=== PATIENT | male | born 1935 | race Caucasian/White ===

== ENCOUNTER → 2016-08-07 | Outpatient (CLI) | payer OTHER ==
[~2016-08-07] MED LIST: ASPEC81 PO; AUG0.05O4 TOP; CEPH500C PO; CLC/300 PO; CLC100 PO; CLON-460 PO; CTPUNK PO; CZR25 PO; FINA5TAB PO; FLM4 PO; IBUP-103 PO; LEVO100T84 PO; MRLP17X PO; PB30 PO; PRT40 PO; RXC5 PO; SIMV10TA2 PO; SYN100 PO
[2016-08-07 13:41] LABS: BASO % 0.4 %; BASO ABS # 0.02 K/uL (0-0.2); COMPLETE YES; EOS % 1.4 %; HEMATOCRIT 40.3 % (42-52); IG% 0.2 %; LYMPH ABS # 1.49 K/uL (1.2-3.4); MEAN CELL VOLUME 96.4 fL (80-100); MEAN CORPUSCULAR HEMOGLOBIN 33.3 pg (25-34); MEAN CORPUSCULAR HGB CONC 34.5 g/dl (32-36); MEAN PLATELET VOLUME 11.5 fL (7.4-10.4); MONO % 8.3 %; NEUT % 62.7 %; PLATELET COUNT 123 K/uL (130-400); RED BLOOD COUNT 4.18 M/uL (4.7-6.1); WHITE BLOOD COUNT 5.52 K/uL (4.8-10.8)
[2016-08-07 13:42] LABS: ALT/SGPT 21 U/L (12-78); BLOOD UREA NITROGEN 20 mg/dl (7-18); BUN/CREATININE RATIO 18.4 (10-20); CARBON DIOXIDE 25 mmol/L (21-32); CHLORIDE 107 mmol/L (98-107); CHOLESTEROL 180 mg/dl (0-200); GLUCOSE 84 mg/dl (70-99); POTASSIUM 4.3 mmol/L (3.5-5.1); SODIUM 141 mmol/L (136-145)
[2016-08-07 13:53] LABS: ALKALINE PHOSPHATASE 100 U/L (45-117); AST/SGOT 18 U/L (15-37); CHOLESTEROL/HDL RATIO 3.5; HDL CHOLESTEROL 52 mg/dl; LDL CHOLESTEROL CALCULATED 71 mg/dl; TRIGLYCERIDES 283 mg/dl (0-150); VERY LOW DENSITY LIPOPROT CALC 57 mg/dl
== END | disposition home or self-care (01) ==
LOC: C.LABBC 11:29
PROVIDERS: ATTEND Family Medicine
DX: I10 Essential (primary) hypertension (principal); E03.9 Hypothyroidism, unspecified; D64.9 Anemia, unspecified; E78.5 Hyperlipidemia, unspecified

== ENCOUNTER 2016-10-19 10:25 | Emergency (ER) | payer OTHER ==
[~2016-10-19] VITALS: Ht 172.7 cm; Wt 130.4 kg
[~2016-10-19 10:25] MED LIST changes: -ASPEC81 PO; -AUG0.05O4 TOP; -CEPH500C PO; -CLC/300 PO; -CLC100 PO; -CLON-460 PO; -CZR25 PO; -FINA5TAB PO; -IBUP-103 PO; -MRLP17X PO; -PB30 PO; -PRT40 PO; -RXC5 PO; -SIMV10TA2 PO; -SYN100 PO
[2016-10-19 10:31] VITALS: TEMP 36.3; Ht 172.7 cm; Wt 130.4 kg
[2016-10-19 11:44] LABS: BASO % 0.2 %; BASO ABS # 0.01 K/uL (0-0.2); COMPLETE YES; EOS % 1.2 %; HEMATOCRIT 39.4 % (42-52); IG% 0.2 %; LYMPH % 23.4 %; LYMPH ABS # 1.21 K/uL (1.2-3.4); MEAN CELL VOLUME 97.3 fL (80-100); MEAN CORPUSCULAR HEMOGLOBIN 33.8 pg (25-34); MEAN CORPUSCULAR HGB CONC 34.8 g/dl (32-36); MEAN PLATELET VOLUME 10.9 fL (7.4-10.4); MONO % 8.1 %; NEUT % 66.9 %; PLATELET COUNT 129 K/uL (130-400); RED BLOOD COUNT 4.05 M/uL (4.7-6.1); WHITE BLOOD COUNT 5.18 K/uL (4.8-10.8)
[2016-10-19] MEDS ORDERED: CEFTRIAXONE SOD INJ 1 GM ADDVIAL IV STA (11:49)
[2016-10-19 12:01] LABS: BUN/CREATININE RATIO 24.5 (10-20); CALCIUM 8.7 mg/dl (8.5-10.1); CREATININE 0.95 mg/dl (0.60-1.40); POTASSIUM 4.3 mmol/L (3.5-5.1)
[2016-10-19 12:47] VITALS: BP 153/70; PULSE 59; O2SAT 99
[2016-10-19] MEDS ORDERED: CEPH500C PO (12:53)
--- NOTE | 2016-10-19 17:36 | EMERGENCY ROOM VISIT NOTE ---
History Report prepared by Herbie: Mary Thomas Under the Supervision of: Dr. Charles Garcia M.D. First contact with patient: 10:58 Chief Complaint: LEG PAIN,LEG INJURY Stated Complaint: RIGHT LEG IS RED/PAINFUL History of Present Illness The patient is an 80 year old male who presents to the Emergency Room with complaints of worsening right lower extremity pain and erythema that started yesterday. The patient has a history of small, nonhealing, ulcerative lesions on the right rodriguez for the past year, as well as 3-4 smaller and similar lesions on medial aspect of right rodriguez for the past month. He denies drainage from these lesions. He does put hand cream on these lesions daily. Patient denies recent injury or trauma to legs. He states that he has had swelling of his legs bilaterally for the past 5 years due to a bilateral knee replacement. He has a history of cellulitis and pancytopenia. He also adds that he had a "flesh eating bacteria" on left lower leg a couple years ago. Patient is a former smoker. He denies alcohol or drug use. Pt denies LOC, headache, fevers, chills, diaphoresis, visual changes, neck pain , chest pain, breathing difficulties, nausea, vomiting, abdominal pain, back pain, melena, hematochezia, urinary symptoms, numbness, weakness, or other complaints. Source of History: patient Onset: Yesterday Position: leg (right) Timing: worsening Modifying Factors (Worsening): other (None) Associated Symptoms: No LOC, No abdominal pain, No back pain, No chest pain , No chills, No diaphoresis, No fevers, No headache, No hematochezia, No melena , No nausea, No numbness, No urinary symptoms, No vomiting, No weakness Review of Systems See HPI for pertinent positives and negatives. A total of ten systems were reviewed and were otherwise negative. Past Medical & Surgical Medical Problems: (1) Cellulitis (2) High cholesterol (3) Hypertension (4) O (5) Pancytopenia Family History FH: hypertension FH: seizures Social History Smoking Status: Former Smoker Alcohol Use: none Drug Use: none Marital Status: Housing Status: lives with significant other Occupation Status: retired Current/Historical Medications Scheduled Betamethasone Dip Aug 0.05% (Diprolene 0.05%), 1 APPLN TOP PRN Cephalexin Monohydrate (Keflex), 500 MG PO QID Clonidine HCl (Clonidine HCl), 0.3 MG PO TID Finasteride (Proscar), 5 MG PO DHS Levothyroxine Sodium (Synthroid), 100 MCG PO QPM Losartan Potassium (Losartan Potassium), 25 MG PO DAILY Phenobarbital (Phenobarbital), 129.6 MG PO HS Simvastatin (Zocor), 10 MG PO QPM Tamsulosin HCl (Tamsulosin HCl), 0.4 MG PO HS Scheduled PRN Ibuprofen Tab (Advil), 400 MG PO Q8 PRN Allergies Coded Allergies: No Known Allergies (Verified , 10/19/16) Physical Exam Vital Signs Date Time Temp Pulse Resp B/P Pulse Ox O2 Delivery O2 Flow Rate FiO2 10/19/16 12:47 59 18 153/70 99 Room Air 10/19/16 12:05 50 18 144/67 98 Room Air 10/19/16 10:31 36.3 73 18 164/100 97 Room Air Physical Exam GENERAL: Awake, alert, well-appearing, in no distress HENT: Normocephalic, atraumatic. Oropharynx unremarkable. EYES: Normal conjunctiva. Sclera non-icteric. NECK: Supple. No nuchal rigidity. FROM. No JVD. RESPIRATORY: Clear to auscultation. CARDIAC: Regular rate, normal rhythm. Extremities warm and well perfused. Pulses equal. ABDOMEN: Soft, non-distended. No tenderness to palpation. No rebound or guarding. No masses. MUSCULOSKELETAL: Chest examination reveals no tenderness. No joint edema. LOWER EXTREMITIES: Small ulcerations and scab wounds with surrounding erythema, warmth, and tenderness to back of right lower extremity. Chronic venous discoloration noted. 1+ edema bilaterally. NEURO: Normal sensorium. No sensory or motor deficits noted. SKIN: No rash or jaundice noted. Medical Decision & Procedures Laboratory Results 10/19/16 11:19 Red Blood Count 4.05, Mean Corpuscular Volume 97.3, Mean Corpuscular Hemoglobin 33.8, Mean Corpuscular Hemoglobin Concent 34.8, Mean Platelet Volume 10.9, Neutrophils (%) (Auto) 66.9, Lymphocytes (%) (Auto) 23.4, Monocytes (%) (Auto) 8.1, Eosinophils (%) (Auto) 1.2, Basophils (%) (Auto) 0.2, Neutrophils # (Auto) 3.47, Lymphocytes # (Auto) 1.21, Monocytes # (Auto) 0.42, Eosinophils # (Auto) 0.06, Basophils # (Auto) 0.01 10/19/16 11:19 Test 10/19/16 11:19 10/19/16 11:34 White Blood Count 5.18 K/uL (4.8-10.8) Red Blood Count 4.05 M/uL (4.7-6.1) Hemoglobin 13.7 g/dL (14.0-18.0) Hematocrit 39.4 % (42-52) Mean Corpuscular Volume 97.3 fL (80-100) Mean Corpuscular Hemoglobin 33.8 pg (25-34) Mean Corpuscular Hemoglobin Concent 34.8 g/dl (32-36) Platelet Count 129 K/uL (130-400) Mean Platelet Volume 10.9 fL (7.4-10.4) Neutrophils (%) (Auto) 66.9 % Lymphocytes (%) (Auto) 23.4 % Monocytes (%) (Auto) 8.1 % Eosinophils (%) (Auto) 1.2 % Basophils (%) (Auto) 0.2 % Neutrophils # (Auto) 3.47 K/uL (1.4-6.5) Lymphocytes # (Auto) 1.21 K/uL (1.2-3.4) Monocytes # (Auto) 0.42 K/uL (0.11-0.59) Eosinophils # (Auto) 0.06 K/uL (0-0.5) Basophils # (Auto) 0.01 K/uL (0-0.2) RDW Standard Deviation 51.0 fL (36.4-46.3) RDW Coefficient of Variation 14.2 % (11.5-14.5) Immature Granulocyte % (Auto) 0.2 % Immature Granulocyte # (Auto) 0.01 K/uL (0.00-0.02) Anion Gap 3.0 mmol/L (3-11) Est Creatinine Clear Calc Drug Dose 80.4 ml/min Estimated GFR () 86.7 Estimated GFR (Non- 74.8 BUN/Creatinine Ratio 24.5 (10-20) Calcium Level 8.7 mg/dl (8.5-10.1) Total Bilirubin 0.4 mg/dl (0.2-1) Direct Bilirubin 0.1 mg/dl (0-0.2) Aspartate Amino Transf (AST/SGOT) 15 U/L (15-37) Alanine Aminotransferase (ALT/SGPT) 22 U/L (12-78) Alkaline Phosphatase 106 U/L (45-117) Total Protein 7.2 gm/dl (6.4-8.2) Albumin 3.6 gm/dl (3.4-5.0) Bedside Lactic Acid Venous 1.13 mmol/L (0.90-1.70) Laboratory results reviewed by me Medications Administered Medications (Trade) Dose Ordered Sig/Demetria Route Start Time Stop Time Status Last Admin Dose Admin Ceftriaxone Sodium (Rocephin Inj) 1 gm NOW STAT IV 10/19/16 11:49 10/19/16 11:54 DC 10/19/16 12:01 1 GM ED Course 1142: The patient was evaluated in room A10. A complete history and physical exam was performed. 1149: Ordered Rocephin Injection 1 gm IV. 1250: Upon reevaluation, the patient is feeling great. Discussed results and discharge instructions: He verbalized understanding and agreement. The patient is ready for discharge. Medical Decision Prior records reviewed and summarized as above. The patient has a previous diagnosis of cellulitis. No necrotizing fasciitis diagnosis during the encounter she mentioned. Triage Nursing notes reviewed and agree them. Additional history obtained from the family. The patient's history was concerning for swelling and redness of the skin. Differential diagnosis: Etiologies such as cellulitis, DVT, necrotizing fasciitis, abscess, MRSA infection, dermatitis, drug eruption, as well as others were entertained.. Physical examination: The physical examination was consistent with cellulitis. No crepitus. No fluctuance. ER treatment provided: IV Rocephin On reassessment the patient felt well. Diagnostics interpreted by me: The labs revealed an unremarkable CBC and chemistry panel. Lactate negative. Imaging studies: Deferred This appears to be isolated cellulitis. The patient will be treated with Rocephin and Keflex. He has done well with this in the past. I did discuss a referral to the wound center as she has several small areas that need to be treated.I gave my usual and customary discussion regarding this issue. By the evaluation outlined above emergent etiologies such as abscess, necrotizing fasciitis, DVT, as well as others were deemed relatively unlikely. The patient and family were informed about the findings as listed above. All questions were answered and they were pleased with the treatment. Return instructions were outlined and the patient was discharged in stable condition. Outpatient prescription management: Keflex The chart was completed utilizing [employer] Speech voice recognition software. Grammatical errors, random word insertions, pronoun errors, and incomplete sentences are an occasional consequence of this system due to software limitations, ambient noise, and hardware issues. Any formal questions or concerns about the content, text, or information contained within the body of this dictation should be directly addressed to the physician for clarification. Impression Primary Impression: Cellulitis of right leg Scribe Attestation The scribe's documentation has been prepared under my direction and personally reviewed by me in its entirety. I confirm that the note above accurately reflects all work, treatment, procedures, and medical decision making performed by me. Departure Information Dispostion Home / Self-Care Prescriptions Cephalexin Monohydrate (Keflex) 500 Mg Cap 500 MG PO QID, #40 CAP Prov: Charles Garcia MD 10/19/16 Referrals Janes Aguirre D.O.Int.Med. (PCP) Forms HOME CARE DOCUMENTATION FORM, IMPORTANT VISIT INFORMATION Patient Instructions My [facility] Additional Instructions CELLULITIS INSTRUCTIONS: Cephalexin(Keflex) 500mg: Take one pill four times daily for 10 days for your skin infection. All antibiotics can cause diarrhea. If this occurs and you feel worse or it does not resolve in 1-2 days follow up with your doctor or return to the Emergency Department as this could be signs of serious underlying problems. Any medication can cause an allergic reaction, stop the pills immediately and return to the ER for rash, hives, breathing difficulties, or swelling. Acetaminophen(Tylenol) may be used for fever or pain. Use 1000mg every six hours as needed. Avoid using more than 4000mg in a 24 hour period. Warm compresses to the affected area 4 times daily for 15-20 minutes. Rest and drink plenty of fluids. Continue current medications. Return to the ER for severe pain, persistent fevers, spreading redness, or any worsening of your condition. Follow up with your primary physician within 2-3 days for a recheck of the current condition. Call the [facility] for Wound Care at [phone] on Friday. Tell them you were in the ER and we want you to have your wound evaluated.
[2016-10-25] MEDS ORDERED: CLC/300 PO (13:03)
[2017-02-18] MEDS ORDERED: IBUP-103 PO (10:21)
[2017-02-18] MEDS ORDERED: CLON-460 PO (11:39)
[2017-06-01] MEDS ORDERED: PB30 PO (09:38)
[2017-06-01] MEDS ORDERED: FINA5TAB PO (10:52)
[2017-06-01] MEDS ORDERED: SIMV10TA2 PO (10:52)
[2017-06-01] MEDS ORDERED: FLM4 PO (11:06)
[2017-06-01] MEDS ORDERED: SYN100 PO (11:06)
== END 2016-10-19 13:17 | disposition home or self-care (01) ==
LOC: C.EDB 10:27 → C.EDA 13:17
DX: L03.115 Cellulitis of right lower limb (principal); E78.00 Pure hypercholesterolemia, unspecified; I10 Essential (primary) hypertension; D61.818 Other pancytopenia; Z79.899 Other long term (current) drug therapy; Z87.891 Personal history of nicotine dependence; Z82.0 Family history of epilepsy and other diseases of the nervous system; Z82.49 Family history of ischemic heart disease and other diseases of the circulatory system

== ENCOUNTER → 2016-12-25 | Outpatient (CLI) | payer OTHER ==
[~2016-12-25] MED LIST changes: +ASPEC81 PO; +AUG0.05O4 TOP; +CLC100 PO; +CLON-460 PO; +CLON0.3T PO; -CTPUNK PO; +CZR25 PO; +FINA5TAB PO; +FLUO-245 TOP; +IBUP-103 PO; -LEVO100T84 PO; +MRLP17X PO; +PB30 PO; +PRT40 PO; +RXC5 PO; +SIMV10TA2 PO; +SYN100 PO
== END | disposition home or self-care (01) ==
LOC: C.PATHSPEC 13:17
PROVIDERS: ATTEND Dermatology
DX: L81.4 Other melanin hyperpigmentation (principal); L57.0 Actinic keratosis

== ENCOUNTER 2017-02-18 13:42 | Inpatient (IN) | payer OTHER ==
[~2017-02-18] VITALS: Ht 172.7 cm; Wt 131.6 kg
[~2017-02-18 13:42] MED LIST changes: -ASPEC81 PO; -AUG0.05O4 TOP; -CLC100 PO; -CLON0.3T PO; -CZR25 PO; -FLUO-245 TOP; -MRLP17X PO; -PRT40 PO; -RXC5 PO
[2017-02-18] MEDS ORDERED: KETOROLAC TROMETHAMINE 60 MG/2 ML VIAL IM STA (14:20)
--- NOTE | 2017-02-18 14:26 | EMERGENCY ROOM VISIT NOTE ---
ED Visit Note First contact with patient: 13:53 CHIEF COMPLAINT: Bilateral knee pain HISTORY OF PRESENT ILLNESS: This 81-year-old male patient presents to the emergency department ambulatory, with his , after sustaining an injury to the bilateral knees to her tripping and falling. The patient states he was walking out of the building, when his right toe got caught on what he believes to be a back shoe cutter brush, and he fell forward, landing on his right knee. The patient states he didn't become off balance, and is certain that the trip was the cause of his fall. The patient states he landed directly on his right knee, then his left knee quickly followed. He denies head injury, loss of consciousness, confusion, dizziness, tinnitus, or other associated head symptoms. The patient reports significant swelling, pain, and abrasions of his right knee, and more minimal swelling of his left knee. The patient does have history of bilateral knee replacements, and states he has been through 3 of them on each side. The patient denies any other injuries besides their knee. The patient does have swelling and bruising. There is pain with movement of the knee and weightbearing, worse on the right. They rate the pain as like a bee sting and 10/10 with movement and ambulation. The patient states they are able to walk on it, and did drive here, but this does significantly worsen the pain. No numbness or tingling. No ankle, foot or hip pain. REVIEW OF SYSTEMS: A 6 system review of systems was completed with positives and pertinent negatives listed in the HPI. ALLERGIES: None MEDICATIONS: Simvastatin, Proscar, ibuprofen, phenobarbital, Diprolene, losartan , levothyroxine, tamsulosin, clonidine PMH: Anxiety, hypertension, hyperlipidemia, BPH, hypothyroidism SOCIAL HISTORY: Patient lives locally with family. He denies drug, alcohol, tobacco use. PHYSICAL EXAM: Vital Signs: Reviewed Nurse's notes, vital signs stable. GENERAL : This is an 81-year-old male, no acute distress, but appears in pain, well- developed, well-nourished. MENTAL STATUS: Alert, oriented to person place and time, and cooperative. MUSCULOSKELETAL: The right and left knees are swollen, the right more than left. There is ecchymosis bilaterally. There is joint effusion present bilaterally. The patient is tender with palpation on the anterior aspect of both knees. There is no joint line tenderness. The patella does subluxate. Range of motion is full, limited on the right due to pain. Strength of the quads and hamstrings is 5/5. Michel's is negative. Everett's and Anterior Drawer tests are negative. There is no discomfort or laxity with varus and valgus stressing. The foot and toes are warm and well-perfused. Dorsalis pedis pulse 2+. Sensation to pain and light touch is intact. Capillary refill less than 2 seconds. RADIOLOGY: X-Ray Right Knee: DISCUSSION: There are postsurgical changes of a total right knee arthroplasty. There is a large joint effusion. There is mild cortical irregularity of the medial femoral condyle. This may represent a subtle fracture. IMPRESSION: 1. Large joint effusion 2. Equivocal periprosthetic fracture involving the medial femoral condyle X-Ray Left Knee: FINDINGS: Anterior soft tissue swelling. There is an acute slightly distracted fracture within the inferior patella. Moderate joint effusion. Long stem left total knee arthroplasty. The hardware appears intact. Mild periprosthetic lucency surrounding the neck of the femoral component which measures up to 2 mm and at the posterior aspect of the tibial component also measuring up to 2 mm. IMPRESSION: 1. Slightly distracted acute fracture at the inferior patella. 2. Anterior soft tissue swelling and a moderate joint effusion. 3. Mild periprosthetic lucency of the femoral and tibial components has described above. This suggests developing loosening. EMERGENCY DEPARTMENT COURSE: I examined the patient. 60 mg Toradol IM was given to the patient, with mild improvement in pain. X-rays of the bilateral knees were reviewed by myself and read by radiology and reveal findings as noted above. I discussed the case with Dr. Guthrie, from orthopedics who does recommend admission at this time. Dr. Guthrie advised that COREY Grossman would be down to do the admission. An IV was inserted and labs were drawn. The patient was admitted as an inpatient. DIFFERENTIAL DIAGNOSIS: Fracture, contusion, strain, superficial abrasions, and others DIAGNOSIS: Medial femoral condyle fracture on the right, inferior patella fracture on the left Problem List Medical Problems: (1) Cellulitis Status: Resolved (2) High cholesterol Status: Chronic (3) Hypertension Status: Chronic (4) Pancytopenia Status: Chronic Current/Historical Medications Scheduled Betamethasone Dip Aug 0.05% (Diprolene 0.05%), 1 APPLN TOP PRN Clonidine HCl (Clonidine HCl), 0.3 MG PO TID Finasteride (Proscar), 5 MG PO DHS Levothyroxine Sodium (Synthroid), 100 MCG PO QPM Losartan Potassium (Losartan Potassium), 25 MG PO DAILY Phenobarbital (Phenobarbital), 129.6 MG PO HS Simvastatin (Zocor), 10 MG PO QPM Tamsulosin HCl (Tamsulosin HCl), 0.4 MG PO HS Scheduled PRN Ibuprofen Tab (Advil), 400 MG PO Q8 PRN for Pain Allergies Coded Allergies: No Known Allergies (Verified , 10/19/16) Vital Signs Date Time Temp Pulse Resp B/P (MAP) Pulse Ox O2 Delivery O2 Flow Rate FiO2 02/18/17 16:05 78 18 202/95 97 Room Air 02/18/17 13:49 36.5 74 18 200/102 97 Room Air Laboratory Results 02/18/17 15:50 Test 02/18/17 15:50 Red Blood Count 4.04 M/uL (4.7-6.1) Mean Corpuscular Volume 95.5 fL (80-100) Mean Corpuscular Hemoglobin 33.9 pg (25-34) Mean Corpuscular Hemoglobin Concent 35.5 g/dl (32-36) RDW Standard Deviation 47.6 fL (36.4-46.3) RDW Coefficient of Variation 13.7 % (11.5-14.5) Mean Platelet Volume 11.6 fL (7.4-10.4) Medications Administered Medications (Trade) Dose Ordered Sig/Demetria Route Start Time Stop Time Status Last Admin Dose Admin Ketorolac Tromethamine (Toradol Inj) 60 mg NOW STAT IM 02/18/17 14:20 02/18/17 14:21 DC 02/18/17 14:50 60 MG Departure Information Impression Primary Impression: Fracture of medial condyle of femur Additional Impression: Patellar fracture Dispostion Admitted as an inpatient Condition GOOD Referrals No Doctor, Assigned (PCP) Patient Instructions [facility] Problem Qualifiers Primary Impression: Fracture of medial condyle of femur Encounter type: initial encounter Fracture type: closed Fracture alignment : nondisplaced Laterality: right Qualified Codes: S72.434A - Nondisplaced fracture of medial condyle of right femur, initial encounter for closed fracture Additional Impression: Patellar fracture Encounter type: initial encounter Fracture type: closed Fracture morphology : transverse Fracture alignment: displaced Laterality: left Qualified Codes: S82.032A - Displaced transverse fracture of left patella, initial encounter for closed fracture
[2017-02-18] MEDS ORDERED: AUG0.05O4 TOP (14:32)
--- NOTE | 2017-02-18 14:55 | DIAGNOSTIC IMAGING REPORT ---
RIGHT KNEE 3 VIEWS CLINICAL HISTORY: Right knee pain and swelling. Trauma. COMPARISON: None DISCUSSION: There are postsurgical changes of a total right knee arthroplasty. There is a large joint effusion. There is mild cortical irregularity of the medial femoral condyle. This may represent a subtle fracture. IMPRESSION: 1. Large joint effusion 2. Equivocal periprosthetic fracture involving the medial femoral condyle Electronically signed by: Hipolito Diaz M.D. 02/18/2017 2:53 PM Dictated Date/Time: 02/18/2017 2:51 PM
--- NOTE | 2017-02-18 14:57 | DIAGNOSTIC IMAGING REPORT ---
LEFT KNEE 3 VIEWS HISTORY: fall, left knee pain/swelling COMPARISON: Left knee 11/30/2010 FINDINGS: Anterior soft tissue swelling. There is an acute slightly distracted fracture within the inferior patella. Moderate joint effusion. Long stem left total knee arthroplasty. The hardware appears intact. Mild periprosthetic lucency surrounding the neck of the femoral component which measures up to 2 mm and at the posterior aspect of the tibial component also measuring up to 2 mm. IMPRESSION: 1. Slightly distracted acute fracture at the inferior patella. 2. Anterior soft tissue swelling and a moderate joint effusion. 3. Mild periprosthetic lucency of the femoral and tibial components has described above. This suggests developing loosening. Electronically signed by: Simon Stearns M.D. 02/18/2017 2:56 PM Dictated Date/Time: 02/18/2017 2:51 PM
[2017-02-18] MEDS ORDERED: CZR25 PO (16:31)
[2017-02-18] MEDS ORDERED: MoRPHine SULFATE 4 MG/ML 1 ML CARP\\VIAL IV PRN (17:00)
[2017-02-18] MEDS ORDERED: ONDANSETRON INJ 2 MG/ML 2 ML VIAL IV PRN (17:00)
[2017-02-18] MEDS ORDERED: MoRPHine SULFATE 2 MG/ML CARP IV PRN (17:00)
[2017-02-18] MEDS ORDERED: ALUMINUM/MAGNESIUM SUSP 30 ML UDC PO PRN (17:00)
[2017-02-18] MEDS ORDERED: KETOROLAC TROMETHAMINE 15 MG/ML VIAL IV. PRN (17:00)
[2017-02-18 17:22] LABS: HEMATOCRIT 38.6 % (42-52); MEAN CELL VOLUME 95.5 fL (80-100); MEAN CORPUSCULAR HEMOGLOBIN 33.9 pg (25-34); MEAN CORPUSCULAR HGB CONC 35.5 g/dl (32-36); MEAN PLATELET VOLUME 11.6 fL (7.4-10.4); PLATELET COUNT 115 K/uL (130-400); RED BLOOD COUNT 4.04 M/uL (4.7-6.1); WHITE BLOOD COUNT 7.09 K/uL (4.8-10.8)
[2017-02-18 17:38] LABS: BLOOD UREA NITROGEN 27 mg/dl (7-18); BUN/CREATININE RATIO 30.5 (10-20); CARBON DIOXIDE 28 mmol/L (21-32); CHLORIDE 107 mmol/L (98-107); CREATININE 0.87 mg/dl (0.60-1.40); GLUCOSE 85 mg/dl (70-99); SODIUM 139 mmol/L (136-145)
[2017-02-18 18:08] LABS: PARTIAL THROMBOPLASTIN RATIO 1.2; PROTHROMBIN TIME (PATIENT) 11.2 SECONDS (9.0-12.0)
--- NOTE | 2017-02-18 18:26 | EMERGENCY ROOM VISIT NOTE ---
ED Visit Note First contact with patient: 13:53 This Patient was discussed with the physician acute care assistant, Nina Zamudio PA-C. The pertinent historical and physical exam findings were confirmed. I agree with the studies ordered and with the interpretations of these studies. I agree with the disposition and care plan.
[2017-02-18 18:37] VITALS: BP_SYST 224; BP_SYST 233; BP_DIAS 112; BP_DIAS 113; PULSE 78; TEMP 36.7; O2SAT 96
[2017-02-18 19:01] VITALS: BP 214/104; PULSE 76
--- NOTE | 2017-02-18 19:17 | HISTORY & PHYSICAL EXAMINATION ---
DATE OF ADMISSION: 02/18/2017 REASON FOR ADMISSION: Bilateral knee pain. HISTORY OF PRESENT ILLNESS: The patient is an 81-year-old white male known to our practice who has had multiple revision surgeries on his knees in the past. He states that he was at an apartment that he was inspecting to make sure it was up the code before he rented it. He ended up stepping out and tripping over a brush that helps clean off shoes as you go through a door, lost his balance and he fell down on to his right knee than his left knee, almost simultaneously, worse on the right than the left. He had immediate pain in the right knee and it began to swell. He did have some pain in the left knee but was able to actually get up and ambulate on the left knee, more than the right knee and drove himself to the Emergency Room here. He did not lose consciousness. He had no shortness of breath, chest pain or lightheadedness prior to or after the fall and denies any other injuries after the fall. He came to the Emergency Room and was seen by the staff and was found that he had a minimally displaced periprosthetic distal femur fracture on the right knee and also a question of a left inferior pole patellar fracture versus fracture of an osteophyte or heterotopic bone. PAST MEDICAL HISTORY: Hypertension, hypercholesterolemia, and benign prostatic hypertrophy. Denies history of diabetes mellitus, tuberculosis, hepatitis, COPD, CAD, DVT. PAST SURGICAL HISTORY: Multiple knee replacement surgeries on his both knees totalling 3 on each side. SOCIAL HISTORY: The patient does not use alcohol or tobacco. He is and lives with his . FAMILY HISTORY: History of seizures and hypertension. MEDICATIONS: Betamethasone dip 1 application topically p.r.n., clonidine 0.3 mg p.o. t.i.d., finasteride 5 mg p.o. at bedtime, ibuprofen 400 mg p.o. q. 8 hours p.r.n., levothyroxine 100 mcg p.o. q.p.m., losartan potassium 25 mg p.o. daily, phenobarbital 129.6 mg p.o. at bedtime, simvastatin 10 mg p.o. q.p.m., and tamsulosin 0.4 mg at bedtime. ALLERGIES: NKDA. REVIEW OF SYSTEMS: No history of recent fevers, chills, night sweats, unexplained weight loss or weight gain. No flu or cold-like symptoms. No increased cough or sputum production. No chest pain, chest pressure, irregular heartbeat. No abdominal pain. No unusual nausea, vomiting, diarrhea or constipation. No recent hematuria, pyuria, dysuria or renal calculi. The patient states that he is able to sleep through the night without having to urinate and denies frequency or urgency. No history of TIA or CVA. PHYSICAL EXAMINATION: GENERAL: The patient is an 81-year-old white male, obese, who is in no acute distress, pleasant and cooperative. SKIN: Warm and dry. Turgor is good. HEENT: Head is normocephalic and atraumatic. There is no scleral icterus or injection. Nasal airway is patent. Oral mucosa is pink and moist. NECK: Supple. HEART: Regular rate and rhythm without murmurs, gallops or splits. LUNGS: CTA without rales, rhonchi or wheezes. ABDOMEN: Soft, obese and nontender. He has a small umbilical hernia noted. Bowel sounds are present x4. GENITALIA AND RECTAL: Not performed at this time. EXTREMITIES: On examination of the patient's bilateral lower extremities - his right knee has moderate abrasions over the right knee and his right knee has a moderate effusion at this time. He is tender on palpation over the lateral aspect of his knee and I can appreciate a small defect could be in the lateral retinacular area near the superior lateral pole of the patella. This is mildly tender on palpation. I cannot appreciate no other defects at this time. He is unable to do a straight leg raise with the right lower extremity. Bending it causes him moderate pain and he has limited range of motion, because of his effusion. He has no pain down below the knee to the ankle and feet. No pain in the right hip. Right hip range of motion is within normal limits and right ankle is within normal limits without discomfort. He does have noted edema of both legs which he has had for years off and on and is nontender. Left knee at this time only has a mild abrasion noted. I can appreciate no defects in the patellar tendon or in the quadriceps mechanism. He is nontender in medial and lateral of the knee and patient actively flexes the knee to approximately 120 degrees on his own without any apparent discomfort. He is able to fully extend the knee and can do a full straight leg raise on his own and has good strength. He has no pain anywhere else in the left lower extremity, although he states that over the last few years, he has been having sharp pains in his left hip off and on but nothing frequent. No pain in the left hip at this point in time. No pain in the left ankle and toes with good range of motion of these. Upper extremities are essentially unaffected and he has good range of motion of both upper extremities. No gross motor or sensory deficits noted other than decreased range of motion of the right knee because of effusion and fracture. Distal pulses are equal bilaterally. DIAGNOSES: Distal medial condylar periprosthetic femur fracture, right with likely quadriceps mechanism disruption and possible left inferior pole patellar fracture versus heterotopic ossification and/or fracture of osteophyte of the left knee. PLAN: The patient will be admitted for pain control and further inspection of his right knee for possible defects in the quadriceps mechanism depending on what it is decided, will try to get him up on with physical therapy tomorrow with 50% weightbearing on the right lower extremity with immobilizer and weightbearing as tolerated on the left knee at this time. If he does have a retinacular disruption, he will need repaired which will likely be done by Dr. Guthrie as soon as possible. RAFIA
[2017-02-18] MEDS: CLONIDINE HCL 0.3 MG TAB PO SCH (19:29)
[2017-02-18 19:30] VITALS: Ht 172.7 cm; Wt 131.6 kg
[2017-02-18] MEDS ORDERED: NURSING VERBAL MED ORDER ONE (19:30)
[2017-02-18] MEDS ORDERED: LOSARTAN POTASSIUM 25 MG TAB PO ONE (20:00)
[2017-02-18] MEDS ORDERED: HydrALAZINE HCL 20 MG/ML VIAL IV. PRN (20:00)
--- NOTE | 2017-02-18 20:11 | History and Physical ---
History & Physical Date & Time of Service: Feb 18, 2017 at 19:53 Chief Complaint: Left Inferior Pole Patellar Fracture, Primary Care Physician: No Doctor, Assigned History of Present Illness Source: patient 81 y/o M morbidly obese, CAD, HTN, HPL, hypothyroid, seizures, BPH, DJD with multiple orthopedic surgeries including knee replacements. Pt presented with a distal R femoral fracture. He is currently being evaluated for surgery vs conservative ,management. The medical staff was asked to evaluate this pt due to uncontrolled HTN. Past Medical/Surgical History Medical Problems: (1) Cellulitis Status: Resolved (2) High cholesterol Status: Chronic (3) Hypertension Status: Chronic (4) Thrombocytopenia 5) CAD 6) COPD 7) Morbid obesity 8) TB 9) Seizures Family History FH: hypertension FH: seizures Social History Smoking Status: Never Smoker Drug Use: none Marital Status: Housing status: lives with family Occupational Status: employed Immunizations History of Influenza Vaccine: No History of Tetanus Vaccine?: utd Tetanus Immunization Date: Jul 13, 2010 History of Pneumococcal: Yes History of Hepatitis B Vaccine: No Multi-Drug Resistant Organisms History of MDRO: No Allergies Coded Allergies: No Known Allergies (Verified , 10/19/16) Home Medications Scheduled Betamethasone Dip Aug 0.05% (Diprolene 0.05%), 1 APPLN TOP PRN Clonidine HCl (Clonidine HCl), 0.3 MG PO TID Finasteride (Proscar), 5 MG PO DHS Levothyroxine Sodium (Synthroid), 100 MCG PO QPM Losartan Potassium (Losartan Potassium), 25 MG PO DAILY Phenobarbital (Phenobarbital), 129.6 MG PO HS Simvastatin (Zocor), 10 MG PO QPM Tamsulosin HCl (Tamsulosin HCl), 0.4 MG PO HS Scheduled PRN Ibuprofen Tab (Advil), 400 MG PO Q8 PRN for Pain Review of Systems Constitutional: No fever, No chills, No sweats Eyes: No worsening of vision ENT: No hearing loss, No unusual epistaxis, No nasal symptoms Respiratory: No cough, No sputum, No wheezing Cardiovascular: No chest pain, No orthopnea, No PND Abdomen: No pain, No vomiting Genitourinary - Male: No hematuria, No dysuria Neurologic: No memory loss, No paralysis, No weakness Psychiatric: No depression symptoms Endocrine: No fatigue Hematologic / Lymphatic: No abnormal bleeding/bruising Integumentary: No rash Allergic / Immunologic: No environmental allergies Physical Exam Vital Signs Date Time Temp Pulse Resp B/P (MAP) Pulse Ox O2 Delivery O2 Flow Rate FiO2 02/18/17 19:01 76 214/104 (140) 02/18/17 18:37 36.7 78 18 233/113 (153) 96 Room Air 224/112 (149) 02/18/17 18:18 73 18 190/97 98 Room Air 02/18/17 16:05 78 18 202/95 97 Room Air 02/18/17 13:49 36.5 74 18 200/102 97 Room Air General Appearance: WD/WN, no apparent distress, + pertinent finding (Obese elderly male - no distress) Head: normocephalic, atraumatic Eyes: normal inspection, EOMI ENT: normal ENT inspection, pharynx normal Neck: supple, no adenopathy, no JVD Respiratory/Chest: chest non-tender, lungs clear, normal breath sounds, no respiratory distress, no accessory muscle use Cardiovascular: regular rate, rhythm Abdomen/GI: normal bowel sounds, non tender, soft Back: normal inspection, no CVA tenderness Extremities/Musculoskelatal: + pertinent finding (The L leg is splinted at the knee - pulses are present b/l - pulses are + b/l) Neurologic/Psych: mustanger II-XII nml as tested, no motor/sensory deficits, alert, normal mood/affect, normal reflexes, oriented x 3 Skin: normal color, warm/dry, no rash Diagnostics Laboratory Results Results Past 24 Hours Test 02/18/17 15:50 02/18/17 17:45 Range/Units White Blood Count 7.09 4.8-10.8 K/uL Red Blood Count 4.04 4.7-6.1 M/uL Hemoglobin 13.7 14.0-18.0 g/dL Hematocrit 38.6 42-52 % Mean Corpuscular Volume 95.5 80-100 fL Mean Corpuscular Hemoglobin 33.9 25-34 pg Mean Corpuscular Hemoglobin Concent 35.5 32-36 g/dl RDW Standard Deviation 47.6 36.4-46.3 fL RDW Coefficient of Variation 13.7 11.5-14.5 % Platelet Count 115 130-400 K/uL Mean Platelet Volume 11.6 7.4-10.4 fL Sodium Level 139 136-145 mmol/L Potassium Level 4.4 3.5-5.1 mmol/L Chloride Level 107 98-107 mmol/L Carbon Dioxide Level 28 21-32 mmol/L Anion Gap 4.0 3-11 mmol/L Blood Urea Nitrogen 27 7-18 mg/dl Creatinine 0.87 0.60-1.40 mg/dl Est Creatinine Clear Calc Drug Dose 86.7 ml/min Estimated GFR () 93.2 Estimated GFR (Non- 80.4 BUN/Creatinine Ratio 30.5 10-20 Random Glucose 85 70-99 mg/dl Calcium Level 9.0 8.5-10.1 mg/dl Prothrombin Time 11.2 9.0-12.0 SECONDS Prothromb Time International Ratio 1.0 0.9-1.1 Activated Partial Thromboplast Time 30.4 21.0-31.0 SECONDS Partial Thromboplastin Ratio 1.2 Diagnostic Radiology XR - knee 1. Large joint effusion 2. Equivocal periprosthetic fracture involving the medial femoral condyle Impression Assessment and Plan 81 y/o M morbidly obese, CAD, HTN, HPL, hypothyroid, seizures, BPH, DJD with multiple orthopedic surgeries including knee replacements. Pt presented with a distal R femoral fracture. He is currently being evaluated for surgery vs conservative ,management. The medical staff was asked to evaluate this pt due to uncontrolled HTN. 1) HTN - Pt did not receive his meds today due to admission - his BP was > 200 on the med floor. We have initiated his meds including Clonidine and Losartan - we will also place him on PRN Hydralazine. He may need transfer to telem if these are ineffective. He does not appear to have any related symptoms. 2) HPL - cont statin therapy 3) BPH - cont Flomax 4) CAD - per records - no related complaints - he also does not take any related meds aside form a Statin 5) Hypothyroid - cont Synthroid 6) Seizures - cont Phenobarb 7) Distal fem fx - Pre-op - no mention of imminent surgery however the pt per his records has several risk factors and will need sourcing of outpatient records for thorough assessment as he is sedentary. We have requested a routine EKG. Total time for this consult inc review of labs, meds, records - 33 min Please consider the above a consult Level of Care Med/Surg Resuscitation Status FULL RESUSCITATION VTE Prophylaxis VTE Risk Assessment Done? Y/N: Yes Risk Level: Moderate
[2017-02-18 20:45] VITALS: BP 161/83
[2017-02-18] MEDS: D5W AND 1/2NSS 1,000 ML IV SCH (20:48)
[2017-02-18] MEDS: SIMVASTATIN 10 MG TAB PO SCH (20:54)
[2017-02-18] MEDS: FINASTERIDE 5 MG TAB PO SCH (20:54)
[2017-02-18] MEDS: TAMSULOSIN HCL 0.4 MG CAP PO SCH (20:54)
[2017-02-18] MEDS: LEVOTHYROXINE 100 MCG TAB PO SCH (20:55)
[2017-02-18] MEDS: PHENOBARBITAL 32.4 MG TAB PO SCH (21:00)
[2017-02-18 22:13] LABS: URINE APPEARANCE CLEAR (CLEAR); URINE BILIRUBIN NEG (NEG); URINE COLOR YELLOW; URINE NITRITE NEG (NEG); URINE SPECIFIC GRAVITY 1.027 (1.000-1.030); UROBILINOGEN NEG (NEG)
[2017-02-18 22:16] LABS: MANUAL MICROSCOPIC REQUIRED? NO; REVIEW REQ? NO
[2017-02-18 22:55] VITALS: BP 141/78; PULSE 59; TEMP 36.7; O2SAT 97
[2017-02-19] MEDS: D5W AND 1/2NSS 1,000 ML IV SCH ×2 (05:38→19:14)
[2017-02-19] MEDS ORDERED: CEFAZOLIN IV 3,000 MG in DEXTROSE 5% 50ML 50 ML IV SCH (06:00)
[2017-02-19 07:38] VITALS: BP 188/102; PULSE 80; TEMP 36.3; O2SAT 97
[2017-02-19 07:46] VITALS: O2SAT 97
[2017-02-19] MEDS: CLONIDINE HCL 0.3 MG TAB PO SCH ×3 (08:34→20:54)
[2017-02-19] MEDS: PANTOprazole SOD 40 MG TAB PO SCH (08:34)
[2017-02-19] MEDS: LOSARTAN POTASSIUM 25 MG TAB PO SCH (08:34)
[2017-02-19 11:30] VITALS: BP 144/76; PULSE 70; TEMP 36.5; O2SAT 93
[2017-02-19] MEDS: OXYCODONE HCL IR 5 MG TAB (IMMEDIATE RELEASE) PO PRN ×2 (13:13→19:14)
[2017-02-19 15:10] VITALS: BP 172/81; PULSE 65; TEMP 36.4; O2SAT 97
--- NOTE | 2017-02-19 15:54 | Progress Note ---
Subjective Date of Service: Feb 19, 2017. Subjective Pt evaluation today including: conversation w/ patient, conversation w/ family Pt states that he is having intense R LE pain with any movement, but not much at rest. Tolerating PO without issue. No chest pain or SOB. Pt denies fever, abd pain, n/v/c/d, LE pain. Pt states that he has not been as active since his fall, however prior to this he was very active outside doing mowing, weeding, other household work. He does not find himself in a situation with stairs frequently, but can walk a flight if needed. Problem List Medical Problems: (1) Cellulitis of right leg Status: Acute (2) Dependent edema Status: Acute (3) Fracture of medial condyle of femur Status: Acute (4) Hypertension Status: Acute (5) Patellar fracture Status: Acute Review of Systems All Other Systems: Reviewed and Negative Objective Vital Signs Date Time Temp Pulse Resp B/P (MAP) Pulse Ox O2 Delivery O2 Flow Rate FiO2 02/19/17 15:10 36.4 65 18 172/81 (111) 97 Room Air 02/19/17 11:30 36.5 70 19 144/76 (98) 93 Room Air 02/19/17 08:20 Room Air 02/19/17 07:46 97 Room Air 02/19/17 07:38 36.3 80 20 188/102 (130) 97 Room Air 02/18/17 23:35 CPAP 02/18/17 22:55 36.7 59 18 141/78 (99) 97 CPAP 02/18/17 20:45 161/83 (109) 02/18/17 20:30 Room Air 02/18/17 19:30 Room Air 02/18/17 19:01 76 214/104 (140) 02/18/17 18:37 36.7 78 18 233/113 (153) 96 Room Air 224/112 (149) 02/18/17 18:18 73 18 190/97 98 Room Air 02/18/17 16:05 78 18 202/95 97 Room Air Physical Exam General Appearance: no apparent distress, + obese Eyes: normal inspection, EOMI Respiratory/Chest: normal breath sounds, no respiratory distress Cardiovascular: regular rate, rhythm, no edema Abdomen: non tender, soft Extremities: non-tender, no pedal edema Neurologic/Psychiatric: alert, normal mood/affect Skin: normal color, warm/dry Laboratory Results Last 24 Hours Test 02/18/17 15:50 02/18/17 17:45 02/18/17 21:12 White Blood Count 7.09 K/uL Red Blood Count 4.04 M/uL Hemoglobin 13.7 g/dL Hematocrit 38.6 % Mean Corpuscular Volume 95.5 fL Mean Corpuscular Hemoglobin 33.9 pg Mean Corpuscular Hemoglobin Concent 35.5 g/dl RDW Standard Deviation 47.6 fL RDW Coefficient of Variation 13.7 % Platelet Count 115 K/uL Mean Platelet Volume 11.6 fL Sodium Level 139 mmol/L Potassium Level mmol/L 4.4 mmol/L Chloride Level 107 mmol/L Carbon Dioxide Level 28 mmol/L Anion Gap 4.0 mmol/L Blood Urea Nitrogen 27 mg/dl Creatinine 0.87 mg/dl Est Creatinine Clear Calc Drug Dose 86.7 ml/min Estimated GFR () 93.2 Estimated GFR (Non- 80.4 BUN/Creatinine Ratio 30.5 Random Glucose 85 mg/dl Calcium Level 9.0 mg/dl Prothrombin Time 11.2 SECONDS Prothromb Time International Ratio 1.0 Activated Partial Thromboplast Time 30.4 SECONDS Partial Thromboplastin Ratio 1.2 Urine Color YELLOW Urine Appearance CLEAR Urine pH 5.0 Urine Specific [place] 1.027 Urine Protein NEG Urine Glucose (UA) NEG Urine Ketones NEG Urine Occult Blood NEG Urine Nitrite NEG Urine Bilirubin NEG Urine Urobilinogen NEG Urine Leukocyte Esterase NEG Assessment and Plan 81 y/o M morbidly obese, CAD, HTN, HPL, hypothyroid, seizures, BPH, DJD with multiple orthopedic surgeries including knee replacements. Pt presented with a distal R femoral fracture. R LE pain: fracture as noted Planning for OR DVT proph and diet as per ortho HTN - Pt did not receive his meds day of admission and BP was > 200 on the med floor. Meds were restarted and also receiving PRN Hydralazine Ongoing monitoring Hyperlipidemia - cont statin therapy BPH - cont Flomax CAD - per records - no related complaints - he also does not take any related meds aside form a Statin Hypothyroid - cont Synthroid Seizures - cont Phenobarb Pt is a moderate risk for OR given his COPD, obesity, CAD, and seizure hx, however this surgery is not elective and pt is an acceptable risk given no EKG findings.
--- NOTE | 2017-02-19 16:34 | Anesthesiology Progress Note ---
Anesthesia Progress Note Date of Service Feb 19, 2017. Progress Notes The patient is an 81 y/o male scheduled for a R quadriceps tendon repair. His PMH includes COPD (not on meds), CAD, HTN (not well controlled), dyslipidemia, seizures (none since 1974), hypothyroidism, thrombocytopenia, and morbid obesity. Prior to his leg injury, he was relatively active and has no chest pain or SOB. His EKG shows sinus arrhythmia. Labs are significant for platelet count of 115 and BUN 27. On exam he has a thick mccian and neck. He has good ROM and is a MP 2. He is also edentulous. Lungs are clear to auscultation. His heart has occasional skipped beats on auscultation. Carotids were negative for bruits. The patient is an ASA 3. The patient was consented for both spinal and general anesthesia along with possible arterial line placement. The proposed anesthesia will be determined by the anesthesiologist on the day of surgery. The patient was counseled to remain NPO after midnight except for sips of water with pills.
--- NOTE | 2017-02-19 19:38 | Orthopedic Progress Note ---
Orthopedic Progress Note Date of Service Feb 19, 2017. Subjective Reports: feeling well, pain controlled w PO medications, Denies: complaints Additional Notes: Pt lying in bed eating dinner. States that his pain is controlled and that his left knee is feeling much better. He feels the swelling has gone down a little bit. No new complaints. States he was up to the BR twice and felt he was doing well. Objective calves soft nontender, N/V intact, A&O x3, toes mobile Moderate effusion and likely hematoma superficially on the right knee. While holding the knee posteriorly, he is asked to try and hold his lower leg straight. He is able to do so for a limited time. No obvious defect in the quad mechanism. Small area over the superior lateral retinacular area that could be a possible tear. Pt unable to do a SLR on his own. 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 Possible OR tomorrow for exploration right knee; possible retinacular repair if needed; possible ORIF distal periprosthetic femur fx. Inhouse Planning Pain Management: Morphine, Oxy IR DVT Prophylaxis: TEDs, SCDs
--- NOTE | 2017-02-19 20:22 | DIAGNOSTIC IMAGING REPORT ---
RIGHT KNEE ULTRASOUND CLINICAL HISTORY: r/o extensor mechanism rupture right knee Right. Right knee pain. COMPARISON STUDY: Right knee 02/18/2017. FINDINGS: There is a complex large suprapatellar effusion. This results in deformity of the quadriceps tendon. However, the fibers appear to be grossly intact. The patellar ligament appears to be intact in image 24. There is also a small subcutaneous fluid collection within the prepatellar soft tissues. This measures 5.9 x 0.7 cm. IMPRESSION: 1. A large complex suprapatellar knee effusion. This raises the possibility of a lipohemarthrosis. 2. This results in deformity of the quadriceps tendon. However, the quadriceps tendon appears to be grossly intact. The patellar ligament also appears to be intact. 3. Small prepatellar bursitis. Electronically signed by: Simon Stearns M.D. 02/19/2017 8:21 PM Dictated Date/Time: 02/19/2017 8:15 PM
[2017-02-19] MEDS: PHENOBARBITAL 32.4 MG TAB PO SCH (20:54)
[2017-02-19] MEDS: TAMSULOSIN HCL 0.4 MG CAP PO SCH (20:55)
[2017-02-19] MEDS: SIMVASTATIN 10 MG TAB PO SCH (20:56)
[2017-02-19] MEDS: LEVOTHYROXINE 100 MCG TAB PO SCH (20:56)
[2017-02-19] MEDS: FINASTERIDE 5 MG TAB PO SCH (20:56)
[2017-02-19 23:15] VITALS: BP 179/97; PULSE 75; TEMP 36.8; O2SAT 95
[2017-02-20 03:15] VITALS: BP 145/80
[2017-02-20] MEDS ORDERED: NURSING VERBAL MED ORDER ONE (08:00)
--- NOTE | 2017-02-20 08:03 | ORTHOPEDIC PROGRESS NOTE ---
DATE: 02/20/2017 SUBJECTIVE: This morning, Dr. Guthrie and I reviewed the patient's ultrasound that was done last night and it showed that he did have a large complex suprapatellar knee effusion and also that his quadriceps tendon appeared to be grossly intact, patellar ligament was also intact and he had a small prepatellar bursitis. The patient also continues to have effusion from his fracture. It is felt that surgery at this time would be not needed. Speaking with the patient, he stated that he had been up several times last night and he felt that each time he got up, that his ability to ambulate was getting much better. Pain was controlled and he was able to sleep on both of his sides last night without difficulty. OBJECTIVE: The patient continues to use his immobilizer on the right knee and he continues to have obvious swelling of his right knee from suprapatellar knee effusion and also from his effusion in the knee from this fracture. Otherwise, exam has really not changed. He seems to be a little bit less painful this morning than the previous day and his left knee continues to improve. His neurovascular is intact. Calves are soft, nontender. ASSESSMENT: 1. Right distal medial condylar periprosthetic femur fracture. 2. Moderate effusion of the knee with complex suprapatellar knee effusion. PLAN: At this time, we will have Hector Pierson come over from orthotics and fit the patient for a hinged knee brace locked in extension. We will start him on physical therapy today, nonweightbearing on the right lower extremity with brace locked in extension and weightbearing as tolerated on the left leg. If the patient is having increased pain in the knee because of his swelling, we discussed that we could possibly attempt an aspiration of the knee for him. Otherwise, if he is progressing well with his physical therapy and his pain remains controlled, we will plan on possibly discharging him today with the plans for him to be nonweightbearing on the right lower extremity with the brace and likely no range of motion at least for approximately 1-2 weeks.
[2017-02-20 08:28] VITALS: BP 146/74; PULSE 69; TEMP 36.7; O2SAT 96
[2017-02-20 08:31] VITALS: O2SAT 96
[2017-02-20] MEDS: CLONIDINE HCL 0.3 MG TAB PO SCH ×3 (08:47→20:43)
[2017-02-20] MEDS: PANTOprazole SOD 40 MG TAB PO SCH (08:47)
[2017-02-20] MEDS: LOSARTAN POTASSIUM 25 MG TAB PO SCH (08:48)
--- NOTE | 2017-02-20 09:43 | Progress Note ---
Orthopedic SOAP Note Subjective Date of Service: Feb 20, 2017. Additional Notes: improvement daily Problem List Medical Problems: (1) Cellulitis of right leg Status: Acute (2) Dependent edema Status: Acute (3) Fracture of medial condyle of femur Status: Acute (4) Hypertension Status: Acute (5) Patellar fracture Status: Acute Objective N/V intact right knee in brace , left knee nonpainful with rom Date Time Temp Pulse Resp B/P (MAP) Pulse Ox O2 Delivery O2 Flow Rate FiO2 02/20/17 08:31 96 Room Air 02/20/17 08:28 36.7 69 20 146/74 (98) 96 Room Air 02/20/17 03:15 145/80 (101) 02/19/17 23:45 CPAP 02/19/17 23:15 36.8 75 18 179/97 (124) 95 CPAP 02/19/17 15:20 Room Air 02/19/17 15:10 36.4 65 18 172/81 (111) 97 Room Air 02/19/17 11:30 36.5 70 19 144/76 (98) 93 Room Air Assessment Right Distal Medial Periprosthetic Femur Fracture, no Retinacular/Extensor Mechanism Disruption per ultrasound. 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 locked full extension and 50 % weight with brace on right,wbat on left.follow xrays in one week. d/c home when safe . knee aspiration if pain not controlled but there is some risk of infection so holding off for now.
[2017-02-20 09:51] VITALS: BP 174/84; PULSE 77; O2SAT 98
[2017-02-20] MEDS ORDERED: RXC5 PO (13:36)
[2017-02-20] MEDS ORDERED: ASPEC81 PO (13:36)
--- NOTE | 2017-02-20 13:52 | Discharge Instructions ---
Discharge Instructions Date of Service Feb 20, 2017. Admission Reason for Admission: Left Inferior Pole Patellar Fracture, Discharge Discharge Diagnosis / Problem: Right Distal Medial Femoral Periprosthetic Femur Fracture Discharge Goals Goal(s): Decrease discomfort, Improve function Activity Recommendations Activity Limitations: per Instructions/Follow-up section Weightbearing Status: Left weightbearing (as tolerated), Right partial (50% weightbearing with Brace on) . Instructions / Follow-Up Instructions / Follow-Up You will need to use crutches or walker for ambulation. You must wear the hinged knee brace at all times when ambulating. Range of motion will be set to 0 - 30 degrees for driving but must be locked in extension for ambulating. It would be best if you had someone drive for you for the first week or so until you regain leg strength. You may remove for bathing or while the leg is fully extended on a bed or sofa. It's better to wear it at night in case you have to get up to use the restroom. Keep leg elevated on at least one pillow (or 2) while at rest. You will be Weightbearing as tolerated on your left leg. You may be 50 % weighbearing on the right leg. If 50% causes too much pain, then back off the amount of weight you apply. Follow up with Dr Guthrie in 1 week. Call for an appointment. [phone] Current Hospital Diet Patient's current hospital diet: AHA Diet (Heart Healthy) Discharge Diet Recommended Diet: Regular Diet Pending Studies Studies pending at discharge: no Medical Emergencies . Who to Call and When: Medical Emergencies: If at any time you feel your situation is an emergency, please call 911 immediately. . Non-Emergent Contact Non-Emergency issues call your: Surgeon Call Non-Emergent contact if: temperature is above 101.5, your pain is not controlled, your pain is worsening, wound has increased drainage, wound has increased redness . "Provider Documentation" section prepared by Edmundo Garcia. . VTE Core Measure Inpt VTE Proph given/why not?: ALICIA Cisneros's [place] Drug Monitoring Program Search Results: patient reviewed within database, no issues identified
--- NOTE | 2017-02-20 14:36 | ORTHOPEDIC PROGRESS NOTE ---
DATE: 02/20/2017 DATE: 02/20/2017 SUBJECTIVE: After talking to the nursing staff today about Mr. Arcos he feels that he is not ready to go home yet. I talked with he and his fiancee and the patient does live alone and although he is ambulating somewhat okay with supervision he is still not steady enough to be ambulating independently and is having trouble doing his activities of daily living. We discussed with the patient about the possibility of going to [facility] and I have checked with case management who will be now seeking a possible authorization if needed for [facility]. The patient is agreeable to do a short stay there to to increase his strength and his ambulation distance and also his occupational therapy goals. If he is progressing well enough tomorrow and has authorization to go to [facility] we will plan for [facility] on 02/21/2017.
[2017-02-20 15:00] VITALS: BP 151/75; PULSE 70; TEMP 36.6; O2SAT 95
[2017-02-20] MEDS: OXYCODONE HCL IR 5 MG TAB (IMMEDIATE RELEASE) PO PRN (15:16)
--- NOTE | 2017-02-20 17:23 | Progress Note ---
Subjective Date of Service: Feb 20, 2017. Subjective Pt evaluation today including: conversation w/ patient, conversation w/ family Pt does fine at rest, however has intense amount of pain with most movement. Discussed with OT who feels that pt will not be able to ambulate on his own and should have a rehab stay short term. His grandson lives in his basement and is available to help at times, however he works nights and then sleeps during the day. Pt would be home alone at night. Pt is doing well otherwise. Pt denies fever, SOB, chest pain, abd pain, n/v/c/d, LE swelling. Problem List Medical Problems: (1) Cellulitis of right leg Status: Acute (2) Dependent edema Status: Acute (3) Fracture of medial condyle of femur Status: Acute (4) Hypertension Status: Acute (5) Patellar fracture Status: Acute Objective Vital Signs Date Time Temp Pulse Resp B/P (MAP) Pulse Ox O2 Delivery O2 Flow Rate FiO2 02/20/17 15:10 Room Air 02/20/17 15:00 36.6 70 16 151/75 (100) 95 Room Air 02/20/17 09:51 77 98 02/20/17 08:31 96 Room Air 02/20/17 08:28 36.7 69 20 146/74 (98) 96 Room Air 02/20/17 07:40 Room Air 02/20/17 03:15 145/80 (101) 02/19/17 23:45 CPAP 02/19/17 23:15 36.8 75 18 179/97 (124) 95 CPAP Physical Exam Comments: General Appearance: no apparent distress, + obese Eyes: normal inspection, EOMI Respiratory/Chest: normal breath sounds, no respiratory distress Cardiovascular: regular rate, rhythm, no edema Abdomen: non tender, soft Extremities: non-tender, no pedal edema Neurologic/Psychiatric: alert, normal mood/affect Skin: normal color, warm/dry Assessment and Plan 81 y/o M morbidly obese, CAD, HTN, HPL, hypothyroid, seizures, BPH, DJD with multiple orthopedic surgeries including knee replacements. Pt presented with a distal R femoral fracture. R LE pain: fracture as noted Planning for conservative management now Orthotics fitting for brace DVT proph and diet as per ortho HTN - Pt did not receive his meds day of admission and BP was > 200 on the med floor. Meds were restarted and also receiving PRN Hydralazine Ongoing monitoring Hyperlipidemia - cont statin therapy BPH - cont Flomax CAD - per records - no related complaints - he also does not take any related meds aside form a Statin Hypothyroid - cont Synthroid Seizures - cont Phenobarb Recs for rehab, awaiting auths, etc
[2017-02-20] MEDS: PHENOBARBITAL 32.4 MG TAB PO SCH (20:42)
[2017-02-20] MEDS: SIMVASTATIN 10 MG TAB PO SCH (20:43)
[2017-02-20] MEDS: LEVOTHYROXINE 100 MCG TAB PO SCH (20:43)
[2017-02-20] MEDS: TAMSULOSIN HCL 0.4 MG CAP PO SCH (20:44)
[2017-02-20] MEDS: FINASTERIDE 5 MG TAB PO SCH (20:46)
[2017-02-20 23:25] VITALS: BP 123/83; PULSE 80; TEMP 36.6; O2SAT 92
[2017-02-21 07:19] VITALS: BP 168/80; PULSE 71; TEMP 36.9; O2SAT 96
[2017-02-21] MEDS ORDERED: POLYETHYLENE (MIRALAX) 17 GM PACK PO PRN (08:00)
[2017-02-21] MEDS: CLONIDINE HCL 0.3 MG TAB PO SCH ×2 (08:40→13:07)
[2017-02-21] MEDS: PANTOprazole SOD 40 MG TAB PO SCH (08:40)
[2017-02-21] MEDS: LOSARTAN POTASSIUM 25 MG TAB PO SCH (08:40)
[2017-02-21] MEDS ORDERED: DOCUSATE SODIUM 100 MG CAP PO SCH (09:00)
--- NOTE | 2017-02-21 10:02 | Orthopedic Progress Note ---
Orthopedic Progress Note Date of Service Feb 21, 2017. Subjective Reports: feeling well, Denies: complaints Additional Notes: Feels like the right knee is slowly getting better. No new complaints. Anxious to do PT this AM. Freddie brace has been fitted. Objective calves soft nontender, A&O x3, toes mobile Right knee with a bit less swelling today. Getting better at SLR with the RLE. Left knee doing well. Date Time Temp Pulse Resp B/P (MAP) Pulse Ox O2 Delivery O2 Flow Rate FiO2 02/21/17 07:30 Room Air 02/21/17 07:19 36.9 71 18 168/80 (109) 96 Room Air 02/20/17 23:47 CPAP 02/20/17 23:25 36.6 80 20 123/83 (96) 92 Room Air 02/20/17 15:10 Room Air 02/20/17 15:00 36.6 70 16 151/75 (100) 95 Room Air Assessment & Plan Assessment: Right Distal Medial Periprosthetic Femur Fracture, no Retinacular/Extensor Mechanism Disruption per ultrasound. 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 Inhouse Planning Pain Management: Morphine, Oxy IR DVT Prophylaxis: TEDs, SCDs Discharge Planning Discharge Planning: rehab hospital Pain Management: Oxy IR DVT Prophylaxis: TEDs, ASA Therapy: Physical Therapy, Occupational Therapy
[2017-02-21] MEDS ORDERED: CLC100 PO (10:09)
[2017-02-21] MEDS ORDERED: MRLP17X PO (10:09)
[2017-02-21] MEDS ORDERED: PRT40 PO (10:09)
[2017-02-21 11:17] VITALS: BP_SYST 144; BP_SYST 168; BP_DIAS 74; BP_DIAS 80; PULSE 71; TEMP 36.9; O2SAT 96
[2017-02-21 11:30] VITALS: BP 144/74; PULSE 71
--- NOTE | 2017-02-21 11:52 | DISCHARGE SUMMARY ---
DATE OF DISCHARGE: 02/21/2017 DISCHARGE DIAGNOSES: 1. Right distal medial condylar periprosthetic femur fracture. 2. Left knee contusion. SECONDARY DIAGNOSES: Hypertension, hypercholesterolemia, benign prostatic hypertrophy. CONSULTS: Dr. Mehran Camarillo. COMPLICATIONS: None. PROCEDURES: None. BRIEF HISTORY: As dictated in the history and physical. HOSPITAL SUMMARY: The patient was admitted on the above noted date with his above noted right lower extremity fracture. At that point in time is was also question of whether he had a quadriceps mechanism rupture due to inability to do straight leg raising. He also had a question of left inferior pole patellar fracture versus heterotopic ossification noted. On his first hospital day, he was lying in bed and eating dinner, stated that his pain was controlled and that his left knee was feeling much better. He feels that his swelling had gone down a little bit in the right knee. He had no new complaints. He was up to the bathroom twice and felt he was doing okay. Calves were soft, nontender, neurovascularly intact. He was alert and oriented x3. Toes were mobile. He had moderate effusion and likely hematoma superficial in the right knee. While holding the knee in the posterior popliteal fossa he was asked to try and hold his lower legs straight and attempt a straight leg raise. He was able to do so for a few seconds but could not hold it for an extended period of time. There was no obvious defect in the quad mechanism. There was a small area over the superior lateral retinacular area that was either scar or possibly a tear but he was still unable to do a straight leg raise on his own. Left knee was doing much better as far as pain control and plans were to do an ultrasound of the right knee and if any noted tear was in the right knee plans were for OR with repair and removal of hematoma. By his second hospital day, the patient was seen by Dr. Roper and his ultrasound was reviewed and showed a suprapatellar knee effusion and also that his quadriceps tendon appeared to be grossly intact as well as the patellar ligament was also intact. He continued with a fusion from his fracture, but it was felt that surgery at this time would not be needed. The patient had been up several times during the night and he felt each time he got up his ability to ambulate was getting better, pain was controlled and he was able to sleep on both his sides the previous night without difficulty. He was continued to use his immobilizer on the right knee and he continued to have obvious swelling of his right knee. Otherwise, his exam had not really changed. He seemed somewhat less painful that morning and his left knee continued to improve. Plan at that time were to have Power brace applied to the right knee with the patient to be 50% weightbearing with the knee brace locked in extension. The patient could have the brace from 0-30 degrees for sitting in a chair and/or in a car. 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 I returned to see the patient later that evening on the and was found that the patient was having difficulty with his OT and it also somewhat with his ambulation yet. The patient lives alone and was not going to be able to manage getting around his home by himself. Concerns for falling again and worsening his fracture were discussed and it was felt that a short stay at [facility] would be warranted to increase his strength and his mobility. An authorization was placed and a bed was available by the morning of the and he was remaining stable. He was getting a little bit better strength in the right lower extremity with straight leg raises, but was felt he would still benefit from rehab stay and he was thusly transferred to [facility] on 02/21/2017 for further physical therapy and care. For further review, please see chart. LAB AND X-RAY DATA: As per chart. DISCHARGE MEDICATIONS: Aspirin 81 mg p.o. b.i.d. for 14 days, Colace 100 mg p.o. b.i.d., oxycodone 5-10 mg p.o. q. 4 hours p.r.n., pantoprazole 40 mg p.o. q.a.m., MiraLax 17 grams p.o. daily p.r.n. Resume home meds as listed. DISCHARGE INSTRUCTIONS: The patient to be 50% weightbearing on the right lower extremity with Power brace locked in extension for ambulation but could be 0-30 degrees flexion for sitting in a chair and/or in a car. Weightbearing as tolerated on left lower extremity without any bracing, walker or crutches for ambulation and follow up with Dr. Guthrie in 1 week for x-ray of the right knee.
[2017-02-21] MEDS: OXYCODONE HCL IR 5 MG TAB (IMMEDIATE RELEASE) PO PRN (13:08)
--- NOTE | 2017-02-21 16:01 | Progress Note ---
Subjective Date of Service: Feb 21, 2017. Subjective Pt evaluation today including: conversation w/ patient, physical exam, chart review, lab review, review of studies, review of inpatient medication list Problem List Medical Problems: (1) Cellulitis of right leg Status: Acute (2) Dependent edema Status: Acute (3) Fracture of medial condyle of femur Status: Acute (4) Hypertension Status: Acute (5) Patellar fracture Status: Acute Review of Systems Constitutional: No fever, No chills, No sweats, No weakness Eyes: No worsening of vision, No eye pain, No redness, No discharge ENT: No hearing loss, No unusual epistaxis, No nasal symptoms, No sore throat Respiratory: No cough, No sputum, No wheezing, No shortness of breath Cardiac: No chest pain, No orthopnea, No PND, No edema Abdomen: No pain, No nausea, No vomiting, No diarrhea Musculoskeletal: No joint pain, No muscle pain, No swelling, No calf pain Male : No dysuria, No urinary frequency, No incontinence, No slowing stream Neurologic: No memory loss, No paralysis, No weakness, No numbness/tingling Psychiatric: No depression symptoms, No anhedonism, No anxiety, No insomnia Endo: No fatigue, No excessive thirst Skin: No rash, No itch Objective Vital Signs Date Time Temp Pulse Resp B/P (MAP) Pulse Ox O2 Delivery O2 Flow Rate FiO2 02/21/17 11:30 71 144/74 (97) 02/21/17 11:17 36.9 71 18 96 Room Air 02/21/17 07:30 Room Air 02/21/17 07:19 36.9 71 18 168/80 (109) 96 Room Air 02/20/17 23:47 CPAP 02/20/17 23:25 36.6 80 20 123/83 (96) 92 Room Air Physical Exam General Appearance: WD/WN, no apparent distress Eyes: normal inspection, PERRL, EOMI, sclerae normal Neck: supple, no adenopathy, thyroid normal, no JVD, no carotid bruits Respiratory/Chest: chest non-tender, lungs clear, normal breath sounds, no respiratory distress Cardiovascular: regular rate, rhythm, no edema, no gallop, no JVD Abdomen: normal bowel sounds, non tender, soft, no organomegaly Extremities: normal range of motion, non-tender, normal inspection, no pedal edema Neurologic/Psychiatric: no motor/sensory deficits, alert, normal mood/affect, oriented x 3 Assessment and Plan 81 y/o M morbidly obese, CAD, HTN, HPL, hypothyroid, seizures, BPH, DJD with multiple orthopedic surgeries including knee replacements. Pt presented with a distal R femoral fracture. R LE pain: fracture as noted Planning for conservative management now Orthotics fitting for brace DVT proph and diet as per ortho HTN - Pt did not receive his meds day of admission and BP was > 200 on the med floor. Meds were restarted and also receiving PRN Hydralazine Ongoing monitoring Hyperlipidemia - cont statin therapy BPH - cont Flomax CAD - per records - no related complaints - he also does not take any related meds aside form a Statin Hypothyroid - cont Synthroid Seizures - cont Phenobarb
--- NOTE | 2017-03-10 05:32 | Medical Consult ---
Consultation Date of Consultation: Mar 10, 2017. Attending Physician: Thang Guthrie M.D. History of Present Illness History & Physical Date & Time of Service: Feb 18, 2017 at 19:53 Chief Complaint: Left Inferior Pole Patellar Fracture, Primary Care Physician: Maria Doctor, Assigned History of Present Illness Source: patient 81 y/o M morbidly obese, CAD, HTN, HPL, hypothyroid, seizures, BPH, DJD with multiple orthopedic surgeries including knee replacements. Pt presented with a distal R femoral fracture. He is currently being evaluated for surgery vs conservative ,management. The medical staff was asked to evaluate this pt due to uncontrolled HTN. Past Medical/Surgical History Medical Problems: (1) Cellulitis Status: Resolved (2) High cholesterol Status: Chronic (3) Hypertension Status: Chronic (4) Thrombocytopenia 5) CAD 6) COPD 7) Morbid obesity 8) TB 9) Seizures Family History FH: hypertension FH: seizures Social History Smoking Status: Never Smoker Drug Use: none Marital Status: Housing status: lives with family Occupational Status: employed Immunizations History of Influenza Vaccine: No History of Tetanus Vaccine?: utd Tetanus Immunization Date: Jul 13, 2010 History of Pneumococcal: Yes History of Hepatitis B Vaccine: No Multi-Drug Resistant Organisms History of MDRO: No Allergies Coded Allergies: No Known Allergies (Verified , 10/19/16) Home Medications Scheduled Betamethasone Dip Aug 0.05% (Diprolene 0.05%), 1 APPLN TOP PRN Clonidine HCl (Clonidine HCl), 0.3 MG PO TID Finasteride (Proscar), 5 MG PO DHS Levothyroxine Sodium (Synthroid), 100 MCG PO QPM Losartan Potassium (Losartan Potassium), 25 MG PO DAILY Phenobarbital (Phenobarbital), 129.6 MG PO HS Simvastatin (Zocor), 10 MG PO QPM Tamsulosin HCl (Tamsulosin HCl), 0.4 MG PO HS Scheduled PRN Ibuprofen Tab (Advil), 400 MG PO Q8 PRN for Pain Review of Systems Constitutional: No fever, No chills, No sweats Eyes: No worsening of vision ENT: No hearing loss, No unusual epistaxis, No nasal symptoms Respiratory: No cough, No sputum, No wheezing Cardiovascular: No chest pain, No orthopnea, No PND Abdomen: No pain, No vomiting Genitourinary - Male: No hematuria, No dysuria Neurologic: No memory loss, No paralysis, No weakness Psychiatric: No depression symptoms Endocrine: No fatigue Hematologic / Lymphatic: No abnormal bleeding/bruising Integumentary: No rash Allergic / Immunologic: No environmental allergies Physical Ex - H&P Physical Exam Vital Signs Date Time Temp Pulse Resp B/P (MAP) Pulse Ox O2 Delivery O2 Flow Rate FiO2 02/18/17 19:01 76 214/104 (140) 02/18/17 18:37 36.7 78 18 233/113 (153) 96 Room Air 224/112 (149) 02/18/17 18:18 73 18 190/97 98 Room Air 02/18/17 16:05 78 18 202/95 97 Room Air 02/18/17 13:49 36.5 74 18 200/102 97 Room Air General Appearance: WD/WN, no apparent distress, + pertinent finding (Obese elderly male - no distress) Head: normocephalic, atraumatic Eyes: normal inspection, EOMI ENT: normal ENT inspection, pharynx normal Neck: supple, no adenopathy, no JVD Respiratory/Chest: chest non-tender, lungs clear, normal breath sounds, no respiratory distress, no accessory muscle use Cardiovascular: regular rate, rhythm Abdomen/GI: normal bowel sounds, non tender, soft Back: normal inspection, no CVA tenderness Extremities/Musculoskelatal: + pertinent finding (The L leg is splinted at the knee - pulses are present b/l - pulses are + b/l) Neurologic/Psych: clinical care coordinator II-XII nml as tested, no motor/sensory deficits, alert, normal mood/affect, normal reflexes, oriented x 3 Skin: normal color, warm/dry, no rash Diagnostics - H&P Diagnostics Laboratory Results Results Past 24 Hours Test 02/18/17 15:50 02/18/17 17:45 Range/Units White Blood Count 7.09 4.8-10.8 K/uL Red Blood Count 4.04 4.7-6.1 M/uL Hemoglobin 13.7 14.0-18.0 g/dL Hematocrit 38.6 42-52 % Mean Corpuscular Volume 95.5 80-100 fL Mean Corpuscular Hemoglobin 33.9 25-34 pg Mean Corpuscular Hemoglobin Concent 35.5 32-36 g/dl RDW Standard Deviation 47.6 36.4-46.3 fL RDW Coefficient of Variation 13.7 11.5-14.5 % Platelet Count 115 130-400 K/uL Mean Platelet Volume 11.6 7.4-10.4 fL Sodium Level 139 136-145 mmol/L Potassium Level 4.4 3.5-5.1 mmol/L Chloride Level 107 98-107 mmol/L Carbon Dioxide Level 28 21-32 mmol/L Anion Gap 4.0 3-11 mmol/L Blood Urea Nitrogen 27 7-18 mg/dl Creatinine 0.87 0.60-1.40 mg/dl Est Creatinine Clear Calc Drug Dose 86.7 ml/min Estimated GFR () 93.2 Estimated GFR (Non- 80.4 BUN/Creatinine Ratio 30.5 10-20 Random Glucose 85 70-99 mg/dl Calcium Level 9.0 8.5-10.1 mg/dl Prothrombin Time 11.2 9.0-12.0 SECONDS Prothromb Time International Ratio 1.0 0.9-1.1 Activated Partial Thromboplast Time 30.4 21.0-31.0 SECONDS Partial Thromboplastin Ratio 1.2 Diagnostic Radiology XR - knee 1. Large joint effusion 2. Equivocal periprosthetic fracture involving the medial femoral condyle Impression - H&P Impression Assessment and Plan 81 y/o M morbidly obese, CAD, HTN, HPL, hypothyroid, seizures, BPH, DJD with multiple orthopedic surgeries including knee replacements. Pt presented with a distal R femoral fracture. He is currently being evaluated for surgery vs conservative ,management. The medical staff was asked to evaluate this pt due to uncontrolled HTN. 1) HTN - Pt did not receive his meds today due to admission - his BP was > 200 on the med floor. We have initiated his meds including Clonidine and Losartan - we will also place him on PRN Hydralazine. He may need transfer to telem if these are ineffective. He does not appear to have any related symptoms. 2) HPL - cont statin therapy 3) BPH - cont Flomax 4) CAD - per records - no related complaints - he also does not take any related meds aside form a Statin 5) Hypothyroid - cont Synthroid 6) Seizures - cont Phenobarb 7) Distal fem fx - Pre-op - no mention of imminent surgery however the pt per his records has several risk factors and will need sourcing of outpatient records for thorough assessment as he is sedentary. We have requested a routine EKG. Total time for this consult inc review of labs, meds, records - 33 min Please consider the above a consult Level of Care Med/Surg Resuscitation Status FULL RESUSCITATION VTE Prophylaxis VTE Risk Assessment Done? Y/N: Yes Risk Level: Moderate Past Medical/Surgical History Medical Problems: (1) Cellulitis of right leg Status: Acute (2) Dependent edema Status: Acute (3) Fracture of medial condyle of femur Status: Acute (4) Hypertension Status: Acute (5) Patellar fracture Status: Acute Family History FH: hypertension FH: seizures Social History Smoking Status: Never Smoker Drug Use: none Marital Status: Housing Status: lives with significant other Occupation Status: employed Allergies Coded Allergies: No Known Allergies (Verified , 10/19/16) Assessment & Plan 81 y/o M morbidly obese, CAD, HTN, HPL, hypothyroid, seizures, BPH, DJD with multiple orthopedic surgeries including knee replacements. Pt presented with a distal R femoral fracture. He is currently being evaluated for surgery vs conservative ,management. The medical staff was asked to evaluate this pt due to uncontrolled HTN. 1) HTN - Pt did not receive his meds today due to admission - his BP was > 200 on the med floor. We have initiated his meds including Clonidine and Losartan - we will also place him on PRN Hydralazine. He may need transfer to telem if these are ineffective. He does not appear to have any related symptoms. 2) HPL - cont statin therapy 3) BPH - cont Flomax 4) CAD - per records - no related complaints - he also does not take any related meds aside form a Statin 5) Hypothyroid - cont Synthroid 6) Seizures - cont Phenobarb 7) Distal fem fx - Pre-op - no mention of imminent surgery however the pt per his records has several risk factors and will need sourcing of outpatient records for thorough assessment as he is sedentary. We have requested a routine EKG. Total time for this consult inc review of labs, meds, records - 33 min Please consider the above a consult
== END 2017-02-21 14:13 | DRG 534 ==
LOC: C.EDB 13:43 → C.MSN 17:05 → ENRESERV 17:56
PROVIDERS: ADMIT Orthopaedic Surgery Sports Medicine; ATTEND Orthopaedic Surgery Sports Medicine
DX: S72.431A Displaced fracture of medial condyle of right femur, initial encounter for closed fracture (principal); Z68.41 Body mass index [BMI] 40.0-44.9, adult; I10 Essential (primary) hypertension; E78.00 Pure hypercholesterolemia, unspecified; N40.0 Benign prostatic hyperplasia without lower urinary tract symptoms; E66.01 Morbid (severe) obesity due to excess calories; I25.10 Atherosclerotic heart disease of native coronary artery without angina pectoris; E78.5 Hyperlipidemia, unspecified; G40.909 Epilepsy, unspecified, not intractable, without status epilepticus; F41.9 Anxiety disorder, unspecified; E03.9 Hypothyroidism, unspecified; M25.461 Effusion, right knee; S80.02XA Contusion of left knee, initial encounter; Z96.653 Presence of artificial knee joint, bilateral; Z79.899 Other long term (current) drug therapy; Z79.1 Long term (current) use of non-steroidal anti-inflammatories (NSAID); W01.0XXA Fall on same level from slipping, tripping and stumbling without subsequent striking against object, initial encounter

== ENCOUNTER 2017-06-01 14:07 | Emergency (ER) | payer OTHER ==
[~2017-06-01] VITALS: Ht 172.7 cm; Wt 116.4 kg
[~2017-06-01 14:07] MED LIST changes: +ASPEC81 PO; +CLC100 PO; +MRLP17X PO; +PRT40 PO; +RXC5 PO
[2017-06-01 14:25] VITALS: TEMP 36.4; Ht 172.7 cm; Wt 116.4 kg
[2017-06-01] MEDS ORDERED: AUG0.05O4 TOP (14:32)
[2017-06-01] MEDS ORDERED: CLON0.3T PO (15:12)
[2017-06-01] MEDS ORDERED: FLUO-245 TOP (15:12)
--- NOTE | 2017-06-01 15:29 | DIAGNOSTIC IMAGING REPORT ---
L PELVIS/UNILATERAL HIP 2-3VIEWS CLINICAL HISTORY: LEFT HIP AND GROIN PAIN X ONE WEEK COMPARISON STUDY: None. FINDINGS: No fracture or dislocation within the pelvis or hips. The sacrum is intact. Degenerative changes within the lower lumbar spine. Mild bilateral hip osteoarthritis, left greater than right. IMPRESSION: 1. No fracture or dislocation within the pelvis or hips. 2. Mild bilateral hip osteoarthritis, left greater than right. Electronically signed by: Simon Stearns M.D. 06/01/2017 3:27 PM Dictated Date/Time: 06/01/2017 3:25 PM
--- NOTE | 2017-06-01 16:09 | EMERGENCY ROOM VISIT NOTE ---
ED Visit Note First contact with patient: 14:31 CHIEF COMPLAINT: Left hip pain 1 week HISTORY OF PRESENT ILLNESS: Patient is an 81-year-old white male who presents emergency department for evaluation of left hip pain 1 week. He states that his pain started about a week ago. It is located in his left groin. He states that it is only present with weightbearing. At rest, he has no discomfort. He states the pain has been progressively worsening over the last week. He has started ambulating with a cane as it makes him feel more stable. On occasion, the left leg feels like it is going to buckle or give out on him. The pain is located in the left groin, and does not radiate. He denies any back pain, pain in the buttock, or pain radiating down toward the knee. He denies any numbness , tingling or weakness. He rates his discomfort and 8/10. The patient denies any falls or direct trauma to the hip. No unusual activity prior to the onset of his pain. He has no symptoms in the right leg.. REVIEW OF SYSTEMS: Review of systems as per HPI. All other systems reviewed were negative. 10 systems reviewed. PMH: Electronic medical records are reviewed and summarized as above/below. See Problem List. SOCIAL HISTORY: Patient lives at home with his . Former smoker. PHYSICAL EXAM: Vital Signs: Reviewed Nurse's notes. CONSTITUTIONAL: Patient is a pleasant, obese 81-year-old white male who is awake and alert and in no acute distress. He is ambulatory in the exam room with an antalgic gait. HEART: Regular rate and rhythm. LUNGS: Clear to auscultation. ABDOMEN: Bowel sounds are present. Abdomen is soft, nontender and nondistended. No inguinal masses or hernias appreciated. MUSCULOSKELETAL: Well-healed anterior knee scars bilaterally. Leg lengths are symmetrical. Patient has some mild discomfort to palpation in the left inguinal area. There is no pain over the greater trochanter or the IT band. He has slight discomfort with, hip flexion, and with internal and external rotation. Left lower extremity is neurovascularly intact. EMERGENCY DEPARTMENT COURSE: The patient was seen and evaluated as above. Old records were reviewed. Pelvis and left hip x-rays were obtained and mild arthritic changes were noted. There is no evidence for acute fracture or dislocation. X-ray findings were discussed with the patient. I suspect the degenerative changes may be contributing to the patient's pain. His pain does not appear to be consistent with a lumbar radiculopathy. I do not suspect sciatica. Presentation is not really consistent with a trochanteric bursitis or an IT band syndrome. The patient was encouraged to use anti-inflammatory medicine, and prefers to use Aleve. He will continue to use his cane for ambulation. He reports that he would like to follow-up with [facility] for further care and management. Patient history and presentation were reviewed with attending physician. Medication reconciliation: I attest that I have personally reviewed the patient' s current medication list. Blood pressure screening: Patient was found to have an elevated blood pressure on initial assessment. He does have a history of hypertension and admits that it is poorly controlled. He also states that he did not take his antihypertensives this morning. Repeat blood pressure prior to discharge was improved. He was referred to their primary doctor for recheck and further treatment. L PELVIS/UNILATERAL HIP 2-3VIEWS CLINICAL HISTORY: LEFT HIP AND GROIN PAIN X ONE WEEK COMPARISON STUDY: None. FINDINGS: No fracture or dislocation within the pelvis or hips. The sacrum is intact. Degenerative changes within the lower lumbar spine. Mild bilateral hip osteoarthritis, left greater than right. IMPRESSION: 1. No fracture or dislocation within the pelvis or hips. 2. Mild bilateral hip osteoarthritis, left greater than right. Problem List Medical Problems: (1) Abrasion Status: Resolved (2) BPH (benign prostatic hyperplasia) Status: Chronic (3) Cellulitis Status: Resolved (4) Cellulitis of right leg Status: Resolved (5) Cellulitis of right leg Status: Resolved (6) Clavus Status: Resolved (7) Dependent edema Status: Resolved (8) Foot pain, right Status: Resolved (9) Fracture of medial condyle of femur Status: Resolved (10) High cholesterol Status: Chronic (11) Hypertension Status: Resolved (12) Hypertension Status: Chronic (13) Left Inferior Pole Patellar Fracture Status: Resolved (14) Pancytopenia Status: Chronic (15) Patellar fracture Status: Resolved (16) Periprosthetic Distal Right Femur Fracture Status: Resolved Surgical Problems: (1) History of total knee arthroplasty Status: Resolved Current/Historical Medications Scheduled Betamethasone Dip Aug 0.05% (Diprolene 0.05%), 1 APPLN TOP PRN Clonidine Hcl (Catapres), 0.3 MG PO TID Finasteride (Proscar), 5 MG PO DHS Fluocinonide Emulsified Base (Fluocinonide Emulsified), 1 APPLN TOP PRN UD Levothyroxine Sodium (Synthroid), 100 MCG PO QPM Losartan Potassium (Losartan Potassium), 25 MG PO QPM Phenobarbital (Phenobarbital), 129.6 MG PO HS Simvastatin (Zocor), 10 MG PO QPM Tamsulosin HCl (Tamsulosin HCl), 0.4 MG PO HS Allergies Coded Allergies: No Known Allergies (Verified , 10/19/16) Vital Signs Date Time Temp Pulse Resp B/P (MAP) Pulse Ox O2 Delivery O2 Flow Rate FiO2 06/01/17 16:42 82 20 140/90 95 06/01/17 14:28 202/98 06/01/17 14:25 36.4 91 18 214/100 96 Room Air Departure Information Impression Primary Impression: Left hip pain Referrals RV. Flowers MD (PCP) Arturo Ku M.D. Patient Instructions My [facility] Additional Instructions OTC Aleve 2 tablets twice daily with food. Acetaminophen(Tylenol) may be used for fever or pain. Use 1000mg every six hours as needed. Avoid using more than 3000mg in a 24 hour period. This medication can be taken if you need to drive, work, or perform activities which may be dangerous when taking narcotic pain medication. Ice compresses for 20 minutes at a time four times daily for 2-3 days. Continue your cane as needed for ambulation. Rest and avoid any activities that worsen your symptoms. Continue current medications. Return to the ER immediately for any numbness, tingling, severe pain, extreme swelling in the extremity or as needed. Call [facility] tomorrow to arrange follow up for your injury.
--- NOTE | 2017-06-01 16:12 | EMERGENCY ROOM VISIT NOTE ---
ED Visit Note First contact with patient: 14:31 The patient was seen and examined with Zeynep Joy PA-C. I agree with the history, physical and findings. Please see the note for disposition and details.
[2017-06-01] MEDS ORDERED: CZR25 PO (16:31)
[2017-06-01 16:42] VITALS: BP 140/90; PULSE 82; O2SAT 95
== END 2017-06-01 16:44 | disposition home or self-care (01) ==
LOC: C.EDB 14:09 → C.EDD 16:44
DX: M25.552 Pain in left hip (principal); E66.9 Obesity, unspecified; I10 Essential (primary) hypertension; Z87.891 Personal history of nicotine dependence; N40.0 Benign prostatic hyperplasia without lower urinary tract symptoms; E78.5 Hyperlipidemia, unspecified; D61.818 Other pancytopenia

== ENCOUNTER → 2017-06-25 | Outpatient (CLI) | payer OTHER ==
[~2017-06-25] MED LIST changes: -ASPEC81 PO; +AUG0.05O4 TOP; -CLC100 PO; -CLON-460 PO; +CLON0.3T PO; +CZR25 PO; +FLUO-245 TOP; -IBUP-103 PO; -MRLP17X PO; -PRT40 PO; -RXC5 PO
--- NOTE | 2017-06-25 10:23 | DIAGNOSTIC IMAGING REPORT ---
MRI THE LEFT HIP NO CONTRAST CLINICAL HISTORY: Left hip pain status post trauma. COMPARISON STUDY: Conventional radiographic study dated 06/01/2017 FINDINGS: Imaging was performed in the axial coronal and oblique sagittal planes. Note is made of prostatic enlargement. There is no evidence of pathologic adenopathy. There is no evidence of symphysis pubis or SI joint diastases. There are no areas of marrow edema to indicate an occult fracture. There are advanced osteoarthritic changes present within the left hip with acetabular and subchondral femoral head edema. There is marked cartilaginous loss. There is a left hip joint effusion containing debris. This communicates with a fluid collection within the iliopsoas bursa. IMPRESSION: 1. No evidence of occult fracture 2. Left hip joint effusion, marked cartilaginous narrowing of the left hip, marrow edema within the left acetabulum and left femoral head, and left iliopsoas bursal fluid collection. In the absence of clinical findings suggestive of a septic arthritis, the findings are most likely explained by advanced osteoarthritis. Electronically signed by: Hipolito Diaz M.D. 06/25/2017 10:22 AM Dictated Date/Time: 06/25/2017 10:12 AM
== END | disposition home or self-care (01) ==
LOC: C.MRIBC 09:03
PROVIDERS: ATTEND Orthopaedic Surgery
DX: M25.552 Pain in left hip (principal); M25.452 Effusion, left hip

== ENCOUNTER → 2017-06-26 | Outpatient (CLI) | payer OTHER ==
--- NOTE | 2017-06-26 14:03 | DIAGNOSTIC IMAGING REPORT ---
FLUOROSCOPICALLY GUIDED LEFT HIP ASPIRATION AND STEROID/ANESTHETIC INJECTION CLINICAL HISTORY: Left hip pain. Degenerative arthritis. Joint effusion. COMPARISON STUDY: MRI dated 06/25/2017 FLUOROSCOPY TIME: 12 seconds. NUMBER OF FLUOROSCOPIC IMAGES: 1 FINDINGS: A timeout was performed. The risks of the procedure were explained the patient informed consent was obtained. The patient was prepped and draped in sterile fashion. The skin was anesthetized 1% lidocaine. Under fluoroscopic guidance, 22-gauge spinal needle was introduced the joint capsule. 2.5 cc of joint fluid was aspirated, and sent to the laboratory for analysis as specified by the referring clinician. The fluid did not appear grossly infected. Intra-articular location of the needle was documented with injection of Optiray 300. 8 cc of 0.5% Marcaine, and 2 cc of Celestone was then instilled intra-articularly. IMPRESSION: 1. Successful left hip joint aspiration. 2.5 cc of fluid was aspirated and sent for laboratory analysis 2. 8 cc of 0.5% Marcaine, 2 cc of Celestone was instilled intra-articularly into the left hip. Electronically signed by: Hipolito Diaz M.D. 06/26/2017 2:02 PM Dictated Date/Time: 06/26/2017 1:54 PM
[2017-06-26 17:41] LABS: SYNOVIAL FLUID APPEARANCE CLOUDY; SYNOVIAL FLUID COLOR YELLOW; SYNOVIAL FLUID MONONUC RELAT 80.6 %; SYNOVIAL FLUID POLYNUC RELAT 19.4 %
== END | disposition home or self-care (01) ==
LOC: C.RADBC 12:34
PROVIDERS: ATTEND Orthopaedic Surgery
DX: M16.12 Unilateral primary osteoarthritis, left hip (principal)

== ENCOUNTER 2017-07-24 05:24 | Day surgery (SDC) | payer OTHER ==
[2017-07-15 10:10] VITALS: BMI 43.0
--- NOTE | 2017-07-15 10:42 | PAT Medication Instructions ---
Service Date Jul 15, 2017. Current Home Medication List Betamethasone Dip Aug 0.05% (Diprolene 0.05%), 1 APPLN TOP PRN Clobetasol Propionate (Clobetasol Propionate Cream 0.05%), 1 APPLN EXT UD PRN for prn Clonidine Hcl (Catapres), 0.3 MG PO TID Finasteride (Proscar), 5 MG PO DHS Levothyroxine Sodium (Synthroid), 100 MCG PO QPM Losartan Potassium (Losartan Potassium), 25 MG PO QPM Phenobarbital (Phenobarbital), 129.6 MG PO HS Simvastatin (Zocor), 10 MG PO QPM Tamsulosin HCl (Tamsulosin HCl), 0.4 MG PO HS Medication Instructions For Your Scheduled Surgery - Hold the following medications 24 hours prior to surgery: Betamethasone Dip Aug 0.05% (Diprolene 0.05%), 1 APPLN TOP PRN Clobetasol Propionate (Clobetasol Propionate Cream 0.05%), 1 APPLN EXT UD PRN for prn - Hold the following medications the NIGHT BEFORE surgery: Losartan Potassium (Losartan Potassium), 25 MG PO QPM - Take the following medications the morning of surgery with a sip of water: Clonidine Hcl (Catapres), 0.3 MG PO TID - Take the following medications as scheduled the night before surgery: Phenobarbital (Phenobarbital), 129.6 MG PO HS Simvastatin (Zocor), 10 MG PO QPM Tamsulosin HCl (Tamsulosin HCl), 0.4 MG PO HS Clonidine Hcl (Catapres), 0.3 MG PO TID Finasteride (Proscar), 5 MG PO DHS Levothyroxine Sodium (Synthroid), 100 MCG PO QPM If you have any questions please call us at [phone] or [phone] or [phone]
--- NOTE | 2017-07-15 11:27 | DIAGNOSTIC IMAGING REPORT ---
CHEST 2 VIEWS ROUTINE CLINICAL HISTORY: PAT preoperative evaluation COMPARISON STUDY: 02/25/2010 FINDINGS: The bones soft tissues and hemidiaphragms are normal. The cardiomediastinal silhouette is normal. The lungs are clear. The pulmonary vasculature is normal. IMPRESSION: Negative chest. The above report was generated using voice recognition software. It may contain grammatical, syntax or spelling errors. Electronically signed by: Mich Givens M.D. 07/15/2017 11:26 AM Dictated Date/Time: 07/15/2017 11:23 AM
[2017-07-15 12:05] LABS: BASO % 0.4 %; BASO ABS # 0.02 K/uL (0-0.2); EOS % 4.1 %; EOS ABS # 0.23 K/uL (0-0.5); HEMATOCRIT 38.2 % (42-52); IG# 0.01 K/uL (0.00-0.02); LYMPH % 20.3 %; LYMPH ABS # 1.13 K/uL (1.2-3.4); MEAN CELL VOLUME 97.7 fL (80-100); MEAN CORPUSCULAR HEMOGLOBIN 33.2 pg (25-34); MEAN PLATELET VOLUME 10.8 fL (7.4-10.4); MONO % 9.3 %; MONO ABS # 0.52 K/uL (0.11-0.59); NEUT % 65.7 %; NEUT ABS # 3.66 K/uL (1.4-6.5); PLATELET COUNT 119 K/uL (130-400); RED CELL DISTRIBUTION WIDTH CV 14.1 % (11.5-14.5); RED CELL DISTRIBUTION WIDTH SD 50.2 fL (36.4-46.3); WHITE BLOOD COUNT 5.57 K/uL (4.8-10.8)
[2017-07-15 13:41] LABS: CALCIUM 9.3 mg/dl (8.5-10.1); CREATININE 1.03 mg/dl (0.60-1.40); POTASSIUM 4.6 mmol/L (3.5-5.1)
[~2017-07-24] VITALS: Ht 175.3 cm; Wt 132.4 kg
[~2017-07-24 05:24] MED LIST changes: +CLBCRM30 EXT; -FLUO-245 TOP
[2017-07-24] MEDS ORDERED: LACTATED RINGER'S 1000ML 1,000 ML IV SCH ×2 (06:00)
[2017-07-24] MEDS ORDERED: CIPROFLOXACIN / D5W 400 MG IV SCH (06:00)
[2017-07-24] MEDS ORDERED: CLON-460 PO (06:05)
[2017-07-24 06:07] VITALS: BP 137/88; PULSE 72; TEMP 36.7; O2SAT 97; Ht 175.3 cm; Wt 132.4 kg
[2017-07-24] MEDS ORDERED: CONRAY 30% 150ML BOTTLE ONE (07:08)
[2017-07-24] MEDS ORDERED: ONDANSETRON INJ 2 MG/ML 2 ML VIAL IV PRN (07:15)
[2017-07-24] MEDS ORDERED: ATROPINE SULFATE 0.1 MG/ML 5ML SYR IV PRN (07:15)
[2017-07-24] MEDS ORDERED: MIDAZOLAM HCL 1 MG/ML 2ML VIAL ONE (07:15)
[2017-07-24] MEDS ORDERED: EpHEDrine SULFATE INJ 50 MG/ML AMP IV PRN (07:15)
[2017-07-24] MEDS ORDERED: PROPOFOL IV EMULSION 10 MG/ML 20 ML VIAL IV ONE (07:17)
[2017-07-24] MEDS ORDERED: FENTANYL CITRATE INJ 50 MCG/1 ML 2 ML VIAL ONE (07:17)
[2017-07-24] MEDS ORDERED: ONDANSETRON INJ 2 MG/ML 2 ML VIAL ONE (07:17)
[2017-07-24] MEDS ORDERED: LIDOCAINE HCL 2% 2 ML VIAL (20MG/ML) ONE (07:17)
--- NOTE | 2017-07-24 07:20 | History & Physical Bridge Note ---
H&P Re-Evaluation Bridge Note: I have examined the patient, reviewed the History & Physical and in the interval since the performance of the History & Physical I have noted the following changes of clinical significance: No changes noted
[2017-07-24] MEDS ORDERED: OXYCODONE/ACETAMINOPHEN 7.5-325 TAB PO PRN (07:30)
[2017-07-24] MEDS ORDERED: DTR/5 PO (07:30)
[2017-07-24] MEDS ORDERED: BCTROWC EXT (07:30)
[2017-07-24] MEDS ORDERED: SULF800T23 PO (07:30)
[2017-07-24] MEDS ORDERED: OXYC7.5T65 PO (07:30)
[2017-07-24] MEDS ORDERED: PHEN-775 PO (07:30)
--- NOTE | 2017-07-24 07:34 | Discharge Instructions ---
Discharge Instructions Date of Service Jul 24, 2017. Admission Reason for Admission: Urethral Stricture, Benign Prostatic Hyperplasia Discharge Discharge Diagnosis / Problem: Meatal stenosis, balantitis Discharge Goals Goal(s): Decrease discomfort, Improve function Activity Recommendations Activity Limitations: resume your previous activity Lifting Limitations: gradually increase as tolerated Exercise/Sports Limitations: gradually increase as tolerated Shower/Bathe: no limitations . Instructions / Follow-Up Instructions / Follow-Up Apply ointment twice daily. Continue steroid cream and antifungal as well. Maintain catheter until follow up. Medicines for catheter discomfort as needed. Finish antibiotic. Okay to shower. Call with any issues. Current Hospital Diet Patient's current hospital diet: Discharge Diet Recommended Diet: Regular Diet Procedures Procedures Performed: Cysto, dilation, Catheter placement Pending Studies Studies pending at discharge: no Medical Emergencies . Who to Call and When: Medical Emergencies: If at any time you feel your situation is an emergency, please call 911 immediately. . Non-Emergent Contact Non-Emergency issues call your: Primary Care Provider, Urologist Call Non-Emergent contact if: you have a fever, temperature is above 101, temperature is above 101.5, your pain is not controlled, your pain is worsening . . "Provider Documentation" section prepared by Jeremy Mistry,. . VTE Core Measure Inpt VTE Proph given/why not?: SCD's
[2017-07-24] MEDS ORDERED: LIDOCAINE HCL 1% 20 ML VIAL ONE (07:51)
[2017-07-24] MEDS: BACITRACIN OINT 15 GM TUBE ONE ×2 (08:00→08:15)
[2017-07-24] MEDS ORDERED: EpHEDrine SULFATE 50MG/5ML SYR ONE (08:05)
--- NOTE | 2017-07-24 08:42 | [facility] Post Operative Brief Note ---
Immediate Operative Summary Operative Date Jul 24, 2017. Pre-Operative Diagnosis Benign prostatic hyperplasia with urinary obstruction, urethral stricture, urinary tract infection, urinary stream slowing Post-Operative Diagnosis Benign prostatic hyperplasia with urinary obstruction, urethral stricture, urinary tract infection, urinary stream slowing, peraphimosis Procedure(s) Performed Cystoscopy, Urethral Dilation, Meatal Dilation, Dorsal Slit, Thornton insertion Surgeon Dr. Jeremy Mistry Director Of Academic Support Surgeon(s) None Estimated Blood Loss 10 mL Findings Severe paraphimosis with meatal stricture. Specimens No pathology specimens per surgeon Drains 20 Fr coude Anesthesia General Complication(s) None Disposition Recovery Room / PACU
[2017-07-24] MEDS: FENTANYL CITRATE INJ 50 MCG/1 ML 2 ML VIAL IV PRN ×2 (08:50→08:55)
--- NOTE | 2017-07-24 09:03 | [facility] Operative Report ---
Operative Report Operative Date Jul 24, 2017. Pre-Operative Diagnosis Meatal Stricture, Dysuria, Phimosis with balanitis Post-Operative Diagnosis Same With severe phimosis/paraphimosis Procedure(s) Performed Meatal/Urethral dilation, Cystoscopy, Tinoco Placement, Dorsal Slit and reconstruction Surgeon Fede Dietitian Chief Surgeon(s) None Estimated Blood Loss Minimal Findings Meatal stenosis. 3 strictures in urethra, easily bypassed. Large prostate with moderate signs of chronic obstruction/trabeculation. Severe phimosis with paraphimosis with retraction. Specimens None Drains 20 Fr Coude Anesthesia General Complication(s) None Disposition Recovery Room / PACU Indications Recurrent UTI and dysuria with stenosis Description of Procedure Patient was consented and brought back to the operating room. Patient was placed under anesthesia in the supine position and moved to the dorsal lithotomy position. Patient was prepped and draped in the regular sterile fashion. A time out was completed. The foreskin was assessed. Previous had circ for phimosis and now recurrent stricture with entrapped glans of penis. The foreskin was attempted to be gently dilated and retracted. Upon retraction the glans was reprepped with Betadine. Upon retraction significant paraphimosis was observed. The meatus was examined and severe stenosis noted. Elias sounds were selected and the meatus and distal urethra were dilated up to 28 Fr with copious lubrication. At this point, the 30degree Cystoscope was placed into the bladder and the entire bladder was examined. Patient had 3 areas of stricture in the membranous urethra without stricture more proximal. These were bypassed with the scope. Patient was noted to have significant enlargement of the lateral prostate with obstruction. The UO's were identified. Moderate trabeculation was visualized. Complete visualization was moderately limited due to habitus and high bladder neck. The 70 Degree lenses was utilized to better visualize the bladder. No masses or lesions were found. The bladder was left partially full and the scope removed. With the tinoco in place, the bladder was emptied. The paraphimosis was poorly able to be reduced. Due to risk of glans ischemia if the patient redevelops the paraphimosis, it was decided to reconstruct and revise the circumcision and open the phimotic scar. The penis was prepped again with betadine and gloves were changed. A dorsal penile block was completed with 1% plain lidocaine. The phimotic ring was identified and clamped at the 12 o'clock position. This was then opened with the bovie on cut setting. The tissue was opened and dissected and freed from underlying tissues. Care was taken to visualize and monitor the major structures of the penis. The tissue was opened proximal to distal. The area was assessed and all bleeding controlled. The tissues were then closed with a interrupted horizontal mattress suture transversely to open the phimosis and reconstruct the tissue of the foreskin. This was then cleaned and assessed. The redundant scarred tissue was freely mobile and able to be move over the glans and easily retracted. With the area cleaned, bandages were placed with xeroform dressing, Kerlix wrapping, and Coban dressing. The patient was cleaned, aroused from anesthesia, and transferred to the pacu in stable condition having tolerated the procedure well with no complications. I was present and participated in all aspects of the procedure. The patient will be monitored in the PACU until transferred. I attest to the content of the Intraoperative Record and any orders documented therein. Any exceptions are noted below.
--- NOTE | 2017-07-24 09:10 | Anesthesiology Progress Note ---
Anesthesia Post Op Note Date & Time Jul 24, 2017 at 09:10 Vital Signs Pain Intensity: 2 Vital Signs Past 12 Hours Date Time Temp Pulse Resp B/P (MAP) Pulse Ox O2 Delivery O2 Flow Rate FiO2 07/24/17 09:00 66 14 126/54 100 Oxymask 10 07/24/17 08:50 69 13 113/61 100 Oxymask 10 07/24/17 08:41 36.3 73 14 141/73 99 Oxymask 10 07/24/17 06:07 36.7 72 20 137/88 (104) 97 Room Air Notes Mental Status: alert / awake / arousable, participated in evaluation Pt Amnestic to Procedure: Yes Nausea / Vomiting: adequately controlled Pain: adequately controlled Airway Patency, RR, SpO2: stable & adequate BP & HR: stable & adequate Hydration State: stable & adequate Anesthetic Complications: no major complications apparent
[2017-07-24 09:25] VITALS: BP 155/70; PULSE 67; TEMP 36.3; O2SAT 96
[2017-07-24 09:55] VITALS: BP 138/69; PULSE 73; O2SAT 96
[2017-07-24 10:25] VITALS: BP 151/71; PULSE 69; TEMP 36.3; O2SAT 96
== END 2017-07-24 10:49 | disposition home or self-care (01) ==
LOC: C.ACU 05:24
PROVIDERS: ATTEND Urology
DX: N47.1 Phimosis (principal); N48.1 Balanitis; N47.2 Paraphimosis; N35.9 Urethral stricture, unspecified; I10 Essential (primary) hypertension; E66.9 Obesity, unspecified; N40.1 Benign prostatic hyperplasia with lower urinary tract symptoms; N13.8 Other obstructive and reflux uropathy; K21.9 Gastro-esophageal reflux disease without esophagitis; M19.90 Unspecified osteoarthritis, unspecified site; E78.5 Hyperlipidemia, unspecified; E03.9 Hypothyroidism, unspecified; G47.33 Obstructive sleep apnea (adult) (pediatric); G40.909 Epilepsy, unspecified, not intractable, without status epilepticus; D69.6 Thrombocytopenia, unspecified; Z79.82 Long term (current) use of aspirin; Z87.440 Personal history of urinary (tract) infections; Z87.891 Personal history of nicotine dependence; Z80.42 Family history of malignant neoplasm of prostate

== ENCOUNTER → 2017-09-03 | Outpatient (CLI) | payer OTHER ==
[~2017-09-03] MED LIST changes: -AUG0.05O4 TOP; +BCTCR/30 EXT; +CLB100 PO; +betamethasone cream TOP
== END | disposition home or self-care (01) ==
LOC: C.LABBC 08:43
PROVIDERS: ATTEND Orthopaedic Surgery Sports Medicine
DX: Z01.818 Encounter for other preprocedural examination (principal)

== ENCOUNTER 2017-09-25 05:22 | Inpatient (IN) | payer OTHER ==
[2017-08-28 11:45] VITALS: BMI 44.0
--- NOTE | 2017-08-28 12:23 | PAT Medication Instructions ---
Service Date Aug 28, 2017. Current Home Medication List Celecoxib (Celebrex), 1 CAP PO QPM Clobetasol Propionate (Clobetasol Propionate Cream 0.05%), Unknown Dose EXT UD PRN for prn Clonidine Hcl (Catapres), 0.3 MG PO TID Finasteride (Proscar), 5 MG PO HS Levothyroxine Sodium (Synthroid), 100 MCG PO QPM Losartan Potassium (Losartan Potassium), 25 MG PO QPM Mupirocin 2% (Bactroban 2%), Unknown Dose EXT UD Phenobarbital (Phenobarbital), 4 TAB PO HS Simvastatin (Zocor), 10 MG PO QPM Tamsulosin HCl (Tamsulosin HCl), 0.4 MG PO HS [betamethasone cream], Unknown Dose TOP UD PRN for prn Medication Instructions For Your Scheduled Surgery -Contact your surgeon for instructions for: Celecoxib (Celebrex), 1 CAP PO QPM - Hold the following medications 24 hours prior to surgery: Clobetasol Propionate (Clobetasol Propionate Cream 0.05%), Unknown Dose EXT UD PRN for prn Mupirocin 2% (Bactroban 2%), Unknown Dose EXT UD [betamethasone cream], Unknown Dose TOP UD PRN for prn - Take the following medications the morning of surgery with a sip of water: Clonidine Hcl (Catapres), 0.3 MG PO TID - Take the following medications as scheduled the night before surgery: Clonidine Hcl (Catapres), 0.3 MG PO TID Finasteride (Proscar), 5 MG PO HS Levothyroxine Sodium (Synthroid), 100 MCG PO QPM Losartan Potassium (Losartan Potassium), 25 MG PO QPM Phenobarbital (Phenobarbital), 4 TAB PO HS Simvastatin (Zocor), 10 MG PO QPM Tamsulosin HCl (Tamsulosin HCl), 0.4 MG PO HS If you have any questions please call us at [phone] or [phone] or [phone]
[2017-08-28 13:43] LABS: BASO % 0.6 %; BASO ABS # 0.03 K/uL (0-0.2); EOS % 2.6 %; EOS ABS # 0.13 K/uL (0-0.5); HEMATOCRIT 39.1 % (42-52); HEMOGLOBIN 13.1 g/dL (14.0-18.0); IG# 0.01 K/uL (0.00-0.02); LYMPH % 20.8 %; LYMPH ABS # 1.06 K/uL (1.2-3.4); MEAN CELL VOLUME 96.5 fL (80-100); MEAN CORPUSCULAR HEMOGLOBIN 32.3 pg (25-34); MEAN CORPUSCULAR HGB CONC 33.5 g/dl (32-36); MEAN PLATELET VOLUME 10.8 fL (7.4-10.4); MONO % 8.6 %; MONO ABS # 0.44 K/uL (0.11-0.59); NEUT % 67.2 %; NEUT ABS # 3.42 K/uL (1.4-6.5); PLATELET COUNT 151 K/uL (130-400); RED CELL DISTRIBUTION WIDTH CV 14.3 % (11.5-14.5); RED CELL DISTRIBUTION WIDTH SD 50.8 fL (36.4-46.3); WHITE BLOOD COUNT 5.09 K/uL (4.8-10.8)
[2017-08-28 13:55] LABS: PTT PATIENT 27.9 SECONDS (21.0-31.0)
[2017-08-28 14:42] LABS: CALCIUM 9.5 mg/dl (8.5-10.1); CREATININE 0.96 mg/dl (0.60-1.40); POTASSIUM 5.1 mmol/L (3.5-5.1)
--- NOTE | 2017-09-20 13:21 | HISTORY & PHYSICAL EXAMINATION ---
DATE OF ADMISSION: 09/25/2017 CHIEF COMPLAINT: Left hip pain. HISTORY OF PRESENT ILLNESS: An 81-year-old gentleman who is referred by my partner Dr. High for surgical treatment of his left hip. He has about a 7-month history of markedly increased left hip pain and discomfort. He has gotten to the point where he is having trouble getting around at all. He describes buttock, groin pain, and thigh pain. He has taken anti-inflammatories without much relief. He did have one injection, which helped for him about 4 days and that is it. As the longer he walks, the more it hurts. He limps as the day goes on. He would like to proceed with a left hip replacement. The patient does have a history of a seizure disorder remotely. He takes medicines for this and had not had seizure since 1974. Of note, the patient has had multiple revision knee operations by Dr. 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 There have been no signs of infection. PAST MEDICAL HISTORY: Past medical history includes, 1. Hypertension. 2. Irregular heart palpitations. 3. Sleep apnea. 4. Arthritis. PAST SURGICAL HISTORY: Includes, 1. 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 2. Shoulder surgery. ALLERGIES: None. CURRENT MEDICINES: 1. Simvastatin 10 mg at nighttime. 2. Clonidine 0.35 mg a day. 3. Levothyroxine 100 mcg a day. 4. Phenobarbital 3.25 mg 4 tablets at night. 5. Tamsulosin 0.4 mg at night. 6. Losartan 25 mg. 7. Betamethasone cream. 8. ____ cream. 9. Mupirocin cream. SOCIAL HISTORY: An 81-year-old male. He lives in [place]. He does live by himself, but comes with a fiancee. He does not smoke. FAMILY HISTORY: Noncontributory. REVIEW OF SYSTEMS: Negative for diabetes, neurologic problems, vascular problems or bleeding disorders. He denies any chest pain or shortness of breath. No history of DVT or PE. PHYSICAL EXAMINATION: GENERAL: Physical examination reveals a pleasant elderly male. He comes to clinic in a wheelchair. HEENT: Benign. NECK: Supple. No lymphadenopathy. LUNGS: Clear to auscultation. HEART: Regular rate and rhythm. ABDOMEN: Soft, nontender, and nondistended. EXTREMITIES: Grossly neurovascularly intact except as follows: Examination of left lower extremity reveals the patient walks with a markedly antalgic gait. He uses a cane. Leg lengths clinically appear pretty equal. He has pain with any type of hip motion, particularly internal rotation. He can internally rotate about neutral. Negative straight leg raise. X-RAYS: X-ray of left hip were reviewed. It shows advanced left hip DJD. He has got complete loss of his joint space. No bone destruction. He has a fairly concentric disease. MRI of the pelvis was also reviewed. It shows significant arthritic change in the left hip with a joint effusion. He has got some edema in the femoral head as well as the acetabulum. ASSESSMENT: An 81-year-old male with a history of multiple knee operations in the past with a pretty significantly rapidly arthritic condition in his hip. He has failed all conservative treatments and would like to have his left hip replaced. There have been no signs of infection with respect to his either knee. PLAN: We are going to take him to the operating room and do a left total hip replacement. The risks and benefits of this procedure were explained to the patient including, but not limited to DVT, PE, , infection, neurological injury, vascular injury, bleeding problem, pain, limited range of motion, stiffness, failure to relieve symptoms, incomplete relief of symptoms, need for further surgery in the future, fracture, leg length inequality, nerve palsy, incomplete relief of symptoms, etc. The patient understands and desires to proceed. Informed consent was obtained. He does use a CPAP machine. We encouraged him to bring it to the hospital. He does have a history of cellulitis, but no active cellulitis currently. As far as discharge plans, he is hoping to be discharged home using [facility] home health program.
[2017-09-25] VITALS (19 sets, daily range): BP systolic 124–170; BP diastolic 60–97; PULSE 61–85; TEMP 36.4–36.7; O2SAT 92–100; Ht 172.7 cm; Wt 132.4 kg
[~2017-09-25] VITALS: Ht 172.7 cm; Wt 132.4 kg
[2017-09-25] MEDS ORDERED: CEFAZOLIN 3000MG IV PUSH 22.5 ML IV SCH (06:00)
[2017-09-25] MEDS ORDERED: LACTATED RINGER'S 1000ML 500 ML IV SCH (06:00)
[2017-09-25] MEDS ORDERED: LACTATED RINGER'S 1000ML IV SCH (06:00)
[2017-09-25] MEDS ORDERED: ACETAMINOPHEN 500 MG TAB PO SCH (06:00)
[2017-09-25] MEDS ORDERED: TRANEXAMIC ACID INJ 1,000 MG x 1 Bag Preop IV SCH ×2 (06:00)
[2017-09-25] MEDS ORDERED: FAMOTIDINE 20 MG TAB PO SCH (06:00)
[2017-09-25] MEDS ORDERED: METOCLOPRAMIDE HCL 10 MG TAB PO SCH (06:00)
[2017-09-25] MEDS ORDERED: LACTATED RINGER'S 1000ML 1,000 ML IV SCH (06:00)
[2017-09-25] MEDS ORDERED: GABAPENTIN 300 MG CAP PO SCH (06:00)
[2017-09-25] MEDS ORDERED: SCOPOLAMINE 1.5 MG TDSY TD SCH (06:00)
[2017-09-25] MEDS ORDERED: NAPR1TAB9 PO (06:01)
[2017-09-25] MEDS ORDERED: MIDAZOLAM HCL 1 MG/ML 2ML VIAL ONE ×2 (06:23→06:58)
[2017-09-25] MEDS ORDERED: PROPOFOL IV EMULSION 10 MG/ML 20 ML VIAL IV ONE ×2 (06:23→08:40)
[2017-09-25] MEDS ORDERED: LIDOCAINE HCL 2% 2 ML VIAL (20MG/ML) ONE (06:23)
[2017-09-25] MEDS ORDERED: EpHEDrine SULFATE INJ 50 MG/ML AMP IV PRN ×2 (06:30→07:30)
[2017-09-25] MEDS ORDERED: HYDROmorphone INJ 1 MG/ML SYR IV PRN (06:30)
[2017-09-25] MEDS ORDERED: PHENYLEPHRINE 100MCG/ML 5ML SYR IV PRN (06:30)
[2017-09-25] MEDS ORDERED: FENTANYL CITRATE INJ 50 MCG/1 ML 2 ML VIAL IV PRN (06:30)
[2017-09-25] MEDS ORDERED: ATROPINE SULFATE 0.1 MG/ML 5ML SYR IV PRN (06:30)
[2017-09-25] MEDS ORDERED: ONDANSETRON INJ 2 MG/ML 2 ML VIAL IV PRN ×2 (06:30→07:30)
[2017-09-25] MEDS ORDERED: BUPIVACAINE 0.5 % 5 MG/1 ML PF 10ML VIAL ONE (06:32)
[2017-09-25] MEDS ORDERED: MoRPHine SULFATE PF 1 MG/ML 10 ML AMP/VIAL ONE (06:44)
[2017-09-25] MEDS ORDERED: BUPIVACAINE/EPINEPHRINE 0.5% MPF 1:200,000 30 ML VIAL ONE (06:51)
[2017-09-25] MEDS ORDERED: BACITRACIN 50000 UNIT VIAL ONE (06:51)
[2017-09-25] MEDS ORDERED: EpHEDrine SULFATE 50MG/5ML SYR ONE (07:26)
[2017-09-25] MEDS ORDERED: NALOXONE HCL INJ 1 MG in SODIUM CHLORIDE 0.9% 1000ML 1,000 ML IV PRN ×4 (07:27)
[2017-09-25] MEDS ORDERED: LACTATED RINGER'S 1000ML 500 ML IV PRN (07:27)
[2017-09-25] MEDS ORDERED: NALOXONE HCL INJ 0.08 MG in SYRINGE 1.8 ML IV PRN (07:27)
[2017-09-25] MEDS ORDERED: SODIUM CHLORIDE 0.9% 1000ML 1,000 ML IV PRN (07:27)
[2017-09-25] MEDS ORDERED: MoRPHine SULFATE PF 1 MG/ML 10 ML AMP/VIAL EPI PRN (07:30)
[2017-09-25] MEDS ORDERED: NALBUPHINE HCL INJ 10 MG/ML AMP IV PRN (07:30)
[2017-09-25] MEDS ORDERED: MoRPHine SULFATE 2 MG/ML CARP IV PRN (07:30)
[2017-09-25] MEDS ORDERED: NO NARCOTICS OR SEDATIVES SCH (07:30)
[2017-09-25] MEDS ORDERED: DC INTRASPINAL MORPHINE SCH (07:30)
[2017-09-25] MEDS ORDERED: NALOXONE HCL 0.4 MG/1 ML VIAL/CARP IV PRN (07:30)
[2017-09-25] MEDS ORDERED: DiphenhydrAMINE HCL 50 MG/ML VIAL IV PRN (07:30)
--- NOTE | 2017-09-25 09:05 | [facility] Post Operative Brief Note ---
Immediate Operative Summary Operative Date Sep 25, 2017. Pre-Operative Diagnosis Advanced Left Hip Degenerative Joint Disease Post-Operative Diagnosis Advanced Left Hip Degenerative Joint Disease Procedure(s) Performed Left Total Hip Arthroplasty--Uncemented Surgeon Dr. Ku Biomass Plant Manager Surgeon(s) MATTHEW Shaikh Estimated Blood Loss 400 ml Findings Consistent with Post-Op Diagnosis Fluids (cc crystalloids) 1500 cc Specimens A. Left Femoral Head Drains None Anesthesia Type Spinal MAC Complication(s) none Disposition Accompanied Pt To Recover: yes Disposition: Recovery Room / PACU
[2017-09-25] MEDS ORDERED: SILVER SULFADIAZINE 1% CR 50 GM JAR EXT PRN (09:15)
[2017-09-25] MEDS ORDERED: TAMSULOSIN HCL 0.4 MG CAP PO PRN (09:15)
[2017-09-25] MEDS ORDERED: ALUMINUM/MAGNESIUM/SIMETH (MAALOX MAX) 30 ML UDC PO PRN (09:15)
[2017-09-25] MEDS ORDERED: MAGNESIUM HYDROXIDE SUSP 30 ML UDC PO PRN (09:15)
[2017-09-25] MEDS ORDERED: ZOLPIDEM TARTRATE 5 MG TAB PO PRN (09:15)
[2017-09-25] MEDS ORDERED: BISACODYL 10 MG SUPP PR PRN (09:15)
--- NOTE | 2017-09-25 09:38 | DIAGNOSTIC IMAGING REPORT ---
AP PELVIS, CROSSTABLE LATERAL LEFT HIP History: Left total hip arthroplasty. Degenerative arthritis. Postop. FINDINGS: The patient is status post a left total hip arthroplasty. The hardware is intact. No fracture or dislocation. Skin analy are in place. IMPRESSION: Left total hip arthroplasty. No evidence for hardware complication. Electronically signed by: Simon Stearns M.D. 09/25/2017 9:37 AM Dictated Date/Time: 09/25/2017 9:36 AM
--- NOTE | 2017-09-25 09:47 | Anesthesiology Progress Note ---
Anesthesia Post Op Note Date & Time Sep 25, 2017 at 09:47 Vital Signs Pain Intensity: 0 Vital Signs Past 12 Hours Date Time Temp Pulse Resp B/P (MAP) Pulse Ox O2 Delivery O2 Flow Rate FiO2 09/25/17 09:35 73 18 118/58 96 Nasal Cannula 4 09/25/17 09:25 75 16 123/56 98 Nasal Cannula 4 09/25/17 09:15 72 16 105/50 96 Nasal Cannula 4 09/25/17 09:05 36 75 16 105/53 96 Nasal Cannula 4 09/25/17 05:45 36.7 79 20 145/67 96 Room Air Notes Mental Status: alert / awake / arousable, participated in evaluation Pt Amnestic to Procedure: Yes Nausea / Vomiting: adequately controlled Pain: adequately controlled Airway Patency, RR, SpO2: stable & adequate BP & HR: stable & adequate Hydration State: stable & adequate Neuraxial Anesthesia: was administered, sensory block is resolving Anesthetic Complications: no major complications apparent
[2017-09-25] MEDS ORDERED: NAPROXEN 250 MG TAB PO PRN (12:00)
[2017-09-25] MEDS: D5W AND 1/2NSS + 20MEQ KCL 1,000 ML IV SCH ×3 (12:16→23:36)
[2017-09-25] MEDS: FERROUS GLUCONATE 324 MG TAB PO SCH ×2 (12:52→19:25)
[2017-09-25] MEDS: KETOROLAC TROMETHAMINE 15 MG/ML VIAL IV. SCH ×3 (12:52→23:35)
[2017-09-25] MEDS: ACETAMINOPHEN 500 MG TAB PO SCH ×2 (14:09→21:07)
[2017-09-25] MEDS: CLONIDINE HCL 0.3 MG TAB PO SCH ×2 (14:09→20:58)
--- NOTE | 2017-09-25 14:27 | OPERATIVE REPORT ---
DATE OF OPERATION: 09/25/2017 SURGEON: Arturo Ku MD [employer] SALES CONSULTANT: MATTHEW Oliva PREOPERATIVE DIAGNOSIS: Left hip degenerative joint disease. POSTOPERATIVE DIAGNOSIS: Same. PROCEDURE PERFORMED: Left uncemented ceramic on highly cross-linked polyethylene total hip arthroplasty. COMPLICATIONS: None. ESTIMATED BLOOD LOSS: 400 mL. FLUID REPLACEMENT: 1500 mL crystalloid fluid replacement. ANESTHESIA: Spinal. DRAINS: None. SPECIMENS: Left femoral head sent for pathology. OPERATIVE INDICATIONS: The patient is an 81-year-old fairly active gentleman, who has had a long history of knee problems in the past. Over the past 6 months, he has developed markedly increasing left hip pain, discomfort and difficulty getting around to the point where he is getting around in a wheelchair most of the time. X-rays show progressive hip arthritis. He elected to proceed with surgical treatment. 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 He did not have a lot of osteophyte formation. A small joint effusion. He clearly had a significant and complete wear of his femoral head. OPERATIVE IMPLANTS: Operative implants consisted of: 1. A Biomet G7 size 54-mm acetabular shell. 2. A 6.5 cancellous acetabular screws, 1 at 35 mm in length and 1 at 30 mm in length. 3. An apex hole eliminator. 4. A highly cross-linked polyethylene liner. 5. A DePuy Corail size 10 coxa vara femoral stem. 6. A +8.5/36 mm ceramic articular ball. OPERATIVE PROCEDURE: The patient was taken to the operating room, identified and placed on the operating table in the supine position. All contact areas were appropriately padded. IV antibiotics were provided by the anesthesia team. A spinal anesthetic had been implemented in the holding area. Thornton catheter was placed in sterile fashion. The patient was then placed in the right lateral decubitus position. An axillary roll was placed. Stulberg hip positioner was used for positioning. The left hip and leg were then prepped and draped in the usual sterile fashion. A posterolateral approach to the left hip was then performed through a curvilinear incision centered over the greater trochanter. Sharp dissection was carried through subcutaneous tissues down to the level of the IT band and gluteal fascia. This patient was morbidly obese and there was a very large soft tissue envelope to dissect through. The IT band and gluteal fascia were then incised longitudinally in line with skin incision. The underlying greater trochanteric bursa was excised. I could not very well identify the external rotators due to the abundant fat, so we just released the external rotation and the posterior capsule as a single sleeve direct off the back of the femur. Great care was taken throughout the procedure to protect the sciatic nerve at all times. Hip was internally rotated and dislocated. Femoral neck osteotomy cut was made with final cut about 8 mm above the lesser trochanter. Femoral head was removed and sent for pathology. The femur was retracted anteriorly. Attention was then drawn to the acetabulum. The acetabular labrum was excised. The pulvinar fat was excised. Sequential reaming of the acetabulum was then performed beginning with a size 47, progressing up to 53. A 54-mm Biomet G7 acetabular shell was then placed in about 40 degrees of lateral opening and 20 degrees of anteversion. We really worked hard to get this in good position due to his large soft tissue envelope. It was then fixed with two 6.5 cancellous acetabular screws. A trial liner was placed. Attention was then drawn to the femur. I did have to extend the incision posteriorly due to the large soft tissue envelope. The proximal femur was entered with a cookie cutter followed by canal finder. I then broached beginning with a size 8 and progressing up to a 10. We got good fit with the 10 and I did not think we could get the 11 down. We then used a calcar reamer to smoothen off the calcar. I then trialed the hip. He had quite a bit of offset and that is the one of the reason we used the Corail stem. Hip was fully stable, but lax with the +5 head. We elected to use a +8.5. It was fully stable in full extension, external rotation and flexion to 90 degrees, and internal rotation to 50 degrees. Still a little bit lax, but we elected to use these implants. Attention was then drawn toward placement of permanent implants. All trial implants were removed. An apex hole eliminator was placed. Highly cross-linked polyethylene liner was placed. A size 10 coxa vara Corail femoral stem was then impacted in position. A +8.5/36 mm ceramic articular ball was placed. Hip was located once again found to be stable. Attention was then drawn toward closing. The posterior capsule and external rotators were repaired to the posterior aspect of the hip joint through holes in the greater trochanter as a single envelope. I did inject locally with 60 mL of 0.5% Marcaine with epinephrine. The IT band and gluteal fascia were then closed with #1 PDS suture in a running fashion. The subcutaneous tissues were then closed with 2 layers with the deep layer #2 Vicryl suture and the subcutaneous tissues with 2-0 Dexon suture in a buried interrupted fashion. The skin was closed with skin analy. Leg was then cleaned and dried and a sterile dressing of Xeroform, 4 x 4s, sterile ABD pad and foam tape was applied. The patient then transferred to the recovery room in stable condition. The patient tolerated the procedure well with no complication. All needle and sponge counts were correct at the end of the operation. I attest to the content of the Intraoperative Record and any orders documented therein. Any exception s are noted below.
[2017-09-25] MEDS ORDERED: TRANEXAMIC ACID INJ 1,000 MG in SODIUM CHLORIDE 0.9% 100ML 100 ML IV SCH (15:00)
[2017-09-25] MEDS: CHECK SCOPOLAMINE PATCH PLACEMENT SCH ×2 (16:24→23:34)
[2017-09-25] MEDS: CEFAZOLIN IV 2,000 MG in SYRINGE 0 ML IV SCH ×2 (16:26→23:34)
[2017-09-25] MEDS: SENNA 8.6 MG TAB PO SCH (20:57)
[2017-09-25] MEDS: PHENOBARBITAL 32.4 MG TAB PO SCH (20:57)
[2017-09-25] MEDS: TAMSULOSIN HCL 0.4 MG CAP PO SCH (20:57)
[2017-09-25] MEDS: SIMVASTATIN 10 MG TAB PO SCH (20:57)
[2017-09-25] MEDS: LOSARTAN POTASSIUM 25 MG TAB PO SCH (20:58)
[2017-09-25] MEDS: DOCUSATE SODIUM 100 MG CAP PO SCH (20:58)
[2017-09-25] MEDS: ASPIRIN 81 MG ECTAB PO SCH (20:58)
[2017-09-25] MEDS: FINASTERIDE 5 MG TAB PO SCH (20:58)
[2017-09-25] MEDS ORDERED: LEVOTHYROXINE 100 MCG TAB PO SCH (21:00)
[2017-09-25] MEDS ORDERED: NURSING DECISION MEDICATION ORDER SCH (21:30)
[2017-09-26] VITALS (7 sets, daily range): BP systolic 140–158; BP diastolic 61–80; PULSE 84–103; TEMP 36.5–36.8; O2SAT 96–100
[2017-09-26] MEDS ORDERED: TRAMADOL HCL 50 MG TAB PO PRN (01:00)
[2017-09-26] MEDS ORDERED: HYDROmorphone INJ 0.5 MG/0.5 ML SYR IV PRN (01:00)
[2017-09-26] MEDS ORDERED: ONDANSETRON INJ 2 MG/ML 2 ML VIAL IV PRN (01:00)
[2017-09-26] MEDS ORDERED: METOCLOPRAMIDE HCL INJ 5 MG/ML 2 ML VIAL IV PRN (01:00)
[2017-09-26] MEDS: D5W AND 1/2NSS + 20MEQ KCL 1,000 ML IV SCH ×2 (02:10→07:30)
[2017-09-26] MEDS: LEVOTHYROXINE 100 MCG TAB PO SCH (05:38)
[2017-09-26] MEDS: ACETAMINOPHEN 500 MG TAB PO SCH ×3 (05:38→21:06)
[2017-09-26] MEDS: KETOROLAC TROMETHAMINE 15 MG/ML VIAL IV. SCH ×4 (05:39→23:42)
[2017-09-26 06:13] LABS: BASO % 0.2 %; BASO ABS # 0.01 K/uL (0-0.2); EOS % 0.9 %; EOS ABS # 0.05 K/uL (0-0.5); HEMATOCRIT 34.4 % (42-52); HEMOGLOBIN 11.4 g/dL (14.0-18.0); IG# 0.02 K/uL (0.00-0.02); LYMPH % 10.6 %; LYMPH ABS # 0.62 K/uL (1.2-3.4); MEAN CELL VOLUME 96.9 fL (80-100); MEAN CORPUSCULAR HEMOGLOBIN 32.1 pg (25-34); MEAN CORPUSCULAR HGB CONC 33.1 g/dl (32-36); MEAN PLATELET VOLUME 10.6 fL (7.4-10.4); MONO % 9.8 %; MONO ABS # 0.57 K/uL (0.11-0.59); NEUT % 78.2 %; NEUT ABS # 4.57 K/uL (1.4-6.5); PLATELET COUNT 113 K/uL (130-400); RED CELL DISTRIBUTION WIDTH CV 14.3 % (11.5-14.5); RED CELL DISTRIBUTION WIDTH SD 50.9 fL (36.4-46.3); WHITE BLOOD COUNT 5.84 K/uL (4.8-10.8)
[2017-09-26 06:57] LABS: CALCIUM 8.3 mg/dl (8.5-10.1); CREATININE 1.14 mg/dl (0.60-1.40)
--- NOTE | 2017-09-26 07:41 | PROGRESS NOTE ---
DATE: 09/26/2017 SUBJECTIVE: An 81-year-old gentleman postop day 1 from a left total hip replacement. He is doing well. Denies any pain. No chest pain or shortness of breath. Not feeling dizzy or lightheaded. OBJECTIVE: VITAL SIGNS: Temperature 36.8. Vital signs stable. GENERAL: Reveals a healthy pleasant elderly male. He is sitting up in bed and looks pretty comfortable. LUNGS: Clear to auscultation. HEART: Regular rate and rhythm. ABDOMEN: Soft, nontender, nondistended. EXTREMITIES: Grossly neurovascularly intact except as follows. Examination of left hip and leg reveals leg lengths to be equal. His dressing is clean, dry and intact. His thigh is soft and supple. He has some mild chronic edema in both legs which is stable. He is neurologically intact. LABORATORY DATA: Hemoglobin 11.4. Hematocrit 34.4. Electrolytes are stable. ASSESSMENT: An 81-year-old gentleman postop day 1 from left total hip replacement, doing well. His pain is controlled. Hips located. He is neurologically intact. PLAN: 1. DVT prophylaxis including thigh high TEDs, SCDs, and aspirin twice a day. 2. PT, OT. Weightbear as tolerated. Left total hip protocol. 4. Pain control, doing well with current pain regimen. 5. Disposition. He is hoping to be discharged to [facility] for a brief rehab stay as he lives by himself and will need some assistance.
[2017-09-26] MEDS: CHECK SCOPOLAMINE PATCH PLACEMENT SCH ×3 (08:17→23:45)
[2017-09-26] MEDS: MULTIVITAMIN TAB PO SCH (08:30)
[2017-09-26] MEDS: PANTOprazole SOD 40 MG TAB PO SCH (08:30)
[2017-09-26] MEDS: ASPIRIN 81 MG ECTAB PO SCH ×2 (08:31→21:07)
[2017-09-26] MEDS: FERROUS GLUCONATE 324 MG TAB PO SCH ×3 (08:31→17:46)
[2017-09-26] MEDS: CLONIDINE HCL 0.3 MG TAB PO SCH ×3 (08:31→21:06)
[2017-09-26] MEDS: DOCUSATE SODIUM 100 MG CAP PO SCH ×2 (08:31→21:07)
[2017-09-26] MEDS: LOSARTAN POTASSIUM 25 MG TAB PO SCH (21:06)
[2017-09-26] MEDS: TAMSULOSIN HCL 0.4 MG CAP PO SCH (21:07)
[2017-09-26] MEDS: SENNA 8.6 MG TAB PO SCH (21:07)
[2017-09-26] MEDS: FINASTERIDE 5 MG TAB PO SCH (21:07)
[2017-09-26] MEDS: PHENOBARBITAL 32.4 MG TAB PO SCH (21:08)
[2017-09-26] MEDS: SIMVASTATIN 10 MG TAB PO SCH (21:08)
[2017-09-27] MEDS: LEVOTHYROXINE 100 MCG TAB PO SCH (05:27)
[2017-09-27] MEDS: ACETAMINOPHEN 500 MG TAB PO SCH (05:27)
[2017-09-27] MEDS: KETOROLAC TROMETHAMINE 15 MG/ML VIAL IV. SCH (05:28)
[2017-09-27] MEDS ORDERED: FRRG PO (07:49)
[2017-09-27] MEDS ORDERED: ASPEC81 PO (07:49)
[2017-09-27] MEDS ORDERED: ACET-24 PO (07:49)
[2017-09-27] MEDS ORDERED: ULT50X PO (07:49)
--- NOTE | 2017-09-27 07:51 | Discharge Instructions ---
Discharge Instructions Date of Service Sep 27, 2017. Admission Reason for Admission: Left Hip Degenerative Joint Disease Discharge Discharge Diagnosis / Problem: Left Hip Replacement Discharge Goals Goal(s): Decrease discomfort, Improve function, Increase independence, Improve disease control, Therapeutic intervention Activity Recommendations Activity Level: Assistance Required (Total Hip PRecautions) Therapies: Physical Therapy (Total Hip PRecautions), Occupational Therapy Weightbearing Status: Left weightbearing . Additional Information Patient informed of condition: Yes Advance Directives: No DNR: No Level of Care: Acute Rehab Communicable Disease: No Prognosis: Improving Instructions / Follow-Up Instructions / Follow-Up ACTIVITY RECOMMENDATIONS: Physical Therapy: * Aggressive physical therapy is not usually needed. You will learn to take care of yourself safely and walk. * Follow the "Hip Precautions Instructions." * In some cases, the social service manager at the hospital will arrange to have a therapist come to your house for the first couple of weeks to help you learn these skills. * You need to practice on your own or with the help of a family member as needed. * When you learn these skills, most of the therapy can be done on your own. Home Exercise: * You were shown a series of exercises in the hospital. Do these exercises three to four times each day including the exercises you were shown in physical therapy. Walking: * Get up and walk several times each day. For the first four weeks, try not to stand or walk for more than one hour at a time. If you do stand or walk for more than one hour, you will not hurt anything, but your leg will likely swell. * As you feel comfortable, you may change from the walker or crutches to a cane and then to independent walking. MEDICATIONS: New Medicine: * You will likely be taking one or more of these medicines: 1. Tramadol - Take, as directed, when you need it, every four to six hours to control your pain. 2. Iron Sulfate - Take two times each day for the month after surgery to help you replace the blood lost during surgery. 3. Aspirin - Thins your blood to lessen the chance of forming a blood clot. * The most common side effects of pain medicine and iron are nausea and constipation. If nausea or constipation is too much of a problem or if you have any questions about your new medicines or doses, call [facility] at [phone]. We will try to help you manage these issues. VERY IMPORTANT TO READ AND REVIEW" Pain: * The immediate post-operative period after hip replacement surgery is often quite painful. * You are given a prescription for pain medicine. You should take it, as directed, when you need it, especially before physical therapy and before going to bed. Pain that interferes with sleep is very common and can last several months. * You will likely need pain medicine for the first two to four weeks. It will not stop all of the pain. The pain will lessen and as you feel better, you may change to milder pain medicine such as Tylenol. * The most common side effects of pain medicine are nausea and constipation, so don't take more than you need. SPECIAL CARE INSTRUCTIONS: TEDs/Elastic Stockings: * The white elastic stockings help limit swelling and prevent blood clots from forming in your legs. The more you wear them, the more they work. * Wear them for six weeks. Prevention of Infection: * Take antibiotics one hour before any dental cleaning, dental work, urological procedure, gastrointestinal procedure or any invasive surgery in order to prevent your new joint from getting infected. * You may get the antibiotics from the doctor performing the procedure or you may call our office at before and we will call in a prescription to the pharmacy of your choice. Things to Watch For: * Drainage from the incision site that occurs more than one week after your surgery. * Severely increased leg pain or swelling. * Increased redness at the incision site. * Fever above 102 degrees Fahrenheit. * Unusual chest pain or shortness of breath. * Unusual pain or burning with urination. Call [facility] at with any of the above problems or if you have any questions about your medicines or recovery. FOLLOW UP VISIT: Make an appointment to see your doctor for approximately two weeks after surgery for a progress check and staple removal by calling the office at . Current Hospital Diet Patient's current hospital diet: Regular Diet Discharge Diet Recommended Diet: Regular Diet Procedures Procedures Performed: Left Total Hip Arthroplasty--Uncemented Pending Studies Studies pending at discharge: no Medical Emergencies . Who to Call and When: Medical Emergencies: If at any time you feel your situation is an emergency, please call [phone] immediately. . Non-Emergent Contact Non-Emergency issues call your: Surgeon . . "Provider Documentation" section prepared by Arturo Ku. . Core Measure Problem Core Measures: None
--- NOTE | 2017-09-27 07:57 | PROGRESS NOTE ---
DATE: 09/27/2017 SUBJECTIVE: An 81-year-old gentleman postop day 2 from left total hip replacement. He is doing well. Pain is very well controlled. No chest pain or shortness of breath. Not feeling dizzy or lightheaded. OBJECTIVE: VITAL SIGNS: Temperature 36.6. Vital signs stable. GENERAL: Shows a pleasant elderly male. He is lying in bed, looks pretty comfortable. EXTREMITIES: Examination of left hip and leg reveals the dressing to be clean, dry and intact. His hip is located. He can dorsiflex and plantarflex his foot appropriately. He is neurologically intact. He has some chronic but stable edema in his both legs. ASSESSMENT: An 81-year-old gentleman postop day 2 from left hip replacement, doing pretty well. His pain is controlled. PLAN: 1. DVT prophylaxis including thigh-high TEDs, SCDs, and aspirin. 2. PT/OT. Weight bear as tolerated. Left total hip protocol. 3. Pain control, doing pretty well with current pain regimen. 4. Disposition. He is hoping to be discharged to [facility] for a brief rehab stay as he lives by himself. We are waiting for insurance approval.
[2017-09-27 08:05] VITALS: BP 158/89; PULSE 85; TEMP 36.7; O2SAT 96
[2017-09-27] MEDS: ASPIRIN 81 MG ECTAB PO SCH (08:37)
[2017-09-27] MEDS: FERROUS GLUCONATE 324 MG TAB PO SCH (08:38)
[2017-09-27] MEDS: CLONIDINE HCL 0.3 MG TAB PO SCH (08:38)
[2017-09-27] MEDS: MULTIVITAMIN TAB PO SCH (08:38)
[2017-09-27] MEDS: PANTOprazole SOD 40 MG TAB PO SCH (08:38)
[2017-09-27] MEDS: DOCUSATE SODIUM 100 MG CAP PO SCH (08:38)
[2017-09-27] MEDS: CHECK SCOPOLAMINE PATCH PLACEMENT SCH (08:39)
[2017-09-27 09:44] VITALS: BP 158/89; PULSE 85; TEMP 36.7; O2SAT 96
== END 2017-09-27 12:00 | DRG 470 ==
LOC: C.ACU 05:22 → C.3E 09:11 → ENRESERV 09:38
PROVIDERS: ADMIT Orthopaedic Surgery Sports Medicine; ATTEND Orthopaedic Surgery Sports Medicine
PROC: 0SRB04A Replacement of Left Hip Joint with Ceramic on Polyethylene Synthetic Substitute, Uncemented, Open Approach (ICD-10-PCS; principal; 2017-09-25 07:15)
DX: M16.12 Unilateral primary osteoarthritis, left hip (principal); Z68.41 Body mass index [BMI] 40.0-44.9, adult; G40.909 Epilepsy, unspecified, not intractable, without status epilepticus; I10 Essential (primary) hypertension; G47.30 Sleep apnea, unspecified; E66.01 Morbid (severe) obesity due to excess calories; Z79.899 Other long term (current) drug therapy

== ENCOUNTER → 2017-10-13 | Outpatient (CLI) | payer OTHER ==
[~2017-10-13] MED LIST changes: +ACET-24 PO; +ASPI-320 PO; -CLB100 PO; +FRRG PO; +NAPR1TAB9 PO; +ULT50X PO
[2017-10-13 13:22] LABS: BASO % 0.4 %; BASO ABS # 0.03 K/uL (0-0.2); EOS % 1.2 %; EOS ABS # 0.09 K/uL (0-0.5); HEMATOCRIT 35.2 % (42-52); HEMOGLOBIN 11.7 g/dL (14.0-18.0); IG# 0.01 K/uL (0.00-0.02); LYMPH % 28.1 %; LYMPH ABS # 2.11 K/uL (1.2-3.4); MEAN CELL VOLUME 96.4 fL (80-100); MEAN CORPUSCULAR HEMOGLOBIN 32.1 pg (25-34); MEAN CORPUSCULAR HGB CONC 33.2 g/dl (32-36); MEAN PLATELET VOLUME 9.4 fL (7.4-10.4); MONO % 7.4 %; MONO ABS # 0.56 K/uL (0.11-0.59); NEUT % 62.8 %; NEUT ABS # 4.72 K/uL (1.4-6.5); PLATELET COUNT 324 K/uL (130-400); RED CELL DISTRIBUTION WIDTH CV 14.5 % (11.5-14.5); RED CELL DISTRIBUTION WIDTH SD 51.5 fL (36.4-46.3); WHITE BLOOD COUNT 7.52 K/uL (4.8-10.8)
[2017-10-13 14:40] LABS: ALBUMIN 3.2 gm/dl (3.4-5.0); ALT/SGPT 23 U/L (12-78); AST/SGOT 16 U/L (15-37); BLOOD UREA NITROGEN 25 mg/dl (7-18); CALCIUM 9.4 mg/dl (8.5-10.1); CARBON DIOXIDE 25 mmol/L (21-32); CREATININE 0.96 mg/dl (0.60-1.40); GLUCOSE 79 mg/dl (70-99); POTASSIUM 4.1 mmol/L (3.5-5.1); SODIUM 138 mmol/L (136-145)
[2017-10-13 14:52] LABS: ALKALINE PHOSPHATASE 229 U/L (45-117); TOTAL PROTEIN 7.8 gm/dl (6.4-8.2)
== END | disposition home or self-care (01) ==
LOC: C.LAB1850 12:06
PROVIDERS: ATTEND Internal Medicine
DX: D64.9 Anemia, unspecified (principal); E03.9 Hypothyroidism, unspecified

== ENCOUNTER → 2017-10-17 | Outpatient (CLI) | payer OTHER ==
--- NOTE | 2017-10-17 10:37 | DIAGNOSTIC IMAGING REPORT ---
ABDOMINAL ULTRASOUND, RIGHT UPPER QUADRANT HISTORY: Elevated alkaline phosphatase. COMPARISON: CT of the abdomen and pelvis March 08, 2010 and right upper quadrant ultrasound March 12, 2012. FINDINGS: Liver morphology is normal. Hepatic echogenicity is mildly increased. No hepatic lesions are identified. There are no gallstones. No gallbladder wall thickening is present. Pancreas is largely obscured by overlying bowel gas. There is no biliary ductal dilatation. The common bile duct measures 5 mm in caliber. There is no right hydronephrosis. A few right-sided parapelvic cysts are noted. IMPRESSION: 1. No gallstones or biliary ductal dilatation. 2. Probable mild fatty infiltration of the liver. Electronically signed by: Manny Banuelos M.D. 10/17/2017 10:35 AM Dictated Date/Time: 10/17/2017 10:34 AM
== END | disposition home or self-care (01) ==
LOC: C.ULTRBC 09:57
PROVIDERS: ATTEND Internal Medicine
DX: R74.8 Abnormal levels of other serum enzymes (principal)

== ENCOUNTER 2022-01-26 16:14 | Observation (INO) ==
[2022-01-26] MEDS ORDERED: SODIUM CHLORIDE 0.9% 500 ML IV ONE (16:27)
--- NOTE | 2022-01-26 16:31 | Emergency Department Note ---
Impression & Plan Occlusion of vertebral artery, Dizziness, Slurred speech, Ambulatory dysfunction ED Provider Note NAME: JOSE FRY AGE: 86 SEX: M : 1935 ARRIVES VIA: Walk-In INFORMANT: Patient ED PROVIDER(S): Theodore Duke DO CHIEF COMPLAINT: dizzy slurred speech HPI: Patient is an 86-year-old male with past medical history of prediabetes, seizure disorder, sleep apnea, who presents to the ER for dizziness and slurred speech. Symptoms started yesterday morning. He felt like he was going to have a seizure which he has not had one since about 1979 and consequently took 2 extra tabs of his phenobarbital yesterday. He now only takes 3 tablets as opposed to 6 which he used to take. He notes that his head feels funny. No change in vision. No weakness or numbness in the arms or legs. No dysuria, urgency, or frequency. No other exacerbating remitting factors. Patient has fallen about 3 times over the past 24 hours. He denies any pain from the falls. He notes these are secondary to feeling off balance. ROS: See above HPI for pertinent positives & negatives. A total of 10 systems reviewed and were otherwise negative. PAST MEDICAL HISTORY:See Below PAST SURGICAL HISTORY:See Below FAMILY HISTORY:See Below SOCIAL HISTORY:See Below HOME MEDICATIONS:See Below ALLERGIES:See Below VITALS:See Below PHYSICAL EXAMINATION: GENERAL: Sitting up in bed, alert, well appearing, well nourished, no distress, non-toxic EYE EXAM: normal conjunctiva. PERRL and EOM's intact. OROPHARYNX: no exudate, no erythema, lips, buccal mucosa, and tongue normal and mucous membranes are moist NECK: supple, no nuchal rigidity, no adenopathy, non-tender LUNGS: Clear to auscultation. Normal chest wall mechanics HEART: no murmurs, S1 normal and S2 normal ABDOMEN: abdomen soft, non-tender, normo-active bowel sounds, no masses, no rebound or guarding. UPPER EXTREMITIES: upper extremities are grossly normal. LOWER EXTREMITIES: No pitting edema. NEURO EXAM: Normal sensorium, cranial nerves II-XII intact, slurred speech, no weakness of arms, no weakness of legs. No drift. Finger to nose intact. Gross sensation intact. MEDICAL DECISION MAKING: Patient is an 86-year-old male who presents the ER for ataxia and slurred speech which started yesterday morning. IV was established and blood work was obtained. Labs show mild leukopenia at 4000. No significant anemia. Mild thrombocytopenia at 123. INR unremarkable. BMP along with LFTs and bilirubin was unremarkable. Troponin was negative. UA was pending upon admission. 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 Discuss with Migue from neurosurgery at [facility] as well as Dr. Payne who noted that there is no intervention at this time required due to his deficit and current presentation. They recommended admission to [facility]. Patient was given aspirin following passing a swallow study. Discussed with Donovan Cantu for further evaluation. Triage Nursing notes reviewed. Limited review of prior medical records performed Vital Signs: reviewed and remarkable for no significant abnormalities Differential diagnosis: Differential diagnosis includes etiologies such as benign positional vertigo, de hydration, hypovolemia, anemia, tumor, infection, hypoglycemia, electrolyte abnormalities, cardiac sources, intracerebral event, toxicologic, neurological, as well as others were entertained. ER treatment provided: See below Diagnostics interpreted by me: ECG: Sinus rhythm rate of 67 Left axis PVCs QTC 448 Septal Q waves Cardiac Monitoring: An order was placed for continuous cardiac monitoring. The monitor shows a rate of 70 with sinus rhythm. Laboratory studies: As stated above and show below. Imaging studies: CT as well as angios of the head and neck as described above Consultation(s): Discussed with [place] neurolog[facility] Dr. Payne, [place] [facility] Migue, and Dr. Donovan Cantu for admission Procedures: none Critical Care: None Past Med/Surg History Medical History (Updated 01/26/22 @ 22:50 by Theodore Duke DO) Abrasion Alkaline phosphatase raised Anemia Cellulitis of right leg Clavus Foot pain, right Hyperlipidemia Hypertension Obstructive sleep apnea Prediabetes Seizure disorder Thrombocytopenia Surgical History (Updated 08/13/21 @ 14:31 by Batsheva Dee MD) History of total hip replacement S/P knee surgery Status post bilateral unicompartmental knee replacement Status post hip replacement Family History Father Prostate cancer Myocardial infarction Denies family history of Ovarian cancer Breast cancer Colorectal cancer Social History Smoking Status: Never smoker Tobacco Type: Pipe and Cigars Second Hand Exposure: Yes; Hx Alcohol Use: No Hx Substance Use: No Preferred Language: Mosotho Communication Ability: Effective Visual Impairment: No Limitations Hearing Ability: Use of Hearing Aid marital status: Single Current Living Situation: Alone current occupational status: retired Feels Safe at Home: Yes Childhood Exposure to Second-Hand Smoke: Yes Dental Care, Regularly: No Physical Activity Frequency: Does not Exercise Seatbelt Use: always Sunscreen Use: No Allergies Allergies Allergy/AdvReac Type Severity Reaction Status Date / Time celecoxib AdvReac Unknown SHORTNESS Verified 08/13/21 13:24 OF BREATH Home Meds Home Medications Medication Instructions Recorded Confirmed betamethasone dipropionate 0.05 % 1 appln topical DAILY PRN itching 03/31/19 01/26/22 topical cream on genitals mupirocin calcium 2 % topical cream 1 appln topical DAILY PRN itching 03/31/19 01/26/22 on genitals Previous Rx's Medication Instructions Recorded mecobalamin (vitamin B12) 1,000 1,000 mcg PO DAILY #90 tabs 08/09/20 mcg chewable tablet silver sulfadiazine 1 % topical 1 applic topical DAILY PRN wound 04/02/21 cream healing, genitals #50 grams cholecalciferol (vitamin D3) 1,250 50,000 unit PO WK #12 caps 04/19/21 mcg (50,000 unit) capsule levothyroxine 100 mcg tablet 100 mcg PO QAM #90 tabs 06/25/21 phenobarbital 32.4 mg tablet 129.6 mg PO HS #120 tabs 08/02/21 finasteride 5 mg tablet 5 mg PO HS #90 tabs 09/05/21 simvastatin 10 mg tablet 10 mg PO HS #90 tabs 09/05/21 clotrimazole 1 % topical cream See Rx Instructions .Route 09/26/21 .COMPLEX #45 grams losartan 25 mg tablet 25 mg PO HS #90 tabs 12/04/21 tamsulosin 0.4 mg capsule 0.4 mg PO HS #90 caps 12/04/21 fluocinonide 0.05 % topical cream 1 applic topical DAILY PRN itching 01/04/22 on buttocks #30 grams Results & Data (ED) Vital Signs Vital Signs - 24 hr 01/26/22 16:18 01/26/22 16:24 01/26/22 17:09 Temperature 37 C Temperature Source Temporal Artery Scan Pulse Rate 62 Respiratory Rate 18 Respiratory Effort / Characteristics Non-Labored Respiratory Depth Normal Blood Pressure [Right Arm] 163/113 H Blood Pressure Mean [Right Arm] 129 Pulse Oximetry 97 Oxygen Delivery Method Room Air Room Air Sepsis Recent Fever Within 48 Hours No Sepsis New/Unexplained Change in Mental Status No Sepsis Action Taken by Nursing No Action Required Pulse Oximetry Post Tiitration 98 Laboratory Data Result diagrams: 01/26/22 16:30 01/26/22 16:30 Lab Results 01/26/22 01/26/22 01/26/22 Range/Units 16:26 16:30 16:30 WBC 4.53 L (4.8-10.8) K/ul RBC 4.17 L (4.63-6.08) M/uL Hgb 13.6 L (14.0-18.0) g/dl Hct 40.5 (40.1-51.0) % MCV 97.1 (80.0-100.0) fL MCH 32.6 (25.0-34.0) pg MCHC 33.6 (32.0-36.0) g/dL RDW Std Deviation 49.5 H (36.4-46.3) fL RDW Coeff of Rojelio 13.8 (11.5-14.5) % Plt Count 123 L (130-400) K/uL MPV 11.4 (9.4-12.4) fL Immature Gran % (Auto) 0.2 % Neut % (Auto) 55.8 % Lymph % (Auto) 34.2 % Hayes % (Auto) 7.9 % Eos % (Auto) 1.5 % Baso % (Auto) 0.4 % Neut # (Auto) 2.52 (1.4-6.5) K/uL Lymph # (Auto) 1.55 (1.2-3.4) K/uL Hayes # (Auto) 0.36 (0.24-0.82) K/uL Eos # (Auto) 0.07 (0-0.50) K/uL Baso # (Auto) 0.02 (0-0.2) K/uL Immature Gran # (Auto) 0.01 (0.00-0.02) K/uL Platelet Estimate Normal (Normal) PT 10.9 (9.0-12.0) Seconds INR 1.0 (0.9-1.1) APTT 30.2 (21.0-31.0) Seconds PTT Ratio 1.1 Sodium (136-145) mmol/L Potassium (3.5-5.1) mmol/L Chloride (98-107) mmol/L Carbon Dioxide (21-32) mmol/L Anion Gap (3-11) BUN (6-23) mg/dl Creatinine (0.6-1.4) mg/dl Est Cr Clr Drug Dosing ml/min Est GFR ( Amer) ml/min Est GFR (Non-Af Amer) ml/min BUN/Creatinine Ratio (10-20) Glucose (70-99(Fasting)) mg/dl POC Glucose 95 (70-99) mg/dl Calcium (8.5-10.1) mg/dl Magnesium (1.7-2.4) mg/dl Total Bilirubin (0.2-1.0) mg/dl AST (13-39) U/L ALT (7-52) U/L Alkaline Phosphatase (34-104) U/L Troponin I High Sens (0-20) pg/ml Total Protein (6.0-8.3) gm/dl Albumin (3.4-5.0) gm/dl Globulin (2.5-4.0) gm/dl Albumin/Globulin Ratio (0.9-2) Urine Color Urine Appearance (Clear) Urine pH (4.5-7.5) Ur Specific Isabel (1.000-1.030) Urine Protein (Negative) Urine Glucose (UA) (Negative) Urine Ketones (Negative) Urine Blood (Negative) Urine Nitrite (Negative) Urine Bilirubin (Negative) Urine Urobilinogen (Negative) Ur Leukocyte Esterase (Negative) Urine WBC (Auto) (0-5) /hpf Urine RBC (Auto) (0-4) /hpf U Hyaline Cast (Auto) (0-5) /lpf U Epithel Cells (Auto) (0-5) /lpf Urine Bacteria (Auto) (Negative) 07/23/22 07/23/22 Range/Units 16:30 18:05 WBC (4.8-10.8) K/ul RBC (4.63-6.08) M/uL Hgb (14.0-18.0) g/dl Hct (40.1-51.0) % MCV (80.0-100.0) fL MCH (25.0-34.0) pg MCHC (32.0-36.0) g/dL RDW Std Deviation (36.4-46.3) fL RDW Coeff of Rojelio (11.5-14.5) % Plt Count (130-400) K/uL MPV (9.4-12.4) fL Immature Gran % (Auto) % Neut % (Auto) % Lymph % (Auto) % Hayes % (Auto) % Eos % (Auto) % Baso % (Auto) % Neut # (Auto) (1.4-6.5) K/uL Lymph # (Auto) (1.2-3.4) K/uL Hayes # (Auto) (0.24-0.82) K/uL Eos # (Auto) (0-0.50) K/uL Baso # (Auto) (0-0.2) K/uL Immature Gran # (Auto) (0.00-0.02) K/uL Platelet Estimate (Normal) PT (9.0-12.0) Seconds INR (0.9-1.1) APTT (21.0-31.0) Seconds PTT Ratio Sodium 138 (136-145) mmol/L Potassium 4.4 (3.5-5.1) mmol/L Chloride 106 (98-107) mmol/L Carbon Dioxide 27 (21-32) mmol/L Anion Gap 5 (3-11) BUN 22 (6-23) mg/dl Creatinine 1.00 (0.6-1.4) mg/dl Est Cr Clr Drug Dosing 1.7 ml/min Est GFR ( Amer) 78.1 ml/min Est GFR (Non-Af Amer) 67.4 ml/min BUN/Creatinine Ratio 22.0 H (10-20) Glucose 95 (70-99(Fasting)) mg/dl POC Glucose (70-99) mg/dl Calcium 9.5 (8.5-10.1) mg/dl Magnesium 2.1 (1.7-2.4) mg/dl Total Bilirubin 0.5 (0.2-1.0) mg/dl AST 17 (13-39) U/L ALT 12 (7-52) U/L Alkaline Phosphatase 112 H (34-104) U/L Troponin I High Sens 9.1 (0-20) pg/ml Total Protein 7.2 (6.0-8.3) gm/dl Albumin 3.9 (3.4-5.0) gm/dl Globulin 3.3 (2.5-4.0) gm/dl Albumin/Globulin Ratio 1.2 (0.9-2) Urine Color Yellow Urine Appearance Clear (Clear) Urine pH 5.5 (4.5-7.5) Ur Specific Isabel 1.041 H (1.000-1.030) Urine Protein Negative (Negative) Urine Glucose (UA) Negative (Negative) Urine Ketones Negative (Negative) Urine Blood Negative (Negative) Urine Nitrite Negative (Negative) Urine Bilirubin Negative (Negative) Urine Urobilinogen Negative (Negative) Ur Leukocyte Esterase 1+ H (Negative) Urine WBC (Auto) 5-10 H (0-5) /hpf Urine RBC (Auto) 0-4 (0-4) /hpf U Hyaline Cast (Auto) 0 (0-5) /lpf U Epithel Cells (Auto) 5-10 H (0-5) /lpf Urine Bacteria (Auto) Negative (Negative) Administered Medications Finasteride (Finasteride 5 Mg Tab) 5 mg PO HS CORETTA Stop: 02/25/22 20:59 Last Admin: 01/26/22 21:52 Dose: 5 mg Documented By: MARCOS Losartan Potassium (Losartan Potassium 25 Mg Tab) 25 mg PO HS CORETTA Stop: 02/25/22 20:59 Last Admin: 01/26/22 21:52 Dose: 25 mg Documented By: MARCOS Phenobarbital (Phenobarbital 30 Mg Tab) 120 mg PO HS CORETTA Stop: 02/25/22 20:59 Last Admin: 01/26/22 21:59 Dose: 120 mg Documented By: MARCOS Simvastatin (Simvastatin 10 Mg Tab) 10 mg PO HS [place]ETTA Stop: 02/25/22 20:59 Last Admin: 01/26/22 21:52 Dose: 10 mg Documented By: MARCOS Tamsulosin HCl (Tamsulosin Hcl 0.4 Mg Cap) 0.4 mg PO HS CORETTA Stop: 02/25/22 20:59 Last Admin: 01/26/22 21:52 Dose: 0.4 mg Documented By: MARCOS Discontinued Medications Aspirin (Aspirin Chew 324 Mg) 324 mg PO NOW STA Stop: 01/26/22 18:26 Last Admin: 01/26/22 18:34 Dose: 324 mg Documented By: HEATHER Sodium Chloride (Nss) 500 mls @ 999 mls/hr IV .Q31M ONE Stop: 01/26/22 16:57 Last Infusion: 01/26/22 17:37 Dose: 0 mls/hr Documented By: Admin: 01/26/22 16:56 Dose: 999 mls/hr Documented By: Ioversol (Optiray 320 125ml) 118 ml IV ONCE ONE Stop: 01/26/22 16:45 Last Admin: 01/26/22 16:48 Dose: 118 ml Documented By: RHD Imaging Data Radiologist's Impression: Chest X-Ray 01/26/22 16:27 SINGLE VIEW CHEST CLINICAL HISTORY: Strokelike symptoms. FINDINGS: 2 AP, portable, upright chest radiographs are compared to study dated 11/13/2010. The examination is degraded by portable technique and apical lordotic positioning. The heart is enlarged noting atherosclerotic calcification of the thoracic aorta. The pulmonary vasculature is noncongested. Chronic interstitial thickening is similar to previous. There is bibasilar scarring/atelectasis. The lungs and pleural spaces are otherwise clear. No pneumothorax is seen. The skeletal structures are osteopenic. The bony thorax is grossly intact. Superior subluxation of the right humeral head suggests chronic rotator cuff injury. IMPRESSION: Cardiomegaly with no acute cardiopulmonary abnormality. ACT 112: Negative or not required by law. Electronically signed by: Anson Velez M.D. 01/26/2022 6:[address] 01/26/22 16:[address] OF THE BRAIN; CT ANGIOGRAM OF THE BRAIN; CT ANGIOGRAM OF THE NECK CLINICAL HISTORY: Strokelike symptoms. COMPARISON STUDY: MRI of the brain dated 11/03/2008 TECHNIQUE: Unenhanced axial CT scan of the brain is performed. Subsequently, following the IV administration of 118 of Optiray 320, CT angiogram of the head and neck was performed from the aortic arch to the vertex. Images are reviewed in the axial, sagittal, and coronal planes. 3-D MIPS images are created and assessed. IV contrast was administered without complication. All measurements were calculated based on NASCET criteria. A dose lowering technique was utilized adhering to the principles of ALARA. CT DOSE: 1342.22 mGy.cm FINDINGS: Brain parenchyma: There is age-related involutional change noting mild subcortical and periventricular microangiopathic disease. A chronic lacunar infarct is noted in the right caudate head. There is no hemorrhage, mass effect, or evidence of acute territorial ischemia by CT criteria. There is no evidence of enhancing mass lesion on the angiogram phase images. The ventricles, sulci, and cisterns are prominent secondary to involutional change. Hoyt-white matter differentiation is preserved. No extra-axial fluid collection is seen. Thoracic aorta: There is atherosclerotic calcification of the thoracic aorta. Visualized portions of the thoracic aorta are normal in caliber. The aortic arch demonstrates standard 3-vessel anatomy. Right carotid arterial system: The right common carotid artery is widely patent, as are the right internal and external carotid arteries. Advanced calcified plaque is noted in the carotid bulb. No significant luminal narrowing is identified. Left carotid arterial system: The left common carotid artery is widely patent, a s are the left internal and external carotid arteries. Significant calcified plaque is noted in the carotid bulbs. Vertebral arteries: The right vertebral artery is dominant and widely patent. The left vertebral artery is diminutive. There is occlusion of the proximal left vertebral artery with reconstitution of flow in the lower cervical region at the level of C7. There is thready flow throughout the mid to distal vertebral artery. The vessel is patent at the skull base appear Subclavian arteries: Widely patent bilaterally. Intracranial vasculature: There is atherosclerotic calcification of the cavernous carotid and vertebral arteries. The internal carotid arteries are patent at the skull base, as are the anterior and middle cerebral arteries bilaterally. The basilar artery is diminutive and there are bilateral posterior communicated arteries. The vertebrobasilar system and posterior cerebral arteries are patent. The right vertebral artery is dominant. The left vertebral artery terminates as the PICA. There is focal high-grade stenosis of the proximal left posterior cerebral artery seen on axial image #91. There is focal high-grade stenosis of the M1 segment of the left middle cerebral artery, best seen on axial image #98. There is focal high-grade stenosis of the A1 segment of the right anterior cerebral artery on image #110. No aneurysm or focal vessel cut off seen throughout the intracranial circulation. Jugular veins: Patent bilaterally. Dural sinuses: Patent. Lung apices: Partially visualized upper lobe lung parenchyma appears clear. Soft tissues: The visualized pharyngeal soft tissues are normal in appearance noting angiographic phase technique. The oropharyngeal airway appears widely patent. The salivary and thyroid glands are normal in appearance. No cervical lymphadenopathy is seen. Skeletal structures: The skeletal structures are osteopenic. The calvarium appears intact. The cervical spine is maintained noting multilevel spondylosis. No lytic or blastic lesion is seen. Orbits: The bony orbits are intact. Orbital contents are normal as visualized. Sinuses and mastoids: A 1.2 cm retention cyst is noted in the right sphenoid sinus. There is trace mucosal thickening and a 1.5 cm retention cyst in the left maxillary antrum. The remaining paranasal sinuses are clear. The mastoid air cells are well pneumatized. Cerumen is noted in the left external auditory canal. IMPRESSION: 1. There is no hemorrhage, mass effect, or evidence of acute territorial ischemia by CT criteria. 2. 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 3. No aneurysm or focal vessel cut off is seen throughout the intracranial circulation. 4. There is advanced atherosclerotic calcification of the carotid bulbs without hemodynamically significant carotid artery stenosis. 5. 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 The vessel is reconstituted in the neck and patent at the skull base. This is of indeterminant acuity and may be chronic. 6. Additional findings as above. ACT 112: Negative or not required by law. Electronically signed by: Anson Velez M.D. 01/26/2022 5:10 PM Head CTA 01/26/22 16:[address] OF THE BRAIN; CT ANGIOGRAM OF THE BRAIN; CT ANGIOGRAM OF THE NECK CLINICAL HISTORY: Strokelike symptoms. COMPARISON STUDY: MRI of the brain dated 11/03/2008 TECHNIQUE: Unenhanced axial CT scan of the brain is performed. Subsequently, following the IV administration of 118 of Optiray 320, CT angiogram of the head and neck was performed from the aortic arch to the vertex. Images are reviewed in the axial, sagittal, and coronal planes. 3-D MIPS images are created and a ssessed. IV contrast was administered without complication. All measurements were calculated based on NASCET criteria. A dose lowering technique was utilized adhering to the principles of ALARA. CT DOSE: 1342.22 mGy.cm FINDINGS: Brain parenchyma: There is age-related involutional change noting mild subcortical and periventricular microangiopathic disease. A chronic lacunar infarct is noted in the right caudate head. There is no hemorrhage, mass effect, or evidence of acute territorial ischemia by CT criteria. There is no evidence of enhancing mass lesion on the angiogram phase images. The ventricles, sulci, and cisterns are prominent secondary to involutional change. Hoyt-white matter differentiation is preserved. No extra-axial fluid collection is seen. Thoracic aorta: There is atherosclerotic calcification of the thoracic aorta. Visualized portions of the thoracic aorta are normal in caliber. The aortic arch demonstrates standard 3-vessel anatomy. Right carotid arterial system: The right common carotid artery is widely patent, as are the right internal and external carotid arteries. Advanced calcified plaque is noted in the carotid bulb. No significant luminal narrowing is identified. Left carotid arterial system: The left common carotid artery is widely patent, as are the left internal and external carotid arteries. Significant calcified plaque is noted in the carotid bulbs. Vertebral arteries: The right vertebral artery is dominant and widely patent. The left vertebral artery is diminutive. There is occlusion of the proximal left vertebral artery with reconstitution of flow in the lower cervical region at the level of C7. There is thready flow throughout the mid to distal vertebral ar bhupendra. The vessel is patent at the skull base appear Subclavian arteries: Widely patent bilaterally. Intracranial vasculature: There is atherosclerotic calcification of the cavernous carotid and vertebral arteries. The internal carotid arteries are patent at the skull base, as are the anterior and middle cerebral arteries bilaterally. The basilar artery is diminutive and there are bilateral posterior communicated arteries. The vertebrobasilar system and posterior cerebral arteries are patent. The right vertebral artery is dominant. The left vertebral artery terminates as the PICA. There is focal high-grade stenosis of the proximal left posterior cerebral artery seen on axial image #91. There is focal high-grade stenosis of the M1 segment of the left middle cerebral artery, best seen on axial image #98. There is focal high-grade stenosis of the A1 segment of the right anterior cerebral artery on image #110. No aneurysm or focal vessel c ut off seen throughout the intracranial circulation. Jugular veins: Patent bilaterally. Dural sinuses: Patent. Lung apices: Partially visualized upper lobe lung parenchyma appears clear. Soft tissues: The visualized pharyngeal soft tissues are normal in appearance noting angiographic phase technique. The oropharyngeal airway appears widely patent. The salivary and thyroid glands are normal in appearance. No cervical lymphadenopathy is seen. Skeletal structures: The skeletal structures are osteopenic. The calvarium appears intact. The cervical spine is maintained noting multilevel spondylosis. No lytic or blastic lesion is seen. Orbits: The bony orbits are intact. Orbital contents are normal as visualized. Sinuses and mastoids: A 1.2 cm retention cyst is noted in the right sphenoid sinus. There is trace mucosal thickening and a 1.5 cm retention cyst in the left maxillary antrum. The remaining paranasal sinuses are clear. The mastoid air cells are well pneumatized. Cerumen is noted in the left external auditory canal. IMPRESSION: 1. There is no hemorrhage, mass effect, or evidence of acute territorial ischemia by CT criteria. 2. 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 3. No aneurysm or focal vessel cut off is seen throughout the intracranial circulation. 4. There is advanced atherosclerotic calcification of the carotid bulbs without hemodynamically significant carotid artery stenosis. 5. 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 The vessel is reconstituted in the neck and patent at the skull base. This is of indeterminant acuity and may be chronic. 6. Additional findings as above. ACT 112: Negative or not required by law. Electronically signed by: Anson Velez M.D. 01/26/2022 5:10 PM Neck CTA 01/26/22 16:[address] OF THE BRAIN; CT ANGIOGRAM OF THE BRAIN; CT ANGIOGRAM OF THE NECK CLINICAL HISTORY: Strokelike symptoms. COMPARISON STUDY: MRI of the brain dated 11/03/2008 TECHNIQUE: Unenhanced axial CT scan of the brain is performed. Subsequently, following the IV administration of 118 of Optiray 320, CT angiogram of the head and neck was performed from the aortic arch to the vertex. Images are reviewed in the axial, sagittal, and coronal planes. 3-D MIPS images are created and assessed. IV contrast was administered without complication. All measurements were calculated based on NASCET criteria. A dose lowering technique was utilize d adhering to the principles of ALARA. CT DOSE: 1342.22 mGy.cm FINDINGS: Brain parenchyma: There is age-related involutional change noting mild subcortical and periventricular microangiopathic disease. A chronic lacunar in farct is noted in the right caudate head. There is no hemorrhage, mass effect, or evidence of acute territorial ischemia by CT criteria. There is no evidence of enhancing mass lesion on the angiogram phase images. The ventricles, sulci, and cisterns are prominent secondary to involutional change. Hoyt-white matter differentiation is preserved. No extra-axial fluid collection is seen. Thoracic aorta: There is atherosclerotic calcification of the thoracic aorta. Visualized portions of the thoracic aorta are normal in caliber. The aortic arch demonstrates standard 3-vessel anatomy. Right carotid arterial system: The right common carotid artery is widely patent, as are the right internal and external carotid arteries. Advanced calcified plaque is noted in the carotid bulb. No significant luminal narrowing is identified. Left carotid arterial system: The left common carotid artery is widely patent, as are the left internal and external carotid arteries. Significant calcified plaque is noted in the carotid bulbs. Vertebral arteries: The right vertebral artery is dominant and widely patent. The left vertebral artery is diminutive. There is occlusion of the proximal left vertebral artery with reconstitution of flow in the lower cervical region at the level of C7. There is thready flow throughout the mid to distal vertebral artery. The vessel is patent at the skull base appear Subclavian arteries: Widely patent bilaterally. Intracranial vasculature: There is atherosclerotic calcification of the cavernous carotid and vertebral arteries. The internal carotid arteries are patent at the skull base, as are the anterior and middle cerebral arteries bilaterally. The basilar artery is diminutive and there are bilateral posterior communicated arteries. The vertebrobasilar system and posterior cerebral arteries are patent. The right vertebral artery is dominant. The left vertebral artery terminates as the PICA. There is focal high-grade stenosis of the proximal left posterior cerebral artery seen on axial image #91. There is focal high-grade stenosis of the M1 segment of the left middle cerebral artery, best seen on axial image #98. There is focal high-grade stenosis of the A1 segment of the right anterior cerebral artery on image #110. No aneurysm or focal vessel cut off seen throughout the intracranial circulation. Jugular veins: Patent bilaterally. Dural sinuses: Patent. Lung apices: Partially visualized upper lobe lung parenchyma appears clear. Soft tissues: The visualized pharyngeal soft tissues are normal in appearance noting angiographic phase technique. The oropharyngeal airway appears widely patent. The salivary and thyroid glands are normal in appearance. No cervical lymphadenopathy is seen. Skeletal structures: The skeletal structures are osteopenic. The calvarium appears intact. The cervical spine is maintained noting multilevel spondylosis. No lytic or blastic lesion is seen. Orbits: The bony orbits are intact. Orbital contents are normal as visualized. Sinuses and mastoids: A 1.2 cm retention cyst is noted in the right sphenoid sinus. There is trace mucosal thickening and a 1.5 cm retention cyst in the left maxillary antrum. The remaining paranasal sinuses are clear. The mastoid air cells are well pneumatized. Cerumen is noted in the left external auditory canal. IMPRESSION: 1. There is no hemorrhage, mass effect, or evidence of acute territorial ischemia by CT criteria. 2. 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 3. No aneurysm or focal vessel cut off is seen throughout the intracranial circulation. 4. There is advanced atherosclerotic calcification of the carotid bulbs without hemodynamically significant carotid artery stenosis. 5. 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 The vessel is reconstituted in the neck and patent at the skull base. This is of indeterminant acuity and may be chronic. 6. Additional findings as above. ACT 112: Negative or not required by law. Electronically signed by: Anson Velez M.D. 01/26/2022 5:10 PM Discharge Plan Visit Data Chief Complaint: Neuro Symptoms/Deficit Stated Complaint: BALANCE ISSUES, SLURRED SPEECH, DIZZY, CONFUSION ED Provider: Theodore Duke Discharge Problem: Occlusion of vertebral artery, Dizziness, Slurred speech, Ambulatory dysfunction Patient Disposition: Admitted As Inpatient Discharge Instructions Interventions: ED Discharge Assessment Last Done: 01/26/22 19:52
[2022-01-26] MEDS ORDERED: OPTIRAY 320 125ml IV ONE (16:44)
[2022-01-26 17:06] LABS: Partial Thromboplastin Ratio 1.1; Partial Thromboplastin Time 30.2 Seconds (21.0-31.0); Prothrombin Time 10.9 Seconds (9.0-12.0)
--- NOTE | 2022-01-26 17:12 | CT Scan Report ---
UNENHANCED CT OF THE BRAIN; CT ANGIOGRAM OF THE BRAIN; CT ANGIOGRAM OF THE NECK CLINICAL HISTORY: Strokelike symptoms. COMPARISON STUDY: MRI of the brain dated 11/03/2008 TECHNIQUE: Unenhanced axial CT scan of the brain is performed. Subsequently, following the IV adminis tration of 118 of Optiray 320, CT angiogram of the head and neck was performed from the aortic arch t o the vertex. Images are reviewed in the axial, sagittal, and coronal planes. 3-D MIPS images are cre ated and assessed. IV contrast was administered without complication. All measurements were calculate d based on NASCET criteria. A dose lowering technique was utilized adhering to the principles of ALA RA. CT DOSE: 1342.22 mGy.cm FINDINGS: Brain parenchyma: There is age-related involutional change noting mild subcortical and periventricula r microangiopathic disease. A chronic lacunar infarct is noted in the right caudate head. There is no hemorrhage, mass effect, or evidence of acute territorial ischemia by CT criteria. There is no evide nce of enhancing mass lesion on the angiogram phase images. The ventricles, sulci, and cisterns are p rominent secondary to involutional change. Hoyt-white matter differentiation is preserved. No extra-a xial fluid collection is seen. Thoracic aorta: There is atherosclerotic calcification of the thoracic aorta. Visualized portions of the thoracic aorta are normal in caliber. The aortic arch demonstrates standard 3-vessel anatomy. Right carotid arterial system: The right common carotid artery is widely patent, as are the right int ernal and external carotid arteries. Advanced calcified plaque is noted in the carotid bulb. No signi ficant luminal narrowing is identified. Left carotid arterial system: The left common carotid artery is widely patent, as are the left international student counselor al and external carotid arteries. Significant calcified plaque is noted in the carotid bulbs. Vertebral arteries: The right vertebral artery is dominant and widely patent. The left vertebral carlos ry is diminutive. There is occlusion of the proximal left vertebral artery with reconstitution of martin w in the lower cervical region at the level of C7. There is thready flow throughout the mid to distal vertebral artery. The vessel is patent at the skull base appear Subclavian arteries: Widely patent bilaterally. Intracranial vasculature: There is atherosclerotic calcification of the cavernous carotid and vertebr al arteries. The internal carotid arteries are patent at the skull base, as are the anterior and midd le cerebral arteries bilaterally. The basilar artery is diminutive and there are bilateral posterior communicated arteries. The vertebrobasilar system and posterior cerebral arteries are patent. The rig ht vertebral artery is dominant. The left vertebral artery terminates as the PICA. There is focal hig h-grade stenosis of the proximal left posterior cerebral artery seen on axial image #91. There is foc al high-grade stenosis of the M1 segment of the left middle cerebral artery, best seen on axial image #98. There is focal high-grade stenosis of the A1 segment of the right anterior cerebral artery on i mage #110. No aneurysm or focal vessel cut off seen throughout the intracranial circulation. Jugular veins: Patent bilaterally. Dural sinuses: Patent. Lung apices: Partially visualized upper lobe lung parenchyma appears clear. Soft tissues: The visualized pharyngeal soft tissues are normal in appearance noting angiographic pha se technique. The oropharyngeal airway appears widely patent. The salivary and thyroid glands are nor mal in appearance. No cervical lymphadenopathy is seen. Skeletal structures: The skeletal structures are osteopenic. The calvarium appears intact. The cervic al spine is maintained noting multilevel spondylosis. No lytic or blastic lesion is seen. Orbits: The bony orbits are intact. Orbital contents are normal as visualized. Sinuses and mastoids: A 1.2 cm retention cyst is noted in the right sphenoid sinus. There is trace mu cosal thickening and a 1.5 cm retention cyst in the left maxillary antrum. The remaining paranasal si nuses are clear. The mastoid air cells are well pneumatized. Cerumen is noted in the left external au ditory canal. IMPRESSION: 1. There is no hemorrhage, mass effect, or evidence of acute territorial ischemia by CT criteria. 2. There is focal high-grade stenosis of the M1 segment of the left middle cerebral artery, the proxi mal left posterior cerebral artery, and the A1 segment of the right anterior cerebral artery. 3. No aneurysm or focal vessel cut off is seen throughout the intracranial circulation. 4. There is advanced atherosclerotic calcification of the carotid bulbs without hemodynamically signi ficant carotid artery stenosis. 5. 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 The vessel is reconstituted in the neck and patent at the skull base. This is of indeterminant acuity and may be ch ronic. 6. Additional findings as above. ACT 112: Negative or not required by law. Electronically signed by: Anson Velez M.D. 01/26/2022 5:10 PM
[2022-01-26 17:21] LABS: Troponin I High Sensitivity 9.1 pg/ml (0-20)
[2022-01-26 17:24] LABS: Albumin Globulin Ratio 1.2 (0.9-2); Albumin Level 3.9 gm/dl (3.4-5.0); Bilirubin,Total 0.5 mg/dl (0.2-1.0); Calcium 9.5 mg/dl (8.5-10.1); Creatinine Clr Calc Pharmacy 1.7 ml/min; Est GFR (African American) 78.1 ml/min; Est GFR (Non-African American) 67.4 ml/min; Globulin 3.3 gm/dl (2.5-4.0); Magnesium 2.1 mg/dl (1.7-2.4); Potassium 4.4 mmol/L (3.5-5.1); Total Protein 7.2 gm/dl (6.0-8.3)
[2022-01-26 17:32] LABS: Hematocrit (blood only) 40.5 % (40.1-51.0); Hemoglobin 13.6 g/dl (14.0-18.0); Mean Corpuscular Hemoglobin 32.6 pg (25.0-34.0); Mean Corpuscular Hgb Conc 33.6 g/dL (32.0-36.0); Mean Corpuscular Volume 97.1 fL (80.0-100.0); Mean Platelet Volume 11.4 fL (9.4-12.4); Platelet Count 123 K/uL (130-400); RDW Coefficient of Variation 13.8 % (11.5-14.5); RDW Standard Deviation 49.5 fL (36.4-46.3); Red Blood Count 4.17 M/uL (4.63-6.08); White Blood Count 4.53 K/ul (4.8-10.8)
[2022-01-26 17:33] LABS: Basophils # (auto) 0.02 K/uL (0-0.2); Basophils % (auto) 0.4 %; Eosinophils # (auto) 0.07 K/uL (0-0.50); Eosinophils % (auto) 1.5 %; Immature Granulocytes # (auto) 0.01 K/uL (0.00-0.02); Immature Granulocytes % (auto) 0.2 %; Lymphocytes # (auto) 1.55 K/uL (1.2-3.4); Lymphocytes % (auto) 34.2 %; Monocytes # (auto) 0.36 K/uL (0.24-0.82); Monocytes % (auto) 7.9 %; Neutrophils # (auto) 2.52 K/uL (1.4-6.5); Neutrophils % (auto) 55.8 %; Platelet Estimate Normal (Normal)
--- NOTE | 2022-01-26 18:22 | History & Physical Report ---
Date of Service January 26, 2022 Assessment & Plan (1) Stroke-like symptoms: Plan: ?ataxia vs. just worsening of his alreadt poor balance. Possible slurred speech now resolved. Symptoms not particularly specific to CVA but given new onset balance issues will continue full workup. TTE MRI brain w/o contrast PT/OT evals SLT eval Aspirin 324mg PO stat then 81mg PO daily Continue regular home dose of his simvastatin pending lipid profile and brain MRI Consult neurology - can likely be cancelled if MRI negative (2) Occlusion of vertebral artery: Plan: Noted on CT angiogram but unclear of acuity. Possible cause of above if stroke seen on MRI distal to this (3) Ambulatory dysfunction: Plan: PT/OT (4) Vitamin B12 deficiency: Plan: Continue his usual supplementation for this (5) Seizure disorder: Plan: No seizures since 1974. Seems unlikely to be the cause of ambulatory dysfunction as above. Continue his usual phenobarbital (6) Enlarged prostate with lower urinary tract symptoms (LUTS): Plan: Continue tamsulosin and finasteride (7) Hypothyroidism: Plan: TSH WNL in August. Continue levothyroxine 100 mcg PO daily (8) Hypertension: Plan: Continue losartan 25 mg PO HS, Plan VTE Prophylaxis - deferred on admission depending on ambulation Diet - heart healthy Disposition - observation status to med/tele Admission and Anticipated Discharge Date Admission Date: January 26, 2022 History of Present Illness Chief Complaint: Recurrent falls, ataxia Primary Care Provider: Sae Gallegos MD Alli Arcos is an 86 year old right handed male who presents to the ER with recurrent falls over the last 48 hours He reports this started yesterday around 7:30am. He got up to have breakfast and felt his normal self. Ate and drank 2 cups of coffee and when he went to walk around the counter he had a sudden "felt funny" in his head and he felt he couldn't stand up. His eyes occasionally tear up and he reports this was much more prominent. He denies any headache, pain, dizziness, lightheadedness or vertigo just " felt funny". He fell over but did not lose consciousness or hit his head. He managed to pull himself up. He fell later that morning and hit the bed with his wrist under similar circumstances and felt generally jittery all over the place. He felt back to his normal self this morning and planned to go to a camp today. However on the way to the bathroom around 11am the same this happened again. He denies any weakness in all 4 limbs but mainly feels his balance is off. No change in sensation. His family noticed a slight slurring of his speech today - "like as if he didn't have his teeth in" but they report this has now resolved. The patient did not notice any speech changes. He denies any vision loss or change in hearing. More chronically he reports his balance has not been good since a hip operation on the left side a few years ago. He uses a cane to ambulate. 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 After passing swallow test he was given 324mg PO aspirin and referred to medicine for admission and ongoing management of suspected stroke. Allergies Allergy/AdvReac Type Severity Reaction Status Date / Time celecoxib AdvReac Unknown SHORTNESS Verified 08/13/21 13:24 OF BREATH Home Medications Medication Instructions Recorded Confirmed Type betamethasone dipropionate 0.05 % 1 appln topical DAILY PRN itching 03/31/19 01/26/22 History topical cream on genitals mupirocin calcium 2 % topical cream 1 appln topical DAILY PRN itching 03/31/19 01/26/22 History on genitals mecobalamin (vitamin B12) 1,000 1,000 mcg PO DAILY #90 tabs 08/09/20 01/26/22 Rx mcg chewable tablet silver sulfadiazine 1 % topical 1 applic topical DAILY PRN wound 04/02/21 01/26/22 Rx cream healing, genitals #50 grams cholecalciferol (vitamin D3) 1,250 50,000 unit PO WK #12 caps 04/19/21 01/26/22 Rx mcg (50,000 unit) capsule levothyroxine 100 mcg tablet 100 mcg PO QAM #90 tabs 06/25/21 01/26/22 Rx phenobarbital 32.4 mg tablet 129.6 mg PO HS #120 tabs 08/02/21 01/26/22 Rx finasteride 5 mg tablet 5 mg PO HS #90 tabs 09/05/21 01/26/22 Rx simvastatin 10 mg tablet 10 mg PO HS #90 tabs 09/05/21 01/26/22 Rx clotrimazole 1 % topical cream See Rx Instructions .Route 09/26/21 01/26/22 Rx .COMPLEX #45 grams losartan 25 mg tablet 25 mg PO HS #90 tabs 12/04/21 01/26/22 Rx tamsulosin 0.4 mg capsule 0.4 mg PO HS #90 caps 12/04/21 01/26/22 Rx fluocinonide 0.05 % topical cream 1 applic topical DAILY PRN itching 01/04/22 01/26/22 Rx on buttocks #30 grams Past Med/Surg History Medical History (Updated 01/26/22 @ 22:50 by Theodore Duke DO) Abrasion Alkaline phosphatase raised Anemia Cellulitis of right leg Clavus Foot pain, right Hyperlipidemia Hypertension Obstructive sleep apnea Prediabetes Seizure disorder Thrombocytopenia Surgical History (Updated 08/13/21 @ 14:31 by Batsheva Dee MD) History of total hip replacement S/P knee surgery Status post bilateral unicompartmental knee replacement Status post hip replacement Family History Father Prostate cancer Myocardial infarction Denies family history of Ovarian cancer Breast cancer Colorectal cancer Social History Smoking Status: Former smoker Tobacco Type: Pipe and Cigars Second Hand Exposure: No; Do You Dip or Chew Tobacco: No; Hx Alcohol Use: No Hx Substance Use: No Preferred Language: Kinyarwanda Communication Ability: Effective Visual Impairment: No Limitations Hearing Ability: Use of Hearing Aid Occupational Health Nurse Required: No Beliefs That Will Affect Care: None marital status: Single Current Living Situation: Family Current Living Situation Comment: Grandson lives in basement current occupational status: retired Other Information That Helps Us Care for You: No Feels Safe at Home: Yes Safety Concerns: Feels Safe At This Time Childhood Exposure to Second-Hand Smoke: Yes Dental Care, Regularly: No Physical Activity Frequency: Does not Exercise Seatbelt Use: always Sunscreen Use: No Assistive Devices: Denture - Upper, Denture - Lower, Glasses and Hearing Aid - Bilateral Review of Systems Review of Systems: All systems reviewed & are unremarkable except as noted in HPI & below Physical Exam Constitutional: WD/WN, vitals as above Respiratory: normal respiratory effort, lungs clear to auscultation Cardiovascular: Rate/Rhythm: regular rate and regular rhythm Heart Sounds: no murmur Extremities: + pedal edema (1+ pre-tibial b/l edema) Gastrointestinal (Abdomen): normal bowel sounds, soft, nontender, no hepatosplenomegaly Skin: no rashes, warm and dry Neurologic: moves all extremities and awake; no focal motor deficits and not confused Speech / Cognition: normal speech Motor/Sensory: no tremor, no pronator drift and no sensory deficit Cranial Nerves: PERRL, EOM intact bilaterally, normal facial strength, tongue midline, able to rotate head bilaterally, able to elevate shoulders bilaterally, no nystagmus and symmetric palate elevation Coordination: normal [id number] test and normal [id number] test Psychiatric: Orientation: alert and oriented x 3 Eye Contact: good eye contact Results & Data Results & Data ([facility]) Vital Signs (Past 12 Hours) Vital Signs Temp Pulse Resp BP Pulse Ox O2 Del Method 01/26/22 17:09 Room Air 01/26/22 16:24 163/113 H 01/26/22 16:18 37 C 62 18 97 Room Air Laboratory Results Abnormal lab results 01/26/22 01/26/22 Range/Units 16:30 16:30 WBC 4.53 L (4.8-10.8) K/ul RBC 4.17 L (4.63-6.08) M/uL Hgb 13.6 L (14.0-18.0) g/dl RDW Std Deviation 49.5 H (36.4-46.3) fL Plt Count 123 L (130-400) K/uL BUN/Creatinine Ratio 22.0 H (10-20) Alkaline Phosphatase 112 H (34-104) U/L Diagnostic Findings UNENHANCED CT OF THE BRAIN; CT ANGIOGRAM OF THE BRAIN; CT ANGIOGRAM OF THE NECK CLINICAL HISTORY: Strokelike symptoms. COMPARISON STUDY: MRI of the brain dated 11/03/2008 TECHNIQUE: Unenhanced axial CT scan of the brain is performed. Subsequently, following the IV administration of 118 of Optiray 320, CT angiogram of the head and neck was performed from the aortic arch to the vertex. Images are reviewed in the axial, sagittal, and coronal planes. 3-D MIPS images are created and assessed. IV contrast was administered without complication. All measurements were calculated based on NASCET criteria. A dose lowering technique was utilized adhering to the principles of ALARA. CT DOSE: 1342.22 mGy.cm FINDINGS: Brain parenchyma: There is age-related involutional change noting mild subcortical and periventricular microangiopathic disease. A chronic lacunar infarct is noted in the right caudate head. There is no hemorrhage, mass effect, or evidence of acute territorial ischemia by CT criteria. There is no evidence of enhancing mass lesion on the angiogram phase images. The ventricles, sulci, and cisterns are prominent secondary to involutional change. Hoyt-white matter differentiation is preserved. No extra-axial fluid collection is seen. Thoracic aorta: There is atherosclerotic calcification of the thoracic aorta. Visualized portions of the thoracic aorta are normal in caliber. The aortic arch demonstrates standard 3-vessel anatomy. Right carotid arterial system: The right common carotid artery is widely patent, as are the right internal and external carotid arteries. Advanced calcified plaque is noted in the carotid bulb. No significant luminal narrowing is identified. Left carotid arterial system: The left common carotid artery is widely patent, as are the left internal and external carotid arteries. Significant calcified plaque is noted in the carotid bulbs. Vertebral arteries: The right vertebral artery is dominant and widely patent. The left vertebral artery is diminutive. There is occlusion of the proximal left vertebral artery with reconstitution of flow in the lower cervical region at the level of C7. There is thready flow throughout the mid to distal vertebral artery. The vessel is patent at the skull base appear Subclavian arteries: Widely patent bilaterally. Intracranial vasculature: There is atherosclerotic calcification of the cavernous carotid and vertebral arteries. The internal carotid arteries are patent at the skull base, as are the anterior and middle cerebral arteries bilaterally. The basilar artery is diminutive and there are bilateral posterior communicated arteries. The vertebrobasilar system and posterior cerebral arter ies are patent. The right vertebral artery is dominant. The left vertebral artery terminates as the PICA. There is focal high-grade stenosis of the proximal left posterior cerebral artery seen on axial image #91. There is focal high-grade stenosis of the M1 segment of the left middle cerebral artery, best seen on axial image #98. There is focal high-grade stenosis of the A1 segment of the right anterior cerebral artery on image #110. No aneurysm or focal vessel cut off seen throughout the intracranial circulation. Jugular veins: Patent bilaterally. Dural sinuses: Patent. Lung apices: Partially visualized upper lobe lung parenchyma appears clear. Soft tissues: The visualized pharyngeal soft tissues are normal in appearance noting angiographic phase technique. The oropharyngeal airway appears widely patent. The salivary and thyroid glands are normal in appearance. No cervical lymphadenopathy is seen. Skeletal structures: The skeletal structures are osteopenic. The calvarium appears intact. The cervical spine is maintained noting multilevel spondylosis. No lytic or blastic lesion is seen. Orbits: The bony orbits are intact. Orbital contents are normal as visualized. Sinuses and mastoids: A 1.2 cm retention cyst is noted in the right sphenoid sinus. There is trace mucosal thickening and a 1.5 cm retention cyst in the left maxillary antrum. The remaining paranasal sinuses are clear. The mastoid air cells are well pneumatized. Cerumen is noted in the left external auditory canal. IMPRESSION: 1. There is no hemorrhage, mass effect, or evidence of acute territorial ischemi a by CT criteria. 2. 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 3. No aneurysm or focal vessel cut off is seen throughout the intracranial circulation. 4. There is advanced atherosclerotic calcification of the carotid bulbs without hemodynamically significant carotid artery stenosis. 5. 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 The vessel is reconstituted in the neck and patent at the skull base. This is of indeterminant acuity and may be chronic. 6. Additional findings as above. Medications Administered ER medications given: NSS 500 mL bolus Code Status & VTE Plan Code Status All treatment outside of a cardiac arrest, DNR in the event of a cardiac arrest VTE Prophylaxis Plan VTE Prophylaxis will be ordered: Yes PG Care Time/CCT Total # of Minutes Spent Total Time Spent with Patient: Total time spent is greater than 50% in coordination of care (as documented) at patient's floor/unit and/or counseling patient: Coding Level of Care Code INT OBSERVATION CARE 70M LVL 3 Diagnoses Stroke-like symptoms R29.90 Occlusion of vertebral artery I65.09 Ambulatory dysfunction R26.2 Vitamin B12 deficiency E53.8 Seizure disorder G40.909 Enlarged prostate with lower urinary tract symptoms (LUTS) N40.1 Hypothyroidism E03.9 Hypertension I10
[2022-01-26] MEDS ORDERED: ASPIRIN CHEW 324 MG PO STA (18:25)
[2022-01-26 18:33] LABS: Appearance Urine Clear (Clear); Bacteria Urine Automated Negative (Negative); Bilirubin Urine Negative (Negative); Blood Urine Negative (Negative); Cast Urine Automated 0 /lpf (0-5); Color Urine Yellow; Glucose Urine UA Negative (Negative); Ketones Urine Negative (Negative); Leukocyte Esterase Urine 1+ (Negative); Nitrite Urine Negative (Negative); Protein Urine Negative (Negative); RBC Urine Automated 0-4 /hpf (0-4); Specific Gravity Urine 1.041 (1.000-1.030); Urobilinogen Urine Negative (Negative); pH Urine 5.5 (4.5-7.5)
--- NOTE | 2022-01-26 18:45 | XRay Report ---
SINGLE VIEW CHEST CLINICAL HISTORY: Strokelike symptoms. FINDINGS: 2 AP, portable, upright chest radiographs are compared to study dated 11/13/2010. The examin ation is degraded by portable technique and apical lordotic positioning. The heart is enlarged notin g atherosclerotic calcification of the thoracic aorta. The pulmonary vasculature is noncongested. Chr onic interstitial thickening is similar to previous. There is bibasilar scarring/atelectasis. The jodi gs and pleural spaces are otherwise clear. No pneumothorax is seen. The skeletal structures are osteo penic. The bony thorax is grossly intact. Superior subluxation of the right humeral head suggests chr onic rotator cuff injury. IMPRESSION: Cardiomegaly with no acute cardiopulmonary abnormality. ACT 112: Negative or not required by law. Electronically signed by: Anson Velez M.D. 01/26/2022 6:44 PM
[2022-01-26] MEDS ORDERED: PHARMACIST DISCHARGE MED REC CONSULT PRN (20:25)
[2022-01-26] MEDS ORDERED: ACETAMINOPHEN 325 MG TAB PO PRN (20:25)
[2022-01-26] MEDS ORDERED: PHENobarbitaL 30 MG TAB PO SCH (21:00)
[2022-01-26] MEDS ORDERED: TAMSULOSIN HCL 0.4 MG CAP PO SCH (21:00)
[2022-01-26] MEDS ORDERED: FINASTERIDE 5 MG TAB PO SCH (21:00)
[2022-01-26] MEDS ORDERED: LOSARTAN POTASSIUM 25 MG TAB PO SCH (21:00)
[2022-01-26] MEDS ORDERED: SIMVASTATIN 10 MG TAB PO SCH (21:00)
[2022-01-27] MEDS ORDERED: LEVOTHYROXINE SODIUM 100 MCG TABLET PO SCH (06:30)
[2022-01-27 06:53] LABS: Basophils # (auto) 0.03 K/uL (0-0.2); Basophils % (auto) 0.6 %; Eosinophils # (auto) 0.07 K/uL (0-0.50); Eosinophils % (auto) 1.3 %; Hematocrit (blood only) 39.7 % (40.1-51.0); Hemoglobin 13.5 g/dl (14.0-18.0); Immature Granulocytes # (auto) 0.01 K/uL (0.00-0.02); Immature Granulocytes % (auto) 0.2 %; Lymphocytes # (auto) 1.44 K/uL (1.2-3.4); Lymphocytes % (auto) 27.7 %; Mean Corpuscular Hemoglobin 32.6 pg (25.0-34.0); Mean Corpuscular Volume 95.9 fL (80.0-100.0); Mean Platelet Volume 12.2 fL (9.4-12.4); Monocytes # (auto) 0.43 K/uL (0.24-0.82); Monocytes % (auto) 8.3 %; Neutrophils # (auto) 3.21 K/uL (1.4-6.5); Neutrophils % (auto) 61.9 %; Platelet Count 116 K/uL (130-400); RDW Coefficient of Variation 13.8 % (11.5-14.5); RDW Standard Deviation 49.1 fL (36.4-46.3); Red Blood Count 4.14 M/uL (4.63-6.08); White Blood Count 5.19 K/ul (4.8-10.8)
[2022-01-27 07:23] LABS: BUN Creatinine Ratio 22.6 (10-20); Calcium 8.8 mg/dl (8.5-10.1); Chol HDL Ratio 3.9 (0-5); Creatinine Clr Calc Pharmacy 72.1 ml/min; Est GFR (African American) 85.2 ml/min; Est GFR (Non-African American) 73.6 ml/min
[2022-01-27] MEDS ORDERED: CYANOCOBALAMIN (B-12) 500 MCG TABLET PO SCH (09:00)
[2022-01-27] MEDS ORDERED: ASPIRIN 81 MG ECTAB PO SCH (09:00)
--- NOTE | 2022-01-27 10:40 | Magnetic Resonance Report ---
Brain MRI WITHOUT CONTRAST HISTORY: ataxia ?cerebellar CVA TECHNIQUE: Multiplanar multisequence MRI of the brain was performed without the use of contrast. COMPARISON STUDY: Head CT 01/26/2022. FINDINGS: There are 2 punctate foci of restricted diffusion within the left cerebellar hemisphere on images 7 and 8 consistent with small acute infarcts. Small lipoma within the scalp at the high convex ity. The midline structures are intact. The ventricles and sulci demonstrate mild age-related involut ional changes. Mild periventricular white matter T2 hyperintensity is nonspecific but the temporal lo bes are symmetric. Small retention cyst within the left maxillary sinus and right sphenoid sinus. The orbits are unremarkable. The major vascular flow-voids at the skull base are well-maintained. There is mild to moderate cerebellar atrophy. There is no mass, hematoma, midline shift. IMPRESSION: 1. There are 2 punctate foci of restricted diffusion within the left cerebellar hemisphere consistent with acute lacunar infarcts. 2. Mild atrophy and microvascular ischemic changes. 3. 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 ACT 112: Negative or not required by law. Electronically signed by: Simon Stearns M.D. 01/27/2022 10:38 AM
[2022-01-27] MEDS ORDERED: LOSARTAN POTASSIUM 50 MG TAB PO SCH (11:15)
--- NOTE | 2022-01-27 11:41 | Electrocardiogram Report ---
Test Reason : Blood Pressure : / mmHG Vent. Rate : 067 BPM Atrial Rate : 067 BPM P-R Int : 232 ms QRS Dur : 104 ms QT Int : 424 ms P-R-T Axes : 047 -29 047 degrees QTc Int : 448 ms Sinus rhythm with sinus arrhythmia with 1st degree A-V block with occasional Premature ventricular co mplexes Septal infarct , age undetermined Abnormal ECG When compared with ECG of 18-FEB-2017 22:11, Premature ventricular complexes are now Present AK interval has increased Confirmed by Nelson Dejesus ([id number]) on 01/27/2022 11:41:24 AM Referred By: REFERRED SELF Confirmed By:Nelson Dejesus
[2022-01-27] MEDS ORDERED: cloNIDine HCL 0.1 MG TAB PO ONE (13:45)
--- NOTE | 2022-01-27 14:17 | Discharge Summary ---
Date of Service January 27, 2022 Admission HPI Per Admitting Provider Alli Arcos is an 86 year old right handed male who presents to the ER with recurrent falls over the last 48 hours He reports this started yesterday around 7:30am. He got up to have breakfast and felt his normal self. Ate and drank 2 cups of coffee and when he went to walk around the counter he had a sudden "felt funny" in his head and he felt he couldn't stand up. His eyes occasionally tear up and he reports this was much more prominent. He denies any headache, pain, dizziness, lightheadedness or vertigo just " felt funny". He fell over but did not lose consciousness or hit his head. He managed to pull himself up. He fell later that morning and hit the bed with his wrist under similar circumstances and felt generally jittery all over the place. He felt back to his normal self this morning and planned to go to a camp today. However on the way to the bathroom around 11am the same this happened again. He denies any weakness in all 4 limbs but mainly feels his balance is off. No change in sensation. His family noticed a slight slurring of his speech today - "like as if he didn't have his teeth in" but they report this has now resolved. The patient did not notice any speech changes. He denies any vision loss or change in hearing. More chronically he reports his balance has not been good since a hip operation on the left side a few years ago. He uses a cane to ambulate. 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 After passing swallow test he was given 324mg PO aspirin and referred to medicine for admission and ongoing management of suspected stroke. Principal Diagnosis 1. Acute cerebellar lacunar infarcts 2. Uncontrolled hypertension Discharge Exam GENERAL: 86 yo Well-developed, well-nourished WM. NAD. LUNGS: Clear to auscultation bilaterally. No W/R/R. CARDIOVASCULAR: Regular rate and rhythm. No M/G/R. No JVD. ABDOMEN: Soft, non-tender and non-distended. BS normoactive x 4 quad. EXTREMITIES: No edema. Non-tender. Peripheral pulses +2/4. NEUROLOGIC: A&O x3. Nonfocal PSYCHIATRIC: Cooperative. Appropriate mood and affect. SKIN: Warm, dry, intact. No rashes or lesions. Discharge Data Allergies Allergy/AdvReac Type Severity Reaction Status Date / Time celecoxib AdvReac Unknown SHORTNESS Verified 08/13/21 13:24 OF BREATH Consultations 01/26/22 18:15 ED Decision to Admit Stat Ordered Studies Chest X-Ray 01/26/22 16:27 SINGLE VIEW CHEST CLINICAL HISTORY: Strokelike symptoms. FINDINGS: 2 AP, portable, upright chest radiographs are compared to study dated 11/13/2010. The examination is degraded by portable technique and apical lordotic positioning. The heart is enlarged noting atherosclerotic calcification of the thoracic aorta. The pulmonary vasculature is noncongested. Chronic interstitial thickening is similar to previous. There is bibasilar scarring/atelectasis. The lungs and pleural spaces are otherwise clear. No pneumothorax is seen. The skeletal structures are osteopenic. The bony thorax is grossly intact. Superior subluxation of the right humeral head suggests chronic rotator cuff injury. IMPRESSION: Cardiomegaly with no acute cardiopulmonary abnormality. ACT 112: Negative or not required by law. Electronically signed by: Anson Velez M.D. 01/26/2022 6:[address] 01/26/22 16:[address] OF THE BRAIN; CT ANGIOGRAM OF THE BRAIN; CT ANGIOGRAM OF THE NECK CLINICAL HISTORY: Strokelike symptoms. COMPARISON STUDY: MRI of the brain dated 11/03/2008 TECHNIQUE: Unenhanced axial CT scan of the brain is performed. Subsequently, following the IV administration of 118 of Optiray 320, CT angiogram of the head and neck was performed from the aortic arch to the vertex. Images are reviewed in the axial, sagittal, and coronal planes. 3-D MIPS images are created and assessed. IV contrast was administered without complication. All measurements were calculated based on NASCET criteria. A dose lowering technique was u tilized adhering to the principles of ALARA. CT DOSE: 1342.22 mGy.cm FINDINGS: Brain parenchyma: There is age-related involutional change noting mild subcortical and periventricular microangiopathic disease. A chronic lacunar infarct is noted in the right caudate head. There is no hemorrhage, mass effect, or evidence of acute territorial ischemia by CT criteria. There is no evidence of enhancing mass lesion on the angiogram phase images. The ventricles, sulci, and cisterns are prominent secondary to involutional change. Hoyt-white matter differentiation is preserved. No extra-axial fluid collection is seen. Thoracic aorta: There is atherosclerotic calcification of the thoracic aorta. Visualized portions of the thoracic aorta are normal in caliber. The aortic arch demonstrates standard 3-vessel anatomy. Right carotid arterial system: The right common carotid artery is widely patent, as are the right internal and external carotid arteries. Advanced calcified plaque is noted in the carotid bulb. No significant luminal narrowing is identified. Left carotid arterial system: The left common carotid artery is widely patent, as are the left internal and external carotid arteries. Significant calcified plaque is noted in the carotid bulbs. Vertebral arteries: The right vertebral artery is dominant and widely patent. The left vertebral artery is diminutive. There is occlusion of the proximal left vertebral artery with reconstitution of flow in the lower cervical region at the level of C7. There is thready flow throughout the mid to distal vertebral artery. The vessel is patent at the skull base appear Subclavian arteries: Widely patent bilaterally. Intracranial vasculature: There is atherosclerotic calcification of the cavernous carotid and vertebral arteries. The internal carotid arteries are patent at the skull base, as are the anterior and middle cerebral arteries bilaterally. The basilar artery is diminutive and there are bilateral posterior communicated arteries. The vertebrobasilar system and posterior cerebral arteries are patent. The right vertebral artery is dominant. The left vertebral artery terminates as the PICA. There is focal high-grade stenosis of the proximal left posterior cerebral artery seen on axial image #91. There is focal high-grade stenosis of the M1 segment of the left middle cerebral artery, best seen on axial image #98. There is focal high-grade stenosis of the A1 segment of the right anterior cerebral artery on image #110. No aneurysm or focal vessel cut off seen throughout the intracranial circulation. Jugular veins: Patent bilaterally. Dural sinuses: Patent. Lung apices: Partially visualized upper lobe lung parenchyma appears clear. Soft tissues: The visualized pharyngeal soft tissues are normal in appearance noting angiographic phase technique. The oropharyngeal airway appears widely patent. The salivary and thyroid glands are normal in appearance. No cervical lymphadenopathy is seen. Skeletal structures: The skeletal structures are osteopenic. The calvarium appears intact. The cervical spine is maintained noting multilevel spondylosis. No lytic or blastic lesion is seen. Orbits: The bony orbits are intact. Orbital contents are normal as visualized. Sinuses and mastoids: A 1.2 cm retention cyst is noted in the right sphenoid sinus. There is trace mucosal thickening and a 1.5 cm retention cyst in the left maxillary antrum. The remaining paranasal sinuses are clear. The mastoid air cells are well pneumatized. Cerumen is noted in the left external auditory canal. IMPRESSION: 1. There is no hemorrhage, mass effect, or evidence of acute territorial ischemia by CT criteria. 2. 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 3. No aneurysm or focal vessel cut off is seen throughout the intracranial circulation. 4. There is advanced atherosclerotic calcification of the carotid bulbs without hemodynamically significant carotid artery stenosis. 5. 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 The vessel is reconstituted in the neck and patent at the skull base. This is of indeterminant acuity and may be chronic. 6. Additional findings as above. ACT 112: Negative or not required by law. Electronically signed by: Anson Velez M.D. 01/26/2022 5:10 PM Head CTA 01/26/22 16:[address] OF THE BRAIN; CT ANGIOGRAM OF THE BRAIN; CT ANGIOGRAM OF THE NECK CLINICAL HISTORY: Strokelike symptoms. COMPARISON STUDY: MRI of the brain dated 11/03/2008 TECHNIQUE: Unenhanced axial CT scan of the brain is performed. Subsequently, following the IV administration of 118 of Optiray 320, CT angiogram of the head and neck was performed from the aortic arch to the vertex. Images are reviewed in the axial, sagittal, and coronal planes. 3-D MIPS images are created and assessed. IV contrast was administered without complication. All measurements were calculated based on NASCET criteria. A dose lowering technique was utilized adhering to the principles of ALARA. CT DOSE: 1342.22 mGy.cm FINDINGS: Brain parenchyma: There is age-related involutional change noting mild subcortical and periventricular microangiopathic disease. A chronic lacunar infarct is noted in the right caudate head. There is no hemorrhage, mass effect, or evidence of acute territorial ischemia by CT criteria. There is no evidence of enhancing mass lesion on the angiogram phase images. The ventricles, sulci, and cisterns are prominent secondary to involutional change. Hoyt-white matter differentiation is preserved. No extra-axial fluid collection is seen. Thoracic aorta: There is atherosclerotic calcification of the thoracic aorta. Visualized portions of the thoracic aorta are normal in caliber. The aortic arch demonstrates standard 3-vessel anatomy. Right carotid arterial system: The right common carotid artery is widely patent, as are the right internal and external carotid arteries. Advanced calcified plaque is noted in the carotid bulb. No significant luminal narrowing is identified. Left carotid arterial system: The left common carotid artery is widely patent, as are the left internal and external carotid arteries. Significant calcified plaque is noted in the carotid bulbs. Vertebral arteries: The right vertebral artery is dominant and widely patent. The left vertebral artery is diminutive. There is occlusion of the proximal left vertebral artery with reconstitution of flow in the lower cervical region at the level of C7. There is thready flow throughout the mid to distal vertebral artery. The vessel is patent at the skull base appear Subclavian arteries: Widely patent bilaterally. Intracranial vasculature: There is atherosclerotic calcification of the cavernous carotid and vertebral arteries. The internal carotid arteries are patent at the skull base, as are the anterior and middle cerebral arteries bilaterally. The basilar artery is diminutive and there are bilateral posterior communicated arteries. The vertebrobasilar system and posterior cerebral arteries are patent. The right vertebral artery is dominant. The left vertebral artery terminates as the PICA. There is focal high-grade stenosis of the proximal left posterior cerebral artery seen on axial image #91. There is focal high-grade stenosis of the M1 segment of the left middle cerebral artery, best seen on axial image #98. There is focal high-grade stenosis of the A1 segment of the right anterior cerebral artery on image #110. No aneurysm or focal vessel cut off seen throughout the intracranial circulation. Jugular veins: Patent bilaterally. Dural sinuses: Patent. Lung apices: Partially visualized upper lobe lung parenchyma appears clear. Soft tissues: The visualized pharyngeal soft tissues are normal in appearance noting angiographic phase technique. The oropharyngeal airway appears widely patent. The salivary and thyroid glands are normal in appearance. No cervical lymphadenopathy is seen. Skeletal structures: The skeletal structures are osteopenic. The calvarium appears intact. The cervical spine is maintained noting multilevel spondylosis. No lytic or blastic lesion is seen. Orbits: The bony orbits are intact. Orbital contents are normal as visualized. Sinuses and mastoids: A 1.2 cm retention cyst is noted in the right sphenoid sinus. There is trace mucosal thickening and a 1.5 cm retention cyst in the left maxillary antrum. The remaining paranasal sinuses are clear. The mastoid air cells are well pneumatized. Cerumen is noted in the left external auditory canal. IMPRESSION: 1. There is no hemorrhage, mass effect, or evidence of acute territorial ischemia by CT criteria. 2. 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 3. No aneurysm or focal vessel cut off is seen throughout the intracranial circulation. 4. There is advanced atherosclerotic calcification of the carotid bulbs without hemodynamically significant carotid artery stenosis. 5. 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 The vessel is reconstituted in the neck and patent at the skull base. This is of indeterminant acuity and may be chronic. 6. Additional findings as above. ACT 112: Negative or not required by law. Electronically signed by: Anson Velez M.D. 01/26/2022 5:10 PM Neck CTA 01/26/22 16:[address] OF THE BRAIN; CT ANGIOGRAM OF THE BRAIN; CT ANGIOGRAM OF THE NECK CLINICAL HISTORY: Strokelike symptoms. COMPARISON STUDY: MRI of the brain dated 11/03/2008 TECHNIQUE: Unenhanced axial CT scan of the brain is performed. Subsequently, following the IV administration of 118 of Optiray 320, CT angiogram of the head and neck was performed from the aortic arch to the vertex. Images are reviewed in the axial, sagittal, and coronal planes. 3-D MIPS images are created and assessed. IV contrast was administered without complication. All measurements were calculated based on NASCET criteria. A dose lowering technique was utilized adhering to the principles of ALARA. CT DOSE: 1342.22 mGy.cm FINDINGS: Brain parenchyma: There is age-related involutional change noting mild subcortical and periventricular microangiopathic disease. A chronic lacunar infarct is noted in the right caudate head. There is no hemorrhage, mass effect, or evidence of acute territorial ischemia by CT criteria. There is no evidence of enhancing mass lesion on the angiogram phase images. The ventricles, sulci, and cisterns are prominent secondary to involutional change. Hoyt-white matter differentiation is preserved. No extra-axial fluid collection is seen. Thoracic aorta: There is atherosclerotic calcification of the thoracic aorta. Visualized portions of the thoracic aorta are normal in caliber. The aortic arch demonstrates standard 3-vessel anatomy. Right carotid arterial system: The right common carotid artery is widely patent, as are the right internal and external carotid arteries. Advanced calcified plaque is noted in the carotid bulb. No significant luminal narrowing is identified. Left carotid arterial system: The left common carotid artery is widely patent, as are the left internal and external carotid arteries. Significant calcified plaque is noted in the carotid bulbs. Vertebral arteries: The right vertebral artery is dominant and widely patent. The left vertebral artery is diminutive. There is occlusion of the proximal left vertebral artery with reconstitution of flow in the lower cervical region at the level of C7. There is thready flow throughout the mid to distal vertebral artery. The vessel is patent at the skull base appear Subclavian arteries: Widely patent bilaterally. Intracranial vasculature: There is atherosclerotic calcification of the cavernous carotid and vertebral arteries. The internal carotid arteries are patent at the skull base, as are the anterior and middle cerebral arteries bilaterally. The basilar artery is diminutive and there are bilateral posterior communicated arteries. The vertebrobasilar system and posterior cerebral arteries are patent. The right vertebral artery is dominant. The left vertebral artery terminates as the PICA. There is focal high-grade stenosis of the proximal left posterior cerebral artery seen on axial image #91. There is focal high-grade stenosis of the M1 segment of the left middle cerebral artery, best seen on axial image #98. There is focal high-grade stenosis of the A1 segment of the right anterior cerebral artery on image #110. No aneurysm or focal vessel cut off seen throughout the intracranial circulation. Jugular veins: Patent bilaterally. Dural sinuses: Patent. Lung apices: Partially visualized upper lobe lung parenchyma appears clear. Soft tissues: The visualized pharyngeal soft tissues are normal in appearance noting angiographic phase technique. The oropharyngeal airway appears widely patent. The salivary and thyroid glands are normal in appearance. No cervical lymphadenopathy is seen. Skeletal structures: The skeletal structures are osteopenic. The calvarium appears intact. The cervical spine is maintained noting multilevel spondylosis. No lytic or blastic lesion is seen. Orbits: The bony orbits are intact. Orbital contents are normal as visualized. Sinuses and mastoids: A 1.2 cm retention cyst is noted in the right sphenoid sinus. There is trace mucosal thickening and a 1.5 cm retention cyst in the left maxillary antrum. The remaining paranasal sinuses are clear. The mastoid air cells are well pneumatized. Cerumen is noted in the left external auditory canal. IMPRESSION: 1. There is no hemorrhage, mass effect, or evidence of acute territorial ischemia by CT criteria. 2. 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 3. No aneurysm or focal vessel cut off is seen throughout the intracranial circulation. 4. There is advanced atherosclerotic calcification of the carotid bulbs without hemodynamically significant carotid artery stenosis. 5. 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 The vessel is reconstituted in the neck and patent at the skull base. This is of indeterminant acuity and may be chronic. 6. Additional findings as above. ACT 112: Negative or not required by law. Electronically signed by: Anson Velez M.D. 01/26/2022 5:10 PM Brain MRI 01/27/22 09:03 Brain MRI WITHOUT CONTRAST HISTORY: ataxia ?cerebellar CVA TECHNIQUE: Multiplanar multisequence MRI of the brain was performed without the use of contrast. COMPARISON STUDY: Head CT 01/26/2022. FINDINGS: There are 2 punctate foci of restricted diffusion within the left cerebellar hemisphere on images 7 and 8 consistent with small acute infarcts. Small lipoma within the scalp at the high convexity. The midline structures are intact. The ventricles and sulci demonstrate mild age-related involutional changes. Mild periventricular white matter T2 hyperintensity is nonspecific but the temporal lobes are symmetric. Small retention cyst within the left maxillary sinus and right sphenoid sinus. The orbits are unremarkable. The major vascular flow-voids at the skull base are well-maintained. There is mild to moderate cerebellar atrophy. There is no mass, hematoma, midline shift. IMPRESSION: 1. There are 2 punctate foci of restricted diffusion within the left cerebellar hemisphere consistent with acute lacunar infarcts. 2. Mild atrophy and microvascular ischemic changes. 3. 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 ACT 112: Negative or not required by law. Electronically signed by: Simon Stearns M.D. 01/27/2022 10:38 AM Echocardiogram: 01/27/22 The left ventricular is grossly normal in size and function. There is moderate concentric LVH. Ejection fraction=65-70% The right ventricle is normal in size and function The left atrium is mildly dilated. Aortic valve sclerosis mild, w/o significant valvular stenosis. Mild aortic regurgitation. Right ventricular systolic pressure is normal. Grade I diastolic dysfunction. Hospital Course (1) Cerebrovascular accident (CVA): - Manifested by altered gait and slurred speech with findings of acute lacunar infarcts on his MRI - Echo obtained and results reviewed, no evidence of thrombus - MRI brain as above - Started on ASA which he was not on prior to admission - [facility]T evaluated pt this AM and did not have any recommendations as his speech has normalized - PT/OT consulted, advised home health - case management consulted to arrange this - Adjust statin therapy to Atorvastatin at moderate dose (40mg), rx to be sent to pharmacy upon d/c - Neurology follow up as outpatient - Added BP control, will increase Losartan to 50mg daily (2) Occlusion of vertebral artery: - Noted on CT angiogram but unclear of acuity. - Would consider referral to vascular surgery (3) Ambulatory dysfunction: - PT/OT - will d/c with home health (4) Vitamin B12 deficiency: - Continue his usual supplementation for this (5) Seizure disorder: - No seizures since 1974. Seems unlikely to be the cause of ambulatory dysfunction as above. - Continue his usual phenobarbital (6) Enlarged prostate with lower urinary tract symptoms (LUTS): Continue tamsulosin and finasteride (7) Hypothyroidism: - TSH WNL in August. - Continue levothyroxine 100 mcg PO daily (8) Hypertension: - Uncontrolled, increased Losartan to 50mg daily which will be continued upon d/c - Continue Clonidine 0.1mg TID, however, would consider transitioning to patch to avoid BP spikes in between doses Plan At this time, pt is medically and hemodynamically stable for discharge home with home health with follow ups/referrals as outlined above. Plan has been d/w Dr. Bell who has also seen and evaluated this patient and is in agreement with aforementioned. Total Time Total Time Spent Total Time Spent (In Minutes): <30 minutes Discharge Plan Discharge Items Patient Disposition: Home - Home Health Services Reason For Visit: STROKE-LIKE SYMPTOMS Discharge Diagnosis: stroke Activity: Resume your previous activity Non-emergency contact: Primary Care Provider and Neurologist Call non-emergency contact if: you have any medication questions and your symptoms worsen Follow-up/Referrals: Osei Laurent MD [Physician] - (1 week for new stroke ) Sae Gallegos MD [Primary Care Provider] - Jose Sanchez MD [Physician] - (occluded vertebral artery) Diet: Heart Healthy Addtl Attending Provider Instructions: You were hospitalized due to stroke-like symptoms including worsening balance problems while walking and slurred speech. You were started on Aspirin which is a medication to thin out your platelets which are responsible for clotting. You also underwent an MRI of your brain which discovered that you did in fact have a stroke in the cerebellum. This area of the brain is responsible for your coordination which is why you felt off balance. You will need to continue once a day baby Aspirin upon discharge. Your cholesterol needs work, so you will be put on a medication called Atorvastatin 40mg and continue taking it at night. This will replace your Simvastatin 10mg that you were previously taking prior to your hospitalization. Your uncontrolled blood pressure is probably the culprit for your stroke. In order to improve your blood pressure, your Losartan (Cozaar) is being increased to 50mg daily. I would suggest taking this first thing in the morning rather than at night. You will continue Clonidine 0.1mg three times a day as prescribed but it is suggested that in the near future you are changed from a pill form of Clonidine to a patch for more steady long-lasting effects. This can be done at the discretion of your family doctor. Lastly, it will be important for you to follow up with neurology. An appointment will be made on your behalf. If you cannot make this appointment, you can call and rescheduled. It is recommended that you follow up with your family doctor upon discharge within 1 week. If you have questions once you are discharged, you can call the nonemergency number listed on your discharge paperwork. If you are experiencing a medical emergency, call 911. Pending Studies at Discharge: No Stand-Alone Forms: Medications to Prevent Stroke, [facility] [employer] [facility], Smoking Cessation Medications and DC Order Prescriptions: New losartan 50 mg Tablet 50 mg PO QAM Qty: 30 0RF aspirin 81 mg Tablet,Delayed Release (Dr/Ec) 81 mg PO QAM Qty: 30 0RF atorvastatin 40 mg tablet 40 mg PO HS Qty: 30 0RF Continued mupirocin calcium 2 % cream 1 appln TOP DAILY PRN (Reason: itching on genitals ) Label Comments: Patient was unsure of what this med was or what it was prescribed for. He wasn't sure if it was one he still used. (10/30/19) betamethasone dipropionate 0.05 % cream 1 appln TOP DAILY PRN (Reason: itching on genitals) mecobalamin (vitamin B12) 1,000 mcg tablet,chewable 1,000 mcg PO DAILY Qty: 90 3RF silver sulfadiazine 1 % cream 1 applic TOP DAILY PRN (Reason: wound healing, genitals ) Qty: 50 1RF cholecalciferol (vitamin D3) 1,250 mcg (50,000 unit) capsule 50,000 unit PO WK Qty: 12 3RF levothyroxine 100 mcg tablet 100 mcg PO QAM Qty: 90 3RF phenobarbital 32.4 mg tablet 129.6 mg PO HS Qty: 120 5RF finasteride 5 mg tablet 5 mg PO HS Qty: 90 3RF clotrimazole 1 % cream See Rx Instructions .ROUTE .COMPLEX Qty: 45 0RF Dose Instruction: apply topically three times daily Rx Instructions: apply topically three times daily tamsulosin 0.4 mg capsule 0.4 mg PO HS Qty: 90 3RF fluocinonide 0.05 % cream 1 applic TOP DAILY PRN (Reason: itching on buttocks) Qty: 30 3RF Label Comments: Patient was unsure of what this med was or what it was prescribed for. He wasn't sure if it was one he still used. (10/30/19) clonidine HCl 0.1 mg Tablet 0.1 mg PO TID Discontinued simvastatin 10 mg tablet 10 mg PO HS Qty: 90 3RF losartan 25 mg tablet 25 mg PO HS Qty: 90 1RF Discharge Orders: Discharge Order (Routine); Ordered 01/27/22 Ordered By: Rena Mathews/Other Patient Handouts: Stroke Self Care After Admission Data Admit Date/Time: 01/26/22 18:17 Attending Provider: Landry Bell Admit Provider: Donovan Cantu Primary Care Provider: Sae Gallegos V. Other Providers: Donovan Cantu ; [facility],Home [facility] Other Interventions: Discharge Summary Assessment (RN) Last Done: 01/27/22 15:34 Supervising Physician Co-Signing Physician Notes Patient seen and examined, chart reviewed, case discussed with Veronica Mcdonald PA-C and I agree with the assessment and plan as above except as otherwise noted. Alli is an 86-year-old male who presented with recurrent falls and disruption of his balance. He was found to have acute cerebellar lacunar infarcts on MRI, and has a history of poorly controlled hypertension. At time of discharge he is nondistressed, breathing comfortably, moving all extremities equally with 5/5 strength and is able to ambulate, and ambulation reportedly near baseline for patient. On extended discussion with patient he reports that he does take clonidine 0.1 mg 3 times daily, this was not accurately represented in med reconciliation. He has been taking this for a long time, was given a dose prior to discharge due to potential for withdrawal hypertension. Discussed that his stroke is closely correlated with hypertension. Increased losartan to 50 mg, continued clonidine, and may add hydrochlorothiazide for adjunct if needed. Did discuss that clonidine is likely a poor choice for him given its potential for rebound and overnight hypertension, recommend he slowly adjust/taper this with another medication that has more stable blood pressure control. Can consider conversion to a patch as well. Patient agreeable to this, and follow-up with neurology in his outpatient PCP. At bedside assessment blood pressure 168/76 prior to clonidine dose, clonidine dose given and ARB increased dose ordered. 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 The encounter with the patient was in whole, or in part, for the following medical condition, which is the primary reason for home health care (list medical condition): I certify that, based on my findings, the following services are medically necessary home health services: My clinical findings support the need for the above services because: Further, I certify that my clinical findings support that this patient is homebound (i.e. absences from home require considerable and taxing effort and are for medical reasons or advent services or infrequently or of short duration when for other reasons) because: Certification for Home Health Services: Based on the above findings, I certify that this patient is confined to the home and needs intermittent chcf care, physical therapy and/or speech therapy or continues to need occupational therapy. The patient is under my care, and I have initiated the establishment of the plan of care. This patient will be followed by a physician who will periodically review the plan of care.
[2022-01-27] MEDS ORDERED: STROKE PATIENT DISCHARGE STA (14:19)
--- NOTE | 2022-01-27 14:57 | Pharmacy Report ---
Pharmacist Stroke Counseling - Date of Service January 27, 2022 - Scope: Pharmacy has been consulted to provide medication discharge counseling for this patient admitted with ischemic stroke as per the Pharmacist Discharge Counseling for Stroke Patients Protocol. - Medications on Discharge: Home Medications Medication Instructions Recorded Confirmed betamethasone dipropionate 0.05 % 1 appln topical DAILY PRN itching 03/31/19 01/26/22 topical cream on genitals mupirocin calcium 2 % topical cream 1 appln topical DAILY PRN itching 03/31/19 01/26/22 on genitals clonidine HCl 0.1 mg tablet 0.1 mg PO TID 01/27/22 01/27/22 New Rx's Medication Instructions Recorded mecobalamin (vitamin B12) 1,000 1,000 mcg PO DAILY #90 tabs 08/09/20 mcg chewable tablet silver sulfadiazine 1 % topical 1 applic topical DAILY PRN wound 04/02/21 cream healing, genitals #50 grams cholecalciferol (vitamin D3) 1,250 50,000 unit PO WK #12 caps 04/19/21 mcg (50,000 unit) capsule levothyroxine 100 mcg tablet 100 mcg PO QAM #90 tabs 06/25/21 phenobarbital 32.4 mg tablet 129.6 mg PO HS #120 tabs 08/02/21 finasteride 5 mg tablet 5 mg PO HS #90 tabs 09/05/21 simvastatin 10 mg tablet 10 mg PO HS #90 tabs 09/05/21 clotrimazole 1 % topical cream See Rx Instructions .Route 09/26/21 .COMPLEX #45 grams losartan 25 mg tablet 25 mg PO HS #90 tabs 12/04/21 tamsulosin 0.4 mg capsule 0.4 mg PO HS #90 caps 12/04/21 fluocinonide 0.05 % topical cream 1 applic topical DAILY PRN itching 01/04/22 on buttocks #30 grams aspirin 81 mg tablet,delayed 81 mg PO QAM #30 tabs 01/27/22 release atorvastatin 40 mg tablet 40 mg PO HS #30 tabs 01/27/22 losartan 50 mg tablet 50 mg PO QAM #30 tabs 01/27/22 - Action: The above medications, specifically ones for stroke treatment/prophylaxis, have been reviewed in detail with the patient prior to discharge. This includes indication, common adverse reactions, drug interactions, and medication administration. Medication counseling has been employed using the teach-back method to ensure understanding. - Outcome: The patient demonstrated understanding of the medications. Additional comments: - counseling completed via telephone due to staffing issues Thank you for allowing pharmacy to be involved in the care of this patient. Please call [phone] with any additional questions
[2022-01-27] MEDS ORDERED: SIMVASTATIN 40 MG TAB PO SCH (21:00)
[2022-01-28 06:33] LABS: Estimated Average Glucose 120 mg/dl; Hemoglobin A1C 5.8 % (4.5-5.6)
== END 2022-01-27 16:26 | disposition home health service (06) ==
LOC: 2E 16:14 → ED 16:14 → SUATTDRO 18:17 → 2E 19:52

== ENCOUNTER 2024-01-29 06:24 | Inpatient (IN) ==
--- NOTE | 2024-01-14 12:24 | Anesthesiology Consultation ---
Date of Service January 14, 2024 Assessment & Plan Chart Review Chart Review: Acceptable Risk for Surgery and Patient NOT seen in Pre Admission Testing Consults Requested none History Surgery Operation Date: 01/29/24 10:05 Proposed Procedures p Circumcision Revision, Reconstruction, - Jeremy Mistry, s Cystoscopy with Biopsy and Fulguration - DO jasbir Shultz REZUM - Jeremy Mistry DO Height/Weight Height: 6 ft Weight: 122.47 kg Allergies Allergy/AdvReac Type Severity Reaction Status Date / Time celecoxib AdvReac Unknown SHORTNESS Verified 01/14/24 10:47 OF BREATH Medications Home Medications Medication Instructions Recorded Confirmed Last Taken levothyroxine 100 mcg tablet 100 mcg PO QAM #90 tabs 08/25/23 01/14/24 Unknown cholecalciferol (vitamin D3) 1,250 50,000 unit PO .COMPLEX #6 caps 09/19/23 01/14/24 Unknown mcg (50,000 unit) capsule clonidine HCl 0.3 mg tablet 0.3 mg PO HS 01/14/24 01/14/24 Unknown losartan 50 mg tablet 50 mg PO HS 01/14/24 01/14/24 Unknown phenobarbital 32.4 mg tablet 129.6 mg PO HS 01/14/24 01/14/24 Unknown simvastatin 10 mg tablet 10 mg PO HS 01/14/24 01/14/24 Unknown tamsulosin 0.4 mg capsule 0.4 mg PO HS 01/14/24 01/14/24 Unknown Past Medical History Medical History Prediabetes hx-dx ~2021, "told he was borderline, and to watch his diet; made changes and now no issues" History of anemia Chronic osteoarthritis Enlarged prostate with lower urinary tract symptoms (LUTS) Hypothyroidism Hyperlipidemia Hypertension Ambulatory dysfunction Poor balance Seizure currently on phenobarbital; most recent in 1974 COVID-19 pt denies Cerebrovascular accident (CVA) pt unsure of details, "if it even happened?"; no symptoms per pt. Alkaline phosphatase raised pt unsure about this Obstructive sleep apnea CPAP still in repair, waiting to get it back Thrombocytopenia pt unsure? Past Family History Family History Father Prostate cancer Myocardial infarction Denies family history of Ovarian cancer Breast cancer Colorectal cancer Past Surgical History 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 Social History Smoking Status: Former smoker tobacco type: pipe and cigars Do You Dip or Chew Tobacco: No (hx-quit years ago; advised) Smoking End Date: 1974 Hx Alcohol Use: No Hx Substance Use: No substance use type: does not use Testing Laboratory Results Laboratory Tests 08/08/20 01/26/22 01/26/22 10:06 16:30 16:30 WBC Hgb Hct Plt Count PT 10.9 INR 1.0 APTT 30.2 Sodium Potassium Chloride Carbon Dioxide BUN Creatinine Glucose Free T4 1.02 TSH 09/18/23 12/30/23 11:42 13:34 WBC 5.02 Hgb 13.4 L Hct 40.1 L Plt Count 113 L PT INR APTT Sodium 138 Potassium 4.9 Chloride 107 Carbon Dioxide 26 BUN 24 H Creatinine 1.12 Glucose 88 Free T4 TSH 3.660 Electrocardiogram Date: 12/30/23 Sinus rhythm with 1st degree A-V block with Premature atrial complexes Old Septal infarct (cited on or before 26-JAN-2022) Abnormal ECG When compared with ECG of 26-JAN-2022 16:36, Premature ventricular complexes are no longer Present Premature atrial complexes are now Present Confirmed by De Tran ([id number]) on 12/30/2023 3:44:30 PM Echocardiogram Date: 01/27/22 EF: 55-60 LV Function: normal
--- NOTE | 2024-01-29 06:53 | History & Physical Report ---
Date of Service January 29, 2024 Assessment & Plan (1) Phimosis: (2) Penile lesion: (3) Enlarged prostate with lower urinary tract symptoms (LUTS): (4) BPH w urinary obs/LUTS: (5) Lesion of bladder: Plan Severe findings with severe stricture/fibrotic changes significant woody/[place] us/atrophic appearance of the foreskin with ulcerated areas and fissures. Significant narrowing of the meatus. Extensively reviewed findings. Discussed limitations from the healthy penile skin. Discussed potential options. Had previously had likely dorsal slit in 2005. Had attempted revision with significant return of issues. Did extensively review healing of the area. Reviewed possible malignant changes with severe chronic inflammation of the glans and foreskin. 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 Discussed cystoscopy with possible biopsy and REZUM. Extensively reviewed risk benefits and expectations. Discussed need for catheterization. Discussed likely need for catheterization after circumcision secondary to the significant meatal stenosis and possible issues with the glans. Patient was agreeable to move forward. Risks and benefits discussed at length for procedure. These include bleeding, infection, injury to surrounding tissues or organs, and risks associated with anesthesia. Patient states understanding and agrees to proceed. Will sign consent and proceed Plan for circumcision with possible revision/reconstruction. Possible cystoscopy with biopsy and fulguration. Possible REZUM will plan to observe the patient post procedure and likely will need catheter for approximately a week after procedure History of Present Illness Primary Care Provider: Sae Gallegos MD Patient here for procedure. No changes in medical issues. No major changes in urinary issues. Continued issues and concerns. No change in pain or discomfort. No severe fevers or chills. No chest pain or shortness of breath. Risks and benefits discussed at length for procedure. These include bleeding, infection, injury to surrounding tissues or organs, and risks associated with anesthesia. Patient and/or family states understanding and agrees to proceed. Consent and supporting information completed. Allergies Allergy/AdvReac Type Severity Reaction Status Date / Time celecoxib AdvReac Unknown SHORTNESS Verified 01/29/24 06:53 OF BREATH Home Medications Medication Instructions Recorded Confirmed Type levothyroxine 100 mcg tablet 100 mcg PO QAM #90 tabs 08/25/23 01/14/24 Rx cholecalciferol (vitamin D3) 1,250 50,000 unit PO .COMPLEX #6 caps 09/19/23 0 01/14/24 Rx mcg (50,000 unit) capsule clonidine HCl 0.3 mg tablet 0.3 mg PO HS 01/14/24 01/14/24 History losartan 50 mg tablet 50 mg PO HS 01/14/24 01/14/24 History phenobarbital 32.4 mg tablet 129.6 mg PO HS 01/14/24 01/14/24 History simvastatin 10 mg tablet 10 mg PO HS 01/14/24 01/14/24 History tamsulosin 0.4 mg capsule 0.4 mg PO HS 01/14/24 01/14/24 History Past Med/Surg History Problem List (Updated 01/29/24 @ 06:52 by Jeremy Mistry DO) Lesion of bladder BPH w urinary obs/LUTS Penile lesion Phimosis Poor balance Ambulatory dysfunction Occlusion of vertebral artery (Acute) Prediabetes Nail deformity Vitamin D deficiency disease Vitamin B12 deficiency Sleep apnea Hypertension (Acute) Actinic keratosis (Acute) Anemia (Acute) Chronic osteoarthritis (Acute) Enlarged prostate with lower urinary tract symptoms (LUTS) (Acute) Gait disturbance (Acute) Hyperlipidemia (Acute) Hypothyroidism (Acute) Paraphimosis (Acute) Seizure disorder (Acute) Urethral stricture (Acute) Medical History Prediabetes hx-dx ~2021, "told he was borderline, and to watch his diet; made changes and now no issues" History of anemia Chronic osteoarthritis Enlarged prostate with lower urinary tract symptoms (LUTS) Hypothyroidism Hyperlipidemia Hypertension Ambulatory dysfunction Poor balance Seizure currently on phenobarbital; most recent in 1974 COVID-19 pt denies Cerebrovascular accident (CVA) pt unsure of details, "if it even happened?"; no symptoms per pt. Alkaline phosphatase raised pt unsure about this Obstructive sleep apnea CPAP still in repair, waiting to get it back Thrombocytopenia pt unsure? 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 Family History Father Prostate cancer Myocardial infarction Denies family history of Ovarian cancer Breast cancer Colorectal cancer Social History Smoking Status: Former smoker Tobacco Type: Pipe and Cigars Smoking End Date: 1974; Second Hand Exposure: No; Do You Dip or Chew Tobacco: No (hx-quit years ago; advised); Tobacco Cessation Education Requested by Patient: No Hx Alcohol Use: No Hx Substance Use: No Preferred Language: Yoruba Communication Ability: Effective Visual Impairment: No Limitations Hearing Ability: Use of Hearing Aid Shim Plug Cutter Required: No Beliefs That Will Affect Care: None marital status: Single Current Living Situation: Alone Current Living Situation Comment: Grandson lives in basement current occupational status: retired Other Information That Helps Us Care for You: No Feels Safe at Home: Yes Safety Concerns: Feels Safe At This Time Childhood Exposure to Second-Hand Smoke: Yes Dental Care, Regularly: No Physical Activity Frequency: Does not Exercise Seatbelt Use: always Sunscreen Use: No Assistive Devices: Cane, Denture - Upper, Denture - Lower, Glasses, Hearing Aid - Bilateral and Walker Review of Systems All systems reviewed & are unremarkable except as noted in HPI & below Physical Exam Physical Exam: General: Alert/Arousable. No Acute illness. Obese, Advanced age. HEENT: Inspection normal. Normal inspection of face. Normal inspection of neck. Psychologic: Normal affect/No change in mentation. Respiratory: No use of accessory muscles. No respiratory changes or exacerbation or changes with tachypnea or dyspnea. Cardiovascular: No tachycardia Skin: [place] and Dry. No new rashes or visible lesions. Abdomen: Normal inspection. No guarding. PG Care Time/CCT Total # of Minutes Spent Total Time Spent with Patient: Total time spent is greater than 50% in coordination of care (as documented) at patient's floor/unit and/or counseling patient: Coding Level of Care Code None Diagnoses Phimosis N47.1 Penile lesion N48.9 Enlarged prostate with lower urinary tract symptoms (LUTS) N40.1 BPH w urinary obs/LUTS N40.1; N13.8 Lesion of bladder N32.9
[2024-01-29] MEDS: LR 15ML/HR IV SCH (07:08)
[2024-01-29] MEDS ORDERED: fentaNYL citrate PF 100 MCG/2 ML VIAL IV PRN (07:36)
[2024-01-29] MEDS ORDERED: ePHEDrine sulfate 50 MG/ML AMP IV PRN (07:36)
[2024-01-29] MEDS ORDERED: ATROPINE SULFATE 0.1 MG/ML 10ML SYR IV PRN (07:36)
[2024-01-29] MEDS ORDERED: ONDANSETRON INJ 2 MG/ML 2 ML VIAL IV PRN ×2 (07:36→13:18)
[2024-01-29] MEDS ORDERED: PROPOFOL IV EMULSION 10 MG/ML 20 ML VIAL IV ONE ×6 (07:55→10:30)
[2024-01-29] MEDS ORDERED: LIDOCAINE 2% 2 ML VIAL/AMP(20MG/ML) INFIL ONE (07:55)
[2024-01-29] MEDS ORDERED: fentaNYL citrate PF 100 MCG/2 ML VIAL ONE ×2 (07:55→09:11)
[2024-01-29] MEDS ORDERED: ONDANSETRON INJ 2 MG/ML 2 ML VIAL ONE (07:55)
[2024-01-29] MEDS: cefTRIAXone SODIUM 1,000 MG MINI-B 50 ML IV SCH (08:36)
[2024-01-29] MEDS ORDERED: LABETALOL HCL IV 5 MG/ML 20ML IV ONE (09:19)
[2024-01-29] MEDS ORDERED: KETAMINE HCL 10MG/ML SYR ONE (09:28)
[2024-01-29] MEDS ORDERED: ePHEDrine sulfate 50 MG/5 ML SYR ONE (09:56)
[2024-01-29] MEDS: BACITRACIN OINT 14 GM TUBE ONE (10:19)
[2024-01-29] MEDS: LIDOCAINE 1% LOCAL 20 ML VIAL ONE (10:19)
[2024-01-29] MEDS: BUPIVACAINE 0.5 % 5 MG/1 ML MPF 30ML VIAL ONE (10:20)
--- NOTE | 2024-01-29 11:02 | Anesthesiology Progress Note ---
Date of Service January 29, 2024 Anesthesia Post Procedure Vital Signs Vital Signs: Temp Pulse Pulse Resp BP Pulse Ox O2 Del Method 01/29/24 10:45 36.3 C L 62 20 160/81 H 99 Oxymask 01/29/24 06:56 36.6 C 78 20 156/90 H 97 Room Air O2 Flow Rate 01/29/24 10:45 5 01/29/24 06:56 Transfer of Care Handoff Completed per policy Notes Mental Status: alert / awake / arousable Patient Amnestic to Procedure: Yes Nausea / Vomiting: adequately controlled Pain: adequately controlled Airway Patency, RR, SpO2: stable & adequate BP & HR: stable & adequate Hydration State: stable & adequate Anesthetic Complications: no major complications apparent and Pt Satisfied with anesthetic care
--- NOTE | 2024-01-29 11:05 | Operative Report ---
PG Post Operative Report Pre & Post Diagnosis Operation Date: 01/29/24 08:05 Pre-Op Diagnosis: (1) Phimosis (2) Penile lesion (3) Enlarged prostate with lower urinary tract symptoms (4) Benign prostatic hypertrophy (5) Lesion of bladder Post-Op Diagnosis: (1) Phimosis (2) Penile lesion (3) Enlarged prostate with lower urinary tract symptoms (4) Benign prostatic hypertrophy (5) Lesion of bladder I identified the patient and participated in the time-out.: Yes Procedure Operation Date: 01/29/24 08:05 Actual Procedures Cystoscopy with Biopsy of prostatic urethra. REZUM procedure. Circumcision Revision with Complex Reconstruction. Scrotoplasty for scrotal webbing Surgeon Jeremy Mistyr, II, DO Hand Ii Cutter None Estimated Blood Loss 20 Findings Consistent with Post-Op Diagnosis Large Prostate with obstruction. Papillary mass/lesion within the prostatic urethra approximately 1 cm in size. Severe fibrotic changes with buried penis and significant reoccurrence of phimosis with previous dorsal slit and significant limitation of penile skin. Moderate scrotal webbing. Specimens Prostatic Lesion Biopsy Foreskin with severe atrophic/fibrotic tissue Drains 18 Fr [place] Tip Catheter Anesthesia Type General Complications none Disposition Disposition: Recovery Room Indications Patient with obstruction due to prostate enlargement. Significant buried penis with BXO and significant narrowing of meatus. Risks and benefits discussed at length. Description of Procedure Patient was consented and brought back to the operating room. Patient was placed under anesthesia in the supine position and moved to the dorsal lithotomy position. Patient was prepped and draped in the regular sterile fashion. A time out was completed. The foreskin had to be mildly dilated in order to access the meatus. A wire was able to be placed into the meatus to assist in advancing. A 30degree Cystoscope was placed and advanced into the urethra. It was taken into the prostatic urethra. Within the prostatic urethra approximately 1 cm papillary appearing lesion of the prostatic urethra was noted. The scope was used to bypassed the area and the entire bladder was inspected. There was areas of inflammation within the bladder but no obvious tumors or masses. There was moderate amounts of bleeding coming from the prostatic varicosities. The wire was then placed through the scope to allow good access into the bladder A cold cup biopsy forcep was selected and the lesion within the prostatic urethra was biopsied and sent for analysis. No major significant bleeding was noted. At this point the cystoscope was removed and the scope portion was placed within the Rezum device. The scope with Rezum device was placed into the bladder and the entire bladder was examined. The UO's were identified as well as the bladder neck, trigone, dome, and the other important landmarks. The prostatic urethra and large lobes/adenoma was assessed and the veru and bladder neck identified and area/size was assessed. The location and amount of injections were assessed. The entire bladder, urethra, and surround areas were examined. No masses lesions ulcerations or suspicious areas were discovered Treatment of the prostate began on the right side on the lateral lobe. Care was taken to monitor and measure with placement following guidelines. A total of 7 injections on each side with each injection for 9 seconds where completed after engaging the needle into the tissue and confirming good placement.The most proximal injection was approximately 1.5 cm from the bladder neck in the posterior direction. Blanching of tissue was noted. No signs of inadequate penetration or placement of the needle. No significant median lobe was noted. A total of 14 injections were completed. No considerable problems or other issues. Treatment and injection was tolerated without considerable pain or problems. After the treatment was complete the area was inspected and the bladder and prostate were assessed. The scope was removed. A catheter was placed over the wire and balloon elevated. This was drained without issue. The patient was cleaned and repositioned into the supine position. The catheter was clamped. I was present and participated in all aspects of this procedure. Patient was repositioned. He remained under anesthesia Patient was prepped and draped in the regular sterile fashion. With the time out completed and the patient prepped, the foreskin was manipulated. The foreskin was retracted and then the glans reprepped with betadine. The foreskin had to be dilated. An area on the lateral edges on each side was able to be mildly incised in order to allow the foreskin to be retracted. There was significant edematous/fibrotic changes throughout the foreskin and severe scarring around the glans and distal penile skin. There was significant irregularity and the healing likely secondary to the patient's severe buried penis issues. Very limited healthy appearing penile skin was noted. The distal incision was planned and the skin was marked. A margin of foreskin tissue next to the glans was able to be marked to be preserved. The base of the penis was assessed and a penile block was completed with 50-50 lidocaine-marcaine local injected into the subcutaneous tissues at the dorsal base of penis after aspirating without blood or issues. The scrotal webbing was appreciated at the base of the penis at the penoscrotal junction. The scrotal webbing was significant and was causing considerable shortening of the available penile skin. The scrotal webbing was incised and opened. This allowed the penile skin to free. This was then closed longitudinally in order to allow better reapproximation of the tissues. This corrected the significant scrotal webbing issue and allowed additional tissue for the circumcision procedure. A 4-0 Monocryl suture was used to close the skin in a running fashion. The more proximal incision was then assessed and marked. Due to the significant irregularity in the scar tissue and the severity of the fibrotic tissue and inflammation around the area and a somewhat irregular pattern was appreciated. Care was taken to try to preserve as much healthy skin tissue was possible however there was a severe amount of edematous fibrotic/woody tissue. A 15-blade scalpel was used to make the distal incision. Care was taken to monitor the important structures of the penis and meatus and glans. The Proximal incision was then remarked to allow good approximation. The incision was made. The proximal and distal incisions were then connected and the foreskin was dissected away. Minimal cautery was used for any bleeding. Care was taken to monitor the entire time. The wound bed was inspected. No bleeding or other issues. There was significant inflammatory changes in the proximal fascia tissue. The skin had to be somewhat freed from the inflammatory changes. Due to this the penis was then degloved down to the base and to order to allow adequate mobility of the penile skin. The dorsal aspect of the penile skin was somewhat indented from the likely previous dorsal slit that the patient had many years ago. This scar tissue had to be excised. This was then also closed longitudinally to allow adequate penile skin length in order to close. After extensive fraying of the severe adhesions and multiple debridement of the severely inflamed/fibrotic tissue the proximal and distal skin edges were able to be assessed and found to be able to be approximated well without major strain on the system. The skin edges were in good position and no significant redundant tissues. A 4-0 Monocryl suture was then used at the 12 and 6 o'clock position to anchor the edges for closure. The same suture was used to close the skin circumferentially with running stitches. The area was cleaned. Significant reconstruction had to be completed in order to allow good approximation and to maintain sufficient length of the tissues in order to allow reapproximation. The entire area was inspected. The glans was severely inflamed and agitated with a BXO appearance. No major bleeding was noted from these tissues The area was cleaned extensively. The penile head was well exposed the catheter remained in place without major issue. Adhesive glue was then placed over the incision. The patient was cleaned. Further local was injected at the base of penis circumferentially. Antibiotic ointment was placed on the meatus and glans. A bandage was then wrapped around the entire area with a [place] dressing wrapped around as the last layer. The patient was cleaned, aroused from anesthesia, and transferred to the pacu in stable condition having tolerated the procedure well with no complications. I was present and participated in all aspects of the procedure. All counts were correct x 2. Will have patient follow-up in approximately 2 to 3 weeks. Will plan to maintain catheter for at least 7 to 14 days to allow adequate healing and drainage. And to divert urine away from the glans and foreskin as it heals. Will have patient return for follow-up and wound check at that time. Can discuss pathology at that time. I attest to the content of the Intraoperative Record and any orders documented therein. Any exceptions are noted below.
--- NOTE | 2024-01-29 12:17 | Hospitalist Consultation ---
Date of Consultation January 29, 2024 Assessment & Plan (1) Bradycardia: Post-Op Bradycardia - Hx 1st degree AVB. EKG repeat reviewed, 1* AVB, no terrirotial ischemia. - Resolved with 5mg ephedrine. Suspect anesthesia induced. Patient also has a baseline AV block and is on phenobarbital which can contribute - At bedside patient has no chest pain, chest pressure, lightheadedness, dizziness. Feels well other than pain in his pelvis/penis post procedurally. Thornton is draining sanguinous material If recurrent symptomatic bradycardia/hypotension may give an additional 5 mg ephedrine x 1. He is hemodynamically stable and asymptomatic at PACU assessment and plan on repeat afternoon assessment History of first-degree AV block EKG reviewed. Currently similar to prior, no territorial ischemia (2) BPH w urinary obs/LUTS: Phimosis, BPH, bladder lesion S/p cystoscopy with prostatic urethra biopsy, resume, circumcision revision 01/29/2024. 20 cc of blood loss. Complicated by postoperative hypotension and bradycardia now improving as noted Pain control, activity, DVT prophylaxis per primary team Papillary mass biopsy pathology pending (3) Seizure disorder: History of seizure Stable on phenobarbital 129.6 mg at bedtime No seizures in 50 years Phenobarbital level ordered (4) Hypothyroidism: Hypothyroidism Continue Synthroid (5) Hypertension: Hypertensive Hold losartan if persistent hypotension. Clonidine 0.3 mg nightly for blood pressure. If patient remains normotensive through the afternoon resume this this evening, would not hold due to risk of rebound unless limited by hypotension. History of Present Illness Attending Physician: Jeremy Mistry, II, DO History of Present Illness Alli is an 88-year-old male with past medical history of BPH with LUTS, concern forBladder lesion, history AV block, seizure disorder in remission for many decades on phenobarbital, and hypertension. Patient presented for scheduled cystoscopy/reason/tumor biopsy/circumcision resection. Reviewed with urology. Procedure went well however patient is weak at baseline and family is concerned as he lives alone. Was going to be held for PT/OT reevaluation. While being held in PACU he developed bradycardia with heart rate as low as the 20s, BP into the 80s which resolved following 1 dose of ephedrine. Seen at the bedside. Reports he has not any chest pain, chest pressure, lightheadedness, dizziness. Denies as of breath or difficulty breathing. He reports he does have some pain in his penis at his Thornton/operative site but otherwise denies pain. Abdomen is nontender. Denies past history of Lyme disease. Is not aware of whether he had an AV block or not in the past. Feels well at time of hospitalist evaluation. He reports he has been stable on phenobarbital at his current dose for a long time and has had no seizures in almost 50 years. He reports when his levels have been checked in the past they have been therapeutic. No questions or concerns at time of bedside assessment. Medical History: Reviewed Medications: Reviewed Surgical History: Reviewed Family history: Reviewed Allergies: Reviewed Social History: Reviewed Code Status: Full Allergies Allergy/AdvReac Type Severity Reaction Status Date / Time celecoxib AdvReac Unknown SHORTNESS Verified 01/29/24 06:53 OF BREATH Home Medications Medication Instructions Recorded Confirmed Type levothyroxine 100 mcg tablet 100 mcg PO QAM #90 tabs 08/25/23 01/29/24 Rx cholecalciferol (vitamin D3) 1,250 50,000 unit PO .COMPLEX #6 caps 09/19/23 01/29/24 Rx mcg (50,000 unit) capsule clonidine HCl 0.3 mg tablet 0.3 mg PO HS 01/14/24 01/14/24 History losartan 50 mg tablet 50 mg PO HS 01/14/24 01/14/24 History phenobarbital 32.4 mg tablet 129.6 mg PO HS 01/14/24 01/29/24 History simvastatin 10 mg tablet 10 mg PO HS 01/14/24 01/14/24 History tamsulosin 0.4 mg capsule 0.4 mg PO HS 01/14/24 01/14/24 History doxycycline hyclate 100 mg capsule 100 mg PO BID #14 caps 01/29/24 Rx oxycodone-acetaminophen 7.5 mg-325 1 tab PO Q8H PRN pain #7 tabs 01/29/24 Rx mg tablet (Percocet) phenazopyridine 200 mg tablet 200 mg PO Q8H PRN pain #10 tabs 01/29/24 Rx (Pyridium) Patient History Medical History Prediabetes hx-dx ~2021, "told he was borderline, and to watch his diet; made changes and now no issues" History of anemia Chronic osteoarthritis Enlarged prostate with lower urinary tract symptoms (LUTS) Hypothyroidism Hyperlipidemia Hypertension Ambulatory dysfunction Poor balance Seizure currently on phenobarbital; most recent in 1974 COVID-19 pt denies Cerebrovascular accident (CVA) pt unsure of details, "if it even happened?"; no symptoms per pt. Alkaline phosphatase raised pt unsure about this Obstructive sleep apnea CPAP still in repair, waiting to get it back Thrombocytopenia pt unsure? 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 Family History Father Prostate cancer Myocardial infarction Denies family history of Ovarian cancer Breast cancer Colorectal cancer Social History Smoking Status: Former smoker Tobacco Type: Pipe and Cigars Smoking End Date: 1974; Second Hand Exposure: No; Do You Dip or Chew Tobacco: No; Tobacco Cessation Education Requested by Patient: No Hx Alcohol Use: No Hx Substance Use: No Preferred Language: [employer] Lithuanian Communication Ability: Effective Visual Impairment: No Limitations Hearing Ability: Use of Hearing Aid Beater Machine Operator Required: No Beliefs That Will Affect Care: None marital status: Single Current Living Situation: Family Current Living Situation Comment: lives with grandson current occupational status: retired Other Information That Helps Us Care for You: No Feels Safe at Home: Yes Safety Concerns: Feels Safe At This Time Childhood Exposure to Second-Hand Smoke: Yes Dental Care, Regularly: No Physical Activity Frequency: Does not Exercise Seatbelt Use: always Sunscreen Use: No Assistive Devices: Walker Physical Exam Physical Exam: General: A&Ox3. NAD. Cooperative.Awakens easily HEENT: Atraumatic, normocephalic. Vision and hearing grossly intact. Pulm: CTAB A&P. -wheezes, -rales, -rhonchi. Symmetrical chest rise. No increased work of breathing. No respiratory distress. Cardiac: Initially bradycardic, regular rate and rhythm with soft sm on reassessment. Radial pulses intact and symmetrical. Abdominal: Nontender, nondistended, soft. BS present. : Thornton in place draining small amount of sanguinous material. Results & Data Results & Data Vital Signs (Past 12 Hours) Vital Signs Temp Pulse Pulse Resp BP Pulse Ox O2 Del Method 01/29/24 11:50 73 12 154/79 H 92 Room Air 01/29/24 11:40 73 15 167/87 H 96 Room Air 01/29/24 11:38 67 14 154/96 H 92 Room Air 01/29/24 11:33 67 14 109/70 92 Room Air 01/29/24 11:32 34 L 14 85/48 L 98 Room Air 01/29/24 11:29 28 L 13 86/34 L 93 Room Air 01/29/24 11:25 43 L 17 93/45 L 95 Room Air 01/29/24 11:15 55 L 15 142/73 H 93 Room Air 01/29/24 11:05 36.0 C L 57 L 15 156/74 H 95 Room Air 01/29/24 10:55 62 13 145/71 H 97 Room Air 01/29/24 10:45 36.3 C L 62 20 160/81 H 99 Oxymask 01/29/24 06:56 36.6 C 78 20 156/90 H 97 Room Air O2 Flow Rate 01/29/24 11:50 01/29/24 11:40 01/29/24 11:38 01/29/24 11:33 01/29/24 11:32 01/29/24 11:29 01/29/24 11:25 01/29/24 11:15 01/29/24 11:05 01/29/24 10:55 01/29/24 10:45 5 01/29/24 06:56 PG Care Time/CCT Total # of Minutes Spent Total Time Spent with Patient: Total time spent is greater than 50% in coordination of care (as documented) at patient's floor/unit and/or counseling patient: Coding Level of Care Code 25148 IN/OBS CONSULT LVL 4,60M Diagnoses Bradycardia R00.1 BPH w urinary obs/LUTS N40.1; N13.8 Seizure disorder G40.909 Hypothyroidism E03.9 Hypertension I10
[2024-01-29 13:08] LABS: Hematocrit (blood only) 37.1 % (42.0-52.0); Hemoglobin 12.1 g/dl (14.0-18.0); Mean Corpuscular Hemoglobin 32.1 pg (25.0-34.0); Mean Corpuscular Hgb Conc 32.6 g/dL (32.0-36.0); Mean Corpuscular Volume 98.4 fL (80.0-100.0); Mean Platelet Volume 11.3 fL (9.4-12.4); Platelet Count 83 K/uL (130-400); RDW Coefficient of Variation 13.8 % (11.5-14.5); RDW Standard Deviation 49.9 fL (36.4-46.3); Red Blood Count 3.77 M/uL (4.70-6.10); White Blood Count 4.21 K/ul (4.8-10.8)
[2024-01-29 13:09] LABS: BUN Creatinine Ratio 21.6 (10-20); Creatinine Clr Calc Pharmacy 69.8 ml/min; Est GFR (African American) 79.9 ml/min; Est GFR (Non-African American) 68.9 ml/min; Phosphorus 3.3 mg/dl (2.5-4.9); Potassium 4.1 mmol/L (3.5-5.1)
[2024-01-29 13:14] LABS: Troponin I High Sensitivity 5.9 pg/ml (0-20)
[2024-01-29 13:25] LABS: Basophils # (auto) 0.02 K/uL (0.00-0.20); Basophils % (auto) 0.5 %; Eosinophils # (auto) 0.05 K/uL (0.00-0.50); Eosinophils % (auto) 1.2 %; Immature Granulocytes # (auto) 0.01 K/uL (0.01-0.20); Immature Granulocytes % (auto) 0.2 %; Lymphocytes # (auto) 1.29 K/uL (1.20-3.40); Lymphocytes % (auto) 30.6 %; Monocytes # (auto) 0.29 K/uL (0.11-0.59); Monocytes % (auto) 6.9 %; Neutrophils # (auto) 2.55 K/uL (1.40-6.50); Neutrophils % (auto) 60.6 %; Platelet Estimate Decreased (Normal)
[2024-01-29] MEDS: LACTATED RINGER'S 1,000 ML IV SCH (13:32)
--- NOTE | 2024-01-29 15:57 | Electrocardiogram Report ---
Test Reason : Blood Pressure : / mmHG Vent. 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
[2024-01-29] MEDS: oxyCODONE HCL IR 5 MG TAB (IMMEDIATE RELEASE) PO PRN (17:32)
[2024-01-29] MEDS: cloNIDine HCL 0.3 MG TAB PO SCH (20:29)
[2024-01-29] MEDS: DOCUSATE SODIUM 100 MG CAP PO SCH (20:30)
[2024-01-29] MEDS: LOSARTAN POTASSIUM 50 MG TAB PO SCH (20:30)
[2024-01-29] MEDS: TAMSULOSIN HCL 0.4 MG CAP PO SCH (20:30)
[2024-01-29] MEDS: SIMVASTATIN 10 MG TAB PO SCH (20:30)
[2024-01-29] MEDS: PHENobarbitaL 30 MG TAB PO SCH (20:57)
[2024-01-29] MEDS ORDERED: PHENOBARBITAL 32.4 MG PO SCH (21:00)
--- NOTE | 2024-01-30 06:23 | Communication Note ---
Date of Service: January 30, 2024 Was notified by nursing that patient noticed a discrepancy with his dosage of phenobarbital. The admission order for phenobarbital was written as four 32.4mg tablets (total of 129.6mg) nightly, while patient states he is only taking three 32.4mg tablets (total of 97.2mg) nightly, he states that the four tablets was an old prescription. Upon review of PDMP, his last prescription from his PCP was written as three tablets nightly. I updated the order to reflect this dosage, however pharmacy notified that the ordered reflexed to 90mg (instead of 97.2mg) as the formulary has 30mg tablets. Phenobarbital level collected at time of admission, result pending.
[2024-01-30] MEDS: LEVOTHYROXINE SODIUM 100 MCG TABLET PO SCH (06:33)
[2024-01-30 07:15] LABS: Basophils # (auto) 0.02 K/uL (0.00-0.20); Basophils % (auto) 0.2 %; Eosinophils # (auto) 0.01 K/uL (0.00-0.50); Eosinophils % (auto) 0.1 %; Hematocrit (blood only) 38.2 % (42.0-52.0); Hemoglobin 12.3 g/dl (14.0-18.0); Immature Granulocytes # (auto) 0.02 K/uL (0.01-0.20); Immature Granulocytes % (auto) 0.2 %; Lymphocytes # (auto) 1.34 K/uL (1.20-3.40); Lymphocytes % (auto) 15.2 %; Mean Corpuscular Hemoglobin 31.9 pg (25.0-34.0); Mean Corpuscular Hgb Conc 32.2 g/dL (32.0-36.0); Mean Platelet Volume 11.9 fL (9.4-12.4); Monocytes # (auto) 0.67 K/uL (0.11-0.59); Monocytes % (auto) 7.6 %; Neutrophils # (auto) 6.77 K/uL (1.40-6.50); Neutrophils % (auto) 76.7 %; Platelet Count 108 K/uL (130-400); RDW Standard Deviation 50.7 fL (36.4-46.3); Red Blood Count 3.86 M/uL (4.70-6.10); White Blood Count 8.83 K/ul (4.8-10.8)
[2024-01-30 07:27] LABS: Est GFR (Non-African American) 54.4 ml/min; Potassium 4.7 mmol/L (3.5-5.1)
--- NOTE | 2024-01-30 07:49 | Urology Progress Note ---
Date of Service January 30, 2024 Assessment & Plan (1) Lesion of bladder: (2) BPH w urinary obs/LUTS: (3) Phimosis: (4) Bradycardia: Plan - POD #1 s/p Cystoscopy with Biopsy of prostatic urethra, REZUM procedure, Circumcision Revision with Complex Reconstruction, Scrotoplasty for scrotal webbing with Dr. Mistry. - Admitted postoperatively due to hypotension and bradycardia- felt to be anesthesia induced. Now stable on telemetry. - Hospital medicine consulted for medical management - appreciate assistance - Pt afebrile, hypertensive but otherwise stable vitals at present - Labs today reviewed - WBC 8.83, Hemoglobin 12.3, Creatinine 1.18 - Thornton intact and draining maroon urine, no clot. Continue to monitor. Plan: - Maintain Thornton catheter - Penile dressing intact. Can likely remove tomorrow. - Continue supportive care and antibiotic therapy - Continue pain management as needed - Encourage ambulation - Continue SCDs - PT/OT eval - Can use ice as needed to scrotum for pain/swelling - Medical management per primary team recommendations - Anticipate discharge home possibly tomorrow pending patient progression and PT/OT recs. Admission and Anticipated Discharge Date Admission Date: January 29, 2024 Subjective Patient seen at bedside this AM Awake, resting in bed on arrival No acute distress Remains on telemetry. Scrotal/penile pain improved today. Dressing to penis is intact. Appeared to have a small amount of bleeding to inferior aspect of circ revision. Thornton draining maroon urine, no clot. No abdominal or flank pain. Denies f/c/n/v. Tolerating diet. No flatus or BM. He lives alone and would prefer to stay another night. PT/OT to eval. Review of Systems Constitutional: as per Subjective / HPI Gastrointestinal: as per Subjective / HPI Genitourinary: + as per Subjective / HPI Physical Exam Constitutional: no acute distress Respiratory: no respiratory distress and no labored breathing Musculoskeletal: Head/Neck/Chest: normocephalic Neurologic: awake Psychiatric: A+Ox3, euthymic affect Genitourinary: Thornton catheter intact and draining w/hematuria. Ecchymosis and mild edema to scrotum. Dressing to penis is intact. Appeared to have a small amount of bleeding to inferior aspect of circ revision. No significant pain on exam. Results & Data Vital Signs (Past 12 Hours) Vital Signs Temp Pulse Pulse Resp BP Pulse Ox O2 Del Method 01/30/24 07:18 82 01/30/24 02:35 36.5 C 81 16 142/71 H 95 Room Air 01/29/24 23:04 72 01/29/24 22:39 36.5 C 78 22 168/81 H 94 Room Air PG Care Time/CCT Total # of Minutes Spent Total Time Spent with Patient: Total time spent is greater than 50% in coordination of care (as documented) at patient's floor/unit and/or counseling patient: Coding Level of Care Code 49469 SUB INP/OBS CARE 2/35MIN Diagnoses Lesion of bladder N32.9 BPH w urinary obs/LUTS N40.1; N13.8 Phimosis N47.1 Bradycardia R00.1
--- NOTE | 2024-01-30 07:56 | Hospitalist Progress Note ---
Date of Service January 30, 2024 Assessment & Plan (1) BPH w urinary obs/LUTS: Plan: Phimosis, BPH, bladder lesion s/p Cystoscopy with Biopsy of prostatic urethra. REZUM procedure. Circumcision Revision with Complex Reconstruction. Scrotoplasty for scrotal webbing. with Dr Mistry 01/28 EBL 20cc Complicated by postoperative hypotension and bradycardia now improved as noted below and has been stable on telemetry, HRs 60-80s Pain control, activity, DVT prophylaxis per primary team Papillary mass biopsy pathology pending (confirmed w/ primary was sent as not pending in system) WBC wnl, afebrile Hgb 12.1--> 12.3 and stable Does have some bleeding from inferior aspect of circumcision, urology following up/dressing change as needed Added senna to colace BID, monitor for bowel movements. Does have distension/slightly hypoactive BS but nontender and no evidence for obstruction at present time but will continue to monitor Placed orders for PT/OT to ensure no needs at home in 88yo w/ catheter to continue at dc as well as lives alone. Continued inpatient stay (2) Bradycardia: Plan: Post-Op Bradycardia - Hx 1st degree AVB. EKG repeat reviewed, 1* AVB, no terrirotial ischemia. - Resolved with 5mg ephedrine. Suspect anesthesia induced. 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 Also on clonidine for BP - At bedside patient has no chest pain, chest pressure, lightheadedness, dizziness. Feels well other than pain in his pelvis/penis post procedurally. Thornton is draining sanguinous material If recurrent symptomatic bradycardia/hypotension may give an additional 5 mg ephedrine x 1. He is hemodynamically stable and asymptomatic at PACU assessment and plan on repeat afternoon assessment History of first-degree AV block EKG reviewed. Currently similar to prior, no territorial ischemia 01/29 Appears HR has been stable since ephedrine x1. No further dosing needed but available if occurs. Rates 60-80s, NSR, on telemetry and can monitor throughout today/downgrade in evening if stable or consider monitoring overnight See below regarding phenobarbital/reduction in dose closer to home (90mg, takes 93.2mg but we have 30mg tablets on formulary, phenobarb level pending) (3) Seizure disorder: Plan: History of seizure Stable on home dose without reports for seizure activity in 50 years Stable on phenobarbital 129.6 mg at bedtime * Was notified by nursing that patient noticed a discrepancy with his dosage of phenobarbital. The admission order for phenobarbital was written as four 32.4mg tablets (total of 129.6mg) nightly, while patient states he is only taking three 32.4mg tablets (total of 97.2mg) nightly, he states that the four tablets was an old prescription. Upon review of PDMP, his last prescription from his PCP was written as three tablets nightly. I updated the order to reflect this dosage, however pharmacy notified that the ordered reflexed to 90mg (instead of 97.2mg) as the formulary has 30mg tablets. * Phenobarbital level collected at time of admission, result pending. (4) Hypothyroidism: Plan: Hypothyroidism Continue Synthroid (5) Hypertension: Plan: Hypertensive Hold losartan if persistent hypotension but has not and so will continue. Cr slightly up but will continue for now but if any hypotension this afternoon can place on hold for tonight as he takes in the evening Remains on clonidine 0.3mg nightly for BP --> If patient remains normotensive through the afternoon resume this this evening, would not hold due to risk of rebound unless limited by hypotension. Plan Thank you for allowing hospitalist service to participate in the care of Mr Arcos. Hospitalist service will follow along in AM. Please call with any questions/concerns. Admission and Anticipated Discharge Date Admission Date: January 29, 2024 Subjective Patient evaluated this morning, urology [employer] in room. Patient laying in bed, reports pain much improved. Manipulation of catheter tubing to ensure draining however patient does report the bag was about full and emptied this morning. Denies any lightheaded/dizziness, no CP/SOB. HRs much improved on monitor and remains on telemetry. Does have some bleeding from inferior aspect of ?circumcision. URology to clean/redress. Tolerating diet btu denies passing gas. Denies significant abdominal pain but is distended. Believes he has always had umbilical hernia. Is reducible but quickly recurs. No warmth/erythema/tenderness. Will work on bowel regimen to ensure no issues, continue to follow along. Initially possible dc but patient lives alone and will have therapy evals while inpatient to ensure no needs at dc. Questions/concerns addressed at this time. Physical Exam Physical Exam: General: 88yo male sitting up in bed, NAD, reports feeling better Head atraumatic, normocephalic, mmm, trachea midline, +facial hair Resp: even/unlabored, no w/c/r, on room air CV: RRR, soft systolic murmur, no pitting edema/calf tenderness GI: +BS but slightly hypoactive, +slight distension but nontender, +umbilical hernia (no warmth/redness) : catheter draining bloody urine, dressing to penis intact, did have some bleeding from inferior aspect of dressing, +ecchymosis to scrotal, no significant tenderness MSK/Neuro: nonfocal, able to follow commands/answer questions appropriately, strength equal bilaterally Psych: AOx3, cooperative with exam Results & Data Results & Data Vital Signs (Past 12 Hours) Vital Signs Temp Pulse Pulse Resp BP Pulse Ox O2 Del Method 01/30/24 07:18 82 01/30/24 02:35 36.5 C 81 16 142/71 H 95 Room Air 01/29/24 23:04 72 01/29/24 22:39 36.5 C 78 22 168/81 H 94 Room Air Laboratory Results 01/30/24 01/29/24 Range/Units 06:35 12:25 WBC 8.83 4.21 L (4.8-10.8) K/ul RBC 3.86 L 3.77 L (4.70-6.10) M/uL Hgb 12.3 L 12.1 L (14.0-18.0) g/dl Hct 38.2 L 37.1 L (42.0-52.0) % MCV 99.0 98.4 (80.0-100.0) fL MCH 31.9 32.1 (25.0-34.0) pg MCHC 32.2 32.6 (32.0-36.0) g/dL RDW Std Deviation 50.7 H 49.9 H (36.4-46.3) fL RDW Coeff of Rojelio 14.0 13.8 (11.5-14.5) % Plt Count 108 L 83 L (130-400) K/uL MPV 11.9 11.3 (9.4-12.4) fL Immature Gran % (Auto) 0.2 0.2 % Neut % (Auto) 76.7 60.6 % Lymph % (Auto) 15.2 30.6 % [place] % (Auto) 7.6 6.9 % Eos % (Auto) 0.1 1.2 % Baso % (Auto) 0.2 0.5 % Neut # (Auto) 6.77 H 2.55 (1.40-6.50) K/uL Lymph # (Auto) 1.34 1.29 (1.20-3.40) K/uL [place] # (Auto) 0.67 H 0.29 (0.11-0.59) K/uL Eos # (Auto) 0.01 0.05 (0.00-0.50) K/uL Baso # (Auto) 0.02 0.02 (0.00-0.20) K/uL Immature Gran # (Auto) 0.02 0.01 (0.01-0.20) K/uL Platelet Estimate Decreased L (Normal) Sodium 136 139 (136-145) mmol/L Potassium 4.7 4.1 (3.5-5.1) mmol/L Chloride 103 108 H (98-107) mmol/L Carbon Dioxide 28 28 (21-32) mmol/L Anion Gap 5 3 (3-11) BUN 26 H 21 (6-23) mg/dl Creatinine 1.18 0.97 (0.6-1.4) mg/dl Est Cr Clr Drug Dosing 49.0 69.8 ml/min Est GFR ( Amer) 63.0 79.9 ml/min Est GFR (Non-Af Amer) 54.4 68.9 ml/min BUN/Creatinine Ratio 22.0 H 21.6 H (10-20) Glucose 148 H 123 H (70-99(Fasting)) mg/dl Calcium 9.0 9.0 (8.6-10.3) mg/dl Phosphorus 3.3 (2.5-4.9) mg/dl Magnesium 2.0 (1.7-2.4) mg/dl Troponin I High Sens 5.9 (0-20) pg/ml Phenobarbital Pending PG Care Time/CCT Total # of Minutes Spent Total Time Spent with Patient: Total time spent is greater than 50% in coordination of care (as documented) at patient's floor/unit and/or counseling patient: Coding Level of Care Code 75830 SUB INP/OBS CARE 350MIN Diagnoses BPH w urinary obs/LUTS N40.1; N13.8 Bradycardia R00.1 Seizure disorder G40.909 Hypothyroidism E03.9 Hypertension I10
[2024-01-30] MEDS: cefTRIAXone SODIUM 2,000 MG/50 ML BAG IV SCH (09:50)
[2024-01-30] MEDS: SENNA 8.6 MG TAB PO SCH (10:40)
[2024-01-30] MEDS: oxyCODONE HCL IR 5 MG TAB (IMMEDIATE RELEASE) PO PRN (15:02)
[2024-01-31 07:19] LABS: Basophils # (auto) 0.02 K/uL (0.00-0.20); Basophils % (auto) 0.3 %; Eosinophils # (auto) 0.07 K/uL (0.00-0.50); Hematocrit (blood only) 32.7 % (42.0-52.0); Hemoglobin 10.8 g/dl (14.0-18.0); Immature Granulocytes # (auto) 0.01 K/uL (0.01-0.20); Immature Granulocytes % (auto) 0.1 %; Lymphocytes # (auto) 1.36 K/uL (1.20-3.40); Lymphocytes % (auto) 19.4 %; Mean Corpuscular Hemoglobin 31.9 pg (25.0-34.0); Mean Corpuscular Volume 96.5 fL (80.0-100.0); Monocytes # (auto) 0.73 K/uL (0.11-0.59); Monocytes % (auto) 10.4 %; Neutrophils # (auto) 4.83 K/uL (1.40-6.50); Neutrophils % (auto) 68.8 %; Platelet Count 96 K/uL (130-400); RDW Coefficient of Variation 14.1 % (11.5-14.5); RDW Standard Deviation 49.9 fL (36.4-46.3); Red Blood Count 3.39 M/uL (4.70-6.10); White Blood Count 7.02 K/ul (4.8-10.8)
--- NOTE | 2024-01-31 07:51 | Hospitalist Progress Note ---
Date of Service January 31, 2024 Assessment & Plan (1) BPH w urinary obs/LUTS: Plan: Phimosis, BPH, bladder lesion s/p Cystoscopy with Biopsy of prostatic urethra. REZUM procedure. Circumcision Revision with Complex Reconstruction. Scrotoplasty for scrotal webbing. with Dr Mistry 01/28 EBL 20cc Complicated by postoperative hypotension and bradycardia now improved as noted below and has been stable on telemetry, HRs 60-80s Pain control, activity, DVT prophylaxis per primary team Papillary mass biopsy pathology pending (confirmed w/ primary was sent as not pending in system) WBC wnl, afebrile Hgb 12.1--> 12.3 and stable Ceftriaxone pre/post op abx per primary service Does have some bleeding from inferior aspect of circumcision, urology following up/dressing change as needed 01/29 appears did have additional bleeding in afternoon w/ saturated dressing and to maintain/remove 01/30 (Dr Zambrano on for the weekend) Added senna to colace BID, monitor for bowel movements. Does have distension/slightly hypoactive BS but nontender and no evidence for obstruction at present time but will continue to monitor small BM reported BM 01/29 01/30 cr bumped to 1.47, Bps had been acceptable and had been continued last evening but placed on hold for today. BP 102/53 this morning, no lightheaded/dizziness, no CP/SOB, 95% on RA dressing removed by urology, ice pack in place bowel regimen (documented BM 01/29, small) - continue Orders for PT/OT placed 01/29 to ensure no needs at home in 88yo w/ catheter to continue at dc as well as lives alone -- PENDING Continued inpatient stay, CM to follow Has been NSR on telemetry, will plan to downgrade off PCU this evening if no issues throughout the day Likely inpatient through Friday/pending course over the weekend/PT/OT evals. Hospitalist service will follow along. Please call with any questions/concerns. (2) Bradycardia: Plan: Post-Op Bradycardia - Hx 1st degree AVB. EKG repeat reviewed, 1* AVB, no terrirotial ischemia. - Resolved with 5mg ephedrine. Suspect anesthesia induced. 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 Also on clonidine for BP - At bedside patient has no chest pain, chest pressure, lightheadedness, dizziness. Feels well other than pain in his pelvis/penis post procedurally. Thornton is draining sanguinous material If recurrent symptomatic bradycardia/hypotension may give an additional 5 mg ephedrine x 1. He is hemodynamically stable and asymptomatic at PACU assessment and plan on repeat afternoon assessment History of first-degree AV block EKG reviewed. Currently similar to prior, no territorial ischemia 01/29 Appears HR has been stable since ephedrine x1. No further dosing needed but available if occurs. Rates 60-80s, NSR, on telemetry and can monitor throughout today/downgrade in evening if stable or consider monitoring overnight See below regarding phenobarbital/reduction in dose closer to home (90mg, takes 93.2mg but we have 30mg tablets on formulary, phenobarb level slightly low 13.7 but no evidence and would continue current dosing for now - could consider one time additional dose if needed) 01/30 - NSR 70-80s today, planning to downgrade off telemetry (3) Seizure disorder: Plan: History of seizure Stable on home dose without reports for seizure activity in 50 years Stable on phenobarbital 129.6 mg at bedtime * Was notified by nursing that patient noticed a discrepancy with his dosage of phenobarbital. The admission order for phenobarbital was written as four 32.4mg tablets (total of 129.6mg) nightly, while patient states he is only taking three 32.4mg tablets (total of 97.2mg) nightly, he states that the four tablets was an old prescription. Upon review of PDMP, his last prescription from his PCP was written as three tablets nightly. I updated the order to reflect this dosage, however pharmacy notified that the ordered reflexed to 90mg (instead of 97.2mg) as the formulary has 30mg tablets. * Phenobarbital level collected at time of admission, slightly low 13.7 but no evidence for issue/will discuss w/ supervising provider if needing additional dose but holding off for now (4) Hypothyroidism: Plan: TSH wnl in September Continues on home Synthroid (5) Hypertension: Plan: Home losartan continued, however now w/ Cr bump to 1.47 placed on hold. BP borderline this morning but improved this afternoon Remains on clonidine 0.3mg HS Plan Thank you for allowing hospitalist service to participate in the care of Mr Arcos. Will plan to downgrade off telemetry this evening if no issue but continued inpatient stay and waiting therapy evals given 88 and lives alone to ensure safety at [place]. Discussed w/ urology covering this weekend. Will follow along while inpatient, please call with any questions/concerns. Admission and Anticipated Discharge Date Admission Date: January 29, 2024 Subjective Evaluated this afternoon following lunch. some bleeding yesterday afternoon/increased pain to scrotum. seen by Urology this morning, dressing removed. Significant edema/ecchymosis to scrotum, about the same as yesterday, some blood drainage from inferior aspect of circumcision since dressing removed. Ice pack in place for additional pain relief. Thornton draining maroon blood, some clots. hgb 12.3--> 10.8. BP 131/74, HR 77bpm No lightheaded/dizziness. +BS, reported BM but nursing overnight. Discussed continued inpatient stay through the weekend, therapy evals and possible dc Friday. Will plan on holding his losartan for today, he is pushing oral fluids and will hold off IVF for now but monitor. No CP/SOB. Questions/concerns addressed at this time. Physical Exam Physical Exam: General: 88yo male sitting up in recliner watching TV, NAD Head atraumatic, normocephalic, mmm, trachea midline, trachea midline Resp: even/unlabored, no w/c/r, on room air 95% CV: RRR, soft systolic murmur, no pitting edema/calf tenderness GI: +BS throughout, slight distension but nontender, +umbilical hernia (no warmth/redness) : catheter draining maroon urine, some clots in tubing dressing to penis removed by urology this morning, scant blood noted to inferior aspect of incision +ecchymosis to scrotal, ice pack in place MSK/Neuro: nonfocal, able to follow commands/answer questions appropriately, strength equal bilaterally Psych: AOx3, cooperative with exam Results & Data Results & Data Vital Signs (Past 12 Hours) Vital Signs Temp Pulse Resp BP Pulse Ox O2 Del Method 01/31/24 03:11 36.8 C 77 19 131/74 95 Room Air 01/30/24 23:01 36.7 C 80 20 164/82 H 93 Room Air 01/30/24 19:54 36.7 C 86 19 152/74 H 93 Room Air Laboratory Results 01/31/24 Range/Units 06:45 WBC 7.02 (4.8-10.8) K/ul RBC 3.39 L (4.70-6.10) M/uL Hgb 10.8 L (14.0-18.0) g/dl Hct 32.7 L (42.0-52.0) % MCV 96.5 (80.0-100.0) fL MCH 31.9 (25.0-34.0) pg MCHC 33.0 (32.0-36.0) g/dL RDW Std Deviation 49.9 H (36.4-46.3) fL RDW Coeff of Rojelio 14.1 (11.5-14.5) % Plt Count 96 L (130-400) K/uL MPV 12.0 (9.4-12.4) fL Immature Gran % (Auto) 0.1 % Neut % (Auto) 68.8 % Lymph % (Auto) 19.4 % [place] % (Auto) 10.4 % Eos % (Auto) 1.0 % Baso % (Auto) 0.3 % Neut # (Auto) 4.83 (1.40-6.50) K/uL Lymph # (Auto) 1.36 (1.20-3.40) K/uL [place] # (Auto) 0.73 H (0.11-0.59) K/uL Eos # (Auto) 0.07 (0.00-0.50) K/uL Baso # (Auto) 0.02 (0.00-0.20) K/uL Immature Gran # (Auto) 0.01 (0.01-0.20) K/uL Sodium 135 L (136-145) mmol/L Potassium 4.4 (3.5-5.1) mmol/L Chloride 104 (98-107) mmol/L Carbon Dioxide 26 (21-32) mmol/L Anion Gap 5 (3-11) BUN 37 H (6-23) mg/dl Creatinine 1.47 H (0.6-1.4) mg/dl Est Cr Clr Drug Dosing 39.4 ml/min Est GFR ( Amer) 48.3 ml/min Est GFR (Non-Af Amer) 41.7 ml/min BUN/Creatinine Ratio 25.2 H (10-20) Glucose 139 H (70-99(Fasting)) mg/dl Calcium 8.9 (8.6-10.3) mg/dl PG Care Time/CCT Total # of Minutes Spent Total Time Spent with Patient: Total time spent is greater than 50% in coordination of care (as documented) at patient's floor/unit and/or counseling patient: Coding Level of Care Code 94659 SUB INP/OBS CARE 2/35MIN Diagnoses BPH w urinary obs/LUTS N40.1; N13.8 Bradycardia R00.1 Seizure disorder G40.909 Hypothyroidism E03.9 Hypertension I10
[2024-01-31 07:56] LABS: BUN Creatinine Ratio 25.2 (10-20); Calcium 8.9 mg/dl (8.6-10.3); Creatinine Clr Calc Pharmacy 39.4 ml/min; Est GFR (African American) 48.3 ml/min; Est GFR (Non-African American) 41.7 ml/min; Potassium 4.4 mmol/L (3.5-5.1)
--- NOTE | 2024-01-31 09:08 | Urology Progress Note ---
Date of Service January 31, 2024 Assessment & Plan (1) BPH w urinary obs/LUTS: (2) Phimosis: Plan - POD #2 s/p Cystoscopy with Biopsy of prostatic urethra, REZUM procedure, Circumcision Revision with Complex Reconstruction, Scrotoplasty for scrotal webbing with Dr. Mistry. - Admitted postoperatively due to hypotension and bradycardia- felt to be anesthesia induced. Now stable on telemetry. - Hospital medicine consulted for medical management - appreciate assistance -Vitals stable - Labs today reviewed - WBC 7.02, Hemoglobin 10.8, Creatinine 1.47 - Thornton intact and draining maroon urine, no clot. Continue to monitor. Plan: - Maintain Thornton catheter - Penile dressing removed. No active bleeding but patient does have significant swelling and ecchymosis and likely had some postoperative bleeding which has stabilized. - Continue supportive care and antibiotic therapy - Continue pain management as needed - Encourage ambulation - Continue SCDs - PT/OT eval pending - Can use ice as needed to scrotum for pain/swelling - Medical management per primary team recommendationsholding losartan due to ELLA -Anticipate patient will be here over the weekend as PT OT is pending and he has significant discomfort from catheter and surgery that I think would make it difficult for him to recover adequately at home by himself Admission and Anticipated Discharge Date Admission Date: January 29, 2024 Subjective Afebrile with stable vitals. Labs show hemoglobin of 10.8, white blood cell count of 7.03, creatinine of 1.47. Thornton catheter is draining maroon urine. Patient reports discomfort at tip of penis. Physical Exam Physical Exam: General: Alert and oriented, no acute distress HEENT: Normocephalic, mucous membranes moist Pulmonary: Nonlabored respirations Abdomen: Nondistended : Thornton catheter draining maroon, thin urine. Significant scrotal and penile edema and ecchymoses. Dressing removed and circumcising incision is clean dry and intact with no active bleeding. Mildly tender to touch. No crepitus. Extremities: Moves all 4 spontaneously Neuro: No gross deficits Skin: Warm, dry, no rashes noted Results & Data Vital Signs (Past 12 Hours) Vital Signs Temp Pulse Resp BP Pulse Ox O2 Del Method 01/31/24 08:00 36.7 C 75 18 102/53 L 97 Room Air 01/31/24 03:11 36.8 C 77 19 131/74 95 Room Air 01/30/24 23:01 36.7 C 80 20 164/82 H 93 Room Air PG Care Time/CCT Total # of Minutes Spent Total Time Spent with Patient: Total time spent is greater than 50% in coordination of care (as documented) at patient's floor/unit and/or counseling patient: Coding Level of Care Code 83624 SUB INP/OBS CARE 2/35MIN Diagnoses BPH w urinary obs/LUTS N40.1; N13.8 Phimosis N47.1
--- NOTE | 2024-01-31 22:09 | Communication Note ---
Date of Service: January 31, 2024 I was notified by nursing staff that patient was complaining of bladder pain and the sensation that he needed to urinate but could not. Nursing notes that patient was having muse red output from his Thornton catheter with some visible blood clots. I did receive this call at approximately 9:53 PM. I reported to the patient's bedside less than 5 minutes. At the bedside I flushed and irrigated his catheter and retrieved some blood clots and some additional muse red-colored urine. Following this maneuver the Thornton catheter began to drain appropriately and the patient noted complete relief of his symptoms. The nurse attending the patient was present while I perform this maneuver and I instructed her that if his Thornton catheter becomes clogged she can perform the same maneuver later this evening if needed.
[2024-02-01 07:37] LABS: Basophils # (auto) 0.02 K/uL (0.00-0.20); Basophils % (auto) 0.3 %; Eosinophils # (auto) 0.14 K/uL (0.00-0.50); Eosinophils % (auto) 2.4 %; Hemoglobin 10.3 g/dl (14.0-18.0); Immature Granulocytes # (auto) 0.01 K/uL (0.01-0.20); Immature Granulocytes % (auto) 0.2 %; Lymphocytes # (auto) 1.41 K/uL (1.20-3.40); Lymphocytes % (auto) 24.3 %; Mean Corpuscular Hgb Conc 33.2 g/dL (32.0-36.0); Mean Corpuscular Volume 96.3 fL (80.0-100.0); Monocytes # (auto) 0.63 K/uL (0.11-0.59); Monocytes % (auto) 10.8 %; Platelet Count 95 K/uL (130-400); RDW Standard Deviation 49.7 fL (36.4-46.3); Red Blood Count 3.22 M/uL (4.70-6.10); White Blood Count 5.81 K/ul (4.8-10.8)
[2024-02-01 07:58] LABS: BUN Creatinine Ratio 29.8 (10-20); Calcium 8.9 mg/dl (8.6-10.3); Creatinine Clr Calc Pharmacy 47.8 ml/min; Est GFR (African American) 61.1 ml/min; Est GFR (Non-African American) 52.8 ml/min; Potassium 4.5 mmol/L (3.5-5.1)
--- NOTE | 2024-02-01 08:10 | Hospitalist Progress Note ---
Date of Service February 01, 2024 Assessment & Plan (1) BPH w urinary obs/LUTS: Plan: Phimosis, BPH, bladder lesion s/p Cystoscopy with Biopsy of prostatic urethra. REZUM procedure. Circumcision Revision with Complex Reconstruction. Scrotoplasty for scrotal webbing. with Dr Mistry 01/28. EBL 20cc Complicated by postoperative hypotension and bradycardia now improved as noted below and has been stable on telemetry, HRs 60-80s NSR and downgraded to med/surg PM 01/30 Papillary mass biopsy pathology pending WBC wnl, afebrile Hgb 12.3-- > 10.3 * acute blood loss anemia from surgery as well as continued hematuria in tinoco/maroon Ceftriaxone given perioperatively provided Cr bumped to 1.47 on 01/30, suspect 2nd to ongoing hematuria/blood loss Did place his losartan on hold as given HS 01/29 w/ improvement in Cr 1.2 on am labs and will continue to hold (BP borderline but asymptomatic) Pain control/ice packs Continue bowel regimen colace BID/senna daily -->+BS throughout on exam and reports increased flatus today. (small BM documented 01/29) Verified w/ nursing UOP acceptable yesterday evening, had emptied tinoco for 700cc on recheck and had been working however appears urology notified overnight for increased pain/catheter not working overnight and PA was able to flush/irrigate catheter and retrieved some blood clots/additional cheery red- colored urine. Reported feeling better after manipulation and nursing instructed to do same maneuver if occurred again overnight. Has been done x 2,patient reports not seen by doc today but catheter draining without significant issue at time of eval Therapy consults placed to ensure no needs at dc given 88yo/lives alone -- still pending AM 01/31 Continued inpatient stay through the weekend. Hospitalist service will follow along. Please call with any questions/concerns. (2) Bradycardia: Plan: Post-Op Bradycardia Hx 1st degree AVB. EKG repeat reviewed, 1* AVB, no territorial ischemia. Resolved with 5mg ephedrine. Suspect anesthesia induced. 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 Also on clonidine for BP At bedside patient has no chest pain, chest pressure, lightheadedness, dizziness. [place] well other than pain in his pelvis/penis post procedurally. If recurrent symptomatic bradycardia/hypotension may give an additional 5 mg ephedrine x 1 which did not need repeated and remained NSR on telemetry and monitored overnight additional 24 hours but has been NSR 60-80s without issue and was downgraded off telemetry evening 01/30 No further issues/resolved (3) Seizure disorder: Plan: History of seizure Stable on home dose without reports for seizure activity in 50 years Stable on phenobarbital 129.6 mg at bedtime * Was notified by nursing that patient noticed a discrepancy with his dosage of phenobarbital. The admission order for phenobarbital was written as four 32.4mg tablets (total of 129.6mg) nightly, while patient states he is only taking three 32.4mg tablets (total of 97.2mg) nightly, he states that the four tablets was an old prescription. Upon review of PDMP, his last prescription from his PCP was written as three tablets nightly. I updated the order to reflect this dosage, however pharmacy notified that the ordered reflexed to 90mg (instead of 97.2mg) as the formulary has 30mg tablets. * Phenobarbital level collected at time of admission, slightly low 13.7 but no evidence for issue/will discuss w/ supervising provider if needing additional dose but holding off for now - no need for additinal dosing/no evidence for seizure activity. could repeat w/ am labs vs outpt f/u but has been stable on present dose and will leave as is (4) Hypothyroidism: Plan: TSH wnl in September Continues on home Synthroid (5) Hypertension: Plan: Home losartan continued, however now w/ Cr bump to 1.47 placed on hold w/ improvement and BP borderline and will continue to hold. Asymptomatic w/ BP at present w/ good PO fluid intake Remains on clonidine 0.3mg HS, would not hold to prevent rebound but will monitor Plan continued inpatient stay through weekend, therapy evals pending. CM to follow for any needs at home given 88yo and lives alone and will be going w tinoco Hospitalist service will follow along while inpatient. Please call with any questions/concerns. Admission and Anticipated Discharge Date Admission Date: January 29, 2024 Subjective Evaluated this morning, had some pain/issues with catheter draining last evening/overnight. Manipulation/irrigation x 2 w/ good results. Urology to see this morning, he reports hasn't seen them yet but not having too much pain at present but will let nursing know if any issues. Losartan on hold, kidney function improved and remains on hold for today. Moved to med/surg last evening given stable tele. No CP/SOB, fever/chills, dizzy/lightheadedness. He did have small BM 01/29 but no flatus yesterday but reporting improvement in passing gas today. No abdominal pain. Good BS/appetite. Continues bowel regimen. Therapy evals placed but he reports has not been seen yet but doesn't think will be going home just yet. Discussed agreed and believe needs another 24-48 hours inpatient. Patient agreeable. Questions/concerns addressed at this time. Physical Exam Physical Exam: General: 88yo male sitting up in recliner watching TV, NAD, attempting to sleep this morning, pleasant/cooperative Head atraumatic, normocephalic, mmm, trachea midline, trachea midline Resp: even/unlabored, no w/c/r, on room air CV: RRR, soft systolic murmur, trace pedal edema, no calf tenderness, pulses present GI: +BS throughout, slight distension but nontender, +umbilical hernia (no warmth/redness) : catheter draining maroon urine, some clots in tubing no further dressing to penis, some scant bleeding from inferior aspect of circumcision persists, significant ecchymosis to scrotum, +tenderness but slightly less edema today compared to yesterday MSK/Neuro: nonfocal, able to follow commands/answer questions appropriately, strength equal bilaterally Psych: AOx3, cooperative with exam Results & Data Results & Data Vital Signs (Past 12 Hours) Vital Signs Temp Pulse Resp BP Pulse Ox O2 Del Method 02/01/24 07:08 36.7 C 83 16 107/66 94 Room Air 01/31/24 23:22 36.6 C 85 16 156/65 H 94 Room Air Laboratory Results 02/01/24 Range/Units 06:48 WBC 5.81 (4.8-10.8) K/ul RBC 3.22 L (4.70-6.10) M/uL Hgb 10.3 L (14.0-18.0) g/dl Hct 31.0 L (42.0-52.0) % MCV 96.3 (80.0-100.0) fL MCH 32.0 (25.0-34.0) pg MCHC 33.2 (32.0-36.0) g/dL RDW Std Deviation 49.7 H (36.4-46.3) fL RDW Coeff of Rojelio 14.0 (11.5-14.5) % Plt Count 95 L (130-400) K/uL MPV 12.0 (9.4-12.4) fL Immature Gran % (Auto) 0.2 % Neut % (Auto) 62.0 % Lymph % (Auto) 24.3 % [place] % (Auto) 10.8 % Eos % (Auto) 2.4 % Baso % (Auto) 0.3 % Neut # (Auto) 3.60 (1.40-6.50) K/uL Lymph # (Auto) 1.41 (1.20-3.40) K/uL [place] # (Auto) 0.63 H (0.11-0.59) K/uL Eos # (Auto) 0.14 (0.00-0.50) K/uL Baso # (Auto) 0.02 (0.00-0.20) K/uL Immature Gran # (Auto) 0.01 (0.01-0.20) K/uL Sodium 136 (136-145) mmol/L Potassium 4.5 (3.5-5.1) mmol/L Chloride 105 (98-107) mmol/L Carbon Dioxide 27 (21-32) mmol/L Anion Gap 4 (3-11) BUN 36 H (6-23) mg/dl Creatinine 1.21 (0.6-1.4) mg/dl Est Cr Clr Drug Dosing 47.8 ml/min Est GFR ( Amer) 61.1 ml/min Est GFR (Non-Af Amer) 52.8 ml/min BUN/Creatinine Ratio 29.8 H (10-20) Glucose 121 H (70-99(Fasting)) mg/dl Calcium 8.9 (8.6-10.3) mg/dl PG Care Time/CCT Total # of Minutes Spent Total Time Spent with Patient: Total time spent is greater than 50% in coordination of care (as documented) at patient's floor/unit and/or counseling patient: Coding Level of Care Code 39465 SUB INP/OBS CARE 3/50MIN Diagnoses BPH w urinary obs/LUTS N40.1; N13.8 Bradycardia R00.1 Seizure disorder G40.909 Hypothyroidism E03.9 Hypertension I10
--- NOTE | 2024-02-01 10:23 | Urology Progress Note ---
Date of Service February 01, 2024 Assessment & Plan (1) Phimosis: Plan: - POD #2 s/p Cystoscopy with Biopsy of prostatic urethra, REZUM procedure, Circumcision Revision with Complex Reconstruction, Scrotoplasty for scrotal webbing with Dr. Mistry. - Admitted postoperatively due to hypotension and bradycardia- felt to be anesthesia induced. Now stable on telemetry. - Hospital medicine consulted for medical management - appreciate assistance -Vitals stable - Labs today reviewed - WBC 7.02, Hemoglobin 10.8, Creatinine 1.47 - Thornton intact and draining maroon urine, no clot. Continue to monitor. Plan: - Maintain Thornton catheter -Physical exam stable Hemoglobin stable, creatinine downtrending - Continue supportive care and antibiotic therapy - Continue pain management as needed - Encourage ambulation - Continue SCDs - PT/OT eval still pending - Can use ice as needed to scrotum for pain/swelling - Medical management per primary team recommendationsholding losartan due to ELLA -Anticipate patient will be here over the weekend as PT OT is pending and he has significant discomfort from catheter and surgery that I think would make it difficult for him to recover adequately at home by himself (2) BPH w urinary obs/LUTS: Admission and Anticipated Discharge Date Admission Date: January 29, 2024 Subjective No acute issues overnight. Afebrile with stable vitals. Hemoglobin stable. Creatinine downtrending. Patient still reports discomfort in surgical area. He is yet to be evaluated by PT OT. His catheter did require flushing overnight. Physical Exam Physical Exam: General: Alert and oriented, no acute distress HEENT: Normocephalic, mucous membranes moist Pulmonary: Nonlabored respirations Abdomen: Nondistended : Thornton catheter draining maroon, thin urine. Significant scrotal and penile edema and ecchymoses. Circumcising incision clean dry and intact. Mildly tender to touch. No crepitus. Extremities: Moves all 4 spontaneously Neuro: No gross deficits Skin: Warm, dry, no rashes noted Results & Data Vital Signs (Past 12 Hours) Vital Signs Temp Pulse Resp BP Pulse Ox O2 Del Method 02/01/24 07:08 36.7 C 83 16 107/66 94 Room Air 01/31/24 23:22 36.6 C 85 16 156/65 H 94 Room Air PG Care Time/CCT Total # of Minutes Spent Total Time Spent with Patient: Total time spent is greater than 50% in coordination of care (as documented) at patient's floor/unit and/or counseling patient: Coding Level of Care Code 20222 SUB INP/OBS CARE 2/35MIN Diagnoses Phimosis N47.1 BPH w urinary obs/LUTS N40.1; N13.8
--- NOTE | 2024-02-02 08:10 | Hospitalist Progress Note ---
Date of Service February 02, 2024 Assessment & Plan (1) BPH w urinary obs/LUTS: Plan: Phimosis, BPH, bladder lesion s/p Cystoscopy with Biopsy of prostatic urethra. REZUM procedure. Circumcision Revision with Complex Reconstruction. Scrotoplasty for scrotal webbing. with Dr Mistry 01/28. EBL 20cc --Complicated by postoperative hypotension and bradycardia now improved as noted below and has been stable on telemetry, HRs 60-80s NSR and downgraded to med/surg PM 01/30 Papillary mass biopsy pathology pending WBC wnl, afebrile Hgb 12.3-- > 10.3. acute blood loss anemia from surgery as well as continued hematuria in tinoco/maroon Ceftriaxone given perioperatively provided Cr bumped to 1.47 on 01/30, suspect 2nd to ongoing hematuria/blood loss Did place his losartan on hold as given HS 01/29 w/ improvement in Cr 1.2 on am labs and will continue to hold (BP borderline but asymptomatic) Pain control/ice packs Continue bowel regimen colace BID/senna daily. +BM 01/29, LARGE BM 01/31 02/01 Tinoco w/ urine starting to clear up last evening. clear/pale red w/ scant amt of small blood clots. Needed manual irrigation x1 this morning w/ good results. Tinoco clearer pink on exam for myself today as well Bowel regimen continued -- +LARGE BM, continue bowel regimen on pain control Chemistries w/ return of Cr to baseline 1.04 and losartan placed on hold to resume 02/02 if no issues but BPs stable and no further borderline BPs and could consider restarting tonight if needed for BP but presently stable 147/73 presently without significant elevations in setting of pain control to scrotum PT evals w/ HH services recommended. OT evals either short term rehab vs HH. CM to f/u and sent message for them to follow up with Urology/primary service for dispo planning Messaged Urology to see if needing to follow along in AM, otherwise moving araceli ls/renal function to baseline and no further yusra/issues w/ that regard and will otherwise plan to sign off. Please call with any questions/concerns. (2) Bradycardia: Plan: Post-Op Bradycardia Hx 1st degree AVB. EKG repeat reviewed, 1* AVB, no territorial ischemia. Resolved with 5mg ephedrine. Suspect anesthesia induced. 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 Also on clonidine for BP At bedside patient has no chest pain, chest pressure, lightheadedness, dizziness. [place] well other than pain in his pelvis/penis post procedurally. If recurrent symptomatic bradycardia/hypotension may give an additional 5 mg ephedrine x 1 which did not need repeated and remained NSR on telemetry and monitored overnight additional 24 hours but has been NSR 60-80s without issue and was downgraded off telemetry evening 01/30 No further issues/resolved (3) Seizure disorder: Plan: History of seizure Stable on home dose without reports for seizure activity in 50 years Stable on phenobarbital 129.6 mg at bedtime * Was notified by nursing that patient noticed a discrepancy with his dosage of phenobarbital. The admission order for phenobarbital was written as four 32.4mg tablets (total of 129.6mg) nightly, while patient states he is only taking three 32.4mg tablets (total of 97.2mg) nightly, he states that the four tablets was an old prescription. Upon review of PDMP, his last prescription from his PCP was written as three tablets nightly. I updated the order to reflect this dosage, however pharmacy notified that the ordered reflexed to 90mg (instead of 97.2mg) as the formulary has 30mg tablets. * Phenobarbital level collected at time of admission, slightly low 13.7 but no evidence for issue/will discuss w/ supervising provider if needing additional dose but holding off for now * - no need for additional dosing/no evidence for seizure activity. could repeat w/ am labs vs outpt f/u but has been stable on present dose and will leave as is * Rec outpt f/u for repeat lab testing (4) Hypothyroidism: Plan: TSH wnl in September Continues on home Synthroid (5) Hypertension: Plan: BPs acceptable, 147/73 Renal function back to baseline. Has had stable BP and losartan ordered to resume but for 02/02 however could resume this evening if no issues and needing BP control Remains on clonidine 0.3mg HS, would not hold to prevent rebound but will monitor Plan continued inpatient stay finalizing dispo per primary service and continued management of tinoco catheter. Has had improvement in drainage and clearer pink color/hgb levels stable and renal function back to baseline and orders for losartan to resume. Moving bowels and would continue bowel regimen while on pain control. Reviewed therapy notes --> PT rec HH, OT rec for rehab vs HH. Messaged CM and reporting [facility] not paying for rehab but primary CM to reach out to primary service for dispo planning. Discussed w/ Urology JOVANNI - hospitalist service will sign off at this time. Please call with any questions/concerns. Admission and Anticipated Discharge Date Admission Date: January 29, 2024 Subjective Patient evaluated this morning, sitting up in recliner. Moved his bowels, LARGE. Reports "took some persuasion". Pain to scrotum, urology managing. Tinoco w/ improvement in drainage/ light pink colored. Did have irrigated x 1 this morning for some discomfort with relief. Discussed therapy evals/if interested in rehab may be benificial for short term stay as going home with catheter and he inquires about how he would drain/etc. Discussed but defer to urology for ongoing teaching at time of discharge to ensure able but suspect may have some issues if just HH at me if needing ongoing irrigation that he may not be suitable to address himself. Discussed losartan prior on hold and renal function back to baseline and will plan to resume this for tomorrow as long as no issues (takes at night and could be placed on hold if needed). No CP/SOB, no nausea/vomiting. Good appetite, loves his coffee. Questions/concerns addressed at this time. Physical Exam Physical Exam: General: 88yo male sitting up in recliner, NAD, appears improved, pleasant/cooperative, joking during encounter Head atraumatic, normocephalic, mmm, trachea midline, trachea midline Resp: even/unlabored, no w/c/r, on room air CV: RRR, soft systolic murmur, trace pedal edema, no calf tenderness, pulses present GI: +BS throughout, less distension, +umbilical hernia (no warmth/redness) : catheter draining clearer pink tinged urine with some clots in bag, overall improved compared to yesterday no further dressing to penis, some scant bleeding from inferior aspect of circumcision persists, significant ecchymosis to scrotum, +tenderness but slightly less edema today compared to yesterday MSK/Neuro: nonfocal, able to follow commands/answer questions appropriately, strength equal bilaterally Psych: AOx3, cooperative with exam Results & Data Results & Data Vital Signs (Past 12 Hours) Vital Signs Temp Pulse Resp BP Pulse Ox O2 Del Method 02/02/24 07:06 36.6 C 70 16 147/73 H 97 Room Air Laboratory Results 02/02/24 Range/Units 08:25 WBC 5.29 (4.8-10.8) K/ul RBC 3.40 L (4.70-6.10) M/uL Hgb 11.1 L (14.0-18.0) g/dl Hct 33.5 L (42.0-52.0) % MCV 98.5 (80.0-100.0) fL MCH 32.6 (25.0-34.0) pg MCHC 33.1 (32.0-36.0) g/dL RDW Std Deviation 50.5 H (36.4-46.3) fL RDW Coeff of Rojelio 14.1 (11.5-14.5) % Plt Count 110 L (130-400) K/uL MPV 11.3 (9.4-12.4) fL Immature Gran % (Auto) 0.2 % Neut % (Auto) 64.2 % Lymph % (Auto) 24.8 % [place] % (Auto) 8.3 % Eos % (Auto) 2.1 % Baso % (Auto) 0.4 % Neut # (Auto) 3.40 (1.40-6.50) K/uL Lymph # (Auto) 1.31 (1.20-3.40) K/uL [place] # (Auto) 0.44 (0.11-0.59) K/uL Eos # (Auto) 0.11 (0.00-0.50) K/uL Baso # (Auto) 0.02 (0.00-0.20) K/uL Immature Gran # (Auto) 0.01 (0.01-0.20) K/uL Sodium 135 L (136-145) mmol/L Potassium 4.3 (3.5-5.1) mmol/L Chloride 104 (98-107) mmol/L Carbon Dioxide 27 (21-32) mmol/L Anion Gap 4 (3-11) BUN 30 H (6-23) mg/dl Creatinine 1.04 (0.6-1.4) mg/dl Est Cr Clr Drug Dosing 55.6 ml/min Est GFR ( Amer) 73.4 ml/min Est GFR (Non-Af Amer) 63.4 ml/min BUN/Creatinine Ratio 28.8 H (10-20) Glucose 119 H (70-99(Fasting)) mg/dl Calcium 9.4 (8.6-10.3) mg/dl PG Care Time/CCT Total # of Minutes Spent Total Time Spent with Patient: Total time spent is greater than 50% in coordination of care (as documented) at patient's floor/unit and/or counseling patient: Coding Level of Care Code 02798 SUB INP/OBS CARE 3/50MIN Diagnoses BPH w urinary obs/LUTS N40.1; N13.8 Bradycardia R00.1 Seizure disorder G40.909 Hypothyroidism E03.9 Hypertension I10
--- NOTE | 2024-02-02 08:54 | Urology Progress Note ---
Date of Service February 02, 2024 Assessment & Plan (1) Phimosis: Plan: - POD #4 s/p Cystoscopy with Biopsy of prostatic urethra, REZUM procedure, Circumcision Revision with Complex Reconstruction, Scrotoplasty for scrotal webbing with Dr. Mistry. - Admitted postoperatively due to hypotension and bradycardia- felt to be anesthesia induced. Now stable on telemetry. - Hospital medicine consulted for medical management - appreciate assistance. - Afebrile with stable vitals. - Creatinine downtrending, hemoglobin improved to 11.1, no leukocytosis. - Thornton intact and draining clear urine, no clot. Plan: - Maintain Thornton catheter - Physical exam stable - Continue supportive care and antibiotic therapy - Continue pain management as needed - Encourage ambulation - Continue SCDs - PT/OT eval recommending HH or rehab - Can use ice as needed to scrotum for pain/swelling - Medical management per primary team recommendations - Anticipate home today or tomorrow pending HH/rehab placements (2) BPH w urinary obs/LUTS: Admission and Anticipated Discharge Date Admission Date: January 29, 2024 Subjective No acute issues overnight. Patient still reports discomfort in surgical area. Catheter draining clear urine. He reports catheter did require flushing this am. Denies nausea, vomiting, fever or chills. Review of Systems Constitutional: as per Subjective / HPI Gastrointestinal: as per Subjective / HPI Genitourinary: + as per Subjective / HPI Physical Exam Constitutional: no acute distress Respiratory: no respiratory distress and no labored breathing Musculoskeletal: Head/Neck/Chest: normocephalic Neurologic: awake Psychiatric: A+Ox3, euthymic affect Genitourinary: Thornton catheter intact and draining clear urine. Significant scrotal and penile edema and ecchymoses. Circumcising incision clean dry and intact. Mildly tender to touch. Results & Data Vital Signs (Past 12 Hours) Vital Signs Temp Pulse Resp BP Pulse Ox O2 Del Method 02/02/24 07:30 Room Air 02/02/24 07:06 36.6 C 70 16 147/73 H 97 Room Air PG Care Time/CCT Total # of Minutes Spent Total Time Spent with Patient: Total time spent is greater than 50% in coordination of care (as documented) at patient's floor/unit and/or counseling patient: Coding Level of Care Code None Diagnoses Phimosis N47.1 BPH w urinary obs/LUTS N40.1; N13.8
[2024-02-02 08:58] LABS: Basophils # (auto) 0.02 K/uL (0.00-0.20); Basophils % (auto) 0.4 %; Eosinophils # (auto) 0.11 K/uL (0.00-0.50); Eosinophils % (auto) 2.1 %; Hematocrit (blood only) 33.5 % (42.0-52.0); Hemoglobin 11.1 g/dl (14.0-18.0); Immature Granulocytes # (auto) 0.01 K/uL (0.01-0.20); Immature Granulocytes % (auto) 0.2 %; Lymphocytes # (auto) 1.31 K/uL (1.20-3.40); Lymphocytes % (auto) 24.8 %; Mean Corpuscular Hemoglobin 32.6 pg (25.0-34.0); Mean Corpuscular Hgb Conc 33.1 g/dL (32.0-36.0); Mean Corpuscular Volume 98.5 fL (80.0-100.0); Mean Platelet Volume 11.3 fL (9.4-12.4); Monocytes # (auto) 0.44 K/uL (0.11-0.59); Monocytes % (auto) 8.3 %; Neutrophils % (auto) 64.2 %; Platelet Count 110 K/uL (130-400); RDW Coefficient of Variation 14.1 % (11.5-14.5); RDW Standard Deviation 50.5 fL (36.4-46.3); White Blood Count 5.29 K/ul (4.8-10.8)
[2024-02-02 09:10] LABS: BUN Creatinine Ratio 28.8 (10-20); Calcium 9.4 mg/dl (8.6-10.3); Creatinine Clr Calc Pharmacy 55.6 ml/min; Est GFR (African American) 73.4 ml/min; Est GFR (Non-African American) 63.4 ml/min; Potassium 4.3 mmol/L (3.5-5.1)
[2024-02-02] MEDS: DOXYCYCLINE HYCLATE 100 MG CAP PO SCH (20:54)
--- NOTE | 2024-02-03 07:33 | Urology Progress Note ---
Date of Service February 03, 2024 Assessment & Plan (1) BPH w urinary obs/LUTS: (2) Phimosis: Plan: - POD #5 s/p Cystoscopy with Biopsy of prostatic urethra, REZUM procedure, Circumcision Revision with Complex Reconstruction, Scrotoplasty for scrotal webbing with Dr. Mistry. - Admitted postoperatively due to hypotension and bradycardia- felt to be anesthesia induced. Now stable on telemetry. - Hospital medicine consulted for medical management - appreciate assistance. - Afebrile, hemodynamically stable. - Labs stable yesterday. - Thornton intact and draining clear urine, no clot. Plan: - Maintain Thornton catheter - Physical exam stable - Continue supportive care and antibiotic therapy, currently on Doxycycline - Continue pain management as needed - Encourage ambulation - Continue SCDs - PT/OT recommending HH or rehab, awaiting rehab placement for - Can use ice as needed to scrotum for pain/swelling - Medical management per primary team recommendations Admission and Anticipated Discharge Date Admission Date: January 29, 2024 Subjective No acute issues overnight. Catheter flushed once per patient. Thornton draining clear yellow. Reports some scrotal discomfort intermittently. Denies fever or chills. Review of Systems Constitutional: as per Subjective / HPI Genitourinary: + as per Subjective / HPI Physical Exam Constitutional: no acute distress Respiratory: no respiratory distress and no labored breathing Musculoskeletal: Head/Neck/Chest: normocephalic Neurologic: awake Psychiatric: A+Ox3, euthymic affect Genitourinary: Thornton catheter intact and draining clear urine. Moderate scrotal and penile edema, ecchymoses. Circumcision incision clean dry and intact. Mildly tender to touch. Results & Data Vital Signs (Past 12 Hours) Vital Signs Temp Pulse Resp BP BP Pulse Ox O2 Del Method 02/02/24 23:08 160/75 H 02/02/24 21:17 185/72 H 02/02/24 19:53 36.6 C 82 16 201/75 H 96 Room Air PG Care Time/CCT Total # of Minutes Spent Total Time Spent with Patient: Total time spent is greater than 50% in coordination of care (as documented) at patient's floor/unit and/or counseling patient: Coding Level of Care Code None Diagnoses BPH w urinary obs/LUTS N40.1; N13.8 Phimosis N47.1
--- NOTE | 2024-02-03 11:46 | XRay Report ---
XR chest 1V portable HISTORY: new wheezing COMPARISON: Chest 12/30/2023. FINDINGS: There are low lung volumes. No pneumothorax. No pleural effusions. The cardiac silhouette r emains top normal in size. No evidence for pulmonary edema. The upper lung zones are clear. Bibasilar linear densities are nonspecific but favor subsegmental atelectasis. There are calcifications within the aortic knob. Degenerative changes within the shoulders. IMPRESSION: A few bibasilar linear densities. These are nonspecific but favor subsegmental atelectasis. ACT 112: Negative or not required by law. Electronically signed by: Simon Stearns M.D. 02/03/2024 11:45 AM
[2024-02-03] MEDS ORDERED: ALBUT/IPRATROP 3MG/0.5MG NEB 3 ML VIAL NEB PRN (12:15)
[2024-02-03] MEDS: ALBUT/IPRATROP 3MG/0.5MG NEB 3 ML VIAL NEB STA (12:24)
--- NOTE | 2024-02-03 17:16 | Hospitalist Progress Note ---
Date of Service February 03, 2024 Assessment & Plan (1) Wheezing: Plan: expiratory wheezing noticed throughout 02/02 CXR: no PNA or evidence of effusion. subsegmental atelectasis - continue IS - duoneb ordered - check weight for fluid overload - encouraged ambulation/mobilization - pt normally uses CPAP, hasnt in last 3 months at home, declines CPAP while inpatient AM CBC to check for infectious process (2) BPH w urinary obs/LUTS: Plan: Phimosis, BPH, bladder lesion s/p Cystoscopy with Biopsy of prostatic urethra. REZUM procedure. Circumcision Revision with Complex Reconstruction. Scrotoplasty for scrotal webbing. with Dr Mistry 01/28. EBL 20cc --Complicated by postoperative hypotension and bradycardia now improved. Downgraded from Tele 01/30 Papillary mass biopsy pathology pending Hgb 12.3-- > 10.3. acute blood loss anemia from surgery as well as continued hematuria in tinoco/maroon Cr bumped to 1.47 on 01/30, suspect 2nd to ongoing hematuria/blood loss Did place his losartan on hold but now resumed with improving kidney function PT evals w/ HH services recommended. OT evals either short term rehab vs HH. CM following (3) Bradycardia: Plan: Post-Op Bradycardia Hx 1st degree AVB. EKG repeat reviewed, 1* AVB, no territorial ischemia. Resolved with 5mg ephedrine. Suspect anesthesia induced. 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 Also on clonidine for BP Pt was asymptomatic. No further issues/resolved (4) Seizure disorder: Plan: History of seizure Stable on home dose without reports for seizure activity in 50 years Stable on phenobarbital 129.6 mg at bedtime * Was notified by nursing that patient noticed a discrepancy with his dosage of phenobarbital. The admission order for phenobarbital was written as four 32.4mg tablets (total of 129.6mg) nightly, while patient states he is only taking three 32.4mg tablets (total of 97.2mg) nightly, he states that the four tablets was an old prescription. Upon review of PDMP, his last prescription fr om his PCP was written as three tablets nightly. I updated the order to reflect this dosage, however pharmacy notified that the ordered reflexed to 90mg (instead of 97.2mg) as the formulary has 30mg tablets. * Phenobarbital level collected at time of admission, slightly low 13.7 but no evidence for issue/will discuss w/ supervising provider if needing additional dose but holding off for now (5) Hypothyroidism: Plan: TSH wnl in September Continues on home Synthroid (6) Hypertension: Plan: BPs acceptable, 147/73 Continue losartan and clonidine Plan Dispo: continued inpatient stay, will reassess breathing tomorrow Admission and Anticipated Discharge Date Admission Date: January 29, 2024 Supervising Physician Co-Signing Physician Notes PA Supervision Note: I did not personally see or examine the patient today, but I verified all coreas points of MATTHEW Tucker's assessment and plan with the following exceptions/additions: None Subjective Hospitalist reconsulted for wheezing today. Patient denies SOB. reports chronic cough with some phlegm but reports not a lot and no more than usual has not worn his cpap in 3 months, due to warranty issues. good appetite. No fevers or chills Review of Systems Review of Systems: All systems reviewed & are unremarkable except as noted in Subjective Physical Exam Physical Exam: General: NAD, VS as above Resp: normal respiratory effort, expiratory wheezing throughout CV: RRR, no murmur, Abd: normal bowel sounds, non tender, no hepatosplenomegaly Extremities: Moves all extremities, 1+ edema : tinoco in place Neuro: A&O x3, Skin: intact, no lesions noted Results & Data Results & Data Vital Signs (Past 12 Hours) Vital Signs Temp Pulse Resp BP Pulse Ox O2 Del Method 02/03/24 15:37 152/75 H 02/03/24 15:29 36.6 C 81 16 182/90 H 97 Room Air 02/03/24 12:27 60 18 95 Room Air 02/03/24 07:33 36.4 C L 61 16 152/80 H 96 Room Air 02/03/24 07:20 Room Air PG Care Time/CCT Total # of Minutes Spent Total Time Spent with Patient: Total time spent is greater than 50% in coordination of care (as documented) at patient's floor/unit and/or counseling patient: Coding Level of Care Code 69498 SUB INP/OBS CARE 2/35MIN Diagnoses Wheezing R06.2 BPH w urinary obs/LUTS N40.1; N13.8 Bradycardia R00.1 Seizure disorder G40.909 Hypothyroidism E03.9 Hypertension I10
[2024-02-04 08:35] LABS: Basophils # (auto) 0.03 K/uL (0.00-0.20); Basophils % (auto) 0.5 %; Eosinophils # (auto) 0.11 K/uL (0.00-0.50); Eosinophils % (auto) 1.8 %; Hematocrit (blood only) 35.3 % (42.0-52.0); Hemoglobin 11.4 g/dl (14.0-18.0); Immature Granulocytes # (auto) 0.02 K/uL (0.01-0.20); Immature Granulocytes % (auto) 0.3 %; Lymphocytes # (auto) 1.41 K/uL (1.20-3.40); Lymphocytes % (auto) 23.5 %; Mean Corpuscular Hemoglobin 32.7 pg (25.0-34.0); Mean Corpuscular Hgb Conc 32.3 g/dL (32.0-36.0); Mean Corpuscular Volume 101.1 fL (80.0-100.0); Mean Platelet Volume 11.7 fL (9.4-12.4); Monocytes # (auto) 0.54 K/uL (0.11-0.59); Neutrophils % (auto) 64.9 %; Platelet Count 117 K/uL (130-400); RDW Coefficient of Variation 14.5 % (11.5-14.5); RDW Standard Deviation 52.8 fL (36.4-46.3); Red Blood Count 3.49 M/uL (4.70-6.10); White Blood Count 6.01 K/ul (4.8-10.8)
--- NOTE | 2024-02-04 08:38 | Urology Progress Note ---
Date of Service February 04, 2024 Assessment & Plan (1) BPH w urinary obs/LUTS: (2) Phimosis: Plan: - POD #6 s/p Cystoscopy with Biopsy of prostatic urethra, REZUM procedure, Circumcision Revision with Complex Reconstruction, Scrotoplasty for scrotal webbing with Dr. Mistry. - Admitted postoperatively due to hypotension and bradycardia- felt to be anesthesia induced. Resolved. - Hospital medicine consulted for medical management - appreciate assistance. - Afebrile, hemodynamically stable. - Labs todayWBC 6.01, hemoglobin 11.4, creatinine 0.99. - Thornton intact and draining clear urine, no clots noted. - Patient reports that catheter continues to be flushed by nursing periodically. Suspect he is having periodic bladder spasms rather than obstructed catheter. Plan: - Maintain Thornton catheter - Physical exam stable - Continue supportive care and antibiotic therapy, currently on Doxycycline - Continue pain management as needed - Encourage ambulation - Continue SCDs - Continue IS - PT/OT recommending HH or rehab - Discussed case with , he is set up for HH starting tomorrow - Discussed case with hospital medicine, he is ready for discharge from medical standpoint - Will plan for discharge later today Admission and Anticipated Discharge Date Admission Date: January 29, 2024 Subjective Patient seen and examined at bedside this morning No acute issues overnight Thornton draining clear yellow urine Reports catheter was flushed by nursing He reports he feels better after catheter is flushed Continues to have discomfort in the scrotum Denies fever or chills He was noted to have expiratory wheezing yesterday by nursing Patient denies shortness of breath He has been using his IS Review of Systems Constitutional: as per Subjective / HPI Genitourinary: + as per Subjective / HPI Physical Exam Constitutional: no acute distress Respiratory: no respiratory distress and no labored breathing Musculoskeletal: Head/Neck/Chest: normocephalic Neurologic: awake Psychiatric: A+Ox3, euthymic affect Genitourinary: Thornton catheter intact and draining clear urine. Moderate scrotal and penile edema, ecchymoses of scrotum and pubic region. Mildly tender to touch. Results & Data Vital Signs (Past 12 Hours) Vital Signs Temp Pulse Resp BP Pulse Ox O2 Del Method 02/04/24 07:15 36.6 C 82 18 148/77 H 96 Room Air 02/03/24 22:48 174/78 H 02/03/24 22:14 195/85 H PG Care Time/CCT Total # of Minutes Spent Total Time Spent with Patient: Total time spent is greater than 50% in coordination of care (as documented) at patient's floor/unit and/or counseling patient: Coding Level of Care Code 14850 SUB INP/OBS CARE 1/25MIN Diagnoses BPH w urinary obs/LUTS N40.1; N13.8 Phimosis N47.1
[2024-02-04 08:58] LABS: BUN Creatinine Ratio 29.3 (10-20); Calcium 8.8 mg/dl (8.6-10.3); Creatinine Clr Calc Pharmacy 64.5 ml/min; Est GFR (African American) 77.9 ml/min; Est GFR (Non-African American) 67.2 ml/min; Potassium 4.1 mmol/L (3.5-5.1)
[2024-02-04] MEDS: VIBEGRON 75 MG TAB PO SCH (09:36)
--- NOTE | 2024-02-04 10:01 | Hospitalist Progress Note ---
Date of Service February 04, 2024 Assessment & Plan (1) Wheezing: Plan: expiratory wheezing noticed throughout 02/02 CXR: no PNA or evidence of effusion. subsegmental atelectasis - continue IS - duoneb ordered - check weight for fluid overload - at baseline weight - encouraged ambulation/mobilization - pt normally uses CPAP, hasnt in last 3 months at home, declines CPAP while inpatient CBC without signs of infection, lung sounds improved - encouraged to continue IS post discharge (2) BPH w urinary obs/LUTS: Plan: Phimosis, BPH, bladder lesion s/p Cystoscopy with Biopsy of prostatic urethra. REZUM procedure. Circumcision Revision with Complex Reconstruction. Scrotoplasty for scrotal webbing. with Dr Mistry 01/28. EBL 20cc --Complicated by postoperative hypotension and bradycardia now improved. Downgraded from Tele 01/30 Papillary mass biopsy pathology pending Hgb 12.3-- > 10.3. acute blood loss anemia from surgery as well as continued hematuria in tinoco/maroon Cr bumped to 1.47 on 01/30, suspect 2nd to ongoing hematuria/blood loss Did place his losartan on hold but now resumed with improving kidney function PT evals w/ HH services recommended. OT evals either short term rehab vs HH. CM following - plan for HH at discharge (3) Bradycardia: Plan: Post-Op Bradycardia Hx 1st degree AVB. EKG repeat reviewed, 1* AVB, no territorial ischemia. Resolved with 5mg ephedrine. Suspect anesthesia induced. 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 Also on c lonidine for BP Pt was asymptomatic. No further issues/resolved (4) Seizure disorder: Plan: History of seizure Stable on home dose without reports for seizure activity in 50 years Stable on phenobarbital 129.6 mg at bedtime * Was notified by nursing that patient noticed a discrepancy with his dosage of phenobarbital. The admission order for phenobarbital was written as four 32.4mg tablets (total of 129.6mg) nightly, while patient states he is only taking three 32.4mg tablets (total of 97.2mg) nightly, he states that the four tablets was an old prescription. Upon review of PDMP, his last prescription from his PCP was written as three tablets nightly. I updated the order to reflect this dosage, however pharmacy notified that the ordered reflexed to 90mg (instead of 97.2mg) as the formulary has 30mg tablets. * Phenobarbital level collected at time of admission, slightly low 13.7 but no evidence for issue/will discuss w/ supervising provider if needing additional dose but holding off for now (5) Hypothyroidism: Plan: TSH wnl in September Continues on home Synthroid (6) Hypertension: Plan: BPs elevated here and as outpt but moreso here likely due to pain Increase losartan to 100mg hs and continue home dose of clonidine Will need new Rx for higher dose losartan Plan Dispo: medically stable for discharge if passes trial of void as per Urology discussed with Isabelle urology JOVANNI Admission and Anticipated Discharge Date Admission Date: January 29, 2024 Supervising Physician Co-Signing Physician Notes PA Supervision Note: I did not personally see or examine the patient today, but I verified all coreas points of MATTHEW Tucker's assessment and plan with the following exceptions/a dditions: None Subjective lying in bed, no cough or shortness of breath - reports compliance with IS reports pain in groin with movement Review of Systems Review of Systems: All systems reviewed & are unremarkable except as noted in Subjective Physical Exam Physical Exam: General: NAD, VS as above Resp: normal respiratory effort, slight expiratory wheeze right upper, much improved from yesterday CV: RRR, no murmur, Abd: normal bowel sounds, non tender, no hepatosplenomegaly Extremities: Moves all extremities, 1+ edema : tinoco in place Neuro: A&O x3, Skin: intact, no lesions noted Results & Data Results & Data Vital Signs (Past 12 Hours) Vital Signs Temp Pulse Resp BP Pulse Ox O2 Del Method 02/04/24 07:15 36.6 C 82 18 148/77 H 96 Room Air 02/03/24 22:48 174/78 H 02/03/24 22:14 195/85 H Laboratory Results CBC and chemsitry reviewed PG Care Time/CCT Total # of Minutes Spent Total Time Spent with Patient: Total time spent is greater than 50% in coordination of care (as documented) at patient's floor/unit and/or counseling patient: Coding Level of Care Code 51894 SUB INP/OBS CARE 2/35MIN Diagnoses Wheezing R06.2 BPH w urinary obs/LUTS N40.1; N13.8 Bradycardia R00.1 Seizure disorder G40.909 Hypothyroidism E03.9 Hypertension I10
[2024-02-04] MEDS: ACETAMINOPHEN 325 MG TAB PO PRN (17:57)
[2024-02-04] MEDS: LIDOCAINE 2% JELLY 5 ML TUBE EXT ONE (18:48)
[2024-02-04] MEDS: LOSARTAN POTASSIUM 50 MG TAB PO SCH (19:52)
--- NOTE | 2024-02-05 12:11 | Communication Note ---
Date of Service: February 05, 2024 Discussed with patient increase in losartan - blood pressures improved with this. Rx sent. Encourage return to CPAP use at home. Continue IS at discharge. Discharge planning per primary team. Medically stable for discharge. Hospital team will sign off, please reach out with any new concerns. MATTHEW Supervision Note: I did not personally see or examine the patient today, but I verified all coreas points of MATTHEW Tucker's assessment and plan with the following exceptions/additions: Patient's blood pressure continues to be significantly elevated. I suspect he is having some rebound hypertension as he is only prescribed clonidine once a day at bedtime and this is a short acting medication. Will increase clonidine to 0.3 Mg p.o. twice daily
--- NOTE | 2024-02-05 12:54 | Urology Progress Note ---
Date of Service February 05, 2024 Assessment & Plan (1) Phimosis: Plan: - POD #7 s/p Cystoscopy with Biopsy of prostatic urethra, REZUM procedure, Circumcision Revision with Complex Reconstruction, Scrotoplasty for scrotal webbing with Dr. Mistry. - Admitted postoperatively due to hypotension and bradycardia- felt to be anesthesia induced. Resolved. - Hospital medicine consulted for medical management - appreciate assistance. - Afebrile, hemodynamically stable. - Labs stable. - Thornton replaced yesterday after failed void trial. Plan: - Maintain Thornton catheter - Physical exam stable, continues to have moderate swelling and ecchymosis of scrotum - Continue supportive care and antibiotic therapy - Continue pain management as needed - Encourage ambulation - Continue SCDs - Continue IS - Patient is medically ready for discharge, plan for discharge to home with HH - Patient was refusing discharge with catheter yesterday, failed voiding trial - Will plan for discharge later today with Thornton catheter, HH to start tomorrow (2) BPH w urinary obs/LUTS: Admission and Anticipated Discharge Date Admission Date: January 29, 2024 Subjective Patient seen and examined at bedside. He is sitting up in bedside chair. He reports scrotal discomfort intermittently, mostly with movement. Thornton catheter was removed yesterday for voiding trial. Unfortunately he was unable to void and the Thornton catheter was replaced. Denies fever or chills. Review of Systems Constitutional: as per Subjective / HPI Genitourinary: + as per Subjective / HPI Physical Exam Constitutional: no acute distress Respiratory: no respiratory distress and no labored breathing Musculoskeletal: Head/Neck/Chest: normocephalic Neurologic: awake Psychiatric: A+Ox3, euthymic affect Genitourinary: Thornton catheter intact and draining yellow urine with bloody/maroon sediment. Moderate scrotal and penile edema, ecchymoses of scrotum and pubic region. Some dried drainage noted on scrotum. Mildly tender to touch. Results & Data Vital Signs (Past 12 Hours) Vital Signs Temp Pulse Resp BP Pulse Ox O2 Del Method 02/05/24 08:23 Room Air 02/05/24 08:04 37.0 C 68 18 156/69 H 95 Room Air PG Care Time/CCT Total # of Minutes Spent Total Time Spent with Patient: Total time spent is greater than 50% in coordination of care (as documented) at patient's floor/unit and/or counseling patient: Coding Level of Care Code None Diagnoses Phimosis N47.1 BPH w urinary obs/LUTS N40.1; N13.8
[2024-02-05] MEDS: cloNIDine HCL 0.3 MG TAB PO SCH (20:40)
--- NOTE | 2024-02-06 09:31 | Urology Progress Note ---
Date of Service February 06, 2024 Assessment & Plan (1) Phimosis: Plan: - POD #8 s/p Cystoscopy with Biopsy of prostatic urethra, REZUM procedure, Circumcision Revision with Complex Reconstruction, Scrotoplasty for scrotal webbing with Dr. Mistry. - Admitted postoperatively due to hypotension and bradycardia- felt to be anesthesia induced. Resolved. - Hospital medicine consulted for medical management - appreciate assistance. - Afebrile, hemodynamically stable. - Labs stable. - Thornton replaced on 02/03. Plan: - Maintain Thornton catheter - Physical exam stable, continues to have moderate/significant swelling and ecchymosis of scrotum - Continue supportive care and antibiotic therapy - Continue pain management as needed - Encourage ambulation - Continue SCDs - Continue IS - Patient is medically ready for discharge - He did not want to go home with , so is awaiting placement for rehab (2) BPH w urinary obs/LUTS: Admission and Anticipated Discharge Date Admission Date: January 29, 2024 Subjective No issues overnight. Continues to have scrotal discomfort with movement. Thornton patent and draining appropriately. Denies fever or chills. Review of Systems Constitutional: as per Subjective / HPI Genitourinary: + as per Subjective / HPI Physical Exam Constitutional: no acute distress Respiratory: no respiratory distress and no labored breathing Musculoskeletal: Head/Neck/Chest: normocephalic Neurologic: awake Psychiatric: A+Ox3, euthymic affect Genitourinary: Thornton catheter intact and draining yellow urine. Moderate/significant scrotal and penile edema, ecchymoses of scrotum and pubic region. Some dried drainage noted on scrotum. Mildly tender to touch. Results & Data Vital Signs (Past 12 Hours) Vital Signs Temp Pulse Resp BP BP Pulse Ox O2 Del Method 02/06/24 07:47 36.8 C 72 16 144/80 H 96 Room Air 02/05/24 22:08 167/76 H PG Care Time/CCT Total # of Minutes Spent Total Time Spent with Patient: Total time spent is greater than 50% in coordination of care (as documented) at patient's floor/unit and/or counseling patient: Coding Level of Care Code None Diagnoses Phimosis N47.1 BPH w urinary obs/LUTS N40.1; N13.8
[2024-02-06 10:16] LABS: Hematocrit (blood only) 33.6 % (42.0-52.0); Hemoglobin 11.2 g/dl (14.0-18.0); Mean Corpuscular Hemoglobin 32.3 pg (25.0-34.0); Mean Corpuscular Hgb Conc 33.3 g/dL (32.0-36.0); Mean Corpuscular Volume 96.8 fL (80.0-100.0); Mean Platelet Volume 10.9 fL (9.4-12.4); Platelet Count 179 K/uL (130-400); RDW Coefficient of Variation 14.5 % (11.5-14.5); RDW Standard Deviation 50.2 fL (36.4-46.3); Red Blood Count 3.47 M/uL (4.70-6.10)
[2024-02-06 10:32] LABS: BUN Creatinine Ratio 25.2 (10-20); Calcium 8.6 mg/dl (8.6-10.3); Creatinine Clr Calc Pharmacy 50.5 ml/min; Est GFR (African American) 57.7 ml/min; Est GFR (Non-African American) 49.8 ml/min; Potassium 3.9 mmol/L (3.5-5.1)
--- NOTE | 2024-02-06 18:02 | Communication Note ---
Date of Service: February 06, 2024 Spoke with patient's significant other for Samuel at her number at [phone] at approximately 5:35 PM on 02/06/2024. Patient explicitly gave instructions that she is to be called and updated on the current situation. Have also been coordinating with the case management team as well as the patient's nurses. Attempted to contact the patient's son who is listed as his HIPAA contact and left a message for him to return to call. Patient was denied [employer] authorization from his insurance for rehabilitation. This information came. The disease case manager at 4:35 PM today. There is an option for peer to peer to try to try to overturn that ruling however at this point there is not other information available. Patient is medically stable at this point his vitals have remained stable with mild hypertension. His lab work is all remained stable. He does have some areas of healing and swelling after the surgical procedure. Patient has severe deconditioning however likely secondary to chronic medical issues and exacerbation of his significant chronic issues at baseline. Patient had been having significant issues prior to the surgical intervention. Has been very hesitant to undergo physical therapy or to walk around the hallways or increase activity secondary to the catheter. Catheter removal was offered as this has been the major concern by both the patient and his significant other about his care at home. Patient agreed to have the catheter removed and nursing was alerted today at approximately 5 PM to remove the catheter. Will await likely 4 to 6 hours to see if the patient is able to spontaneously void. Would encourage nursing to have the patient increase activity and ambulation as this may help also encourage nursing to have the patient increase hydration. With the catheter removed the patient should have less anxiety about his mobility and may be able to move forward with therapy and more regular activity. Extensively discussed this with the patient significant other today. She did express her concerns about both the catheter and his stability. Patient had undergone extensive evaluation with physical therapy. Did relay some of the findings to the patient's significant other. Did explain that the catheter has since been removed. And that the patient is going to be encouraged to ambulate now that the catheter has been removed. If patient continues to improve would likely be able to be discharged. Extensively discussed with patient significant other that there are options for outpatient rehabilitation and strengthening and that these can likely be set up through the patient's PCP. At this point the inpatient rehabilitation was the only thing that had been denied. Patient's PCP may have options for outpatient physical therapy or other options to help with his deconditioning and stability issues once he is discharged. Did alert the patient's nurses of the recent conversation as well as updated t hem on plan moving forward including encouraging the patient to ambulate and giving adequate time to see if he will is able to void.
--- NOTE | 2024-02-07 09:02 | Urology Progress Note ---
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 We had a conversation today about options He previously he was somewhat averse to the idea of going home with a catheter but he now understands that he will not have to place a catheter on his own, simply empty the bag into a toilet and he feels that he is very much prepared to manage the catheter He would like to go home this morning I think that is reasonable His wounds seem to be healing appropriately and I discussed that it will be a prolonged period of time before the full effects of his surgery are truly appreciable (REZUM may take 1-2 months for full effect) He is otherwise stable and I see no reason to keep him in the hospital He does have some initial efforts at home health I think he can certainly make it through the next 2 days without home health as he does not require any current wound care and is only management is emptying the catheter bag Admission and Anticipated Discharge Date Admission Date: January 29, 2024 Subjective Patient attempted another voiding trial last night, however, he was unsuccessful and catheter had to be replaced throughout the evening He is now resting comfortably and reports that the catheter is not bothering him He is eating well He is ambulatory He reports that his pain is improving steadily He is anxious to go home and feels that he is prepared and ready to go home Physical Exam Physical Exam: Ecchymosis across the pubis with some induration and swelling extending down onto the scrotum All appropriate for this stage of recovery No outward signs of infection Glans is visible Catheter in place draining clear urine Incisions appropriate Results & Data Vital Signs (Past 12 Hours) Vital Signs Temp Pulse Resp BP Pulse Ox O2 Del Method 02/07/24 07:30 36.3 C L 83 18 165/77 H 98 Room Air 02/06/24 22:45 36.3 C L 76 20 181/88 H 95 Room Air PG Care Time/CCT Total # of Minutes Spent Total Time Spent with Patient: Total time spent is greater than 50% in coordination of care (as documented) at patient's floor/unit and/or counseling patient: Coding Level of Care Code 09460 SUB INP/OBS CARE 2/35MIN Diagnoses BPH w urinary obs/LUTS N40.1; N13.8
== END 2024-02-07 15:33 | disposition home health service (06) | DRG 709 ==
LOC: ASU 06:24 → 2S 11:52 → 3N 01-31 19:03
PROC: M.REZUM (2024-01-29 08:05)

== ENCOUNTER 2024-03-23 12:18 | Inpatient (IN) ==
--- NOTE | 2024-03-23 12:41 | Emergency Department Note ---
Impression & Plan Hypotension, Anemia, Weakness, Acute UTI ED Provider Note NAME: JOSE FRY AGE: 88 SEX: M : 1935 ARRIVES VIA: Ambulance INFORMANT: [Patient][nursing, family] ED PROVIDER(S): [Anson Whitaker MD] CHIEF COMPLAINT: Confusion HISTORY OF PRESENT ILLNESS: The patient is an 88-year-old male who presents with a decreased mental state and some confusion that began sometime this morning. His blood pressure was also noted to be low by nursing staff. The patient has an indwelling Thornton catheter. He was in our hospital for something very similar about a month ago. He had infection at that time. The patient denies chest pain or abdominal pain. He is not short of breath. He has no complaints other than a dry mouth. PMHx/PSHx/Social Hx: See Below PHYSICAL EXAM: GENERAL: Patient is in no acute distress. HEENT: No acute trauma, normocephalic atraumatic, mucous membranes dry, no nasal congestion. NECK: No stridor, no adenopathy, no meningismus, trachea is midline. LUNGS: Clear to auscultation bilaterally, no wheeze, no rhonchi, breath sounds equal. HEART: Without murmurs gallops or rubs, regular rate and rhythm. Heart tones very distant. ABDOMEN: Soft, nontender, no peritonitis. Obese. EXTREMITIES: No cyanosis, full range of motion of all the joints without pain or difficulty. Moderate bilateral pedal edema. NEUROLOGIC: Awake, seems alert, there is some slurring/thickening to his speech. SKIN: No jaundice, no diaphoresis. Groin: There is a Thornton catheter in place. No scrotal erythema. DIFFERENTIAL DIAGNOSIS: Dehydration, renal failure, electrolyte imbalance, sepsis, UTI, stroke, among others. EMERGENCY DEPARTMENT PROCEDURES: MEDICAL DECISION MAKING: There is no leukocytosis. The patient is anemic however, this is a chronic finding. There is a normal platelet count. No renal failure or significant electrolyte abnormality. Lactic acid level is not elevated making severe sepsis less likely. No concerning liver enzyme elevation. The patient appeared to be in a euthyroid state. ECG shows a sinus rhythm, there is no acute ST elevation. Cardiac enzyme testing x 1 is not consistent with acute cardiac injury. Urinalysis appears to show infection. Chest x-ray shows some chronic change, no focal pneumonia. Brain CT shows no acute bleed or mass effect. On exam, the patient appeared dehydrated and was hypotensive. The patient received IV saline, 1 L. This improved his blood pressure significantly. He seemed to become more awake and interactive. The patient was given IV cefepime as antibiotic coverage. Given the hypotension, his weakness, the findings of UTI, I do think a hospital stay is warranted. I spoke with the patient and family. The on-call hospitalist was consulted. Prior/Outside records/notes reviewed: Discharge summary note from 02/26/2024 describing his presentation, hospital care and plan discharge. ECG per my interpretation: Indication was weakness. The ECG shows what appears to be a sinus rhythm with a first-degree AV block and some PACs. The rate is 66. There is no concerning ST elevation. There are no PVCs. The QTc is 457. Continuous Cardiac Monitoring per my interpretation: An order was placed for continuous cardiac monitoring. The monitor shows a rate of 68 with sinus rhythm with a first-degree block and PACs. Imaging/x-ray results per my interpretation: Chest x-ray shows some basilar congestion, likely atelectatic. There was no pneumonia. The film looks similar to previous films. Chronic Medical/Social conditions affecting care: Advanced age. Care/Management discussed with: Case management, the on-call hospitalist. Level of care consideration(s): After review of the information above and other included data: --I believe the patient requires escalation of care to admission Critical Care Note: I have personally spent 49 minutes of critical care time in the direct management of this patient. This includes bedside care, interpretation of diagnostic studies, and testing, discussion with consultants, patient, and family members, and other required patient management activities. This 49 minutes is in excess of all separately billable procedures. DISPOSITION: Admission Past Med/Surg History Problem List (Updated 03/23/24 @ 18:42 by Anson Whitaker MD) Acute UTI (Acute) Weakness (Acute) Anemia (Acute) Hypotension (Acute) Venous stasis CKD (chronic kidney disease) Bilateral edema of lower extremity Delirium Complicated UTI (urinary tract infection) Wheezing Bradycardia Lesion of bladder BPH w urinary obs/LUTS Penile lesion Phimosis Poor balance Ambulatory dysfunction Occlusion of vertebral artery (Acute) Prediabetes Nail deformity Vitamin D deficiency disease Vitamin B12 deficiency Sleep apnea Hypertension (Acute) Actinic keratosis (Acute) Anemia (Acute) Chronic osteoarthritis (Acute) Enlarged prostate with lower urinary tract symptoms (LUTS) (Acute) Gait disturbance (Acute) Hyperlipidemia (Acute) Hypothyroidism (Acute) Paraphimosis (Acute) Seizure disorder (Acute) Urethral stricture (Acute) Medical History Prediabetes hx-dx ~2021, "told he was borderline, and to watch his diet; made changes and now no issues" History of anemia Chronic osteoarthritis Enlarged prostate with lower urinary tract symptoms (LUTS) Hypothyroidism Hyperlipidemia Hypertension Ambulatory dysfunction Poor balance Seizure currently on phenobarbital; most recent in 1974 COVID-19 pt denies Cerebrovascular accident (CVA) pt unsure of details, "if it even happened?"; no symptoms per pt. Alkaline phosphatase raised pt unsure about this Obstructive sleep apnea CPAP still in repair, waiting to get it back Thrombocytopenia pt unsure? 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 Family History Father Prostate cancer Myocardial infarction Denies family history of Ovarian cancer Breast cancer Colorectal cancer Social History Smoking Status: Former smoker Tobacco Type: Cigarettes Second Hand Exposure: No; Do You Dip or Chew Tobacco: No; Hx Alcohol Use: No Hx Substance Use: No Preferred Language: Moroccan Communication Ability: Effective Visual Impairment: No Limitations Hearing Ability: Use of Hearing Aid Ncr Operator Required: No Beliefs That Will Affect Care: None marital status: Single Current Living Situation: Family Current Living Situation Comment: patients grandson lives in his basement current occupational status: retired Feels Safe at Home: Yes Childhood Exposure to Second-Hand Smoke: Yes Dental Care, Regularly: No Physical Activity Frequency: Does not Exercise Seatbelt Use: always Sunscreen Use: No Assistive Devices: Walker and Wheelchair Allergies Allergies Allergy/AdvReac Type Severity Reaction Status Date / Time celecoxib AdvReac Unknown SHORTNESS Verified 02/10/24 13:01 OF BREATH Home Meds Home Medications Medication Instructions Recorded Confirmed phenobarbital 32.4 mg tablet 97.2 mg PO HS 02/03/24 03/23/24 ergocalciferol (vitamin D2) 1,250 1,250 mcg PO Q14D 02/23/24 03/23/24 mcg (50,000 unit) capsule fluocinonide 0.05 % topical cream 1 applic topical DIRECTED 03/23/24 03/23/24 Previous Rx's Medication Instructions Recorded clonidine HCl 0.3 mg tablet 0.3 mg PO BID #60 tabs 02/05/24 levothyroxine 100 mcg tablet 100 mcg PO QAM #90 tabs 02/10/24 acetaminophen 325 mg tablet 650 mg (2 x 325 mg) PO Q4H PRN 02/26/24 fever or pain #0 tabs furosemide 40 mg tablet 40 mg PO QAM #0 tabs 02/26/24 losartan 50 mg tablet 100 mg (2 x 50 mg) PO HS #0 tabs 02/26/24 polyethylene glycol 3350 17 gram 17 g PO DAILY PRN #0 ea 02/26/24 oral powder packet (Miralax) potassium chloride 20 mEq 20 meq PO QAM #0 tabs 02/26/24 tablet,extended release(part/cryst) simvastatin 10 mg tablet 10 mg PO HS #0 tabs 02/26/24 tamsulosin 0.4 mg capsule 0.4 mg PO HS #0 caps 02/26/24 Results & Data (ED) Vital Signs Vital Signs - 24 hr 03/23/24 12:36 03/23/24 12:48 03/23/24 12:51 Temperature 36.8 C Temperature Source Oral Pulse Rate 64 63 Pulse Rate [Apical] 62 Respiratory Rate 18 18 20 Respiratory Effort / Characteristics Non-Labored Spontaneous Non-Labored Spontaneous Respiratory Depth Normal Normal Blood Pressure 84/48 L Blood Pressure [Left Arm] 108/63 Blood Pressure Mean 60 Blood Pressure Mean [Left Arm] 78 Blood Pressure Position Sitting Blood Pressure Position [Left Arm] Sitting Pulse Oximetry 95 96 96 Oxygen Delivery Method Room Air Room Air Room Air Sepsis Recent Fever Within 48 Hours No Sepsis New/Unexplained Change in Mental Status No Sepsis Action Taken by Nursing No Action Required 03/23/24 12:58 03/23/24 14:30 Temperature Temperature Source Pulse Rate 59 L Pulse Rate [Apical] 63 Respiratory Rate 18 Respiratory Effort / Characteristics Non-Labored Spontaneous Respiratory Depth Normal Blood Pressure Blood Pressure [Left Arm] 110/70 Blood Pressure Mean Blood Pressure Mean [Left Arm] 83 Blood Pressure Position Blood Pressure Position [Left Arm] Sitting Pulse Oximetry 95 Oxygen Delivery Method Room Air Sepsis Recent Fever Within 48 Hours Sepsis New/Unexplained Change in Mental Status Sepsis Action Taken by Skilled Nursing Medications Current Medication List: was personally reviewed by me Laboratory Data Attestation: I reviewed the patient's lab results. 03/23/24 12:30 03/23/24 12:30 Lab Results 03/23/24 03/23/24 03/23/24 Range/Units 12:28 12:30 12:47 WBC 5.50 (4.8-10.8) K/ul RBC 3.23 L (4.70-6.10) M/uL Hgb 10.2 L (14.0-18.0) g/dl Hct 31.6 L (42.0-52.0) % MCV 97.8 (80.0-100.0) fL MCH 31.6 (25.0-34.0) pg MCHC 32.3 (32.0-36.0) g/dL RDW Std Deviation 51.8 H (36.4-46.3) fL RDW Coeff of Rojelio 14.4 (11.5-14.5) % Plt Count 162 (130-400) K/uL MPV 10.5 (9.4-12.4) fL Immature Gran % (Auto) 0.5 % Neut % (Auto) 68.4 % Lymph % (Auto) 16.4 % Gaines % (Auto) 12.0 % Eos % (Auto) 2.2 % Baso % (Auto) 0.5 % Neut # (Auto) 3.76 (1.40-6.50) K/uL Lymph # (Auto) 0.90 L (1.20-3.40) K/uL Gaines # (Auto) 0.66 H (0.11-0.59) K/uL Eos # (Auto) 0.12 (0.00-0.50) K/uL Baso # (Auto) 0.03 (0.00-0.20) K/uL Immature Gran # (Auto) 0.03 (0.01-0.20) K/uL Sodium 137 (136-145) mmol/L Potassium 4.3 (3.5-5.1) mmol/L Chloride 107 (98-107) mmol/L Carbon Dioxide 25 (21-32) mmol/L Anion Gap 5 (3-11) BUN 25 H (6-23) mg/dl Creatinine 1.27 (0.6-1.4) mg/dl Est Cr Clr Drug Dosing 50.2 ml/min Est GFR ( Amer) 57.7 ml/min Est GFR (Non-Af Amer) 49.8 ml/min BUN/Creatinine Ratio 19.7 (10-20) Glucose 128 H (70-99(Fasting)) mg/dl POC Glucose 130 H (70-99) mg/dl Lactate 1.9 (0.4-2.0) mmol/L Calcium 8.8 (8.6-10.3) mg/dl Magnesium 2.0 (1.7-2.4) mg/dl Total Bilirubin 0.3 (0.2-1.0) mg/dl AST 11 L (13-39) U/L ALT 6 L (7-52) U/L Alkaline Phosphatase 85 (34-104) U/L Troponin I High Sens 7.8 (0-20) pg/ml Total Protein 6.3 (6.0-8.3) gm/dl Albumin 2.9 L (3.4-5.0) gm/dl Globulin 3.4 (2.5-4.0) gm/dl Albumin/Globulin Ratio 0.9 (0.9-2) TSH 2.359 (0.300-4.500) uIu/ml Urine Color Urine Appearance (Clear) Urine pH (4.5-7.5) Ur Specific [place] (1.000-1.030) Urine Protein (Negative) Urine Glucose (UA) (Negative) Urine Ketones (Negative) Urine Blood (Negative) Urine Nitrite (Negative) Urine Bilirubin (Negative) Urine Urobilinogen (Negative) Ur Leukocyte Esterase (Negative) Urine WBC (Auto) (0-5) /hpf Urine RBC (Auto) (0-2) /hpf U Hyaline Cast (Auto) (0-2) /lpf U Epithel Cells (Auto) (0-2) /hpf Urine Bacteria (Auto) (None Seen) Calcium Oxalate Crystal (None Prsent) Hyaline Casts (None Presnt) /lpf Urine Mucus (None Prsent) 03/23/24 Range/Units 14:50 WBC (4.8-10.8) K/ul RBC (4.70-6.10) M/uL Hgb (14.0-18.0) g/dl Hct (42.0-52.0) % MCV (80.0-100.0) fL MCH (25.0-34.0) pg MCHC (32.0-36.0) g/dL RDW Std Deviation (36.4-46.3) fL RDW Coeff of Rojelio (11.5-14.5) % Plt Count (130-400) K/uL MPV (9.4-12.4) fL Immature Gran % (Auto) % Neut % (Auto) % Lymph % (Auto) % Gaines % (Auto) % Eos % (Auto) % Baso % (Auto) % Neut # (Auto) (1.40-6.50) K/uL Lymph # (Auto) (1.20-3.40) K/uL Gaines # (Auto) (0.11-0.59) K/uL Eos # (Auto) (0.00-0.50) K/uL Baso # (Auto) (0.00-0.20) K/uL Immature Gran # (Auto) (0.01-0.20) K/uL Sodium (136-145) mmol/L Potassium (3.5-5.1) mmol/L Chloride (98-107) mmol/L Carbon Dioxide (21-32) mmol/L Anion Gap (3-11) BUN (6-23) mg/dl Creatinine (0.6-1.4) mg/dl Est Cr Clr Drug Dosing ml/min Est GFR ( Amer) ml/min Est GFR (Non-Af Amer) ml/min BUN/Creatinine Ratio (10-20) Glucose (70-99(Fasting)) mg/dl POC Glucose (70-99) mg/dl Lactate (0.4-2.0) mmol/L Calcium (8.6-10.3) mg/dl Magnesium (1.7-2.4) mg/dl Total Bilirubin (0.2-1.0) mg/dl AST (13-39) U/L ALT (7-52) U/L Alkaline Phosphatase (34-104) U/L Troponin I High Sens (0-20) pg/ml Total Protein (6.0-8.3) gm/dl Albumin (3.4-5.0) gm/dl Globulin (2.5-4.0) gm/dl Albumin/Globulin Ratio (0.9-2) TSH (0.300-4.500) uIu/ml Urine Color Dark Yellow Urine Appearance Turbid A (Clear) Urine pH 6.0 (4.5-7.5) Ur Specific [place] 1.023 (1.000-1.030) Urine Protein 2+ H (Negative) Urine Glucose (UA) Negative (Negative) Urine Ketones Trace H (Negative) Urine Blood 2+ H (Negative) Urine Nitrite Negative (Negative) Urine Bilirubin 1+ H (Negative) Urine Urobilinogen Negative (Negative) Ur Leukocyte Esterase 3+ H (Negative) Urine WBC (Auto) >50 H (0-5) /hpf Urine RBC (Auto) 11-20 H (0-2) /hpf U Hyaline Cast (Auto) >20 H (0-2) /lpf U Epithel Cells (Auto) 0-2 (0-2) /hpf Urine Bacteria (Auto) None Seen (None Seen) Calcium Oxalate Crystal Present A (None Prsent) Hyaline Casts Present A (None Presnt) /lpf Urine Mucus Present A (None Prsent) Administered Medications Discontinued Medications Sodium Chloride (Nss) 500 mls @ 999 mls/hr IV .Q31M [place] Stop: 03/23/24 13:00 Last Infusion: 03/23/24 13:21 Dose: Infused Documented By: Admin: 03/23/24 12:48 Dose: 999 mls/hr Documented By: LYDIA Cefepime HCl (Maxipime) 2,000 mg in 20 mls @ 5 mls/min IV NOW STA; Protocol Stop: 03/23/24 12:38 Last Admin: 03/23/24 13:20 Dose: 5 mls/min Documented By: ARCENIO Sodium Chloride (Nss) 500 mls @ 999 mls/hr IV .Q31M ONE Stop: 03/23/24 13:44 Last Infusion: 03/23/24 15:31 Dose: Infused Documented By: Admin: 03/23/24 13:22 Dose: 999 mls/hr Documented By: ARCENIO Imaging Data Radiologist's Impression: Chest X-Ray 03/23/24 12:28 XR chest 1V portable HISTORY: weakness COMPARISON: Chest 02/23/2024. FINDINGS: No pneumothorax. No pleural effusions. The cardiac silhouette is mildly enlarged. No acute fractures. Calcifications within the aortic knob. Mild interstitial thickening most pronounced within the lung bases. This is similar to the prior study and may be chronic. Small left basilar linear densities favor subsegmental atelectasis. No evidence for pulmonary edema. IMPRESSION: 1. Stable cardiomegaly. 2. Mild interstitial thickening at the lung bases, unchanged. This is likely chronic. ACT 112: Negative or not required by law. Electronically signed by: Simon Stearns M.D. 03/23/2024 1:[address] 03/23/24 12:29 CT head/brain wo con CLINICAL HISTORY: 88 years-old Male with altered. Acutely altered mental status TECHNIQUE: Multiple axial CT images of the head were obtained without contrast. A dose lowering technique was utilized adhering to the principles of ALARA. CT DOSE: 657.02 mGy.cm COMPARISON: Brain MRI 11/25/2023, head CT 01/26/2022 FINDINGS: No acute intracranial hemorrhage, midline shift, intracranial mass, hydrocephalus, territorial ischemia or abnormal extra-axial collection. Involutional changes with chronic microvascular ischemic disease redemonstrated. Cerebral vascular calcifications. The calvarium is intact. Mild mucosal thickening of the ethmoid air cells. IMPRESSION: No acute intracranial abnormality identified. ACT 112: Negative or not required by law. The above report was generated using voice recognition software. It may contain grammatical, syntax or spelling errors. Electronically signed by: Wai Harper M.D. 03/23/2024 2:37 PM Discharge Plan Visit Data Chief Complaint: Confusion Stated Complaint: CONFUSION ED Provider: Anson Whitaker Discharge Problem: Hypotension, Anemia, Weakness, Acute UTI Patient Disposition: Admitted As Inpatient Condition: Fair Discharge Instructions Interventions: ED Discharge Assessment Last Done: 03/23/24 18:23 Discharge Problem: Hypotension Qualifiers: Hypotension type: unspecified hypotension type Qualified Code(s): I95.9 - Hypotension, unspecified Anemia Qualifiers: Anemia type: unspecified type Qualified Code(s): D64.9 - Anemia, unspecified
[2024-03-23] MEDS: SODIUM CHLORIDE 0.9% 500 ML IV SCH (12:48)
[2024-03-23 12:54] LABS: Basophils # (auto) 0.03 K/uL (0.00-0.20); Basophils % (auto) 0.5 %; Eosinophils # (auto) 0.12 K/uL (0.00-0.50); Eosinophils % (auto) 2.2 %; Hematocrit (blood only) 31.6 % (42.0-52.0); Hemoglobin 10.2 g/dl (14.0-18.0); Immature Granulocytes # (auto) 0.03 K/uL (0.01-0.20); Immature Granulocytes % (auto) 0.5 %; Lymphocytes % (auto) 16.4 %; Mean Corpuscular Hemoglobin 31.6 pg (25.0-34.0); Mean Corpuscular Hgb Conc 32.3 g/dL (32.0-36.0); Mean Corpuscular Volume 97.8 fL (80.0-100.0); Mean Platelet Volume 10.5 fL (9.4-12.4); Monocytes # (auto) 0.66 K/uL (0.11-0.59); Neutrophils # (auto) 3.76 K/uL (1.40-6.50); Neutrophils % (auto) 68.4 %; Platelet Count 162 K/uL (130-400); RDW Coefficient of Variation 14.4 % (11.5-14.5); RDW Standard Deviation 51.8 fL (36.4-46.3); Red Blood Count 3.23 M/uL (4.70-6.10)
[2024-03-23 13:08] LABS: Albumin Globulin Ratio 0.9 (0.9-2); Albumin Level 2.9 gm/dl (3.4-5.0); BUN Creatinine Ratio 19.7 (10-20); Bilirubin,Total 0.3 mg/dl (0.2-1.0); Calcium 8.8 mg/dl (8.6-10.3); Creatinine Clr Calc Pharmacy 50.2 ml/min; Est GFR (African American) 57.7 ml/min; Est GFR (Non-African American) 49.8 ml/min; Globulin 3.4 gm/dl (2.5-4.0); Potassium 4.3 mmol/L (3.5-5.1); Total Protein 6.3 gm/dl (6.0-8.3)
[2024-03-23 13:14] LABS: Troponin I High Sensitivity 7.8 pg/ml (0-20)
[2024-03-23] MEDS: CEFEPIME 2,000 MG/20 ML VIAL IV STA (13:20)
[2024-03-23] MEDS: SODIUM CHLORIDE 0.9% 500 ML IV ONE (13:22)
[2024-03-23 13:23] LABS: Thyroid Stimulating Hormone 2.359 uIu/ml (0.300-4.500)
--- NOTE | 2024-03-23 13:39 | XRay Report ---
XR chest 1V portable HISTORY: weakness COMPARISON: Chest 02/23/2024. FINDINGS: No pneumothorax. No pleural effusions. The cardiac silhouette is mildly enlarged. No acute fractures. Calcifications within the aortic knob. Mild interstitial thickening most pronounced within the lung bases. This is similar to the prior study and may be chronic. Small left basilar linear den sities favor subsegmental atelectasis. No evidence for pulmonary edema. IMPRESSION: 1. Stable cardiomegaly. 2. Mild interstitial thickening at the lung bases, unchanged. This is likely chronic. ACT 112: Negative or not required by law. Electronically signed by: Simon Stearns M.D. 03/23/2024 1:37 PM
--- NOTE | 2024-03-23 14:39 | CT Scan Report ---
CT head/brain wo con CLINICAL HISTORY: 88 years-old Male with altered. Acutely altered mental status TECHNIQUE: Multiple axial CT images of the head were obtained without contrast. A dose lowering tech nique was utilized adhering to the principles of ALARA. CT DOSE: 657.02 mGy.cm COMPARISON: Brain MRI 11/25/2023, head CT 01/26/2022 FINDINGS: No acute intracranial hemorrhage, midline shift, intracranial mass, hydrocephalus, territorial ischem ia or abnormal extra-axial collection. Involutional changes with chronic microvascular ischemic disea se redemonstrated. Cerebral vascular calcifications. The calvarium is intact. Mild mucosal thickening of the ethmoid air cells. IMPRESSION: No acute intracranial abnormality identified. ACT 112: Negative or not required by law. The above report was generated using voice recognition software. It may contain grammatical, syntax o r spelling errors. Electronically signed by: Wai Harper M.D. 03/23/2024 2:37 PM
--- NOTE | 2024-03-23 15:13 | History & Physical Report ---
Date of Service March 23, 2024 Assessment & Plan (1) Complicated UTI (urinary tract infection): Plan: UTI, sepsis, AMS Altered mental status suspected due to infectious metabolic encephalopathy, hypotension, reduced urinary output from indwelling catheter prior to admission No leukocytosis. UA with leukocyte esterase, blood, no nitrites. UCx pending. Hyaline casts are present. Prior cultures positive for Proteus mirabilis, no ESBL/Pseudomonas history Bicarb is normal CThead: No acute finding Chest x-ray: Mild interstitial basal thickening unchanged likely chronic, stable cardiomegaly. No acute findings. No pulmonary edema EKG: Sinus with first-degree AV block, PVCs. No acute ischemic changes Lactate not elevated S/p 1 L NSS and cefepime in the ER. BP normalized. Continued on Rocephin daily Received 1000 cc NSS in ER. Sepsis guideline recommended 2100 cc is not recommended due to history of volume overload, lack of tachycardia, and normalization of blood pressure following initial fluids with a normal lactate and no ELLA (2) BPH w urinary obs/LUTS: Plan: - History of recurrent obstruction -Reports 2 failed voiding trials. He is very frustrated by his catheter. Last voiding trial on 03/10 and again at [facility] as outpatient. 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 01/29/2024, history of REZUM Urology consulted (3) Seizure disorder: Plan: Stable on phenobarbital for many years, no seizures in the last few decades Continue phenobarbital Level pending, last levels were not elevated (4) Sleep apnea: Plan: CPAP at bedtime (5) CKD (chronic kidney disease): Plan: CKD Baseline creatinine approximately 1.271.3 Admitting creatinine 1.27 (6) Venous stasis: Plan: Bilateral edema lower extremities With chronic venous stasis history No signs of CHF/pulmonary overload Venous stasis precautions, leg elevation, right Diuretics held due to hypotension Plan Hyperlipidemia chronic stable issues: Hyperlipidemia: Statin held Hypertension: Losartan continued Status: Full code DVT prophylaxis: Lovenox CODE STATUS: Full code Disposition: Med/surg. Hemodynamics normalized following fluids. No chest pain. No acute changes on EKG. History of Present Illness Primary Care Provider: Sae Gallegos MD Alli is an 88-year-old with a past medical history of hypertension, hyperlipidemia, EMANI, BPH as LUTS s/p reason him, recent admission for cystitis and discharge 02/26/2024 who presents to the emergency department with altered mental status and sedation, hypotension per facility staff. He has an indwelling catheter and has had similar symptoms with UTIs. NO fevers chills or sweats Voiding trial on 03/10, but oculd not pee. Tried again at [facility] and OK for 2-4 days, and peed 3 times the first day then had trouble with obstruction/retention again. No chest pain or chest pressure No nausea No abdominal pain Denies dysuria, polyuria. Denies scrotal pain. Was doing okay, but was much more confused today than he had been previously, has had decreasing urine output, poor appetite, and feels like he has with prior UTIs. Also very concerned that he is continue to fail voiding trials I would like to see urology. On reassessment mentation is greatly improved. Does not feel lightheaded or dizzy and reports he feels better, but still not back to his baseline. Medical History: Reviewed Medications: Reviewed Surgical History: Reviewed Family history: Reviewed Allergies: Reviewed Social History: Reviewed Code Status: FUll Allergies Allergy/AdvReac Type Severity Reaction Status Date / Time celecoxib AdvReac Unknown SHORTNESS Verified 02/10/24 13:01 OF BREATH Home Medications Medication Instructions Recorded Confirmed Type phenobarbital 32.4 mg tablet 97.2 mg PO HS 02/03/24 03/23/24 History clonidine HCl 0.3 mg tablet 0.3 mg PO BID #60 tabs 02/05/24 03/23/24 Rx levothyroxine 100 mcg tablet 100 mcg PO QAM #90 tabs 02/10/24 03/23/24 Rx ergocalciferol (vitamin D2) 1,250 1,250 mcg PO Q14D 02/23/24 03/23/24 History mcg (50,000 unit) capsule acetaminophen 325 mg tablet 650 mg (2 x 325 mg) PO Q4H PRN 02/26/24 03/23/24 Rx fever or pain #0 tabs furosemide 40 mg tablet 40 mg PO QAM #0 tabs 02/26/24 03/23/24 Rx losartan 50 mg tablet 100 mg (2 x 50 mg) PO HS #0 tabs 02/26/24 03/23/24 Rx polyethylene glycol 3350 17 gram 17 g PO DAILY PRN #0 ea 02/26/24 03/23/24 Rx oral powder packet (Miralax) potassium chloride 20 mEq 20 meq PO QAM #0 tabs 02/26/24 03/23/24 Rx tablet,extended release(part/cryst) simvastatin 10 mg tablet 10 mg PO HS #0 tabs 02/26/24 03/23/24 Rx tamsulosin 0.4 mg capsule 0.4 mg PO HS #0 caps 02/26/24 03/23/24 Rx fluocinonide 0.05 % topical cream 1 applic topical DIRECTED 03/23/24 03/23/24 History Past Med/Surg History Problem List Venous stasis CKD (chronic kidney disease) Bilateral edema of lower extremity Delirium Complicated UTI (urinary tract infection) Wheezing Bradycardia Lesion of bladder BPH w urinary obs/LUTS Penile lesion Phimosis Poor balance Ambulatory dysfunction Occlusion of vertebral artery (Acute) Prediabetes Nail deformity Vitamin D deficiency disease Vitamin B12 deficiency Sleep apnea Hypertension (Acute) Actinic keratosis (Acute) Anemia (Acute) Chronic osteoarthritis (Acute) Enlarged prostate with lower urinary tract symptoms (LUTS) (Acute) Gait disturbance (Acute) Hyperlipidemia (Acute) Hypothyroidism (Acute) Paraphimosis (Acute) Seizure disorder (Acute) Urethral stricture (Acute) Medical History Prediabetes hx-dx ~2021, "told he was borderline, and to watch his diet; made changes and now no issues" History of anemia Chronic osteoarthritis Enlarged prostate with lower urinary tract symptoms (LUTS) Hypothyroidism Hyperlipidemia Hypertension Ambulatory dysfunction Poor balance Seizure currently on phenobarbital; most recent in 1974 COVID-19 pt denies Cerebrovascular accident (CVA) pt unsure of details, "if it even happened?"; no symptoms per pt. Alkaline phosphatase raised pt unsure about this Obstructive sleep apnea CPAP still in repair, waiting to get it back Thrombocytopenia pt unsure? 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 Family History Father Prostate cancer Myocardial infarction Denies family history of Ovarian cancer Breast cancer Colorectal cancer Social History Smoking Status: Former smoker Tobacco Type: Cigarettes Second Hand Exposure: No; Do You Dip or Chew Tobacco: No; Hx Alcohol Use: No Hx Substance Use: No Preferred Language: Guyanese Communication Ability: Effective Visual Impairment: No Limitations Hearing Ability: Use of Hearing Aid Dental Ceramist Required: No Beliefs That Will Affect Care: None marital status: Single Current Living Situation: Family Current Living Situation Comment: patients grandson lives in his basement current occupational status: retired Feels Safe at Home: Yes Childhood Exposure to Second-Hand Smoke: Yes Dental Care, Regularly: No Physical Activity Frequency: Does not Exercise Seatbelt Use: always Sunscreen Use: No Assistive Devices: Walker and Wheelchair Physical Exam Physical Exam: General: A&Ox3. NAD. Cooperative. Much more alert on reassessment. HEENT: Atraumatic, normocephalic. Patient vision and hearing grossly intact Pulm: CTAB A&P. -wheezes, -rales, -rhonchi. Symmetrical chest rise. No increased work of breathing. No respiratory distress. Cardiac: RRR, -mrg. Radial pulses intact and symmetrical. Abdominal: Nontender, nondistended, soft. BS present. : Tinoco catheter in place. S/p scrotoplasty. No overt erythema/warmth/tenderness. Tinoco draining scant amount of concentrated yellow urine Results & Data Results & Data Vital Signs (Past 12 Hours) Vital Signs Temp Pulse Pulse Resp BP BP Pulse Ox 03/23/24 14:30 63 18 110/70 95 03/23/24 12:58 59 L 03/23/24 12:51 63 20 96 03/23/24 12:48 62 18 108/63 96 03/23/24 12:36 36.8 C 64 18 84/48 L 95 O2 Del Method 03/23/24 14:30 Room Air 03/23/24 12:58 03/23/24 12:51 Room Air 03/23/24 12:48 Room Air 03/23/24 12:36 Room Air PG Care Time/CCT Total # of Minutes Spent Total Time Spent with Patient: Total time spent is greater than 50% in coordination of care (as documented) at patient's floor/unit and/or counseling patient: Coding Level of Care Code 10351 INT INP/OBS CARE MIN Diagnoses Complicated UTI (urinary tract infection) N39.0 BPH w urinary obs/LUTS N40.1; N13.8 Seizure disorder G40.909 Sleep apnea G47.30 CKD (chronic kidney disease) N18.9 Venous stasis I87.8
[2024-03-23 15:50] LABS: Appearance Urine Turbid (Clear); Bacteria Urine Automated None Seen (None Seen); Bilirubin Urine 1+ (Negative); Blood Urine 2+ (Negative); Calcium Oxalate Crystals Urine Present (None Prsent); Cast Urine Automated >20 /lpf (0-2); Color Urine Dark Yellow; Epithelial Cell Urine Auto 0-2 /hpf (0-2); Glucose Urine UA Negative (Negative); Hyaline Casts Urine Present /lpf (None Presnt); Ketones Urine Trace (Negative); Leukocyte Esterase Urine 3+ (Negative); Mucus Urine Present (None Prsent); Nitrite Urine Negative (Negative); Protein Urine 2+ (Negative); Specific Gravity Urine 1.023 (1.000-1.030); Urobilinogen Urine Negative (Negative); WBC Urine Automated >50 /hpf (0-5)
--- NOTE | 2024-03-23 16:08 | Electrocardiogram Report ---
Test Reason : Blood Pressure : */* mmHG Vent. Rate : 66 BPM Atrial Rate : 66 BPM P-R Int : 220 ms QRS Dur : 102 ms QT Int : 436 ms P-R-T Axes : 70 -28 5 degrees QTcB Int : 457 ms Sinus rhythm with 1st degree A-V block with Premature supraventricular complexes Incomplete right bundle branch block Possible Old Septal infarct (cited on or before 26-Jan-2022) Abnormal ECG When compared with ECG of 23-Feb-2024 13:46, Premature supraventricular complexes are now Present Confirmed by De Tran ([id number]) on 03/23/2024 4:08:40 PM Referred By: REFERRED SELF Confirmed By: De Tran
[2024-03-23] MEDS ORDERED: ACETAMINOPHEN 325 MG TAB PO PRN (18:23)
[2024-03-23] MEDS ORDERED: PHENobarbitaL 30 MG TAB PO SCH (21:00)
[2024-03-23] MEDS: PHENobarbitaL 30 MG TAB PO SCH (21:37)
[2024-03-23] MEDS: SIMVASTATIN 10 MG TAB PO SCH (21:37)
[2024-03-23] MEDS: TAMSULOSIN HCL 0.4 MG CAP PO SCH (21:37)
--- OUTSIDE RECORDS SUMMARY | 2024-03-23 21:45 | External Medical Summary | Summary of Care ---
Author Name Unknown Organization [facility] Address [address] [place] [address] Phone [phone] Care Team Providers Care Endocrinology Specialist Name Role Phone Sae Girard MD [facility] Care Provider Reason for Visit * Reason Onset Date Comments [facility]: Screening 03/18/2024 Encounter Details Date Type Department Care Team (Late st Contact Info) Description 03/18/2024 Telephone [facility], [facility] [address] [facility] [place] [address] Blanca Webb, [facility] [address] [facility] [place] [address] [facility]: Screening Allergies No known active allergiesdocumented as of this encounter (statuses as of 03/18/2024) Medications Medication Sig Dispensed Refills Start Date End Date Status CLONIDINE HCL 0.3 MG PO TABS three times daily Active ZOCOR 10 MG PO TABS once daily Activ e LEVOTHYROXINE SODIUM 100 MCG OR TABS one tab daily Active PHENOBARBITAL 32.4 MG PO TABS one tablet four times daily Active tamsulosin (FLOMAX) 0.4 MG CapsuleIndications: BPH with obstruction/lower urinary tract symptoms Take 1 Cap by mouth daily. 90 Cap 3 05/21/2016 Active tamsulosin (FLOMAX) 0.4 MG Capsule Take 1 Cap by mouth daily. 90 Cap 2 2016 Active finasteride (PROSCAR) 5 MG Tablet Take 1 Tab by mouth daily. 90 Tab 07/10/2017 Active finasteride (PROSCAR) 5 MG TabletIndications:B PH with obstruction/lower urinary tract symptoms Take 1 Tab by mouth daily. 90 Tab 06/24/2017 Active tamsulosin (FLOMAX) 0.4 MG Capsule Take 1 Cap by mouth daily. 90 Cap 09/03/2017 Active finasteride (PROSCAR) 5 MG Tablet Take 1 Tab by mouth daily. 90 Tab 09/30/2017 Active D3-50 1.25 MG (54952 UT) Oral Capsule (Cholecalciferol) 50,000 units (1 capsule) by mouth once weekly 12 Capsule 3 09/19/2022 Active Atorvastatin Calcium 40 MG Oral Tablet (Lipitor) Take 1 tablet by mouth at bedtime 90 Tablet 1 02/20/2023 Active cloNIDine HCl 0.1 MG Oral Tablet (Catapres) Take 1 tablet by mouth three times daily 270 Tablet 1 08/25/2023 Active PHENobarbital 32.4 MG Oral Tablet Take three tablets by mouth (97.2 mg. total) at bedtime 270 Tablet 3 08/25/2023 Active D3-50 1.25 MG (54035 UT) Oral Capsule (Cholecalciferol) Take 50,000 units (1) capsule by mouth Every other week- take with heaviest meal of the day 6 Capsule 3 09/19/2023 Active Fluocinonide 0.05 % External Cream apply topically twice a day as needed for itchiness 30 g 2 09/18/2023 Active Losartan Potassium 50 MG Oral Tablet (Cozaar) Take 1 tablet by mouth once daily in the morning 90 Tablet 1 12/23/2023 Active Levothyroxine Sodium 100 MCG Oral Tablet (Levoxyl) Take 1 tablet by mouth every morning (at least 30 min prior to breakfast or other meds) 90 Tablet 3 02/10/2024 Active documented as of this encounter (statuses as of 03/18/2024) Active Problems Problem Noted Date Diagnosed Date Body mass index (BMI) of 40.0 to 44.9 in adult 1 Overview: Per Obesity protocol #1 ADVANCE DIRECTIVE INFORMATION 09/26/2005 Overview: Yes, Patient instructed to provide copy of advance directive for provider to review and to be scanned into Electronic Medical Record EPILEPSY;NONCONV,W/O INTRACTABLE 09/01/2003 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 Never true 02/10/20 24 Within the past 12 months, t he food you bought just didn't last and you didn't have money to get more. Never true 02/10/2024 Childcare Answer Date Recorded Do you feel overwhelmed with taking care of a child, family member or friend? No 02/10/2024 Does your family need help f inding childcare? (Household - for ages 0-17 years) Not on file 02/10/2024 Clothing Answer Date Recorded Have you been unable to get clothing when it was really needed? No 02/10/2024 Is your family able to get c lothes or diapers when needed? (Household - for ages 0-17 years) Not on file 02/10/2024 Personal Safety Answer Date Recorded Do you feel unsafe or have concerns for your saf ety? No 02/10/2024 Do you have concerns for you r family's safety? (Household - for ages 0-17 years) Not on file 02/10/2024 Utilities Answer Date Recorded Do you have trouble paying y our heating, water, or electric bill? No 02/10/2024 Is your family able to pay t he heat, water, or electric bill? (Household - for ages 0-17 years) Not on file 02/10/2024 Does your family have access to good internet? (Household - for ages 0-17 years) Not on file 02/10/2024 Employment Status Answer Date Recorded Are you unemployed or without regular income? No 02/10/2024 Does the household have a re gular source of income? (Household - for ages 0-17 years) Not on file 02/10/2024 Social Connections Answer Date Recorded How often do you feel lonely or isolated from th ose around you? Never 02/10/2024 Financial Resource Strain Answer Date R ecorded Do you have any trouble payi ng for your medications, or do you think you might in the future? No 02/10/2024 Does your family have troubl e paying for medicine? (Household - for ages 0-17 years) Not on file 02/10/2024 Transportation Needs Answer Date Record ed Do you have trouble getting a ride to medical visits or work? (Adult - for ages 18 years and over) Not on file 02/10/2024 Does your family have a hard time getting a ride to doctors visits? (Household - for ages 0-17 years) Not on file 02/10/2024 Has lack of transportation k ept you from medical appointments, meetings, work, or from getting things needed for daily living? Check all that apply. No 02/10/2024 Do you (or your family) have trouble finding or paying for a ride (transportation)? (Household - for ages 0-17 years) Not on file 02/10/2024 Housing Stability Answer Date Recorded Do you currently live in a s helter or have no steady place to sleep at night? No 02/10/2024 Do you think you are at risk of becoming homeless? (Adult - for ages 18 years and over) Not on file 02/10/2024 Does your family worry about paying for your home or becoming homeless? (Household - for ages 0-17 years) Not on file 0 02/10/2024 Are you homeless or worried that you might be in the future? No 02/10/2024 Are you (or your family) joanna eless or worried that you might be in the future? (Household - for ages 0-17 years) Not on file Food Insecurity Answer Date Recorded Do you need food for this week? No 02/10/2024 Are you able to get enough f ood for your family? (Household - for ages 0-17 years) Not on file 02/10/2024 Does your family need food t his week? (Household - for ages 0-17 years) Not on file 02/10/2024 Do you always have enough fo od for your family? (Household - for ages 0-17 years) Not on file 02/10/2024 Sex and Gender Information Value Date Recorded Sex Assigned at Not on file Gender Identity Not on file Sexual Orientation Not on file documented as of this encounter Miscellaneous Notes * Telephone Encounter - Blanca Webb LPN - 03/18/2024 4:23 PM EDT Alli Arcos was referred as a potential candidate for enrollment for [facility]. A review of this chart was completed and: Alli meets criteria for [facility]. Jump to Initiation Referring care team was notified via : [employer] communication SUPERVISOR BAKING at [place] referring, for [place] to home 03/21 documented in this encounter Plan of Treatment Health Maintenance Due Date Last Done Comments DTap/Tdap Vaccines (1 - Tdap) 1954 TSH 04/16/2008 04/16/2007, 10/05, 09/10/2006 COVID-19 Vaccine (2023- season) 2024 05/16/2023, 03/21/2022, 04/17/2021, Additional history exists Influenza Vaccine (FLU shot) (#1) 2024 Depression Screening 02/09/2025 02/10/2024 Pneumococcal Vaccine: 65+ Years Completed 12/21/2014, 07/07/2001 Zoster Vaccines Completed 01/27/2023, 07/07/2022, 11/04/2022, Additional history exists HPV (Gardasil) Vaccine Aged Out No lo nger eligible based on patient's age to complete this topic Hepatitis B Vaccine Aged Out No longe r eligible based on patient's age to complete this topic MENINGOCOCCAL (MENACTRA/MENVEO) Aged Out No longer eligible based on patient's age to complete this topic documented as of this encounter Medical Devices Not on filedocumented as of this encounter Care Teams Endocrinology Specialist Relationship Specialty Start Date End Date Sae Girard MD [address] [place] [address] PCP - General Internal Medicine 02/09/24 documented as of this encounter
--- OUTSIDE RECORDS SUMMARY | 2024-03-23 21:45 | External Medical Summary | Summary of Care ---
Author Name Unknown Organization [facility] Address [address] [place] [address] Phone [phone] Care Team Providers Care Lpn Home Health Name Role Phone Sae Girard MD [facility] Care Provider Reason for Visit * Reason Onset Date Comments [facility]: Engagement 03/19/2024 Encounter Details Date Type Department Care Team (Late st Contact Info) Description 03/19/2024 Telephone [facility], [place] [address] [place] [id number] [place], EMANI [address] [place], [place] [id number] [facility]: Engagement Allergies No known active allergiesdocumented as of this encounter (statuses as of 03/19/2024) Medications Medication Sig Dispensed Refills Start Date [...] 90 Tab 09/30/2017 Active D3-50 1.25 MG (99745 UT) Oral Capsule (Cholecalciferol) 50,000 units (1 [...] Tablet 3 08/25/2023 Active D3-50 1.25 MG (47464 UT) Oral Capsule (Cholecalciferol) Take 50,000 units [...] as of this encounter (statuses as of 03/19/2024) Active Problems Problem Noted Date Diagnosed Date [...] as of this encounter (statuses as of 03/19/2024) Social History Tobacco Use Types Packs/Day Years [...] encounter Miscellaneous Notes * Telephone Encounter - Sydnee Staley OSA - 03/19/2024 10:36 AM EDT Outreach to patient for [facility] scheduling. Patient Accepted Date Scheduled: 03/23/2024 Time: 1230 In Person RNCM Special Instructions: na documented in this encounter Plan of Treatment Upcoming Encounters Date Type Department Care Team (Late st Contact Info) Description 03/23/2024 12:30 PM EDT [facility] Visit [facility], [facility] [address] [place] [place] [address] Koko Galicia, RN [address] [facility] [place] [address] 03/31/2024 12:50 PM EDT [facility], [facility] [address] [facility] [place] [address] Jaron Wylie PA-C [address] [facility] [place] [address] [place], [facility] Human Resources Team Member [address] [place] [address] Health Maintenance Due Date Last Done Comments DTap/Tdap Vaccines (1 - Tdap) 1954 TSH 04/16/2008 04/16/2007, 10/05, 09/10/2006 COVID-19 Vaccine ( season) 2024 05/16/2023, 03/21/2022, 04/17/2021, Additional history exists Influenza Vaccine (FLU shot) (#1) 2024 Depression Screening 02/09/2025 02/10/2024 Pneumococcal Vaccine: 65+ Years Completed 12/21/2014, 07/07/2001 Zoster Vaccines Completed 01/27/2023, 07/2022, 11/04/2022, Additional history exists HPV (Gardasil) Vaccine [...] filedocumented as of this encounter Care Teams Lpn Home Health Relationship Specialty Start Date End Date Sae Girard MD [address] [address] PCP - General Internal Medicine 02/09/24 documented as of this encounter
--- NOTE | 2024-03-23 21:49 | Urology Consultation ---
Date of Consultation March 23, 2024 Assessment & Plan (1) Acute UTI: The patient has been admitted on the hospitalist service. From a urologic perspective we recommend the following: The patient was admitted secondary to urinary tract infection and sepsis resulting in altered mental status. Heis being resuscitated with intravenous fluids which should continue Patient did receive cefepime in the emergency department and this has been downgraded to Rocephin which she is currently receiving. Antibiotics to be continued and can be tailored based on cultures which are pending Would recommend following serial labs The patient has had 2 failed voiding trial since his surgery noted in the history of present illness. The patient does have Flomax listed on his medication list with the patient is unsure if he has been receiving this medication. This medication has been initiated during this hospitalization and should continue. Once it is certain patient has been adequately taking his Flomax consideration be given to perform another voiding trial Additional recommendations will be forthcoming based on his clinical course as unfolds History of Present Illness Reason for Consultation: Urinary tract infection Indwelling Thornton catheter Attending Physician: Landry Bell MD History of Present Illness This is an 88-year-old male who on 01/29/2024 underwent a cystoscopy with biopsy of his prostatic urethra and a Rezum procedure by Dr. Mistry. The patient under went a circumcision and a scrotoplasty as well. During this admission the patient was hospitalized from 01/29/2024 through 02/07/2024. Patient required readmission to [facility] on 02/23/2024 secondary to urinary tract infection and he was hospitalized until 02/26/2024. It is noteworthy to mention that the patient did have a Thornton catheter from his previously mentioned surgery and this catheter was maintained while he was in the hospital. It is also noteworthy to mention that the patient did have 2 failed voiding trials since discharge from his most recent hospitalization. The patient presented to [facility] today secondary to altered mental status. The patient was noted to be confused at the facility where he lived and was also noted to have decreased urine output and a poor appetite. There is concern the patient had some type of underlying infection with concern for urinary tract infection so he was sent to the emergency department. Since arrival to hospital patient has had labs and imaging which I independently reviewed. Patient had a CT scan of the head that showed no acute intracranial abnormality. He also had a chest x-ray that showed no evidence of pneumonia. Labs included CBC white blood cell count platelet count were normal. His hemoglobin and hematocrit were 10.2 and 31.6. Chemistry profile showed sodium and potassium were normal. The BUN had a slight elevation of 25 and the creatinine was 1.2. The urinalysis showed turbid urine. The specimen was negative for nitrites but did have 3+ leukocyte esterase and pyuria with greater than 50 white blood cells per high-power field. There is no bacteria noted on the study. At the time of my interview he was resting comfortably bed he was no distress. Allergies Allergy/AdvReac Type Severity Reaction Status Date / Time celecoxib AdvReac Unknown SHORTNESS Verified 02/10/24 13:01 OF BREATH Home Medications Medication Instructions Recorded Confirmed Type phenobarbital 32.4 mg tablet 97.2 mg PO HS 02/03/24 03/23/24 History clonidine HCl 0.3 mg tablet 0.3 mg PO BID #60 tabs 02/05/24 03/23/24 Rx levothyroxine 100 mcg tablet 100 mcg PO QAM #90 tabs 02/10/24 03/23/24 Rx ergocalciferol (vitamin D2) 1,250 1,250 mcg PO Q14D 02/23/24 03/23/24 History mcg (50,000 unit) capsule acetaminophen 325 mg tablet 650 mg (2 x 325 mg) PO Q4H PRN 02/26/24 03/23/24 Rx fever or pain #0 tabs furosemide 40 mg tablet 40 mg PO QAM #0 tabs 02/26/24 03/23/24 Rx losartan 50 mg tablet 100 mg (2 x 50 mg) PO HS #0 tabs 02/26/24 03/23/24 Rx polyethylene glycol 3350 17 gram 17 g PO DAILY PRN #0 ea 02/26/24 03/23/24 Rx oral powder packet (Miralax) potassium chloride 20 mEq 20 meq PO QAM #0 tabs 02/26/24 03/23/24 Rx tablet,extended release(part/cryst) simvastatin 10 mg tablet 10 mg PO HS #0 tabs 02/26/24 03/23/24 Rx tamsulosin 0.4 mg capsule 0.4 mg PO HS #0 caps 02/26/24 03/23/24 Rx fluocinonide 0.05 % topical cream 1 applic topical DIRECTED 03/23/24 03/23/24 History Patient History Medical History Prediabetes hx-dx ~2021, "told he was borderline, and to watch his diet; made changes and now no issues" History of anemia Chronic osteoarthritis Enlarged prostate with lower urinary tract symptoms (LUTS) Hypothyroidism Hyperlipidemia Hypertension Ambulatory dysfunction Poor balance Seizure currently on phenobarbital; most recent in 1974 COVID-19 pt denies Cerebrovascular accident (CVA) pt unsure of details, "if it even happened?"; no symptoms per pt. Alkaline phosphatase raised pt unsure about this Obstructive sleep apnea CPAP still in repair, waiting to get it back Thrombocytopenia pt unsure? 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 Family History Father Prostate cancer Myocardial infarction Denies family history of Ovarian cancer Breast cancer Colorectal cancer Social History Smoking Status: Former smoker Tobacco Type: Cigarettes Second Hand Exposure: No; Do You Dip or Chew Tobacco: No; Hx Alcohol Use: No Hx Substance Use: No Preferred Language: Syriac Communication Ability: Effective Visual Impairment: No Limitations Hearing Ability: Use of Hearing Aid Planisher Required: No Beliefs That Will Affect Care: None marital status: Single Current Living Situation: Family Current Living Situation Comment: patients grandson lives in his basement current occupational status: retired Feels Safe at Home: Yes Childhood Exposure to Second-Hand Smoke: Yes Dental Care, Regularly: No Physical Activity Frequency: Does not Exercise Seatbelt Use: always Sunscreen Use: No Assistive Devices: Walker and Wheelchair Review of Systems Review of Systems: All systems reviewed & are unremarkable except as noted in HPI & below Physical Exam Constitutional: WD/WN, vitals as above Eyes: no conjunctival abnormality ENMT: Ears: no hearing impairment and no external ear abnormality Mouth: no oropharynx abnormality Neck: trachea midline Respiratory: normal respiratory effort; no respiratory distress and no labored breathing Cardiovascular: Rate/Rhythm: regular rate and regular rhythm Gastrointestinal (Abdomen): Soft and nontender to palpation Musculoskeletal: No calf tenderness Skin: no rashes Neurologic: Patient is able move all 4 extremities and follows simple commands. He was intermittently confused. Genitourinary: No CVA tenderness with percussion bilaterally. Thornton catheter is noted to be in place and is draining appropriately Results & Data Vital Signs (Past 12 Hours) Vital Signs Temp Pulse Pulse Resp BP BP Pulse Ox 03/23/24 19:20 36.5 C 65 18 146/99 H 92 03/23/24 18:23 67 22 121/68 96 03/23/24 18:13 61 03/23/24 18:00 59 L 22 121/68 95 03/23/24 16:00 68 20 125/69 95 03/23/24 14:30 63 18 110/70 95 03/23/24 12:58 59 L 03/23/24 12:51 63 20 96 03/23/24 12:48 62 18 108/63 96 03/23/24 12:36 36.8 C 64 18 84/48 L 95 O2 Del Method 03/23/24 19:20 Room Air 03/23/24 18:23 Room Air 03/23/24 18:13 03/23/24 18:00 Room Air 03/23/24 16:00 Room Air 03/23/24 14:30 Room Air 03/23/24 12:58 03/23/24 12:51 Room Air 03/23/24 12:48 Room Air 03/23/24 12:36 Room Air PG Care Time/CCT Total # of Minutes Spent Total Time Spent with Patient: Total time spent is greater than 50% in coordination of care (as documented) at patient's floor/unit and/or counseling patient: Coding Level of Care Code 88410 INT INP/OBS CARE 3/75MIN Diagnoses Acute UTI N39.0
[2024-03-23] MEDS: cefTRIAXone SODIUM 2,000 MG/50 ML BAG IV SCH (23:08)
[2024-03-24] MEDS: LEVOTHYROXINE SODIUM 100 MCG TABLET PO SCH (06:03)
[2024-03-24 07:32] LABS: Basophils # (auto) 0.03 K/uL (0.00-0.20); Basophils % (auto) 0.6 %; Eosinophils # (auto) 0.18 K/uL (0.00-0.50); Eosinophils % (auto) 3.4 %; Hematocrit (blood only) 33.3 % (42.0-52.0); Hemoglobin 10.7 g/dl (14.0-18.0); Immature Granulocytes # (auto) 0.03 K/uL (0.01-0.20); Immature Granulocytes % (auto) 0.6 %; Lymphocytes # (auto) 0.79 K/uL (1.20-3.40); Mean Corpuscular Hemoglobin 31.2 pg (25.0-34.0); Mean Corpuscular Hgb Conc 32.1 g/dL (32.0-36.0); Mean Corpuscular Volume 97.1 fL (80.0-100.0); Mean Platelet Volume 10.8 fL (9.4-12.4); Monocytes # (auto) 0.55 K/uL (0.11-0.59); Monocytes % (auto) 10.5 %; Neutrophils # (auto) 3.67 K/uL (1.40-6.50); Neutrophils % (auto) 69.9 %; Platelet Count 146 K/uL (130-400); RDW Coefficient of Variation 14.4 % (11.5-14.5); RDW Standard Deviation 50.7 fL (36.4-46.3); Red Blood Count 3.43 M/uL (4.70-6.10); White Blood Count 5.25 K/ul (4.8-10.8)
[2024-03-24 07:49] LABS: BUN Creatinine Ratio 23.2 (10-20); Calcium 8.4 mg/dl (8.6-10.3); Creatinine Clr Calc Pharmacy 63.4 ml/min; Est GFR (African American) 77.9 ml/min; Est GFR (Non-African American) 67.2 ml/min
[2024-03-24] MEDS: ENOXAPARIN INJ 40 MG/0.4 ML SYR SQ SCH (08:13)
--- NOTE | 2024-03-24 10:22 | Hospitalist Progress Note ---
<Statement entered by Sylvia Cobos MD - 03/24/24 17:15> I have reviewed vital signs, chart notes, labs and imaging. I have personally seen, evaluated and examined the patient. I have also discussed the management of the patient with the JOVANNI and I agree with the exam findings documented in the history and physical examination and the documented assessment and plan unless otherwise stated below. Mr. Arcos is well-known to me from previous admissions. He comes back in from [facility] with acute metabolic encephalopathy and likely recurrent catheter associated urinary tract infection. He has recently failed a voiding trial. On my exam he is awake and alert is close to his baseline mental status but a little more forgetful than usual and confuses his surgical history a bit. His heel cover splitter at bedside indicates he is significantly improved but not completely at his baseline mentation yet. He does have some tenderness to palpation of suprapubic area. His leg edema is significantly improved from discharge previously. We will continue ceftriaxone. Urinalysis and culture is difficult to interpret with chronic Tinoco however I do not see another explanation for his encephalopathy and the suprapubic pain is suggestive of UTI. Appreciate urology consultation. He has in fact been getting his Flomax because it has been given at his SNF, will increase to 0.8 mg at bedtime pending further discussion with urology Date of Service March 24, 2024 Assessment & Plan (1) Complicated UTI (urinary tract infection): Plan: Patient is an 88-year-old male with PMHx of HTN, hyperlipidemia, BPH with u rinary Obs/LUTS admitted for altered mental status and found to have UTI. Patient has significant history with urologic procedures and urologic infections. Patient has had prior urine cultures that were positive for Proteus mirabilis, but no history of ESBL/Pseudomonas. Patient given 1 L NSS per sepsis guidelines and cefepime in ER. CT of the head showed no acute findings, and x- ray of chest showed no acute findings. UTI, sepsis, AMS Altered mental status on admission suspected due to infectious metabolic encephalopathy, hypotension, reduced urinary output from indwelling catheter prior to admission No leukocytosis. UA with leukocyte esterase, blood, no nitrites. Hyaline casts are present. UCx pending. Bicarb normal, Lactate 1.9. CThead: No acute finding Chest x-ray: No acute findings. EKG: Sinus with first-degree AV block, PVCs. No acute ischemic changes Continue Rocephin. (2) BPH w urinary obs/LUTS: Plan: - History of recurrent obstruction - Reports 2 failed voiding trials. Last voiding trial on 03/10 at [facility] as outpatient. Reports could void 3 times, then couldn't void after that and tinoco was replaced. 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 Urology consulted. Reviewed recs. Suggested continuing on Flomax and considering an additional voiding trial. Recommends continuing IV fluids. - Mupirocin and Lidocaine jelly for irritated area at urethral meatus 2/2 catheter. (3) Seizure disorder: Plan: Stable on phenobarbital for many years, no seizures in the last few decades Continue phenobarbital Level pending, last levels were not elevated (4) Sleep apnea: Plan: CPAP at bedtime (5) CKD (chronic kidney disease): Plan: CKD Baseline creatinine approximately 1.271.3 Creatinine 1.27 on admission; upon review, now 0.99. - Normocytic anemia seen on labs. Suspect related to CKD. Patient asymptomatic. (6) Venous stasis: Plan: Bilateral edema, lower extremities With chronic venous stasis history No signs of CHF/pulmonary overload Venous stasis precautions, leg elevation, right Diuretics initially held due to hypotension; BP have increased since. Plan Hyperlipidemia chronic stable issues: Hyperlipidemia: Statin held Hypertension: Losartan continued Status: Full code DVT prophylaxis: Lovenox CODE STATUS: Full code Disposition: Med/surg. Pending clinical improvement. Admission and Anticipated Discharge Date Admission Date: March 23, 2024 Subjective Patient laying in bed at time of visit. Experiencing ongoing pain at lower abdomen that is dull and aching in nature but has improved since admission. Also experiencing pain at catheter insertion site. Patient reports normal bowel movements daily and states that he feels that his confusion has resolved. No chest pain or shortness of breath. Review of Systems Constitutional: no fever Gastrointestinal: + abdominal pain; no nausea, no vomiting and no change in bowel habits Genitourinary: + as per Subjective / HPI; no flank pain Neurologic: no confusion Physical Exam Respiratory: normal respiratory effort, lungs clear to auscultation Cardiovascular: RRR, no murmur, no edema Gastrointestinal (Abdomen): Inspection/Auscultation: abdomen normal to inspection Percussion/Palpation: + abdomen tender; abdomen not rigid and no dullness to percussion Neurologic: Patient unable to recall date, including the month and year. Genitourinary: no CVA tenderness Tinoco catheter in place. Mild sediment in tubing, concentrated yellow urine noted. No blood visible. Results & Data Results & Data Vital Signs (Past 12 Hours) Vital Signs Temp Pulse Resp BP Pulse Ox O2 Del Method 03/24/24 07:11 37.0 C 83 18 152/85 H 93 Room Air Laboratory Results Abnormal lab results 03/23/24 03/24/24 Range/Units 14:50 06:45 RBC 3.43 L (4.70-6.10) M/uL Hgb 10.7 L (14.0-18.0) g/dl Hct 33.3 L (42.0-52.0) % RDW Std Deviation 50.7 H (36.4-46.3) fL Lymph # (Auto) 0.79 L (1.20-3.40) K/uL BUN/Creatinine Ratio 23.2 H (10-20) Glucose 110 H (70-99(Fasting)) mg/dl Calcium 8.4 L (8.6-10.3) mg/dl Urine Appearance Turbid A (Clear) Urine Protein 2+ H (Negative) Urine Ketones Trace H (Negative) Urine Blood 2+ H (Negative) Urine Bilirubin 1+ H (Negative) Ur Leukocyte Esterase 3+ H (Negative) Urine WBC (Auto) >50 H (0-5) /hpf Urine RBC (Auto) 11-20 H (0-2) /hpf U Hyaline Cast (Auto) >20 H (0-2) /lpf Calcium Oxalate Crystal Present A (None Prsent) Hyaline Casts Present A (None Presnt) /lpf Urine Mucus Present A (None Prsent)
--- NOTE | 2024-03-24 11:45 | Urology Progress Note ---
Date of Service March 24, 2024 Assessment & Plan (1) Complicated UTI (urinary tract infection): Plan 88yo/M admitted with altered mental status, hypotension, and concern for UTI. Afebrile with stable vitals. Labs today show no leukocytosis and normal renal function. Urine and blood cultures pending. Thornton intact and draining clear yellow urine. Continue antibiotics and tailor as culture data becomes available. Continue supportive care. Maintain Thornton catheter for at least 1 week prior to attempting another void trial. We can arrange an outpatient voiding trial in urology clinic. Mupirocin and Lidocaine jelly ordered per primary team for irritated area at urethral meatus 2/2 catheter. Continue tamsulosin. No acute intervention warranted. Urology will follow. Admission and Anticipated Discharge Date Admission Date: March 23, 2024 Subjective Pt seen at bedside today Awake, resting in bed on arrival No acute distress Denies any pain or discomfort at present Denies f/c/n/v Thornton draining clear yellow urine w/some sediment Denies scrotal pain Reports some mild discomfort around cath insertion site Review of Systems Constitutional: as per Subjective / HPI Genitourinary: + as per Subjective / HPI Physical Exam Constitutional: no acute distress Respiratory: no respiratory distress and no labored breathing Neurologic: awake Psychiatric: Orientation: alert, oriented to person and cooperative Genitourinary: Thornton intact with some purulent drainage around cath insertion site Results & Data Vital Signs (Past 12 Hours) Vital Signs Temp Pulse Resp BP Pulse Ox O2 Del Method 03/24/24 07:11 37.0 C 83 18 152/85 H 93 Room Air PG Care Time/CCT Total # of Minutes Spent Total Time Spent with Patient: Total time spent is greater than 50% in coordination of care (as documented) at patient's floor/unit and/or counseling patient: Coding Level of Care Code 96205 SUB INP/OBS CARE 2/35MIN Diagnoses Complicated UTI (urinary tract infection) N39.0
--- NOTE | 2024-03-24 17:15 | Billing Data ---
Date of Service March 24, 2024 Coding Level of Care Code 20539 INT INP/OBS CARE
[2024-03-24] MEDS: MUPIROCIN 2% OINT 22 GM TUBE EXT PRN (17:35)
[2024-03-24] MEDS: LIDOCAINE 2% JELLY 5 ML TUBE EXT PRN (17:36)
[2024-03-24] MEDS: LOSARTAN POTASSIUM 50 MG TAB PO SCH (20:53)
[2024-03-24] MEDS: TAMSULOSIN HCL 0.4 MG CAP PO SCH (20:53)
[2024-03-25 08:33] LABS: Basophils # (auto) 0.02 K/uL (0.00-0.20); Basophils % (auto) 0.4 %; Eosinophils # (auto) 0.13 K/uL (0.00-0.50); Eosinophils % (auto) 2.6 %; Hematocrit (blood only) 32.8 % (42.0-52.0); Hemoglobin 11.1 g/dl (14.0-18.0); Immature Granulocytes # (auto) 0.02 K/uL (0.01-0.20); Immature Granulocytes % (auto) 0.4 %; Lymphocytes # (auto) 0.86 K/uL (1.20-3.40); Lymphocytes % (auto) 17.2 %; Mean Corpuscular Hemoglobin 31.7 pg (25.0-34.0); Mean Corpuscular Hgb Conc 33.8 g/dL (32.0-36.0); Mean Corpuscular Volume 93.7 fL (80.0-100.0); Mean Platelet Volume 10.6 fL (9.4-12.4); Monocytes # (auto) 0.56 K/uL (0.11-0.59); Monocytes % (auto) 11.2 %; Neutrophils # (auto) 3.42 K/uL (1.40-6.50); Neutrophils % (auto) 68.2 %; Platelet Count 149 K/uL (130-400); RDW Coefficient of Variation 14.2 % (11.5-14.5); RDW Standard Deviation 48.7 fL (36.4-46.3); White Blood Count 5.01 K/ul (4.8-10.8)
[2024-03-25 08:44] LABS: BUN Creatinine Ratio 19.4 (10-20); Calcium 8.6 mg/dl (8.6-10.3); Creatinine Clr Calc Pharmacy 64.1 ml/min; Est GFR (African American) 78.9 ml/min; Est GFR (Non-African American) 68.1 ml/min; Potassium 4.1 mmol/L (3.5-5.1)
--- NOTE | 2024-03-25 10:44 | Hospitalist Progress Note ---
<Statement entered by Sylvia Cobos MD - 03/25/24 18:30> I have reviewed vital signs, chart notes, labs and imaging. I have personally seen, evaluated and examined the patient. I have also discussed the management of the patient with the JOVANNI and I agree with the exam findings documented in the history and physical examination and the documented assessment and plan unless otherwise stated below. On my exam today Mr. Arcos is sitting up in the chair at bedside his mental status appears to be improved he is more on point with his conversation and does not seem forgetful is oriented to situation. He has some pain at urethral meatus but no bladder or pelvic pain. His respirations are nonlabored lungs are clear to auscultation heart is regular, abdomen soft nontender nondistended, his urine is clear in the Tinoco bag, legs with 12+ chronic pitting edema unchanged his urine culture has come back no growth therefore urinary tract infection is ruled out and we stopped his ceftriaxone I had increased his Flomax to 0.8 mg last night urology recommends voiding trial in 1 week we will consider doing this earlier since catheter at home has been a significant issue confirmed he has been at home with home health and [facility] prior to admission unclear why he had worsening of his mental status but appears the acute metabolic encephalopathy has resolved. We checked his med list he has no sedating or deliriogenic medicines he states he has been taking his medications as prescribed for his hypertension we resumed his clonidine 0.3 mg twice a day which he confirms he does take and blood pressure is normal today anticipate discharging potentially tomorrow Date of Service March 25, 2024 Assessment & Plan (1) Metabolic encephalopathy: Plan: Patient is an 88-year-old male with PMHx of HTN, hyperlipidemia, BPH with urinary Obs/LUTS admitted for altered mental status and suspected to have UTI. Patient has significant history with urologic procedures and urologic infe ctions. Patient has had prior urine cultures that were positive for Proteus mirabilis, but no history of ESBL/Pseudomonas. Patient given 1 L NSS per sepsis guidelines and cefepime in ER. CT of the head showed no acute findings, and x- ray of chest showed no acute findings. Final urine culture results show no bacterial growth. UTI, sepsis, AMS Altered mental status on admission suspected due to infectious metabolic encephalopathy, hypotension, reduced urinary output from indwelling catheter prior to admission No leukocytosis. UA with leukocyte esterase, blood, no nitrites. Hyaline casts are present. UCx pending. Bicarb normal, Lactate 1.9. CThead: No acute finding Chest x-ray: No acute findings. EKG: Sinus with first-degree AV block, PVCs. No acute ischemic changes Stop Rocephin given no bacterial growth on final results for urine culture. (2) BPH w urinary obs/LUTS: Plan: - History of recurrent obstruction - Reports 2 failed voiding trials. Last voiding trial on 03/10 at [facility] as outpatient. Reports could void 3 times, then couldn't void after that and tinoco was replaced. - To complete voiding trial to evaluate ability to remove catheter prior to discharge. Communication order sent. 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 Urology consulted. Reviewed recs. Appreciate ongoing urology recommendations. - Continue Mupirocin and Lidocaine jelly for irritated area(s) at urethral meatus 2/2 catheter. -Continue Flomax 0.8 mg daily (3) Seizure disorder: Plan: Stable on phenobarbital for many years, no seizures in the last few decades Continue phenobarbital Phenobarbital levels 12.9. Patient is on slightly decreased dose while in hospital due to what is able to be administered. (4) Sleep apnea: Plan: CPAP at bedtime (5) CKD (chronic kidney disease): Plan: CKD Baseline creatinine approximately 1.271.3 Creatinine 1.27 on admission; upon review, in normal range. - Normocytic anemia seen on labs. Suspect related to CKD. Patient asymptomatic. (6) Venous stasis: Plan: Bilateral edema, lower extremities With chronic venous stasis history No signs of CHF/pulmonary overload/fluid overload Venous stasis precautions, leg elevation, right Diuretics initially held due to hypotension Plan Hyperlipidemia chronic stable issues: Hyperlipidemia: Statin held Hypertension: Losartan continued, clonidine restarted Ordered PT/OT Status: Full code DVT prophylaxis: Lovenox CODE STATUS: Full code Disposition: Med/surg. Pending results of voiding trial. Admission and Anticipated Discharge Date Admission Date: March 23, 2024 Subjective Patient was seen sitting up in his chair today at the time of visit. Patient's brother was in the room as well, states that patient is back to baseline. Reports that he has no current symptoms, his pain is well-controlled, and he is hoping to be able to urinate without use of a catheter. Patient did confirm that he came to the hospital directly from home and not a care center. Also confirms that he manages his own medications and believes he was taking his medications as prescribed. Review of Systems Constitutional: no fever Gastrointestinal: no abdominal pain, no nausea, no vomiting and no change in bowel habits Genitourinary: + as per Subjective / HPI; no flank pain Neurologic: no confusion Physical Exam Respiratory: normal respiratory effort, lungs clear to auscultation Cardiovascular: RRR, no murmur, no edema Gastrointestinal (Abdomen): Inspection/Auscultation: abdomen normal to inspection Percussion/Palpation: abdomen nontender, abdomen not rigid and no dullness to percussion Genitourinary: no CVA tenderness Catheter in place. No sediment in tubing. Concentrated yellow urine in bag. Results & Data Results & Data Vital Signs (Past 12 Hours) Vital Signs Pulse Resp BP Pulse Ox O2 Del Method 03/25/24 08:46 84 18 122/68 93 Room Air Diagnostic Findings 03/23/24 14:50 Urine Culture - Preliminary Urine,Indwelling Cath No growth - Less than 1,000 colonies/mL, Final report to follow. 03/23/24 12:47 Aerobic Blood Culture - Preliminary Blood No growth in Aerobic bottle after 24 hours. Anaerobic Blood Culture - Preliminary No growth in Anaerobic bottle after 24 hours. PG Care Time/CCT Total # of Minutes Spent Total Time Spent with Patient: Total time spent is greater than 50% in coordination of care (as documented) at patient's floor/unit and/or counseling patient: Coding Level of Care Code None Diagnoses Metabolic encephalopathy G93.41 BPH w urinary obs/LUTS N40.1; N13.8 Seizure disorder G40.909 Sleep apnea G47.30 CKD (chronic kidney disease) N18.9 Venous stasis I87.8
--- NOTE | 2024-03-25 16:16 | Urology Progress Note ---
Date of Service March 25, 2024 Assessment & Plan (1) Complicated UTI (urinary tract infection): Plan 88yo/M admitted with altered mental status, hypotension, and concern for UTI. Afebrile with stable vitals. Labs today show no leukocytosis and normal renal function. Urine culture 03/23 negative. Blood cultures prelim no growth x 48 hours. Thornton intact and draining clear yellow urine. No acute intervention warranted. Continue supportive care. Continue Flomax. Maintain Thornton catheter for at least 1 week prior to attempting another void trial. We can arrange an outpatient voiding trial in urology clinic. Mupirocin and Lidocaine jelly ordered per primary team for irritated area at urethral meatus 2/2 catheter. Will arrange outpatient follow-up and voiding trial with our service. Urology will sign-off. Please call with any questions/concerns or changes in patient status. Admission and Anticipated Discharge Date Admission Date: March 23, 2024 Subjective Patient seen at bedside today. Awake and sitting in bedside chair on arrival. No acute distress. Denies any significant pain at present. Denies fever, chills, nausea, vomiting. Thornton draining clear yellow urine. Review of Systems Constitutional: as per Subjective / HPI Genitourinary: + as per Subjective / HPI Physical Exam Constitutional: no acute distress Respiratory: no respiratory distress and no labored breathing Neurologic: awake Psychiatric: Orientation: alert, oriented to person and cooperative Genitourinary: Thornton draining clear yellow urine Results & Data Vital Signs (Past 12 Hours) Vital Signs Pulse Resp BP Pulse Ox O2 Del Method 03/25/24 08:46 84 18 122/68 93 Room Air PG Care Time/CCT Total # of Minutes Spent Total Time Spent with Patient: Total time spent is greater than 50% in coordination of care (as documented) at patient's floor/unit and/or counseling patient: Coding Level of Care Code 67535 SUB INP/OBS CARE 2/35MIN Diagnoses Complicated UTI (urinary tract infection) N39.0
--- NOTE | 2024-03-25 18:31 | Billing Data ---
Date of Service March 25, 2024 Coding Level of Care Code 22100 INT INP/OBS CARE
[2024-03-25] MEDS: cloNIDine HCL 0.3 MG TAB PO SCH (20:37)
[2024-03-26 06:38] LABS: BUN Creatinine Ratio 20.2 (10-20); Calcium 8.5 mg/dl (8.6-10.3); Creatinine Clr Calc Pharmacy 50.6 ml/min; Est GFR (African American) 59.4 ml/min; Est GFR (Non-African American) 51.2 ml/min; Potassium 4.2 mmol/L (3.5-5.1)
[2024-03-26 06:44] LABS: Basophils # (auto) 0.03 K/uL (0.00-0.20); Basophils % (auto) 0.6 %; Eosinophils # (auto) 0.14 K/uL (0.00-0.50); Hematocrit (blood only) 30.5 % (42.0-52.0); Hemoglobin 10.3 g/dl (14.0-18.0); Immature Granulocytes # (auto) 0.02 K/uL (0.01-0.20); Immature Granulocytes % (auto) 0.4 %; Lymphocytes # (auto) 0.92 K/uL (1.20-3.40); Lymphocytes % (auto) 19.8 %; Mean Corpuscular Hemoglobin 31.7 pg (25.0-34.0); Mean Corpuscular Hgb Conc 33.8 g/dL (32.0-36.0); Mean Corpuscular Volume 93.8 fL (80.0-100.0); Mean Platelet Volume 10.5 fL (9.4-12.4); Monocytes # (auto) 0.59 K/uL (0.11-0.59); Monocytes % (auto) 12.7 %; Neutrophils # (auto) 2.95 K/uL (1.40-6.50); Neutrophils % (auto) 63.5 %; Platelet Count 159 K/uL (130-400); RDW Coefficient of Variation 14.2 % (11.5-14.5); RDW Standard Deviation 48.9 fL (36.4-46.3); Red Blood Count 3.25 M/uL (4.70-6.10); White Blood Count 4.65 K/ul (4.8-10.8)
[2024-03-26 07:46] VITALS: BP 134/66; RESP 18; TEMP 97.7; O2SAT 97
[2024-03-26 14:40] VITALS: PULSE 65
--- NOTE | 2024-03-26 18:28 | Discharge Summary ---
Discharge Summary Date of Service March 26, 2024 Principal Dx & Hospital Course #1 = Principal Diagnosis (1) Metabolic encephalopathy: Patient is an 88-year-old male with PMHx of HTN, hyperlipidemia, BPH with urinary Obs/LUTS, tinoco catheter related to recent urological procedures admitted for altered mental status and suspected to have UTI. Had normal mentation morning of admission and outpatient bilingual case manager spoke with him on the phone. Later was altered and confused, hypotensive on arrival to the ED with SBP in 80s. given 1 L NSS per sepsis guidelines and cefepime in ER. CT of the head showed no acute findings, and x-ray of chest showed no acute findings. BP normalized by following day and mental status significantly improved. UA was unimpressive for infection and urine culture finalized negative. Antibiotics were stopped. No evidence of other infection or acute illness. Sepsis was ruled out. Urology consulted, we increased flomax to 0.8 mg, they recommended continue tinoco and do voiding trial in 1 week. Mental status back to baseline or nearly so and did well with PT/OT. I discharged him to [facility] a few weeks ago and he had just been back at home for four days prior to this admission. Mr. Arcos has been managing his own meds. Can't tell me what he takes but he has the bottles sorted out to the morning ones and the nighttime ones. I spoke with his grandson Anson by phone who went through his home medication bottles with me. He has three different bottles with losartan at either 50 mg HS or 100 mg HS doses. He has two different bottles with clonidine with doses of 0.1 bid and 0.3 bid. There is doxycycline from previous UTI and atorvastatin and levothyroxine are missing. I suspect the hypotension and resultant encephalopathy are from a medication misadventure and perhaps he was double do sing his losartan and/or clonidine. I spoke with his grandson and recommended that they supervise all the medications and fill Mr Marino weekly mediset for him. I updated his medication list and instructed to remove any bottles with old/redundant/incorrect doses. Home health was ordered for PT/OT/RN for medication management and tinoco catheter. (2) BPH w urinary obs/LUTS: - History of recurrent obstruction - Reports 2 failed voiding trials. Last voiding trial on 03/10 at [facility] as outpatient. Reports could void 3 times, then couldn't void after that and tinoco was replaced. 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 Urology consulted. Reviewed recs. Appreciate ongoing urology recommendations. - Continue Mupirocin irritated area(s) at urethral meatus 2/2 catheter. -Continue Flomax 0.8 mg daily (dose increase) -follow up with urology, voiding trial in 1 week (3) Seizure disorder: Stable on phenobarbital for many years, no seizures in the last few decades Continue phenobarbital (4) Sleep apnea: CPAP at bedtime (5) CKD (chronic kidney disease): CKD Baseline creatinine approximately 1.271.3 Creatinine 1.27 on admission; upon review, in normal range. - Normocytic anemia seen on labs. Suspect related to CKD. Patient asymptomatic. (6) Venous stasis: Bilateral edema, lower extremities With chronic venous stasis history No signs of CHF/pulmonary overload/fluid overload Venous stasis precautions, leg elevation, right Plan Hyperlipidemia chronic stable issues: Hyperlipidemia: Statin Hypertension: Losartan continued, clonidine at 0.3 mg bid Admission HPI Per Admitting Provider Alli is an 88-year-old with a past medical history of hypertension, hyperlipidemia, EMANI, BPH as LUTS s/p reason him, recent admission for cystitis and discharge 02/26/2024 who presents to the emergency department with altered mental status and sedation, hypotension per facility staff. He has an indwelling catheter and has had similar symptoms with UTIs. NO fevers chills or sweats Voiding trial on 03/10, but oculd not pee. Tried again at [facility] and [place] for 2-4 days, and peed 3 times the first day then had trouble with obstruction/retention again. No chest pain or chest pressure No nausea No abdominal pain Denies dysuria, polyuria. Denies scrotal pain. Was doing okay, but was much more confused today than he had been previously, has had decreasing urine output, poor appetite, and feels like he has with prior UTIs. Also very concerned that he is continue to fail voiding trials I would like to see urology. On reassessment mentation is greatly improved. Does not feel lightheaded or dizzy and reports he feels better, but still not back to his baseline. Medical History: Reviewed Medications: Reviewed Surgical History: Reviewed Family history: Reviewed Allergies: Reviewed Social History: Reviewed Code Status: FUll Discharge Exam PHYSICAL EXAMINATION Last 24h vital signs reviewed, see documentation in flowsheet General: comfortable appearing, no distress HEENT: Normocephalic, atraumatic, pupils round and equal, sclerae anicteric, no conjunctival injection, moist mucus membranes Lungs: Normal respiratory effort. Clear to auscultation bilaterally. No RRW Heart: Regular rate and rhythm, no murmurs. No JVD Abdomen: Soft, nontender, nondistended. Bowel sounds present. Tinoco catheter with clear yellow urine Extremities: Warm, dry, well-perfused. 1-2+ lower extremity edema. Neuro: Alert and oriented x hospital and situation, face symmetric, moves 4 extremities well Psych: Normal affect and behavior Discharge Plan Discharge Items Patient Disposition: Home - Home Health Services Reason For Visit: COMPLICATED UTI Discharge Diagnosis: Acute metabolic encephalopathy Condition on Discharge: Fair Activity: Resume your previous activity Weightbearing: Full weightbearing Non-emergency contact: Primary Care Provider and Urologist Call non-emergency contact if: you have any medication questions and your symptoms worsen Follow-up/Referrals: Sae Gallegos MD [Primary Care Provider] - 03/29/24 10:30 am (Appointment will be with MARY ELLEN Schwab) Diet: Low Sodium (2gm) Addtl Attending Provider Instructions: Your blood pressure was low in the ED and you were confused UTI and other acute problems were ruled out I think you had a "medication misadventure" and took too much losartan and/or clonidine because you have duplicate bottles Your son or grandson needs to go through your medication bottles and throw anything out that doesn't match your current med list They should fill your mediset every week for you When you go in for a primary care follow up, take all your medication bottles with you I increased your tamsulosin (flomax) to help shrink your prostate. The urologist should see you in a week in the office for another voiding trial to try to get the catheter out You can put mupirocin ointment on the tip of your penis three times a day for a week for the soreness. This is antibiotic ointment. STOP taking meds not on the list, including doxycycline and trimethoprim (antibiotics you don't need any more), oxycodone, or any other out of date medications Your losartan dose should be 100 mg (2 tabs) at bedtime Your clonidine dose should be 0.3 mg twice a day Home health nurse to help check medications and blood pressure, tinoco catheter care. PT and OT It was a pleasure taking care of you in the hospital, Sylvia Cobos MD Pending Studies at Discharge: No Stand-Alone Forms: My [facility], Smoking Cessation Medications and DC Order Prescriptions: New tamsulosin 0.4 mg Capsule 0.8 mg PO HS Qty: 60 0RF mupirocin 2 % Ointment 1 applic EXT TID Qty: 15 0RF Rx Instructions: apply to urethra at catheter site for 1 week finasteride 5 mg tablet 5 mg PO DAILY Qty: 1 0RF atorvastatin 40 mg tablet 40 mg PO DAILY Qty: 30 0RF levothyroxine 100 mcg tablet 100 mcg PO DAILY Qty: 30 0RF Continued phenobarbital 32.4 mg tablet 97.2 mg PO HS clonidine HCl 0.3 mg Tablet 0.3 mg PO BID Qty: 60 0RF fluocinonide 0.05 % cream 1 applic TOPICAL DIRECTED ergocalciferol (vitamin D2) 1,250 mcg (50,000 unit) Capsule 1,250 mcg PO Q14D Rx Instructions: 50,000 units orally Every other week- take with heaviest meal of the day acetaminophen 325 mg Tablet 650 mg PO Q4H PRN (Reason: fever or pain) Qty: 0 0RF polyethylene glycol 3350 [Miralax] 17 gram Powder In Packet 17 g PO DAILY PRNQty: 0 0RF losartan 50 mg tablet 100 mg PO HS Qty: 0 0RF Rx Instructions: fill history 12/22 has 50 mg po daily for 90 day supply Discontinued levothyroxine 100 mcg tablet 100 mcg PO QAM Qty: 90 3RF furosemide 40 mg Tablet 40 mg PO QAM Qty: 0 0RF potassium chloride 20 mEq Tablet,Er Particles/Crystals 20 meq PO QAM Qty: 0 0RF simvastatin 10 mg Tablet 10 mg PO HS Qty: 0 0RF Rx Instructions: No fill history available 10 mg po hs tamsulosin 0.4 mg capsule 0.4 mg PO HS Qty: 0 0RF Rx Instructions: 0.4 mg po hs last filled 08/09/23 for 90 day supply Discharge Orders: Discharge Order (Routine); Ordered 03/26/24 Ordered By: Sylvia Cobos Admission Data Admit Date/Time: 03/23/24 15:53 Attending Provider: Sylvia Cobos Admit Provider: Landry Bell Primary Care Provider: Sae Gallegos V. Other Providers: Landry Bell; Marquise Whitt; [place] Other Interventions: Discharge Summary Assessment (RN) Last Done: 03/26/24 14:38 Hospital Stay Data Consultations 03/23/24 15:03 ED Decision to Admit Stat 03/23/24 18:23 Consult Urology Routine Diagnostic Imagining Performed 03/23/24 12:29 CT head/brain wo con Stat Pending Results Patient Have Any Pending Studies at Discharge: No Discharge Instructions Given to Patient (Per Discharging Provider) Your blood pressure was low in the ED and you were confused UTI and other acute problems were ruled out I think you had a "medication misadventure" and took too much losartan and/or clonidine because you have duplicate bottles Your son or grandson needs to go through your medication bottles and throw anything out that doesn't match your current med list They should fill your mediset every week for you When you go in for a primary care follow up, take all your medication bottles with you I increased your tamsulosin (flomax) to help shrink your prostate. The urologist should see you in a week in the office for another voiding trial to try to get the catheter out You can put mupirocin ointment on the tip of your penis three times a day for a week for the soreness. This is antibiotic ointment. STOP taking meds not on the list, including doxycycline and trimethoprim (antibiotics you don't need any more), oxycodone, or any other out of date medications Your losartan dose should be 100 mg (2 tabs) at bedtime Your clonidine dose should be 0.3 mg twice a day Home health nurse to help check medications and blood pressure, tinoco catheter care. PT and OT It was a pleasure taking care of you in the hospital, Sylvia Cobos MD Total Time Total Time Spent Total Time Spent (In Minutes): I personally spent: 45 minutes today on clinical care activities including: reviewing chart notes and vital signs discussion with adult care provider examining and counseling the patient counseling the patient's family writing orders, prescriptions, discharge instructions documentation Coding Level of Care Code 43799 INP/OBS DISCH >30 MIN Diagnoses Metabolic encephalopathy G93.41 BPH w urinary obs/LUTS N40.1; N13.8 Seizure disorder G40.909 Sleep apnea G47.30 CKD (chronic kidney disease) N18.9 Venous stasis I87.8
== END 2024-03-26 14:56 | disposition home or self-care (01) | DRG 917 ==
LOC: ED 12:18 → EDINP 15:53 → SUATTDRO 15:53 → 3W 18:23
DX: I44.0 Atrioventricular block, first degree; N39.0 Urinary tract infection, site not specified; Z79.890 Hormone replacement therapy; T46.5X1A Poisoning by other antihypertensive drugs, accidental (unintentional), initial encounter; T46.4X1A Poisoning by angiotensin-converting-enzyme inhibitors, accidental (unintentional), initial encounter; G40.909 Epilepsy, unspecified, not intractable, without status epilepticus; N18.9 Chronic kidney disease, unspecified; G47.33 Obstructive sleep apnea (adult) (pediatric); N40.1 Benign prostatic hyperplasia with lower urinary tract symptoms; E78.5 Hyperlipidemia, unspecified; I95.89 Other hypotension; Z88.8 Allergy status to other drugs, medicaments and biological substances; G92.8 Other toxic encephalopathy; I12.9 Hypertensive chronic kidney disease with stage 1 through stage 4 chronic kidney disease, or unspecified chronic kidney disease; D64.9 Anemia, unspecified; Z87.891 Personal history of nicotine dependence; Z96.642 Presence of left artificial hip joint